=== PATIENT | male | born 1970 | race Caucasian/White ===

== ENCOUNTER 2017-10-28 04:50 | Emergency (ER) | payer OTHER, SELFPAY ==
[2017-10-28 04:51] VITALS: BP 206/110; PULSE 100; RESP 18; TEMP 36.6; O2SAT 99; BMI 32.2
--- NOTE | 2017-10-28 05:07 | CT_ITS ---
STUDY: CT ABDOMEN AND PELVIS WITH CONTRAST REASON FOR EXAM: Male, 46 years old. Back pain for 2 weeks. Right-sided abdominal pain. RADIATION DOSAGE (If Supplied By Facility): CTDIvol = ( 19.26 ) mGy, DLP = ( 1219.45 ) mGycm TECHNIQUE: Transaxial images were obtained from the dome of the diaphragm to the symphysis pubis without oral contrast. 100ml ml of Isovue 300 contrast was administered. Sagittal and coronal images were reconstructed. Individualized dose optimization techniques were used for this CT. COMPARISON: August 16, 2017. Right upper quadrant ultrasound October 07, 2017. FINDINGS: Calcified right lower lobe lung nodule. The visualized portions of the heart are within normal limits. Small hiatal hernia. Stable enhancing 1.6 cm nodule along the margin lateral segment left lobe of the liver unchanged very suggestive of a hemangioma, axial image 25 series 2. Evaluation of liver attenuation is limited without delayed contrast-enhanced images or noncontrast enhanced images Normal gallbladder and extrahepatic biliary system. There are multiple benign calcified granulomata of the spleen. Normal pancreas. Normal bilateral adrenal glands. Normal right kidney. Normal left kidney. Normal visualized stomach. Normal small intestine. Normal colon. There are surgical clips in the region of the appendix suggestive of prior appendectomy. There is atherosclerotic calcification of the abdominal aorta, without a demonstrated aneurysm. Normal inferior vena cava. Normal retroperitoneum. Normal urinary bladder. Prostate gland not enlarged. Vas deferens calcifications. Normal abdominal wall. Osseous structures are unremarkable. No severe spinal stenosis or neural foramina narrowing. CT/Abdomen/Pelvis WITH Contrast IMPRESSION: No acute findings in the abdomen or pelvis. Old granulomatous disease. Probable hemangioma left lobe of liver. This can be followed with ultrasound in 6 months. If a more definitive diagnosis is clinically warranted recommend either CT or MRI with contrast using hemangioma protocol. No findings to account for right-sided abdominal pain. No significant abnormalities in the lumbar spine. Electronically Signed: Ulises Butterfield MD at 6:41 EST , Service support ,
--- NOTE | 2017-10-28 05:09 | ED.VISSUMM ---
- ER Visit Summary Date of Service: 10/28/17 Chief Complaint: [Back pain right abdominal pain] History of Present Illness: The patient is a 46 M [who presents the emergency department with low back pain radiating into his tailbone. Started 2 weeks ago. It is continually getting worse. He states it radiates around to the right side. No fevers or chills. It is worse with movement. He rates it as severe. Additionally he states that he has had 2 days of black loose stool about 4 episodes yesterday and 5 episodes today. No lightheadedness or dizziness. No chest pain or shortness of breath. No fevers or chills. He does feel nauseated. He states that he does not have a doctor at this time. He does state that he is taking all his medications.] Physical Examination: [] Blood pressure 206/110 heart rate 100 respiratory rate 1899% on room air temperature 98?F WN WD NAD PERRL EOMI MMM NECK supple and nontender, no masses RRR no murmur rub or gallop, no peripheral edema, symmetric radial pulses CTAB no respiratory distress ABDOMEN is soft tenderness to palpation in the right upper and right lower quadrant, normal bowel sounds, no distension, no rebound or guarding Back is normal upon inspection but he has does have tenderness at L1 as well as L5-S1, he is neurovascularly intact with normal strength and sensation and no distal skin changes Rectal exam shows light brown stool there is no tenderness or masses there is no melena or blood SKIN is warm and dry no rashes Alert and Oriented x3, CN II-XII in tact, no motor or sensory deficits, gait normal No lymphadenopathy Test Results: [] Emergency Department Course and Treatment: [Patient has elevated blood sugar at 237. Creatinine is mildly elevated at 1.3 which is around the patient's baseline. Hemoccult for blood was negative. Urine was normal. CT of the abdomen and pelvis showed no acute process. He did have likely a hemangioma in the liver recommended 6 month follow-up. The patient's blood pressure improved to 176/90. He states that he is compliant with his lisinopril and HCTZ. I will add amlodipine 5 mg. He was given precautions for which to return. He continued to complain of pain after Toradol Phenergan and Benadryl. He does have a care plan here that suggests he should not have narcotics except for acute verifiable pain. He was given 1 pill with Tylenol with codeine. He was given precautions for which to return and encouraged to follow-up with a primary care physician] Treatment Plan: [] Disposition: [Discharge] Impression: [1. Acute on chronic back pain 2. Abdominal pain 3. Uncontrolled hypertension] This note was generated with [employer] dictation software. It may contain incorrect words, spelling, and punctuation that were not noted in review of the chart prior to signing ED Disposition - Plan for ED Patient: Chief Complaint: Back Referrals: Care Physician,No Primary [Primary Care Provider] -
[2017-10-28] MEDS: DiphenhydrAMINE 50 MG/ML Syringe 25 MG IV (05:17)
[2017-10-28 05:22] LABS: Absolute Neutrophil Count 2.8 X10^3/uL (2.0-7.7); Basophil# 0.03 X10^3/uL; Basophil% 0.6 % (0-1); Eosinophil# 0.12 X10^3/uL; Eosinophils% 2.6 % (0-5); Hematocrit 36.4 % (40-54); Hemoglobin 11.9 g/dl (13.0-16.5); Lymphocyte % 32.5 % (19-41); Mean Corp Hgb Conc 32.7 g/gl (32-36); Mean Corpuscular Volume 88.6 fL (80-94); Monocyte# 0.17 X10^3/uL; Monocyte% 3.7 % (0-10); Neutrophil # 2.79 X10^3/uL (2.7-7.7); Neutrophil % 60.4 % (47-70); Platelet Count 239 K/mm3 (150-450); RBC Distribution Width CV 15.4 % (11.6-14.6); RBC Distribution Width SD 49.6 fl (35.1-43.9); Red Blood Count 4.11 M/mm3 (4.6-6.2); White Blood Count 4.6 K/mm3 (4.4-11.0)
[2017-10-28] MEDS: Ketorolac 30 MG/ML Syringe 15 MG IV (05:26)
[2017-10-28 05:29] LABS: POSITIVE COUNT NO; POSITIVE DIFFERENTIAL NO; POSITIVE MORPHOLOGY NO
[2017-10-28 05:35] LABS: ALB/GLOB Ratio 0.8 RATIO (0.9-2.4); AST(SGOT) 8 U/L (15-37); Alanine Aminotransfer ALT/SGPT 22 U/L (16-61); Albumin, Serum 2.7 g/dL (3.2-5.0); Alkaline Phosphatase 54 U/L (45-117); Anion Gap 11 (5-15); BUN 16 mg/dL (7-18); BUN/Creat Ratio 12.1 RATIO (10-20); Calcium,Total 8.4 mg/dL (8.5-10.1); Chloride 106 mmol/L (98-107); Creatinine, Serum 1.32 mg/dL (0.70-1.30); EST Glomerular Filtration Rate 61 mL/min (>60); Est Glom Filt Rate - Afr Amer 74 mL/min (>60); Estimated Creatinine Clearance 72.89 ml/min; Globulin 3.5 g/dL (2.2-4.2); Glucose 237 mg/dL (74-106); Lipase 123 U/L (73-393); Potassium 3.5 mmol/L (3.5-5.1); Protein, Total 6.2 g/dL (6.4-8.2); Sodium Level 139 mmol/L (136-145)
[2017-10-28] MEDS: Labetalol 20 MG/4 ML Vial 10 MG IV (05:59)
[2017-10-28 06:12] VITALS: BP 178/91
[2017-10-28 06:12] LABS: Mucous, Urine 0 SEEN /hpf (<or=2+); Red Blood Cells-Urine 0 SEEN /hpf (0-5); White Blood Cells 0 SEEN /hpf (0-5)
[2017-10-28 06:16] LABS: Color, Urine Yellow (Yellow); Glucose, Dipstick 250 mg/dl (Normal); Ketone-Dipstick Negative (Negative); Leukocyte Esterase-Dipstick Negative /ul (Negative); Nitrite-Dipstick Negative (Negative); Occult Blood-Urine 25 /ul (Negative); Protein-Dipstick 500 mg/dl (Negative); Urine Bilirubin Dipstick Negative (Negative); Urine Clarity Clear (Clear); Urine Urobilinogen Normal (Normal)
[2017-10-28 06:35] LABS: Bacteria RARE /hpf (None Seen); Squamous Epithelial Cells - UA 0-5 SEEN /hpf (0-5)
[2017-10-28 06:40] VITALS: BP 176/90; PULSE 86; RESP 18; O2SAT 98
--- NOTE | 2017-10-28 07:02 | ED.DEP ---
ED Disposition - Plan for ED Patient: Chief Complaint: Back Instructions: ED Flank Pain Uncertain Cause, ED Hypertension Conf Out Of Control Prescriptions: Amlodipine [Norvasc] 5 mg PO DAILY #30 tablet Referrals: Isaac Bonilla MD [STAFF PHYSICIAN] - 3-5 Days
[2017-10-28] MEDS: Acetaminophen/Codeine #3 Tablet 1 TABLET PO (07:21)
[2017-10-28 07:24] VITALS: BP 177/100; PULSE 61; RESP 15; O2SAT 98
== END 2017-10-28 07:25 | disposition home or self-care (01) ==
PROVIDERS: Emergency Provider Emergency Medicine
DX: G89.29 Other chronic pain (principal); M54.9 Dorsalgia, unspecified; R10.9 Unspecified abdominal pain; I10 Essential (primary) hypertension; E66.9 Obesity, unspecified; R19.7 Diarrhea, unspecified; E11.9 Type 2 diabetes mellitus without complications; Z72.0 Tobacco use
CPT/HCPCS: 74177; 80053; 81001; 82274; 83690; 85025; 99285; Q9967; A4216

== ENCOUNTER 2018-02-04 18:01 | Emergency (ER) | payer MEDICAID, OTHER, SELFPAY ==
[2018-02-04 18:06] VITALS: BP 127/81; PULSE 92; RESP 22; O2SAT 98; BMI 28.5
--- NOTE | 2018-02-04 18:16 | RAD_ITS ---
STUDY: X-RAY CHEST REASON FOR EXAM: Male, 47 years old. Chest pain TECHNIQUE: Single AP portable view of the chest. COMPARISON: 01/17/2017 FINDINGS: The lungs are clear and expanded. There is no demonstrated pleural abnormality. Normal size heart. Normal mediastinum and [place]. Normal visualized pulmonary arteries. Normal visualized aortic arch and descending thoracic aorta. Normal visualized thoracic spine. Normal visualized ribs, clavicles, and shoulders. There is no demonstrated abnormality of the visualized soft tissue structures of the upper abdomen. RAD/Chest 1 View (Portable) IMPRESSION: Normal x-ray examination of the chest. Electronically Signed: Ludwig Gtz DO at 19:12 EDT Tel , Service support ,
--- NOTE | 2018-02-04 18:16 | EKG12_ITS ---
Test Reason : CP Blood Pressure : / mmHG Vent. Rate : 096 BPM Atrial Rate : 096 BPM P-R Int : 140 ms QRS Dur : 088 ms QT Int : 346 ms P-R-T Axes : 073 036 077 degrees QTc Int : 437 ms Normal sinus rhythm Normal ECG When compared with ECG of 24-DEC-2015 15:56, No significant change was found Confirmed by CJ ROGER, LOU ([id number]), editor producer ARLETH BRIDGES ([id number]) on 02/09/2018 3:25:46 PM Referred By: DENNIS Confirmed By:LOU CORONA MD
[2018-02-04 18:29] VITALS: O2SAT 100
[2018-02-04 18:36] LABS: Absolute Lymphocyte Count 1.77 X10^3/ul (0.83-4.51); Basophil# 0.04 X10^3/uL; Basophil% 0.6 % (0-1); Eosinophil# 0.17 X10^3/uL; Eosinophils% 2.7 % (0-5); Hematocrit 34.2 % (40-54); Hemoglobin 11.9 g/dl (13.0-16.5); Lymphocyte # 1.77 X10^3/ul (4.0); Lymphocyte % 28.5 % (19-41); Mean Corp Hgb Conc 34.8 g/gl (32-36); Mean Corpuscular Hgb 32.4 pg (27.0-32.0); Mean Corpuscular Volume 93.2 fL (80-94); Monocyte# 0.24 X10^3/uL; Monocyte% 3.9 % (0-10); Neutrophil # 3.99 X10^3/uL (2.7-7.7); Neutrophil % 64.1 % (47-70); Platelet Count 247 K/mm3 (150-450); RBC Distribution Width CV 12.7 % (11.6-14.6); RBC Distribution Width SD 42.9 fl (35.1-43.9); Red Blood Count 3.67 M/mm3 (4.6-6.2); White Blood Count 6.2 K/mm3 (4.4-11.0)
[2018-02-04 18:43] LABS: POSITIVE COUNT NO; POSITIVE DIFFERENTIAL NO; POSITIVE MORPHOLOGY NO
[2018-02-04] MEDS: Ondansetron 4 MG/2 ML Vial IV (19:03)
[2018-02-04] MEDS: Morphine 4 MG/ML Syringe 6 MG IV (19:13)
[2018-02-04 19:35] LABS: Lipase 450 U/L (73-393)
[2018-02-04 19:36] LABS: Anion Gap 10 (5-15); BUN 15 mg/dL (7-18); BUN/Creat Ratio 11.7 RATIO (10-20); Calcium,Total 8.1 mg/dL (8.5-10.1); Chloride 106 mmol/L (98-107); Creatinine, Serum 1.28 mg/dL (0.70-1.30); EST Glomerular Filtration Rate 63 mL/min (>60); Est Glom Filt Rate - Afr Amer 77 mL/min (>60); Estimated Creatinine Clearance 74.35 ml/min; Glucose 200 mg/dL (74-106); Potassium 3.7 mmol/L (3.5-5.1); Sodium Level 142 mmol/L (136-145)
[2018-02-04 19:57] LABS: AST(SGOT) 17 U/L (15-37); Alanine Aminotransfer ALT/SGPT 22 U/L (16-61); Albumin, Serum 3.1 g/dL (3.2-5.0); Alkaline Phosphatase 50 U/L (45-117); Bilirubin, Direct < 0.05 mg/dL (0.00-0.30); Globulin 3.1 g/dL (2.2-4.2); Protein, Total 6.2 g/dL (6.4-8.2)
[2018-02-04 20:06] VITALS: BP 166/84; PULSE 81; RESP 16; O2SAT 100
--- NOTE | 2018-02-04 20:07 | ED.DEP ---
ED Disposition - Plan for ED Patient: Disposition: Home or Assisted Living Chief Complaint: Chest Pain Instructions: ED Abdominal Pain Unkn Cause Prescriptions: Hydrocodone/Acetaminophen [[place] 5-325 Tablet] 1 ea PO Q4H PRN PRN #10 tab PRN Reason: Pain Referrals: John Jacome MD [Primary Care Provider] - 1-2 Days if not improving Additional Instructions: Follow up with your Dr. Return if feeling worse or unable to hold fluids down [place] for pain
[2018-02-04] MEDS: HYDROcodone Bitartrate/Apap 5/325 Tablet PO (20:13)
--- NOTE | 2018-02-04 20:14 | DCINST.ED_ITS ---
ED Disposition - Plan for ED Patient: Disposition: Home or Assisted Living Chief Complaint: Chest Pain Instructions: ED Abdominal Pain Unkn Cause Prescriptions: Hydrocodone/Acetaminophen [[place] 5-325 Tablet] 1 ea PO Q4H PRN PRN #10 tab PRN Reason: Pain Referrals: John Jacome MD [Primary Care Provider] - 1-2 Days if not improving Additional Instructions: Follow up with your Dr. Return if feeling worse or unable to hold fluids down [place] for pain
[2018-02-04 20:18] VITALS: BP 166/84; PULSE 81; RESP 16; O2SAT 99
--- NOTE | 2018-02-05 00:07 | ED.VISSUMM ---
- ER Visit Summary Date of Service: 02/05/18 Chief Complaint: Chest pain History of Present Illness: The patient is a 47 M without any significant prior cardiac history. He does have a history of diabetes, hypertension, elevated cholesterol and COPD PD. He states he has had pancreatitis before. Patient states he has had epigastric abdominal and lower chest pain that started earlier today. Associated nausea and vomiting ?5. He denies any hematemesis or melena. No fever. He has never had a DVT or PE. He denies any recent travel, surgery, mobilization or any calf or leg pain or swelling. He believes this is his pancreatitis. Physical Examination: Middle-aged male. Vital signs are stable. He does not look septic or toxic. HEENT exam unremarkable moist wheeze members. Neck nontender. Lungs clear to auscultation bilaterally. Heart regular rate and rhythm no murmur. Abdomen soft with mild epigastric tenderness. No rebound, guarding or rigidity. No right upper or right lower quadrant tenderness. No Gomez sign or McBurney's point tenderness. No hernias or masses no signs of obstruction. No distention. Moving all 4 extremities. Neurovascular intact. Calves nontender no edema nor cords. Test Results: CBC showed chronic anemia with a hemoglobin 11. Normal white count. BMP unremarkable glucose 200. Normal creatinine and gap. Liver enzymes normal. Lipase above normal at 450. He has had other lipase is at high before. Troponin normal. EKG sinus rhythm rate of 96 with no acute signs of [place] or ischemia. Chest x-ray chronic changes no acute process read both by myself and radiologist. Emergency Department Course and Treatment: Patient was brought in by squad. The squad gave him sublingual nitro and aspirin which he said gave him little no relief. He was treated in the emergency department morphine and Zofran and feels and looks much better on repeat exam in 2011. Abdomen is benign and there are no pulsatile masses or peritoneal signs. He has equal and symmetrical femoral pulses. Treatment Plan: Discharge. Disposition: Discharge Impression: Acute epigastric abdominal pain uncertain etiology. History of pancreatitis This note was generated with [employer] dictation software. It may contain incorrect words, spelling, and punctuation that were not noted in review of the chart prior to signing ED Disposition - Plan for ED Patient: Disposition: Home or Assisted Living Chief Complaint: Chest Pain Instructions: ED Abdominal Pain Unkn Cause Prescriptions: Hydrocodone/Acetaminophen [[place] 5-325 Tablet] 1 ea PO Q4H PRN PRN #10 tab PRN Reason: Pain Referrals: John Jacome MD [Primary Care Provider] - 1-2 Days if not improving Additional Instructions: Follow up with your Dr. Return if feeling worse or unable to hold fluids down [place] for pain
--- NOTE | 2018-02-05 00:11 | ED.DCSUM_ITS ---
- ER Visit Summary Date of Service: 02/05/18 Chief Complaint: Chest pain History of Present Illness: The patient is a 47 M without any significant prior cardiac history. He does have a history of diabetes, hypertension, elevated cholesterol and COPD PD. He states he has had pancreatitis before. Patient states he has had epigastric abdominal and lower chest pain that started earlier today. Associated nausea and vomiting ?5. He denies any hematemesis or melena. No fever. He has never had a DVT or PE. He denies any recent travel, surgery, mobilization or any calf or leg pain or swelling. He believes this is his pancreatitis. Physical Examination: Middle-aged male. Vital signs are stable. He does not look septic or toxic. HEENT exam unremarkable moist wheeze members. Neck nontender. Lungs clear to auscultation bilaterally. Heart regular rate and rhythm no murmur. Abdomen soft with mild epigastric tenderness. No rebound, guarding or rigidity. No right upper or right lower quadrant tenderness. No Gomez sign or McBurney's point tenderness. No hernias or masses no signs of obstruction. No distention. Moving all 4 extremities. Neurovascular intact. Calves nontender no edema nor cords. Test Results: CBC showed chronic anemia with a hemoglobin 11. Normal white count. BMP unremarkable glucose 200. Normal creatinine and gap. Liver enzymes normal. Lipase above normal at 450. He has had other lipase is at high before. Troponin normal. EKG sinus rhythm rate of 96 with no acute signs of [place] or ischemia. Chest x-ray chronic changes no acute process read both by myself and radiologist. Emergency Department Course and Treatment: Patient was brought in by squad. The squad gave him sublingual nitro and aspirin which he said gave him little no relief. He was treated in the emergency department morphine and Zofran and feels and looks much better on repeat exam in 2011. Abdomen is benign and there are no pulsatile masses or peritoneal signs. He has equal and symmetrical femoral pulses. Treatment Plan: Discharge. Disposition: Discharge Impression: Acute epigastric abdominal pain uncertain etiology. History of pancreatitis This note was generated with [employer] dictation software. It may contain incorrect words, spelling, and punctuation that were not noted in review of the chart prior to signing ED Disposition - Plan for ED Patient: Disposition: Home or Assisted Living Chief Complaint: Chest Pain Instructions: ED Abdominal Pain Unkn Cause Prescriptions: Hydrocodone/Acetaminophen [[place] 5-325 Tablet] 1 ea PO Q4H PRN PRN #10 tab PRN Reason: Pain Referrals: John Jacome MD [Primary Care Provider] - 1-2 Days if not improving Additional Instructions: Follow up with your Dr. Return if feeling worse or unable to hold fluids down [place] for pain
== END 2018-02-04 20:20 | disposition home or self-care (01) ==
PROVIDERS: Emergency Provider Emergency Medicine; Family Provider Internal Medicine; PCP Internal Medicine
DX: R07.9 Chest pain, unspecified (principal); R10.13 Epigastric pain; Z87.19 Personal history of other diseases of the digestive system; E11.9 Type 2 diabetes mellitus without complications; I10 Essential (primary) hypertension; E78.00 Pure hypercholesterolemia, unspecified; J44.9 Chronic obstructive pulmonary disease, unspecified; I25.10 Atherosclerotic heart disease of native coronary artery without angina pectoris; Z72.0 Tobacco use
CPT/HCPCS: 71045; 80048; 80076; 83690; 84484; 85025; 93005; 99285; J2405

== ENCOUNTER 2018-04-26 21:22 | Emergency (ER) | payer MEDICAID, SELFPAY ==
[2018-04-26 21:22] VITALS: BP 155/86; PULSE 98; RESP 20; TEMP 37; O2SAT 97; BMI 32.3
[2018-04-26] MEDS: 0.9% Normal Saline 1,000 ML 1000 ML IV (22:18)
[2018-04-26] MEDS: Morphine 4 MG/ML Syringe IV (22:18)
[2018-04-26] MEDS: Ondansetron 4 MG/2 ML Vial IV (22:18)
[2018-04-26 22:19] LABS: Absolute Neutrophil Count 3.9 X10^3/uL (2.0-7.7); Basophil# 0.03 X10^3/uL; Basophil% 0.5 % (0-1); Eosinophil# 0.24 X10^3/uL; Eosinophils% 3.7 % (0-5); Hemoglobin 12.3 g/dl (13.0-16.5); Lymphocyte % 29.5 % (19-41); Mean Corp Hgb Conc 35.1 g/gl (32-36); Mean Corpuscular Hgb 32.2 pg (27.0-32.0); Mean Corpuscular Volume 91.6 fL (80-94); Mean Platelet Vol. 9.5 fl (6.2-12.0); Monocyte# 0.37 X10^3/uL; Monocyte% 5.8 % (0-10); Neutrophil # 3.88 X10^3/uL (2.7-7.7); Neutrophil % 60.3 % (47-70); Platelet Count 259 K/mm3 (150-450); RBC Distribution Width CV 12.3 % (11.6-14.6); RBC Distribution Width SD 40.2 fl (35.1-43.9); Red Blood Count 3.82 M/mm3 (4.6-6.2); White Blood Count 6.4 K/mm3 (4.4-11.0)
[2018-04-26 22:20] LABS: POSITIVE COUNT NO; POSITIVE DIFFERENTIAL NO; POSITIVE MORPHOLOGY NO
[2018-04-26 22:36] LABS: AST(SGOT) 27 U/L (15-37); Alanine Aminotransfer ALT/SGPT 32 U/L (16-61); Albumin, Serum 3.5 g/dL (3.2-5.0); Alkaline Phosphatase 46 U/L (45-117); Anion Gap 7 (5-15); BUN 22 mg/dL (7-18); BUN/Creat Ratio 10.9 RATIO (10-20); Calcium,Total 8.7 mg/dL (8.5-10.1); Chloride 108 mmol/L (98-107); Creatinine, Serum 2.01 mg/dL (0.70-1.30); EST Glomerular Filtration Rate 38 mL/min (>60); Est Glom Filt Rate - Afr Amer 46 mL/min (>60); Estimated Creatinine Clearance 47.35 ml/min; Globulin 3.6 g/dL (2.2-4.2); Glucose 175 mg/dL (74-106); Lipase 208 U/L (73-393); Potassium 4.5 mmol/L (3.5-5.1); Protein, Total 7.1 g/dL (6.4-8.2); Sodium Level 141 mmol/L (136-145)
--- NOTE | 2018-04-26 23:00 | ED.VISSUMM ---
- ER Visit Summary Date of Service: 04/26/18 Chief Complaint: Epigastric pain. History of Present Illness: The patient is a 47 M with chronic pancreatitis presents with similar symptoms today. He has had some nausea and vomiting. No fever or chills. The pain does radiate to his back. He has no lower abdominal pain no chest pain shortness of breath. The pain is moderate and achy. Physical Examination: Not appear in acute distress. Moist mucous membranes, no obvious facial deformity No C-spine tenderness supple neck. Regular rate and rhythm without any obvious murmurs Clear lungs bilaterally speaking in full sentences without any obvious respiratory distress Abdomen soft and tender in the epigastrium no guarding or rebound Moves all extremities without any difficulty or pain. Skin does not show any obvious rashes or lesions, no trauma. Alert oriented ?3 with no gross focal deficit Emergency Department Course and Treatment: [Patient has a normal lipase. He received IV fluids antiemetics and analgesia he will be discharged in stable condition with reassurance.] Impression: [Chronic pancreatitis] This note was generated with [employer] dictation software. It may contain incorrect words, spelling, and punctuation that were not noted in review of the chart prior to signing ED Disposition - Plan for ED Patient: Disposition: Home or Assisted Living Chief Complaint: Abd Pain Instructions: ED Abdominal Pain Unkn Cause Prescriptions: Ondansetron [Zofran Odt] 4 mg PO Q8H PRN PRN #10 tab PRN Reason: Nausea Referrals: John Jacome MD [Primary Care Provider] - 3-5 Days
[2018-04-26] MEDS: oxyCODONE 5 MG Tablet PO (23:22)
[2018-04-26 23:27] VITALS: PULSE 72; RESP 16; O2SAT 97
== END 2018-04-26 23:27 | disposition home or self-care (01) ==
PROVIDERS: Emergency Provider Emergency Medicine; Family Provider Internal Medicine; PCP Internal Medicine
DX: K86.1 Other chronic pancreatitis (principal); E11.9 Type 2 diabetes mellitus without complications; E78.00 Pure hypercholesterolemia, unspecified; Z72.0 Tobacco use
CPT/HCPCS: 80053; 83690; 85025; 99285; J2405

== ENCOUNTER 2018-05-26 20:27 | Emergency (ER) | payer OTHER, SELFPAY ==
[2018-05-26 20:28] VITALS: BP 162/74; PULSE 99; RESP 15; TEMP 37; O2SAT 97; BMI 29.9
[2018-05-26 21:56] LABS: Absolute Lymphocyte Count 1.76 X10^3/ul (0.83-4.51); Absolute Neutrophil Count 2.8 X10^3/uL (2.0-7.7); Anion Gap 9 (5-15); BUN 20 mg/dL (7-18); BUN/Creat Ratio 11.6 RATIO (10-20); Basophil# 0.04 X10^3/uL; Basophil% 0.8 % (0-1); Calcium,Total 8.3 mg/dL (8.5-10.1); Chloride 108 mmol/L (98-107); Creatinine, Serum 1.72 mg/dL (0.70-1.30); EST Glomerular Filtration Rate 45 mL/min (>60); Eosinophil# 0.14 X10^3/uL; Eosinophils% 2.8 % (0-5); Est Glom Filt Rate - Afr Amer 55 mL/min (>60); Estimated Creatinine Clearance 55.33 ml/min; Glucose 264 mg/dL (74-106); Hematocrit 37.5 % (40-54); Hemoglobin 12.4 g/dl (13.0-16.5); Lymphocyte # 1.76 X10^3/ul (4.0); Lymphocyte % 35.8 % (19-41); Mean Corp Hgb Conc 33.1 g/gl (32-36); Mean Corpuscular Hgb 30.3 pg (27.0-32.0); Mean Corpuscular Volume 91.7 fL (80-94); Monocyte% 4.1 % (0-10); Neutrophil # 2.77 X10^3/uL (2.7-7.7); Neutrophil % 56.3 % (47-70); Platelet Count 259 K/mm3 (150-450); RBC Distribution Width CV 12.8 % (11.6-14.6); RBC Distribution Width SD 42.5 fl (35.1-43.9); Red Blood Count 4.09 M/mm3 (4.6-6.2); Sodium Level 138 mmol/L (136-145); White Blood Count 4.9 K/mm3 (4.4-11.0)
[2018-05-26 22:05] LABS: POSITIVE COUNT NO; POSITIVE DIFFERENTIAL NO; POSITIVE MORPHOLOGY NO
[2018-05-26] MEDS: 0.9% Normal Saline 1,000 ML 999 ML IV (23:04)
[2018-05-26] MEDS: HYDROmorphone 1 MG/ML Syringe IV (23:12)
[2018-05-26] MEDS: Ondansetron 4 MG/2 ML Vial IV (23:12)
[2018-05-26 23:21] VITALS: BP 186/79; PULSE 82; RESP 18; O2SAT 99
[2018-05-26 23:31] LABS: Lipase 283 U/L (73-393)
[2018-05-26 23:53] LABS: AST(SGOT) 23 U/L (15-37); Alanine Aminotransfer ALT/SGPT 32 U/L (16-61); Albumin, Serum 3.3 g/dL (3.2-5.0); Alkaline Phosphatase 45 U/L (45-117); Bilirubin, Direct < 0.05 mg/dL (0.00-0.30); Globulin 3.3 g/dL (2.2-4.2); Protein, Total 6.6 g/dL (6.4-8.2)
[2018-05-27 00:09] LABS: Bacteria 0 SEEN /hpf (None Seen); Mucous, Urine 0 SEEN /hpf (<or=2+); Squamous Epithelial Cells - UA 0 SEEN /hpf (0-5); White Blood Cells 0 SEEN /hpf (0-5)
[2018-05-27 00:16] LABS: Color, Urine Yellow (Yellow); Glucose, Dipstick 100 mg/dl (Normal); Ketone-Dipstick Negative (Negative); Leukocyte Esterase-Dipstick Negative /ul (Negative); Nitrite-Dipstick Negative (Negative); Occult Blood-Urine 25 /ul (Negative); Protein-Dipstick 500 mg/dl (Negative); Specific Gravity, Urine 1.015 (1.002-1.030); Urine Bilirubin Dipstick Negative (Negative); Urine Clarity Clear (Clear); Urine Urobilinogen Normal (Normal)
[2018-05-27 00:27] LABS: Red Blood Cells-Urine 0-5 SEEN /hpf (0-5)
--- NOTE | 2018-05-27 00:50 | ED.VISSUMM ---
- ER Visit Summary Date of Service: 05/27/18 Chief Complaint: [[place] pain] History of Present Illness: The patient is a 47 M [presents the emergency department complaint of abdominal pain and vomiting. Patient states he has been sick for the last 2 days. Patient's had some diarrhea off and on. Patient describes epigastric abdominal pain and thinks it is similar to his pain related to pancreatitis. Patient states that he has a history of chronic pancreatitis. Patient rates his pain an 8 out of 10 on arrival. He denies any fevers.] Patient has history of diabetes, hypertension, and high cholesterol. Patient has had an appendectomy. Patient denies urinary symptoms. Physical Examination: [HEENT-PERRLA, EOMI. Cranial nerves II through XII grossly intact. TMs clear. Mucous membranes moist. No adenopathy. Cardiovascular-regular rate and rhythm without murmur or ectopy Lungs-clear to auscultation, chest wall stable without crepitus or subcu emphysema Abdomen-normoactive bowel sounds, soft. Patient has tenderness over the epigastric region with some guarding. There is no rebound, rigidity, or perineal signs. Extremities-intact ?4, normal range of motion, normal pulses, atraumatic] Test Results: [CBC with differential obtained showed a white blood cell count of 4.9, hemoglobin 12, hematocrit 37, platelets 259. Chemistries unremarkable. Glucose was 264. BUN was 20 and creatinine was 1.72. Lipase was normal at 283. LFTs were normal. Urinalysis was normal. Without evidence for ketones.] Emergency Department Course and Treatment: Patient had an IV line established. Patient was medicated with Dilaudid 1 mg IV and Zofran 4 mg IV. Treatment Plan: [Patient will be given a prescription for [place] for pain and he has Phenergan at home for nausea.] Disposition: [Discharged home in stable condition] Impression: [Abdominal pain-suspect chronic pancreatitis] This note was generated with [employer] dictation software. It may contain incorrect words, spelling, and punctuation that were not noted in review of the chart prior to signing ED Disposition - Plan for ED Patient: Chief Complaint: Abd Pain Referrals: John Jacome MD [Primary Care Provider] -
--- NOTE | 2018-05-27 00:54 | ED.DEP ---
ED Disposition - Plan for ED Patient: Chief Complaint: Abd Pain Instructions: ED Abdominal Pain Unkn Cause Prescriptions: Hydrocodone Bitart/Apap 5-325 [[place] 5MG-325MG] 1 tab PO Q4H PRN PRN 2 Days #10 tab PRN Reason: Pain Referrals: John Jacome MD [Primary Care Provider] - 3-5 Days
[2018-05-27] MEDS: HYDROcodone Bitartrate/Apap 5/325 Tablet PO (01:05)
[2018-05-27 01:09] VITALS: BP 157/79; PULSE 78; RESP 16; O2SAT 97
== END 2018-05-27 01:12 | disposition home or self-care (01) ==
PROVIDERS: Emergency Provider Emergency Medicine; Family Provider Internal Medicine; PCP Internal Medicine
DX: R10.13 Epigastric pain (principal); R11.2 Nausea with vomiting, unspecified; E11.9 Type 2 diabetes mellitus without complications; I10 Essential (primary) hypertension; E78.00 Pure hypercholesterolemia, unspecified; Z87.19 Personal history of other diseases of the digestive system; Z90.49 Acquired absence of other specified parts of digestive tract; Z79.4 Long term (current) use of insulin; Z79.82 Long term (current) use of aspirin; Z79.899 Other long term (current) drug therapy; Z72.0 Tobacco use
CPT/HCPCS: 80048; 80076; 81001; 83690; 85025; 96361; 96374; 96375; 99285; J7030; A4216; J2405

== ENCOUNTER 2018-08-09 19:03 | Emergency (ER) | payer OTHER, SELFPAY ==
[2018-08-09 19:03] VITALS: BMI 32.2
[2018-08-09 19:04] VITALS: BP 157/81; PULSE 76; RESP 20; TEMP 36.7; O2SAT 100; BMI 33.7
[2018-08-09] MEDS: 0.9% Normal Saline 1,000 ML 1000 ML IV (19:35)
[2018-08-09] MEDS: HYDROmorphone 1 MG/ML Syringe 0.5 MG IV (19:35)
[2018-08-09] MEDS: Ondansetron 4 MG/2 ML Vial IV (19:35)
[2018-08-09 19:53] LABS: Absolute Lymphocyte Count 1.69 X10^3/ul (0.83-4.51); Absolute Neutrophil Count 3.6 X10^3/uL (2.0-7.7); Basophil# 0.03 X10^3/uL; Basophil% 0.5 % (0-1); Eosinophil# 0.08 X10^3/uL; Eosinophils% 1.4 % (0-5); Hematocrit 32.1 % (40-54); Hemoglobin 10.9 g/dl (13.0-16.5); Lymphocyte # 1.69 X10^3/ul (4.0); Lymphocyte % 29.4 % (19-41); Mean Corpuscular Volume 91.2 fL (80-94); Mean Platelet Vol. 10.2 fl (6.2-12.0); Monocyte% 5.2 % (0-10); Neutrophil # 3.63 X10^3/uL (2.7-7.7); Neutrophil % 63.3 % (47-70); Platelet Count 276 K/mm3 (150-450); RBC Distribution Width CV 12.7 % (11.6-14.6); RBC Distribution Width SD 41.2 fl (35.1-43.9); Red Blood Count 3.52 M/mm3 (4.6-6.2); White Blood Count 5.7 K/mm3 (4.4-11.0)
[2018-08-09 19:58] LABS: POSITIVE COUNT NO; POSITIVE DIFFERENTIAL NO; POSITIVE MORPHOLOGY NO
[2018-08-09 20:01] LABS: AST(SGOT) 77 U/L (15-37); Alanine Aminotransfer ALT/SGPT 80 U/L (16-61); Albumin, Serum 3.7 g/dL (3.2-5.0); Alkaline Phosphatase 42 U/L (45-117); Anion Gap 8 (5-15); BUN 32 mg/dL (7-18); BUN/Creat Ratio 13.7 RATIO (10-20); Bilirubin, Direct 0.14 mg/dL (0.00-0.30); Calcium,Total 8.1 mg/dL (8.5-10.1); Chloride 107 mmol/L (98-107); Creatinine, Serum 2.34 mg/dL (0.70-1.30); EST Glomerular Filtration Rate 32 mL/min (>60); Est Glom Filt Rate - Afr Amer 38 mL/min (>60); Estimated Creatinine Clearance 40.67 ml/min; Globulin 3.1 g/dL (2.2-4.2); Glucose 169 mg/dL (74-106); Lipase 165 U/L (73-393); Potassium 4.5 mmol/L (3.5-5.1); Protein, Total 6.8 g/dL (6.4-8.2); Sodium Level 137 mmol/L (136-145)
[2018-08-09] MEDS: HYDROmorphone 1 MG/ML Syringe IV (21:00)
--- NOTE | 2018-08-09 21:30 | ED.DCSUM_ITS ---
- ER Visit Summary Date of Service: 08/09/18 Chief Complaint: Abdominal pain, nausea, vomiting History of Present Illness: The patient is a 47 M with sudden onset epigastric pain with nausea and vomiting. Patient has history of chronic pancreatitis with similar flares, but states symptoms have been under good control for the last several months. He denies fever or chills. Physical Examination: Blood pressure is 157/81, otherwise vitals normal. Patient is doing upright in bed. He is appears uncomfortable but no acute distress. Head neck examination is unremarkable. Heart is regular rate and rhythm. Lung sounds are clear. Abdomen is soft with tenderness in the left upper quadrant. No guarding or rebound. Hypoactive bowel sounds are present throughout all 4 quadrants. Test Results: CBC was normal white count hemoglobin 10.9. Chemistry studies reveal BUN of 32 and creatinine of 2.34. This is slightly worse than his baseline. LFTs are significant for an AST is 77 and ALT of 80. Lipase is normal. Emergency Department Course and Treatment: Patient is given Dilaudid, Zofran, and IV fluids. On repeat evaluation patient's resting calmly. He was given ice chips. I did hang a second liter of fluid due to his bump in creatinine, but patient states that he has a well, does not want to wait for this infusion. He will be discharged with a prescription for Phenergan and a short course of [place]. He is given a note to return to work tomorrow. Treatment Plan: [] Disposition: Discharge Impression: 1. Epigastric pain 2. Vomiting, improved This note was generated with [employer] dictation software. It may contain incorrect words, spelling, and punctuation that were not noted in review of the chart prior to signing ED Disposition - Plan for ED Patient: Chief Complaint: Abd Pain Referrals: John Jacome MD [Primary Care Provider] -
[2018-08-09] MEDS: 0.9% Normal Saline 1,000 ML 999 ML IV (21:38)
[2018-08-09 21:43] VITALS: BP 129/74; PULSE 72
--- NOTE | 2018-08-09 21:51 | DCINST.ED_ITS ---
ED Disposition - Plan for ED Patient: Disposition: Home or Assisted Living Chief Complaint: Abd Pain Instructions: ED Epigastric Pain [facility] Prescriptions: Hydrocodone Bitart/[place]ap 5-325 [[place] 5MG-325MG] 1 tablet PO Q4H PRN PRN 2 Days #10 tablet PRN Reason: Pain Ondansetron [Zofran Odt] 4 mg PO Q8H PRN PRN #10 tablet PRN Reason: Nausea Referrals: John Jacome MD [Primary Care Provider] - 3-5 Days if not improving
== END 2018-08-09 22:05 | disposition home or self-care (01) ==
PROVIDERS: Emergency Provider Emergency Medicine; Family Provider Internal Medicine; PCP Internal Medicine
DX: R10.13 Epigastric pain (principal); R11.2 Nausea with vomiting, unspecified; E11.9 Type 2 diabetes mellitus without complications; I10 Essential (primary) hypertension; E78.00 Pure hypercholesterolemia, unspecified; Z72.0 Tobacco use; K86.1 Other chronic pancreatitis
CPT/HCPCS: 80048; 80076; 83690; 85025; 96361; 96374; 96375; 96376; 99283; J7030; A4216; J2405

== ENCOUNTER 2018-08-30 18:50 | Emergency (ER) | payer MEDICAID, SELFPAY ==
[2018-08-30 18:52] VITALS: BP 166/78; PULSE 82; RESP 16; TEMP 36.6; O2SAT 99; BMI 33.5
[2018-08-30] MEDS: morphine 8 MG/ML Syringe IV (19:10)
[2018-08-30] MEDS: 0.9% Normal Saline 1,000 ML 1000 ML IV (19:10)
[2018-08-30] MEDS: Ondansetron 4 MG/2 ML Vial IV (19:10)
[2018-08-30 19:15] LABS: Bacteria 0 SEEN /hpf (None Seen); Mucous, Urine 0 SEEN /hpf (<or=2+); Squamous Epithelial Cells - UA 0 SEEN /hpf (0-5)
--- NOTE | 2018-08-30 19:16 | CT_ITS ---
STUDY: CT ABDOMEN AND PELVIS WITHOUT CONTRAST REASON FOR EXAM: Male, 47 years old. Abdominal pain. RADIATION DOSAGE (If Supplied By Facility): CTDIvol = ( 14.71 ) mGy, DLP = ( 801.10 ) mGycm TECHNIQUE: Transaxial images were obtained from the dome of the diaphragm to the symphysis pubis without oral contrast, and without intravenous contrast. Sagittal and coronal images were reconstructed. Individualized dose optimization techniques were used for this CT. COMPARISON: January 16, 2015 and October 28, 2017 FINDINGS: There are stable bilateral pulmonary nodules that are predominantly calcified consistent with underlying granulomas. The visualized portions of the heart are within normal limits. There is a stable 1.4 cm round low-attenuation focus within the left hepatic lobe that likely reflects an underlying hemangioma. Normal gallbladder and extrahepatic biliary system. There are splenic granulomas. Normal pancreas. Normal bilateral adrenal glands. Normal right kidney. Normal left kidney. Normal visualized stomach. Normal small intestine. There are diverticula within the sigmoid colon. There are surgical clips in the region of the appendix consistent with a prior appendectomy. There is diffuse atherosclerotic calcification of the abdominal aorta, without a demonstrated aneurysm. Normal inferior vena cava. Normal retroperitoneum. Normal urinary bladder. Normal abdominal wall. There are diffuse degenerative changes of the visualized lumbar spine. CT/Abdomen/Pelvis without Cont IMPRESSION: No acute intra-abdominal process. Evidence of prior granulomatous disease. Atherosclerosis. Electronically Signed: Esperanza Richardson MD at 19:47 EST Tel , Service support ,
[2018-08-30 19:17] LABS: Absolute Lymphocyte Count 1.45 X10^3/ul (0.83-4.51); Absolute Neutrophil Count 3.1 X10^3/uL (2.0-7.7); Basophil# 0.03 X10^3/uL; Basophil% 0.6 % (0-1); Eosinophil# 0.12 X10^3/uL; Eosinophils% 2.4 % (0-5); Hematocrit 32.1 % (40-54); Lymphocyte # 1.45 X10^3/ul (4.0); Lymphocyte % 29.6 % (19-41); Mean Corp Hgb Conc 34.3 g/gl (32-36); Mean Corpuscular Hgb 31.6 pg (27.0-32.0); Mean Corpuscular Volume 92.2 fL (80-94); Mean Platelet Vol. 10.3 fl (6.2-12.0); Monocyte# 0.24 X10^3/uL; Monocyte% 4.9 % (0-10); Neutrophil # 3.06 X10^3/uL (2.7-7.7); Neutrophil % 62.5 % (47-70); Platelet Count 262 K/mm3 (150-450); RBC Distribution Width CV 12.6 % (11.6-14.6); RBC Distribution Width SD 41.4 fl (35.1-43.9); Red Blood Count 3.48 M/mm3 (4.6-6.2); White Blood Count 4.9 K/mm3 (4.4-11.0)
--- NOTE | 2018-08-30 19:19 | ED.VISSUMM ---
- ER Visit Summary Date of Service: 08/30/18 Chief Complaint: [] Left side abdominal pain history of pancreatitis History of Present Illness: The patient is a 47 M [] diabetes high cholesterol pancreatitis he began having typical exacerbation of left-sided abdominal pain he reports that his pancreatitis today he vomited multiple times he did not eat or drink that could have made him ill this is a typical pattern where he suddenly develops left upper abdominal pain begins to vomit he has not been around anyone who made him ill no sick contacts or food his bowel and bladder habits have been normal no fever or cough, has been seen by GI for this condition and he is indicates his symptoms are related to high cholesterol and diabetes Physical Examination: [] 166/78 82 afebrile General, no distress resting comfortably HEENT is generally unremarkable The neck is supple no adenopathy Cardiovascular, regular rate and rhythm Lungs, clear bilateral Abdomen, soft nontender injectable he complains of pain to the left side of the abdomen no rebound guarding organomegaly Extremities, no clubbing cyanosis or edema Neurologic, awake alert answering questions appropriately moving all 4 extremities he has had this multiple times he gets almost monthly by his reports nothing caused it today which is the typical pattern he will receive pain management IV fluid screening labs and CT Test Results: [] Emergency Department Course and Treatment: [] Patient's labs and CT are generally unremarkable for him his creatinine 1.9 this is near baseline it actually bounces around quite a bit he has been medicated he understands all the above he feels well for discharge home bland diet he will follow-up with his physicians and return for change in symptoms again this is an acute recurrent processes had he knows how to manage it and he will return for change in symptoms Treatment Plan: [] Disposition: [] Home stable Impression: [] Acute recurrent abdominal pain This note was generated with [employer] dictation software. It may contain incorrect words, spelling, and punctuation that were not noted in review of the chart prior to signing ED Disposition - Plan for ED Patient: Chief Complaint: Abd Pain Referrals: John Jacome MD [Primary Care Provider] -
[2018-08-30 19:24] LABS: POSITIVE COUNT NO; POSITIVE DIFFERENTIAL NO; POSITIVE MORPHOLOGY NO
[2018-08-30 19:33] LABS: AST(SGOT) 56 U/L (15-37); Alanine Aminotransfer ALT/SGPT 60 U/L (16-61); Albumin, Serum 3.5 g/dL (3.2-5.0); Alkaline Phosphatase 48 U/L (45-117); Anion Gap 5 (5-15); BUN 32 mg/dL (7-18); BUN/Creat Ratio 16.8 RATIO (10-20); Bilirubin, Direct 0.07 mg/dL (0.00-0.30); Calcium,Total 8.1 mg/dL (8.5-10.1); Chloride 108 mmol/L (98-107); EST Glomerular Filtration Rate 40 mL/min (>60); Est Glom Filt Rate - Afr Amer 49 mL/min (>60); Estimated Creatinine Clearance 50.09 ml/min; Globulin 3.2 g/dL (2.2-4.2); Glucose 181 mg/dL (74-106); Lipase 229 U/L (73-393); Potassium 4.9 mmol/L (3.5-5.1); Protein, Total 6.7 g/dL (6.4-8.2); Sodium Level 139 mmol/L (136-145)
[2018-08-30 19:43] LABS: Color, Urine Yellow (Yellow); Glucose, Dipstick 50 mg/dl (Normal); Ketone-Dipstick Negative (Negative); Leukocyte Esterase-Dipstick Negative /ul (Negative); Nitrite-Dipstick Negative (Negative); Occult Blood-Urine 50 /ul (Negative); Protein-Dipstick 500 mg/dl (Negative); Specific Gravity, Urine 1.015 (1.002-1.030); Urine Bilirubin Dipstick Negative (Negative); Urine Clarity Clear (Clear); Urine Urobilinogen Normal (Normal); Urine pH 6.5 (5.0 - 8.0)
[2018-08-30 19:47] LABS: Red Blood Cells-Urine 0-5 SEEN /hpf (0-5); White Blood Cells 0-5 SEEN /hpf (0-5)
--- NOTE | 2018-08-30 20:51 | ED.DEP ---
ED Disposition - Plan for ED Patient: Chief Complaint: Abd Pain Instructions: ED Abdominal Pain Unkn Cause Prescriptions: Ondansetron [Zofran Odt] 4 mg PO Q8H PRN PRN #10 tab PRN Reason: Nausea Referrals: John Jacome MD [Primary Care Provider] -
[2018-08-30 21:08] VITALS: RESP 16
--- NOTE | 2018-08-30 21:10 | ED.RN ---
pt not happy that he did not get any more pain medications.pt stated that he called a taxi and leaving in 2 minutes.pt given discharge instructions.
--- OUTSIDE RECORDS SUMMARY | 2018-10-17 03:11 | XMS RPT_ITS ---
:1970 Author Organization OHIP Support Name Relationship Address Phone [employer] Unavailable [address] + [address] [place] [address] BLOCK, SAM Unavailable [address] + [place] [address] [employer] Unavailable [address] + [address] [place] [address] BLOCK, SAM Unavailable [address] + [place] [address] BLOCK, SAM Unavailable [address] + [place] [address] UE Unavailable Unavailable Unavailable BLOCK, SAM Unavailable [address] + [place] [address] UE Unavailable Unavailable Unavailable BLOCK, SAM Unavailable [address] + [place] [address] UE Unavailable Unavailable Unavailable BLOCK, SAM Unavailable [address] + [place] [address] UE Unavailable Unavailable Unavailable BLOCK, SAM Unavailable [address] + [place] [address] UE Unavailable Unavailable Unavailable BLOCK, SAM Unavailable [address] + [place] [address] BLOCK, SAM Unavailable [address] [place] [address] [place] [address] NOT GIVEN Unavailable Unavailable Unavailable BLOCK, SAM Unavailable [address] + [place] [address] BLOCK, SAM Unavailable [address] + [place] [address] BLOCK, SAM Unavailable [address] + [place] [address] BLOCK, SAM Unavailable [address] + [place] [address] BLOCK, SAM Unavailable [address] + [place] [address] UE Unavailable Unavailable Unavailable BLOCK, SAM Unavailable [address] + [place] [address] UE Unavailable Unavailable Unavailable Care Team Providers Name Role Phone John Jacome Primary Care Unavailable Alessandra Su Attending Unavailable Primay Care Physicia, No Primary Care Unavailable Yordan Kay Attending Unavailable Ayaz, John Primary Care Unavailable Suzan Angelo Attending Unavailable Ayaz, John Primary Care Unavailable Mariella Herrera Attending Unavailable Ayaz, John Primary Care Unavailable Oz Escalona Attending Unavailable Fitz Reilly Attending Unavailable Luis Rhodes Referring Unavailable Luis Rhodes Attending Unavailable Ayaz, John Primary Care Unavailable Jacome, John Primary Care Unavailable Yordan Yost Attending Unavailable Primay Care Physicia, No Primary Care Unavailable Sue Alvarez Attending Unavailable JOHN JACOME Attending Unavailable AYAZ, TERELL Referring Unavailable THORPE, LALITA (AMMONIA WORKER) Attending Unavailable AYAZ, TERELL Referring Unavailable JACOME, TERELL Attending Unavailable AYAZ, TERELL Referring Unavailable THORPE, LALITA (AMMONIA WORKER) Attending Unavailable THORPE, LALITA (AMMONIA WORKER) Referring Unavailable THORPE, LALITA (AMMONIA WORKER) Referring Unavailable JACOME, TERELL Attending Unavailable JACOME, TERELL Referring Unavailable CHAO GUEVARA DO Attending Unavailable AYAZ PRESLEY, DR. DANIELS Primary Care Unavailable KRISTAL BELL MD Attending Unavailable AAYZ PRESLEY, DR. DANIELS Primary Care Unavailable LIZA, DR JUAN C Jose Admitting Unavailable LIZA, DR JUAN C Jose Attending Unavailable LIZA, DR JUAN C Jose Primary Care Unavailable JOHN JACOME Consulting Unavailable JOHN JACOME Referring Unavailable PROVIDER, UNKNOWN Consulting Unavailable John Jacome. Primary Care Unavailable John Jacome Primary Care Unavailable Bandar Parks Admitting Unavailable Bandar Parks Attending Unavailable PROBLEMS PROBLEMS DATE TYPE CONDITION / CODE ATTENDING STATUS SOURCE 09/19/2018 Unknown R10.9 - Unspecified Yordan Yost Active [place] abdominal pain / Community R10.9(ICD-10) Hospital Repository 08/09/2018 Unknown R10.13 - Epigastric Angelo, Active [place] pain / Suzan Community R10.13(ICD-10) Hospital Repository 03/26/2018 Active Gastro-esophageal NA Active [facility] without esophagitis [place] / K21.9(ICD-10) Repository 03/17/2018 Unknown R07.9 - Chest pain, [place], [place] Active [place] unspecified / Community R07.9(ICD-10) Hospital Repository 03/17/2018 Unknown I10 - Essential [place], [place] Active [place] (primary) Community hypertension / Hospital I10(ICD-10) Repository 03/17/2018 Unknown I25.10 - [place], Fitz Active [place] 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 / I25.10(ICD-10) 01/24/2018 Admitting Unknown / NA Active [facility] UNK(Unknown) [facility] Repository 12/18/2017 Active Diarrhea, NA Active [facility] unspecified / [facility] Main R19.7(ICD-10) [place] Repository 12/18/2015 Active Unspecified NA Active [facility] abdominal pain / [facility] Main R10.9(ICD-10) [place] Repository 12/18/2017 Active Unknown / JACOME, Active [facility] UNK(Unknown) [facility] Main [place] Repository 05/15/2018 Unknown M54.9 - Dorsalgia, Kim, Sue Active [place] unspecified / Community M54.9(ICD-10) Hospital Repository 05/15/2018 Unknown R10.11 - Right upper [place] Active [place] quadrant pain / Community R10.11(ICD-10) Hospital Repository PROCEDURES PROCEDURES No Procedure Records FoundRESULTS RESULTS EMERGENCY DEPARTMENT Observed: 09/19/2018 Status: F Source: [place] SUMMARY 11:57 PM [facility] REPOSITORY [facility] Medical Records Department [address] [place] [address] Emergency Department Summary 09/19/18 1904 MR#: [id number] Acct: [id number] Name: LUIS SCHILLING Rep #: [id number] : 1970 47 From: Yordan Yost MD PCP: John Jacome MD Status: DEP ER - ER Visit Summary Date of Service: 09/19/18 Chief Complaint: Abdominal pain History of Present Illness: The patient is a 47 M with abdominal pain since yesterday evening. The pain is in his left upper quadrant and radiates to his back. He had similar symptoms in the past with pancreatitis. He has had associated nausea and vomiting. He had similar symptoms 3 weeks ago. He was evaluated and sent home. His symptoms resolved. No other new or different symptoms. Physical Examination: Afebrile and vital signs are unremarkable. Nontoxic and in no acute distress. Heart regular. Lungs clear. Abdomen tender in the left upper quadrant and epigastric region. No guarding or rebound. Skin appears normal. Alert and oriented. Test Results: Hemoglobin 12.7, BUN 30, Cr 1.54, stable. Hepatic panel and lipase normal. Urinalysis unremarkable. Emergency Department Course and Treatment: Patient has upper abdominal pain and a history of pancreatitis. His workup was unremarkable. He may have chronic pancreatitis that does not show up on his lipase. We discussed this. He had a recent CT. He did not want a repeat CT. I do not feel that one is indicated. He is not having chest pain or shortness of breath. Nothing to suggest vascular pathology. His vitals are stable. His workup was unremarkable. He would like to go home. He did have 2 rounds of pain medicine here as well as fluids and Zofran. He would like to go home. He will follow-up with his doctor. Return for any new or worsening issues. Treatment Plan: As above Disposition: Discharge Impression: 1. Abdominal pain This note was generated with [employer] dictation software. It may contain incorrect words, spelling, and punctuation that were not noted in review of the chart prior to signing ED Disposition - Plan for ED Patient: Chief Complaint: Abd Pain Referrals: John Jacome MD [Primary Care Provider] - What to do if you have Problems For any increased pain, shortness of breath, bleeding, nausea or vomiting, chest pain, or any unexpected problems, contact your Primary Care Provider. Call [facility] ([phone]) or report to the closest Emergency Room. Call 911 if necessary. 09/19/182356 <Electronically signed by Yordan Yost MD> Date Yordan Yost MD Cosigner Signature (If Indicated): Date CC: John Jacome MD DISCHARGE INSTRUCTION Observed: 09/19/2018 Status: F Source: [place] 11:57 PM [facility] REPOSITORY [facility] Medical Records Department [address] [place] [address] Discharge Instruction 09/19/18 1906 MR#: [id number] Acct: [id number] Name: LUIS SCHILLING Chen Rep #: [id number] : 1970 47 From: Yordan Yost MD PCP: John Jacome MD Status: DEP ER ED Disposition - Plan for ED Patient: Chief Complaint: Abd Pain Instructions: ED Abdominal Pain Unkn Cause Prescriptions: Oxycodone HCl/Acetaminophen [Percocet 5/325] 1 tab PO Q6H PRN PRN 3 Days #12 tab PRN Reason: Pain Referrals: John Jacome MD [Primary Care Provider] - What to do if you have Problems For any increased pain, shortness of breath, bleeding, nausea or vomiting, chest pain, or any unexpected problems, contact your Primary Care Provider. Call [facility] ([phone]) or report to the closest Emergency Room. Call 911 if necessary. 09/19/182356 <Electronically signed by Yordan Yost MD> Date Yordan Yost MD Cosigner Signature (If Indicated): Date CC: John Jacome MD BASIC METABOLIC Collected: 09/19/2018 Status: F Source: [place] PROFILE (BMP) 3:50 PM [facility] REPOSITORY TYPE CODE TESTS RESULT OUT OF RANGE REFERENCE UNITS LAB L501.0100 74-106 mg/dL High GLU 111 Result Comment: Fasting Glucose result from 100 to 125 mg/dL suggests IMPAIRED HOMEOSTASIS per A.D.A. criteria. Please note revised GLUCOSE reference range effective 2017. LAB L501.1000 7-18 mg/dL High BUN 30 LAB L501.1100 0.70-1.30 mg/dL High CREAT,SERUM 1.54 Result Comment: The validity of the calculated GFR AND GFRAA in patients over 70 years has not been determined. Clinical correlation is essential. LAB L501.1110 >60 mL/min Low EST GFR 51 Result Comment: Non- GFR Calc LAB L501.1115 >60 mL/min Normal EST GFR - AA 62 Result Comment: GFR Calc LAB L501.1255 ml/min Normal Estimated CRCL 63.69 LAB L501.1300 10-20 RATIO Normal BUN/CRE 19.5 LAB L501.2200 8.5-10 mg/dL Normal .1 CA 9.0 LAB L501.5300 136-14 mmol/L Normal 5 NA 138 LAB L501.5600 3.5-5. mmol/L Normal 1 K 4.1 LAB L501.5900 98-107 mmol/L Normal CL 106 LAB L501.6100 21.0-3 mmol/L Normal 2.0 CO2 26.0 LAB L501.6200 5-15 Normal GAP 6 Performed By: #### L400.0001, L100.0100, L500.2500 #### [facility] [address] [place], [place], [id number] LIVER PROFILE Collected: 09/19/2018 Status: F Source: [place] 3:50 PM [facility] REPOSITORY TYPE CODE TESTS RESULT OUT OF RANGE REFERENCE UNITS LAB L501.1500 6.4-8.2 g/dL Normal T PROT 7.1 LAB L501.1800 3.2-5.0 g/dL Normal ALB 3.7 LAB L501.1950 2.2-4.2 g/dL Normal GLOB 3.4 LAB L501.4100 15-37 U/L Normal AST 30 LAB L501.4305 45-117 U/L Normal ALK P 56 LAB L501.4405 16-61 U/L Normal ALT 47 LAB L501.4600 0.20-1.00 mg/dL Normal T BILI 0.30 LAB L501.4700 0.00-0.30 mg/dL Normal D BILI 0.10 Performed By: #### L500.3400 #### [facility] [address] [place], [address] LIPASE Collected: 09/19/2018 Status: F Source: [place] 3:50 PM [facility] REPOSITORY TYPE CODE TESTS RESULT OUT OF RANGE REFERENCE UNITS LAB L501.2450 73-393 U/L Normal LIPASE 215 Performed By: #### L501.2450 #### [facility] [address] [place], [address] URINALYSIS, COMPLETE Collected: 09/19/2018 Status: F Source: [place] 3:31 PM [facility] REPOSITORY Order Comment: Order Date: 09/19/18 Has pt arrived? Y How was Urine Obtained? TERRITORY SALES MANAGER TO SPECIFY TYPE CODE TESTS RESULT OUT OF RANGE REFERENCE UNITS LAB L400.3000 Yellow COLOR Normal Yellow LAB L400.3050 Clear Normal CLARITY Clear LAB L400.3200 Normal mg/dl High GLUCOSE, UR 250 LAB L400.3300 Negative mg/dL Normal BILIRUBIN URINE Negative LAB L400.3400 Negative mg/dl Normal KETONE UR Negative LAB L400.3465 1.002-1.030 Normal SP.GR. DIPSTX 1.010 LAB L400.3550 5.0 - 8.0 pH UR Normal 6.0 LAB L400.3600 Negative mg/dl High PROT DIPSTX 500 LAB L400.3700 Normal mg/dl Normal UROBILI Normal LAB L400.3750 Negative High NITRITE UR Positive LAB L400.3780 Negative /ul High 25 OCCULT BLOOD-UR LAB L400.3800 Negative /ul LEUK Normal ESTERASE Negative LAB L400.4050 0-5 /hpf WBC 0 Normal SEEN LAB L400.4100 0-5 /hpf 0 Normal RBC-UA SEEN LAB L400.4150 0-5 /hpf SQUAM 0 Normal EPI SEEN LAB L400.4300 None Seen /hpf 0 Normal BACTERIA SEEN LAB L400.4350 <or=2+ /hpf 0 Normal MUCUS, URINE SEEN Performed By: #### L400.0001, L100.0100, L500.2500 #### [facility] [address] [place], [place], [id number] CBC W/DIFF, AUTOMATED Collected: 09/19/2018 Status: F Source: [place] 3:18 PM [facility] REPOSITORY TYPE CODE TESTS RESULT OUT OF RANGE REFERENCE UNITS LAB L100.1000 4.4-11.0 K/mm3 Normal WBC 5.8 LAB L100.1200 4.6-6.2 M/mm3 Low RBC 4.15 LAB L100.1300 13.0-16.5 g/dl Low HGB 12.7 LAB L100.1400 40-54 % Low HCT 37.6 LAB L100.1500 80-94 fL Normal MCV 90.6 LAB L100.1600 27.0-32.0 pg Normal MCH 30.6 LAB L100.1700 32-36 g/gl Normal MCHC 33.8 LAB L100.1810 11.6-14.6 % Normal RDW CV 12.8 LAB L100.1820 35.1-43.9 fl Normal RDW SD 42.6 LAB L100.1900 150-450 K/mm3 Normal PLT 262 LAB L100.2000 6.2-12.0 fl Normal MPV 9.5 LAB L100.2100 47-70 % Normal NEUT% 56.4 LAB L100.2200 19-41 % Normal LY% 34.2 LAB L100.2300 0-10 % Normal MONO% 5.9 LAB L100.2400 0-5 % Normal EO% 2.8 LAB L100.2500 0-1 % Normal BASO% 0.7 LAB L100.2550 0.0-0.9 % Normal IM GRAN % 0.000 Result Comment: IG% - Immature Granulocytes (promyelocytes, myelocytes and metamyelocytes) > 1% indicates that a LEFT SHIFT is Present. LAB L100.2620 2.0-7.7 X10 3/uL Normal Absolute Neut 3.3 LAB L100.2720 0.83-4.51 X10 3/ul Normal Absolute Lymph 1.98 Performed By: #### L400.0001, L100.0100, L500.2500 #### [facility] [address] [place], [address] EMERGENCY DEPARTMENT Observed: 08/30/2018 Status: F Source: [place] SUMMARY 11:00 PM [facility] REPOSITORY [facility] Medical Records Department [address] [place] [address] Emergency Department Summary 08/30/18 1919 MR#: [id number] Acct: [id number] Name: LUIS SCHILLING Rep #: [id number] : 1970 47 From: Alessandra Su MD PCP: John Jacome MD Status: DEP ER - ER Visit Summary Date of Service: 08/30/18 Chief Complaint: [] Left side abdominal pain history of pancreatitis History of Present Illness: The patient is a 47 M [] diabetes high cholesterol pancreatitis he began having typical exacerbation of left-sided abdominal pain he reports that his pancreatitis today he vomited multiple times he did not eat or drink that could have made him ill this is a typical pattern where he suddenly develops left upper abdominal pain begins to vomit he has not been around anyone who made him ill no sick contacts or food his bowel and bladder habits have been normal no fever or cough, has been seen by GI for this condition and he is indicates his symptoms are related to high cholesterol and diabetes Physical Examination: [] 166/78 82 afebrile General, no distress resting comfortably HEENT is generally unremarkable The neck is supple no adenopathy Cardiovascular, regular rate and rhythm Lungs, clear bilateral Abdomen, soft nontender injectable he complains of pain to the left side of the abdomen no rebound guarding organomegaly Extremities, no clubbing cyanosis or edema Neurologic, awake alert answering questions appropriately moving all 4 extremities he has had this multiple times he gets almost monthly by his reports nothing caused it today which is the typical pattern he will receive pain management IV fluid screening labs and CT Test Results: [] Emergency Department Course and Treatment: [] Patient's labs and CT are generally unremarkable for him his creatinine 1.9 this is near baseline it actually bounces around quite a bit he has been medicated he understands all the above he feels well for discharge home bland diet he will follow-up with his physicians and return for change in symptoms again this is an acute recurrent processes had he knows how to manage it and he will return for change in symptoms Treatment Plan: [] Disposition: [] Home stable Impression: [] Acute recurrent abdominal pain This note was generated with [employer] dictation software. It may contain incorrect words, spelling, and punctuation that were not noted in review of the chart prior to signing ED Disposition - Plan for ED Patient: Chief Complaint: Abd Pain Referrals: John Jacome MD [Primary Care Provider] - What to do if you have Problems For any increased pain, shortness of breath, bleeding, nausea or vomiting, chest pain, or any unexpected problems, contact your Primary Care Provider. Call [facility] ([phone]) or report to the closest Emergency Room. Call 911 if necessary. 08/30/18 2300 <Electronically signed by Alessandra Su MD> Date Alessandra Su MD Cosigner Signature (If Indicated): Date CC: John Jacome MD DISCHARGE INSTRUCTION Observed: 08/30/2018 Status: F Source: [place] 8:52 PM [facility] REPOSITORY [facility] Medical Records Department [address] [place] [address] Discharge Instruction 08/30/182050 MR#: [id number] Acct: [id number] Name: LUIS SCHILLING Rep #: [id number] : 1970 47 From: Alessandra Su MD PCP: John Jacome MD Status: REG ER ED Disposition - Plan for ED Patient: Chief Complaint: Abd Pain Instructions: ED Abdominal Pain Unkn Cause Prescriptions: Ondansetron [Zofran Odt] 4 mg PO Q8H PRN PRN #10 tab PRN Reason: Nausea Referrals: John Jacome MD [Primary Care Provider] - What to do if you have Problems For any increased pain, shortness of breath, bleeding, nausea or vomiting, chest pain, or any unexpected problems, contact your Primary Care Provider. Call [facility] ([phone]) or report to the closest Emergency Room. Call 911 if necessary. 08/30/182051 <Electronically signed by Alessandra Su MD> Date Alessandra Su MD Cosigner Signature (If Indicated): Date CC: John Jacome MD ABDOMEN/PELVIS WITHOUT Observed: 08/30/2018 Status: F Source: [place] CONT 7:16 PM [facility] REPOSITORY [facility] Imaging Services [address] [place] [address] Abdomen/Pelvis without Cont MR#: [id number] Acct: [id number] Name: LUIS SCHILLING Rep #: [id number] : 1970 M 47 From: Esperanza Richardson MD PCP: John Jacome MD Status: REG ER Study: Abdomen/Pelvis without Cont Date of Exam: 08/30/18 Exam# [id number] Ordering Dr: Alessandra Su MD STUDY: CT ABDOMEN AND PELVIS WITHOUT CONTRAST REASON FOR EXAM: Male, 47 years old. Abdominal pain. RADIATION DOSAGE (If Supplied By Facility): CTDIvol = ( 14.71 ) mGy, DLP = ( 801.10 ) mGycm TECHNIQUE: Transaxial images were obtained from the dome of the diaphragm to the symphysis pubis without oral contrast, and without intravenous contrast. Sagittal and coronal images were reconstructed. Individualized dose optimization techniques were used for this CT. COMPARISON: January 16, 2015 and October 28, 2017 FINDINGS: There are stable bilateral pulmonary nodules that are predominantly calcified consistent with underlying granulomas. The visualized portions of the heart are within normal limits. There is a stable 1.4 cm round low-attenuation focus within the left hepatic lobe that likely reflects an underlying hemangioma. Normal gallbladder and extrahepatic biliary system. There are splenic granulomas. Normal pancreas. Normal bilateral adrenal glands. Normal right kidney. Normal left kidney. Normal visualized stomach. Normal small intestine. There are diverticula within the sigmoid colon. There are surgical clips in the region of the appendix consistent with a prior appendectomy. There is diffuse atherosclerotic calcification of the abdominal aorta, without a demonstrated aneurysm. Normal inferior vena cava. Normal retroperitoneum. Normal urinary bladder. Normal abdominal wall. There are diffuse degenerative changes of the visualized lumbar spine. CT/Abdomen/Pelvis without Cont IMPRESSION: No acute intra-abdominal process. Evidence of prior granulomatous disease. Atherosclerosis. Electronically Signed: Esperanza Richardson MD at 19:47 EST Tel , Service support , CC: MD Zofia Godwinyevaleria; John Jacome MD Health Science Specialist: Signed URINALYSIS, COMPLETE Collected: 08/30/2018 Status: F Source: [place] 7:05 PM [facility] REPOSITORY Order Comment: How was Urine Obtained? CLEAN CATCH TYPE CODE TESTS RESULT OUT OF RANGE REFERENCE UNITS LAB L400.3000 Yellow COLOR Normal Yellow LAB L400.3050 Clear Normal CLARITY Clear LAB L400.3200 Normal mg/dl High 50 GLUCOSE, UR LAB L400.3300 Negative mg/dL Normal BILIRUBIN URINE Negative LAB L400.3400 Negative mg/dl Normal KETONE UR Negative LAB L400.3465 1.002-1.030 Normal SP.GR. DIPSTX 1.015 LAB L400.3550 5.0 - 8.0 pH UR Normal 6.5 LAB L400.3600 Negative mg/dl High PROT DIPSTX 500 LAB L400.3700 Normal mg/dl Normal UROBILI Normal LAB L400.3750 Negative Normal NITRITE UR Negative LAB L400.3780 Negative /ul High 50 OCCULT BLOOD-UR LAB L400.3800 Negative /ul LEUK Normal ESTERASE Negative LAB L400.4050 0-5 /hpf WBC Normal 0-5 SEEN LAB L400.4100 0-5 /hpf Normal RBC-UA 0-5 SEEN LAB L400.4150 0-5 /hpf SQUAM 0 Normal EPI SEEN LAB L400.4300 None Seen /hpf 0 Normal BACTERIA SEEN LAB L400.4350 <or=2+ /hpf 0 Normal MUCUS, URINE SEEN Performed By: #### L400.0001 #### [facility] [address] [place], [address] CBC W/DIFF, AUTOMATED Collected: 08/30/2018 Status: F Source: [place] 7:00 PM [facility] REPOSITORY TYPE CODE TESTS RESULT OUT OF RANGE REFERENCE UNITS LAB L100.1000 4.4-11.0 K/mm3 Normal WBC 4.9 LAB L100.1200 4.6-6.2 M/mm3 Low RBC 3.48 LAB L100.1300 13.0-16.5 g/dl Low HGB 11.0 LAB L100.1400 40-54 % Low HCT 32.1 LAB L100.1500 80-94 fL Normal MCV 92.2 LAB L100.1600 27.0-32.0 pg Normal MCH 31.6 LAB L100.1700 32-36 g/gl Normal MCHC 34.3 LAB L100.1810 11.6-14.6 % Normal RDW CV 12.6 LAB L100.1820 35.1-43.9 fl Normal RDW SD 41.4 LAB L100.1900 150-450 K/mm3 Normal PLT 262 LAB L100.2000 6.2-12.0 fl Normal MPV 10.3 LAB L100.2100 47-70 % Normal NEUT% 62.5 LAB L100.2200 19-41 % Normal LY% 29.6 LAB L100.2300 0-10 % Normal MONO% 4.9 LAB L100.2400 0-5 % Normal EO% 2.4 LAB L100.2500 0-1 % Normal BASO% 0.6 LAB L100.2550 0.0-0.9 % Normal IM GRAN % 0.000 Result Comment: IG% - Immature Granulocytes (promyelocytes, myelocytes and metamyelocytes) > 1% indicates that a LEFT SHIFT is Present. LAB L100.2620 2.0-7.7 X10 3/uL Normal Absolute Neut 3.1 LAB L100.2720 0.83-4.51 X10 3/ul Normal Absolute Lymph 1.45 Performed By: #### L100.0100 #### [facility] [address] [place], [address] BASIC METABOLIC Collected: 08/30/2018 Status: F Source: [place] PROFILE (BMP) 7:00 PM [facility] REPOSITORY TYPE CODE TESTS RESULT OUT OF RANGE REFERENCE UNITS LAB L501.0100 74-106 mg/dL High GLU 181 Result Comment: Fasting Glucose result greater than or equal to 126 mg/dL suggests DIABETES MELLITUS per A.D.A. criteria. Please note revised GLUCOSE reference range effective 2017. LAB L501.1000 7-18 mg/dL High BUN 32 LAB L501.1100 0.70-1.30 mg/dL High CREAT,SERUM 1.90 Result Comment: The validity of the calculated GFR AND GFRAA in patients over 70 years has not been determined. Clinical correlation is essential. LAB L501.1110 >60 mL/min Low EST GFR 40 Result Comment: Non- GFR Calc LAB L501.1115 >60 mL/min Low EST GFR - AA 49 Result Comment: GFR Calc LAB L501.1255 ml/min Normal Estimated CRCL 50.09 LAB L501.1300 10-20 RATIO Normal BUN/CRE 16.8 LAB L501.2200 8.5-10 mg/dL Low .1 CA 8.1 LAB L501.5300 136-14 mmol/L Normal 5 NA 139 LAB L501.5600 3.5-5. mmol/L Normal 1 K 4.9 LAB L501.5900 98-107 mmol/L High CL 108 LAB L501.6100 21.0-3 mmol/L Normal 2.0 CO2 26.0 LAB L501.6200 5-15 Normal GAP 5 Performed By: #### L500.2500, L500.3400, L501.2450 #### [facility] [address] [place], [address] LIVER PROFILE Collected: 08/30/2018 Status: F Source: [place] 7:00 PM [facility] REPOSITORY TYPE CODE TESTS RESULT OUT OF RANGE REFERENCE UNITS LAB L501.1500 6.4-8.2 g/dL Normal T PROT 6.7 LAB L501.1800 3.2-5.0 g/dL Normal ALB 3.5 LAB L501.1950 2.2-4.2 g/dL Normal GLOB 3.2 LAB L501.4100 15-37 U/L High AST 56 LAB L501.4305 45-117 U/L Normal ALK P 48 LAB L501.4405 16-61 U/L Normal ALT 60 LAB L501.4600 0.20-1.00 mg/dL Normal T BILI 0.20 LAB L501.4700 0.00-0.30 mg/dL Normal D BILI 0.07 Performed By: #### L500.2500, L500.3400, L501.2450 #### [facility] [address] [place], [address] LIPASE Collected: 08/30/2018 Status: F Source: [place] 7:00 PM [facility] REPOSITORY TYPE CODE TESTS RESULT OUT OF RANGE REFERENCE UNITS LAB L501.2450 73-393 U/L Normal LIPASE 229 Performed By: #### L500.2500, L500.3400, L501.2450 #### [facility] [address] [place], [address] EMERGENCY DEPARTMENT Observed: 08/09/2018 Status: F Source: [place] SUMMARY 10:48 PM [facility] REPOSITORY [facility] Medical Records Department [address] [place] [address] Emergency Department Summary 08/09/18 2128 MR#: [id number] Acct: [id number] Name: LUIS SCHILLING Rep #: [id number] : 1970 47 From: Suzan Angelo MD PCP: John Jacome MD Status: DEP ER - ER Visit Summary Date of Service: 08/09/18 Chief Complaint: Abdominal pain, nausea, vomiting History of Present Illness: The patient is a 47 M with sudden onset epigastric pain with nausea and vomiting. Patient has history of chronic pancreatitis with similar flares, but states symptoms have been under good control for the last several months. He denies fever or chills. Physical Examination: Blood pressure is 157/81, otherwise vitals normal. Patient is doing upright in bed. He is appears uncomfortable but no acute distress. Head neck examination is unremarkable. Heart is regular rate and rhythm. Lung sounds are clear. Abdomen is soft with tenderness in the left upper quadrant. No guarding or rebound. Hypoactive bowel sounds are present throughout all 4 quadrants. Test Results: CBC was normal white count hemoglobin 10.9. Chemistry studies reveal BUN of 32 and creatinine of 2.34. This is slightly worse than his baseline. LFTs are significant for an AST is 77 and ALT of 80. Lipase is normal. Emergency Department Course and Treatment: Patient is given Dilaudid, Zofran, and IV fluids. On repeat evaluation patient's resting calmly. He was given ice chips. I did hang a second liter of fluid due to his bump in creatinine, but patient states that he has a well, does not want to wait for this infusion. He will be discharged with a prescription for Phenergan and a short course of [place]. He is given a note to return to work tomorrow. Treatment Plan: [] Disposition: Discharge Impression: 1. Epigastric pain 2. Vomiting, improved This note was generated with [employer] dictation software. It may contain incorrect words, spelling, and punctuation that were not noted in review of the chart prior to signing ED Disposition - Plan for ED Patient: Chief Complaint: Abd Pain Referrals: John Jacome MD [Primary Care Provider] - What to do if you have Problems For any increased pain, shortness of breath, bleeding, nausea or vomiting, chest pain, or any unexpected problems, contact your Primary Care Provider. Call [facility] ([phone]) or report to the closest Emergency Room. Call 911 if necessary. 08/09/18 3510 <Electronically signed by Suzan Angelo MD> Date Suzan Angelo MD Cosigner Signature (If Indicated): Date CC: John Jacome MD DISCHARGE INSTRUCTION Observed: 08/09/2018 Status: F Source: [place] 9:51 PM [facility] REPOSITORY [facility] Medical Records Department [address] [place] [address] Discharge Instruction 08/09/182149 MR#: [id number] Acct: [id number] Name: LUIS SCHILLING Rep #: [id number] : 1970 47 From: Suzan Angelo MD PCP: John Jacome MD Status: REG ER ED Disposition - Plan for ED Patient: Disposition: Home or Assisted Living Chief Complaint: Abd Pain Instructions: ED Epigastric Pain [facility] Prescriptions: Hydrocodone Bitart/Apap 5-325 [[place] 5MG-325MG] 1 tablet PO Q4H PRN PRN 2 Days #10 tablet PRN Reason: Pain Ondansetron [Zofran Odt] 4 mg PO Q8H PRN PRN #10 tablet PRN Reason: Nausea Referrals: John Jacome MD [Primary Care Provider] - 3-5 Days if not improving What to do if you have Problems For any increased pain, shortness of breath, bleeding, nausea or vomiting, chest pain, or any unexpected problems, contact your Primary Care Provider. Call [facility] ([phone]) or report to the closest Emergency Room. Call 911 if necessary. 08/09/182150 <Electronically signed by Suzan Angelo MD> Date Suzan Angelo MD Cosigner Signature (If Indicated): Date CC: John Jacome MD CBC W/DIFF, AUTOMATED Collected: 08/09/2018 Status: F Source: [place] 7:40 PM [facility] REPOSITORY TYPE CODE TESTS RESULT OUT OF RANGE REFERENCE UNITS LAB L100.1000 4.4-11.0 K/mm3 Normal WBC 5.7 LAB L100.1200 4.6-6.2 M/mm3 Low RBC 3.52 LAB L100.1300 13.0-16.5 g/dl Low HGB 10.9 LAB L100.1400 40-54 % Low HCT 32.1 LAB L100.1500 80-94 fL Normal MCV 91.2 LAB L100.1600 27.0-32.0 pg Normal MCH 31.0 LAB L100.1700 32-36 g/gl Normal MCHC 34.0 LAB L100.1810 11.6-14.6 % Normal RDW CV 12.7 LAB L100.1820 35.1-43.9 fl Normal RDW SD 41.2 LAB L100.1900 150-450 K/mm3 Normal PLT 276 LAB L100.2000 6.2-12.0 fl Normal MPV 10.2 LAB L100.2100 47-70 % Normal NEUT% 63.3 LAB L100.2200 19-41 % Normal LY% 29.4 LAB L100.2300 0-10 % Normal MONO% 5.2 LAB L100.2400 0-5 % Normal EO% 1.4 LAB L100.2500 0-1 % Normal BASO% 0.5 LAB L100.2550 0.0-0.9 % Normal IM GRAN % 0.200 Result Comment: IG% - Immature Granulocytes (promyelocytes, myelocytes and metamyelocytes) > 1% indicates that a LEFT SHIFT is Present. LAB L100.2620 2.0-7.7 X10 3/uL Normal Absolute Neut 3.6 LAB L100.2720 0.83-4.51 X10 3/ul Normal Absolute Lymph 1.69 Performed By: #### L100.0100 #### [facility] [address], [address] BASIC METABOLIC Collected: 08/09/2018 Status: F Source: [place] PROFILE (BMP) 7:40 PM [facility] REPOSITORY TYPE CODE TESTS RESULT OUT OF RANGE REFERENCE UNITS LAB L501.0100 74-106 mg/dL High GLU 169 Result Comment: Fasting Glucose result greater than or equal to 126 mg/dL suggests DIABETES MELLITUS per A.D.A. criteria. Please note revised GLUCOSE reference range effective 2017. LAB L501.1000 7-18 mg/dL High BUN 32 LAB L501.1100 0.70-1.30 mg/dL High CREAT,SERUM 2.34 Result Comment: The validity of the calculated GFR AND GFRAA in patients over 70 years has not been determined. Clinical correlation is essential. LAB L501.1110 >60 mL/min Low EST GFR 32 Result Comment: Non- GFR Calc LAB L501.1115 >60 mL/min Low EST GFR - AA 38 Result Comment: GFR Calc LAB L501.1255 ml/min Normal Estimated CRCL 40.67 LAB L501.1300 10-20 RATIO Normal BUN/CRE 13.7 LAB L501.2200 8.5-10 mg/dL Low .1 CA 8.1 LAB L501.5300 136-14 mmol/L Normal 5 NA 137 LAB L501.5600 3.5-5. mmol/L Normal 1 K 4.5 LAB L501.5900 98-107 mmol/L Normal CL 107 LAB L501.6100 21.0-3 mmol/L Normal 2.0 CO2 22.0 LAB L501.6200 5-15 Normal GAP 8 Performed By: #### L500.2500, L500.3400, L501.2450 #### [facility] [address] [place], [place], [id number] LIVER PROFILE Collected: 08/09/2018 Status: F Source: [place] 7:40 PM [facility] REPOSITORY TYPE CODE TESTS RESULT OUT OF RANGE REFERENCE UNITS LAB L501.1500 6.4-8.2 g/dL Normal T PROT 6.8 LAB L501.1800 3.2-5.0 g/dL Normal ALB 3.7 LAB L501.1950 2.2-4.2 g/dL Normal GLOB 3.1 LAB L501.4100 15-37 U/L High AST 77 LAB L501.4305 45-117 U/L Low ALK P 42 LAB L501.4405 16-61 U/L High ALT 80 LAB L501.4600 0.20-1.00 mg/dL Normal T BILI 0.30 LAB L501.4700 0.00-0.30 mg/dL Normal D BILI 0.14 Performed By: #### L500.2500, L500.3400, L501.2450 #### [facility] [address] [place], [address] LIPASE Collected: 08/09/2018 Status: F Source: [place] 7:40 PM [facility] REPOSITORY TYPE CODE TESTS RESULT OUT OF RANGE REFERENCE UNITS LAB L501.2450 73-393 U/L Normal LIPASE 165 Performed By: #### L500.2500, L500.3400, L501.2450 #### [facility] [address] [place], [address] PROGRESS Observed: 06/21/2018 Status: COMPLETED Source: [place] 10:20 AM [facility] REPOSITORY HNO ID: [id number] Author: John Jacome Service: (none) Author Type: Physician Type: Progress Notes Filed: 06/21/2018 10:47 AM Note Text: This note was created using [employer]. Subjective Luis Schilling is a 47 year old male here for follow up. His abdominal pain was flaring up again, sharp, moderately severe, radiating to the the back, and associated with nausea. He took Zofran with little relief. He frequents the ER but work up was typically non diagnostic. He was supposed to have had a gastric emptying study after his EGD and colonoscopy were negative in February, but he felt ill that day and the test was never rescheduled. His diabetes mellitus was uncontrolled. His hypertension was uncontrolled. His labs were due for a recheck. ACTIVE PROBLEM LIST Hypertension Goal Bp (Blood Pressure) < 140/90 Dyslipidemia Abdominal pain chronic Non-Compliance Hypermetropia Nausea and Vomiting Drug-Seeking Behavior DM type 2, uncontrolled, with neuropathy (HCC) Gastroesophageal Reflux Disease Yoandy (Obstructive Sleep Apnea) Copd With Chronic Bronchitis (Hcc) Obesity, Class I, Bmi 30-34.9 Tobacco Use Microscopic Hematuria Current Outpatient Prescriptions: metFORMIN (GLUCOPHAGE) 500 mg tablet TAKE 2 TABLETS BY MOUTH TWICE A DAY WITH MEALS Omeprazole 40 mg capsule Take 1 capsule by mouth once daily. nortriptyline (PAMELOR) 10 mg capsule Take 1 capsule by mouth daily at bedtime. Fenofibrate (LOFIBRA) 160 mg tablet Take 1 tablet by mouth once daily. For triglycerides. atorvastatin (LIPITOR) 80 mg tablet Take 1 tablet by mouth daily at bedtime. lisinopril (ZESTRIL, PRINIVIL) 40 mg tablet TAKE 1 TABLET BY MOUTH DAILY ULTICARE PEN NEEDLE 31 gauge x 16 ndle USE FIVE TIMES DAILY insulin lispro (ADMELOG SOLOSTAR U-100 INSULIN) 100 unit/mL inpn inject 50 units subcutaneously three times a day WITH MEALS PLUS SLIDING SCALE ONETOUCH ULTRA BLUE TEST STRIP test strip TEST THREE TIMES A DAY polyethylene glycol 3350 (MIRALAX, GLYCOLAX) 17 gram/dose powder Take 17 g by mouth once daily. This is one (1) capful. ondansetron orally disintegrating (ZOFRAN ODT) 4 mg disintegrating tablet Take 1 tablet by mouth every 8 hours as needed for Nausea/Vomiting. alcohol swabs (ALCOHOL WIPES) padm Apply 1 application to affected area four times daily as needed. insulin glargine (BASAGLAR KWIKPEN U-100 INSULIN) 100 unit/mL (3 mL) inpn Inject 50 Units subcutaneously twice daily. Lancets lancets Test blood sugar(s) 3x daily. Dx: E11.65. Insulin: Yes loperamide (IMODIUM) 2 mg cap(s) Take 1 capsule by mouth four times daily as needed. FOR DIARRHEA aspirin, enteric coated (ASPIRIN, ENTERIC COATED) 81 mg EC tablet Take 1 tablet by mouth once daily. albuterol HFA (VENTOLIN HFA) 90 mcg/actuation inhaler Inhale 2 Puffs as instructed every 4 hours as needed for Wheezing/Shortness of Breath. Blood-Glucose Meter monitoring kit Glucose Meter of Choice - Kit - Dx: Type 2 DM - Uncontrolled E11.65 pregabalin (LYRICA) 100 mg capsule Take 1 capsule by mouth three times daily for 180 days. bisoprolol-hydrochlorothiazide (ZIAC) 5-6.25 mg per tablet Take 1 tablet by mouth once daily. traMADol (ULTRAM) 50 mg tablet Take 1 tablet by mouth every 6 hours as needed for Pain for up to 5 days. No current facility-administered medications for this visit. Review of Systems Constitutional: Negative. Respiratory: Negative. Cardiovascular: Negative. Gastrointestinal: Positive for abdominal pain, constipation and nausea. Negative for blood in stool, diarrhea and vomiting. Genitourinary: Negative. Objective BP 152/95 (BP Site: Left Arm, BP Position: Sitting, BP Cuff Size: Regular Adult) Pulse 89 Temp 36 ?C (96.8 ?F) (Left Tympanic) Resp 16 Wt 106.1 kg (234 lb) BMI 32.64 kg/m? Physical Exam Constitutional: No distress. Cardiovascular: Normal heart sounds. Pulmonary/Chest: Breath sounds normal. Abdominal: Soft. He exhibits no mass. There is tenderness in the left upper quadrant. There is no rebound and no guarding. Musculoskeletal: He exhibits no edema. Assessment and Plan 1. Abdominal pain, unspecified abdominal location - ICD9: 789.00, ICD10: R10.9 (primary diagnosis) Acute on chronic. - PREGABALIN 100 MG CAPSULE - LIPASE BLD - TRAMADOL 50 MG TABLET. One time prescription only. No refills. Discussed medication dosage, usage, goals of therapy, and side effects. - Reschedule GES to rule out gastroparesis. 2. DM type 2, uncontrolled, with neuropathy (HCC) - ICD9: 250.62, 357.2, ICD10: E11.40, E11.65 Poor adherence to plan of care. - Continue current medications - METFORMIN 500 MG TABLET - NORTRIPTYLINE 10 MG CAPSULE - PREGABALIN 100 MG CAPSULE - COMP METABOLIC PANEL - HGB A1C 3. Gastroesophageal reflux disease, esophagitis presence not specified - ICD9: 530.81, ICD10: K21.9 Rule - OMEPRAZOLE 40 MG CAPSULE,DELAYED RELEASE 4. Dyslipidemia - ICD9: 272.4, ICD10: E78.5 - to be determined upon return of lab results - Continue current medication. - FENOFIBRATE 160 MG TABLET - ATORVASTATIN 80 MG TABLET - LIPID PANEL BASIC 5. Need for vaccination - ICD9: V05.9, ICD10: Z23 - ADMIN OF INFLUENZA VACCINE - INFLUENZA VACCINE QUADRIVALENT AGE 3 YRS PLUS + IM John Jacome MD CNOV Observed: 06/21/2018 Status: COMPLETED Source: [place] 9:40 AM [facility] REPOSITORY Office Visit (INTMWS) LUIS SCHILLING ([id number]) 1970 M [facility] Date Time Provider Department 06/21/18 9:40 AM JOHN JACOME During your visit today, we recorded the following information about you: Temperature Pulse Respiration Blood pressure 96.8 degrees 89/minute 16/minute 152/95 Weight 106.1 kg Christine Alba LOG DECKMAN 06/21/2018 9:57 AM Signed Influenza Vaccine Documentation: ? Patient is identified by name and date of : Yes ? Patient is older than 6 months of age: Yes ? Patient denies a severe allergy to any vaccine component or to a previous dose of influenza vaccine: Yes FOR EGG ALLERGY CONCERNS, REFER TO PROVIDER. ? Denies allergy to gelatin, formaldehyde, thimerosol :Yes ? Patient is afebrile and not moderately or severely ill: Yes ? Does the patient have a history of Guillain ?Gerton Syndrome (a severe paralytic illness): No ? Denies bone marrow transplant prior 6 months or solid organ transplant prior 3 months: Yes ? Denies a history of fainting after a prior injection or medical procedure? Yes If patient has fainted in the past, the CDC recommends sitting or lying down for 15 minutes after the vaccination. ? VIS sheet provided: Yes ? See Immunization Form in [employer] for details of immunizations administered today. If patient reports dizziness, vision changes or ringing in the ears post vaccination ? please have patient sit or lie down for 15 minutes. John Jacome MD 06/21/2018 10:47 AM Signed This note was created using [employer]. Subjective Luis Schilling is a 47 year old male here for follow up. His abdominal pain was flaring up again, sharp, moderately severe, radiating to the the back, and associated with nausea. He took Zofran with little relief. He frequents the ER but work up was typically non diagnostic. He was supposed to have had a gastric emptying study after his EGD and colonoscopy were negative in February, but he felt ill that day and the test was never rescheduled. His diabetes mellitus was uncontrolled. His hypertension was uncontrolled. His labs were due for a recheck. ACTIVE PROBLEM LIST Hypertension Goal Bp (Blood Pressure) < 140/90 Dyslipidemia Abdominal pain chronic Non-Compliance Hypermetropia Nausea and Vomiting Drug-Seeking Behavior DM type 2, uncontrolled, with neuropathy (HCC) Gastroesophageal Reflux Disease Yoandy (Obstructive Sleep Apnea) Copd With Chronic Bronchitis (Hcc) Obesity, Class I, Bmi 30-34.9 Tobacco Use Microscopic Hematuria Current Outpatient Prescriptions: metFORMIN (GLUCOPHAGE) 500 mg tablet TAKE 2 TABLETS BY MOUTH TWICE A DAY WITH MEALS Omeprazole 40 mg capsule Take 1 capsule by mouth once daily. nortriptyline (PAMELOR) 10 mg capsule Take 1 capsule by mouth daily at bedtime. Fenofibrate (LOFIBRA) 160 mg tablet Take 1 tablet by mouth once daily. For triglycerides. atorvastatin (LIPITOR) 80 mg tablet Take 1 tablet by mouth daily at bedtime. lisinopril (ZESTRIL, PRINIVIL) 40 mg tablet TAKE 1 TABLET BY MOUTH DAILY ULTICARE PEN NEEDLE 31 gauge x 5/16 ndle USE FIVE TIMES DAILY insulin lispro (ADMELOG SOLOSTAR U-100 INSULIN) 100 unit/mL inpn inject 50 units subcutaneously three times a day WITH MEALS PLUS SLIDING SCALE ONETOUCH ULTRA BLUE TEST STRIP test strip TEST THREE TIMES A DAY polyethylene glycol 3350 (MIRALAX, GLYCOLAX) 17 gram/dose powder Take 17 g by mouth once daily. This is one (1) capful. ondansetron orally disintegrating (ZOFRAN ODT) 4 mg disintegrating tablet Take 1 tablet by mouth every 8 hours as needed for Nausea/Vomiting. alcohol swabs (ALCOHOL WIPES) padm Apply 1 application to affected area four times daily as needed. insulin glargine (BASAGLAR KWIKPEN U-100 INSULIN) 100 unit/mL (3 mL) inpn Inject 50 Units subcutaneously twice daily. Lancets lancets Test blood sugar(s) 3x daily. Dx: E11.65. Insulin: Yes loperamide (IMODIUM) 2 mg cap(s) Take 1 capsule by mouth four times daily as needed. FOR DIARRHEA aspirin, enteric coated (ASPIRIN, ENTERIC COATED) 81 mg EC tablet Take 1 tablet by mouth once daily. albuterol HFA (VENTOLIN HFA) 90 mcg/actuation inhaler Inhale 2 Puffs as instructed every 4 hours as needed for Wheezing/Shortness of Breath. Blood-Glucose Meter monitoring kit Glucose Meter of Choice - Kit - Dx: Type 2 DM - Uncontrolled E11.65 pregabalin (LYRICA) 100 mg capsule Take 1 capsule by mouth three times daily for 180 days. bisoprolol-hydrochlorothiazide (ZIAC) 5-6.25 mg per tablet Take 1 tablet by mouth once daily. traMADol (ULTRAM) 50 mg tablet Take 1 tablet by mouth every 6 hours as needed for Pain for up to 5 days. No current facility-administered medications for this visit. Review of Systems Constitutional: Negative. Respiratory: Negative. Cardiovascular: Negative. Gastrointestinal: Positive for abdominal pain, constipation and nausea. Negative for blood in stool, diarrhea and vomiting. Genitourinary: Negative. Objective BP 152/95 (BP Site: Left Arm, BP Position: Sitting, BP Cuff Size: Regular Adult) Pulse 89 Temp 36 ?C (96.8 ?F) (Left Tympanic) Resp 16 Wt 106.1 kg (234 lb) BMI 32.64 kg/m? Physical Exam Constitutional: No distress. Cardiovascular: Normal heart sounds. Pulmonary/Chest: Breath sounds normal. Abdominal: Soft. He exhibits no mass. There is tenderness in the left upper quadrant. There is no rebound and no guarding. Musculoskeletal: He exhibits no edema. Assessment and Plan 1. Abdominal pain, unspecified abdominal location - ICD9: 789.00, ICD10: R10.9 (primary diagnosis) Acute on chronic. - PREGABALIN 100 MG CAPSULE - LIPASE BLD - TRAMADOL 50 MG TABLET. One time prescription only. No refills. Discussed medication dosage, usage, goals of therapy, and side effects. - Reschedule GES to rule out gastroparesis. 2. DM type 2, uncontrolled, with neuropathy (HCC) - ICD9: 250.62, 357.2, ICD10: E11.40, E11.65 Poor adherence to plan of care. - Continue current medications - METFORMIN 500 MG TABLET - NORTRIPTYLINE 10 MG CAPSULE - PREGABALIN 100 MG CAPSULE - COMP METABOLIC PANEL - HGB A1C 3. Gastroesophageal reflux disease, esophagitis presence not specified - ICD9: 530.81, ICD10: K21.9 Rule - OMEPRAZOLE 40 MG CAPSULE,DELAYED RELEASE 4. Dyslipidemia - ICD9: 272.4, ICD10: E78.5 - to be determined upon return of lab results - Continue current medication. - FENOFIBRATE 160 MG TABLET - ATORVASTATIN 80 MG TABLET - LIPID PANEL BASIC 5. Need for vaccination - ICD9: V05.9, ICD10: Z23 - ADMIN OF INFLUENZA VACCINE - INFLUENZA VACCINE QUADRIVALENT AGE 3 YRS PLUS + IM John Jacome MD Referring Provider: JOHN JACOME [[id number]] Allergies As of Date: 06/21/2018 Noted Allergy Reaction PENICILLIN G 07/23/2006 16 - Unknown PENICILLINS 08/05/2010 14 - Other: See Comments Comments: He has been allergic since he was 5-6 y/o Date Reviewed: 06/21/2018 Reviewed by: Christine Alba LPN - Fully Assessed Reason for Visit: Recheck [92] Primary Visit Diagnosis:Abdominal pain, unspecified abdominal location [R10.9] Other Visit Diagnoses:DM type 2, uncontrolled, with neuropathy (HCC) [E11.40, E11.65] Gastroesophageal reflux disease, esophagitis presence not specified [K21.9] Dyslipidemia [E78.5] Need for vaccination [Z23] Order(s):ADMIN OF INFLUENZA VACCINE [[id number]] Order #: [id number]: 1 INFLUENZA VACCINE QUADRIVALENT AGE 3 YRS PLUS + IM [[id number]] Order #: [id number] metFORMIN (GLUCOPHAGE) 500 mg tabletTAKE 2 TABLETS BY MOUTH TWICE A DAY WITH MEALSDisp: 120 tabletRfl: 5 Omeprazole 40 mg capsuleTake 1 capsule by mouth once daily.Disp: 30 capsuleRfl: 5 nortriptyline (PAMELOR) 10 mg capsuleTake 1 capsule by mouth daily at bedtime.Disp: 30 capsuleRfl: 5 Fenofibrate (LOFIBRA) 160 mg tabletTake 1 tablet by mouth once daily. For triglycerides.Disp: 30 tabletRfl: 5 atorvastatin (LIPITOR) 80 mg tabletTake 1 tablet by mouth daily at bedtime.Disp: 30 tabletRfl: 6 pregabalin (LYRICA) 100 mg capsuleTake 1 capsule by mouth three times daily for 180 days.Disp: 90 capsuleRfl: 5 bisoprolol-hydrochlorothiazide (ZIAC) 5-6.25 mg per tabletTake 1 tablet by mouth once daily.Disp: 30 tabletRfl: 5 COMP METABOLIC PANEL [SQCMP] Order #: [id number] LIPASE BLD [SQLIPA] Order #: [id number] HGB A1C [EUFUX1X] Order #: [id number] LIPID PANEL BASIC [SQLIPB] Order #: [id number] traMADol (ULTRAM) 50 mg tabletTake 1 tablet by mouth every 6 hours as needed for Pain for up to 5 days.Disp: 20 tabletRfl: 0 NM GASTRIC EMPTYING SOLID [[id number]] Order #: [id number] FUTURE Prescriptions as of 06/21/2018 Sig: METFORMIN 500 MG TABLET TAKE 2 TABLETS BY MOUTH TWICE* OMEPRAZOLE 40 MG CAPSULE,MUSTAPHA* Take 1 capsule by mouth once * NORTRIPTYLINE 10 MG CAPSULE Take 1 capsule by mouth daily* FENOFIBRATE 160 MG TABLET Take 1 tablet by mouth once d* ATORVASTATIN 80 MG TABLET Take 1 tablet by mouth daily * LISINOPRIL 40 MG TABLET TAKE 1 TABLET BY MOUTH DAILY ULTICARE PEN NEEDLE 31 GAUGE * USE FIVE TIMES DAILY INSULIN LISPRO (U-100) 100 UN* inject 50 units subcutaneousl* ONETOUCH ULTRA BLUE TEST STRIP TEST THREE TIMES A DAY POLYETHYLENE GLYCOL 3350 17 G* Take 17 g by mouth once daily* ONDANSETRON 4 MG DISINTEGRATI* Take 1 tablet by mouth every * ALCOHOL SWABS Apply 1 application to affect* INSULIN GLARGINE (U-100) 100 * Inject 50 Units subcutaneousl* LANCETS Test blood sugar(s) 3x daily.* LOPERAMIDE 2 MG CAPSULE Take 1 capsule by mouth four * ASPIRIN 81 MG TABLET,DELAYED * Take 1 tablet by mouth once d* ALBUTEROL SULFATE HFA 90 MCG/* Inhale 2 Puffs as instructed * BLOOD-GLUCOSE METER KIT Glucose Meter of Choice - Kit* PREGABALIN 100 MG CAPSULE Take 1 capsule by mouth three* BISOPROLOL 5 MG-HYDROCHLOROTH* Take 1 tablet by mouth once d* TRAMADOL 50 MG TABLET Take 1 tablet by mouth every * Problem List As Of Date 06/21/2018 Noted Resolved Hypertension goal BP (blood pressure) < 140/90 *INVALID FOR* Dyslipidemia [E78.5] INVALID FOR* Benign neoplasm of skin of trunk, except scrotu*INVALID FOR*07/16/2015 Neoplasm of uncertain behavior of skin [D48.5] INVALID FOR*07/16/2015 Acute pancreatitis [K85.90] INVALID FOR*07/16/2015 Chest pain [R07.9] INVALID FOR*07/16/2015 Diabetic hyperosmolar non-ketotic state (HCC) [*INVALID FOR*07/16/2015 More... Abdominal pain chronic [R10.9] INVALID FOR* Non-compliance [Z91.19] INVALID FOR* Diabetic neuropathy [E11.40] INVALID FOR*03/11/2018 More... Chronic whiplash injury [S13.4XXA] INVALID FOR*07/16/2015 Whiplash injury to neck [S13.4XXA] INVALID FOR*07/16/2015 Brachial neuritis or radiculitis NOS [M54.12] INVALID FOR*07/16/2015 Hypermetropia [H52.00] INVALID FOR* Presbyopia [H52.4] INVALID FOR*12/18/2017 Hyperglycemia [R73.9] INVALID FOR*08/12/2016 Priority: A More... Nausea and vomiting [R11.2] INVALID FOR* Drug-seeking behavior [Z76.5] INVALID FOR* DM type 2, uncontrolled, with neuropathy (HCC) *INVALID FOR* Gastroesophageal reflux disease [K21.9] INVALID FOR* YOANDY (obstructive sleep apnea) [G47.33] INVALID FOR* COPD with chronic bronchitis (HCC) [J44.9] INVALID FOR* Obesity, Class I, BMI 30-34.9 [E66.9] INVALID FOR* Tobacco use [Z72.0] INVALID FOR* Microscopic hematuria [R31.29] INVALID FOR* Optic neuritis, right [H46.9] INVALID FOR*03/19/2017 More... Diarrhea [R19.7] INVALID FOR*03/11/2018 Visit Notes: >> Christine Alba LPN Mon Jun 21, 2018 9:42 AM Status: Signed Influenza Vaccine Documentation: ? Patient is identified by name and date of : Yes ? Patient is older than 6 months of age: Yes ? Patient denies a severe allergy to any vaccine component or to a previous dose of influenza vaccine: Yes FOR EGG ALLERGY CONCERNS, REFER TO PROVIDER. ? Denies allergy to gelatin, formaldehyde, thimerosol :Yes ? Patient is afebrile and not moderately or severely ill: Yes ? Does the patient have a history of Guillain ?Gerton Syndrome (a severe paralytic illness): No ? Denies bone marrow transplant prior 6 months or solid organ transplant prior 3 months: Yes ? Denies a history of fainting after a prior injection or medical procedure? Yes If patient has fainted in the past, the CDC recommends sitting or lying down for 15 minutes after the vaccination. ? VIS sheet provided: Yes ? See Immunization Form in [facility] for details of immunizations administered today. If patient reports dizziness, vision changes or ringing in the ears post vaccination ? please have patient sit or lie down for 15 minutes. Prescriptions ordered this encounter Disp Refills Start End METFORMIN 500 MG TABLET 120 * 5 06/21/2018 Sig: TAKE 2 TABLETS BY MOUTH TWICE A DAY WITH MEALS OMEPRAZOLE 40 MG CAPSULE,DELAYED REL* 30 c* 5 06/21/2018 Route: ORAL Sig: Take 1 capsule by mouth once daily. NORTRIPTYLINE 10 MG CAPSULE 30 c* 5 06/21/2018 Route: ORAL Sig: Take 1 capsule by mouth daily at bedtime. FENOFIBRATE 160 MG TABLET 30 t* 5 06/21/2018 Route: ORAL Sig: Take 1 tablet by mouth once daily. For triglycerides. ATORVASTATIN 80 MG TABLET 30 t* 6 06/21/2018 Route: ORAL Sig: Take 1 tablet by mouth daily at bedtime. PREGABALIN 100 MG CAPSULE 90 c* 5 06/21/2018 12/18/2018 Class: Print RX Route: ORAL Sig: Take 1 capsule by mouth three times daily for 180 days. BISOPROLOL 5 MG-HYDROCHLOROTHIAZIDE * 30 t* 5 06/21/2018 Route: ORAL Sig: Take 1 tablet by mouth once daily. TRAMADOL 50 MG TABLET 20 t* 0 06/21/2018 06/26/2018 Class: Print RX Route: ORAL Sig: Take 1 tablet by mouth every 6 hours as needed for Pain for up to 5 days. Medications Discontinued During This Encounter metFORMIN (GLUCOPHAGE) 500 mg tablet 120 * 0 06/01/2018 06/21/2018 Cmt: Maximum Refills Reached Sig: TAKE 2 TABLETS BY MOUTH TWICE A DAY WITH MEALS Disc: Reason for discontinue is not on file. Omeprazole 40 mg capsule 30 c* 0 06/01/2018 06/21/2018 Cmt: Maximum Refills Reached Sig: TAKE 1 CAPSULE BY MOUTH DAILY Disc: Reason for discontinue is not on file. nortriptyline (PAMELOR) 10 mg capsule 30 c* 0 06/01/2018 06/21/2018 Cmt: Maximum Refills Reached Sig: TAKE 1 CAPSULE BY MOUTH AT BEDTIME Disc: Reason for discontinue is not on file. Fenofibrate (LOFIBRA) 160 mg tablet 30 t* 5 12/22/2017 06/21/2018 Route: ORAL Sig: Take 1 tablet by mouth once daily. For triglycerides. Disc: Reason for discontinue is not on file. atorvastatin (LIPITOR) 80 mg tablet 30 t* 6 12/18/2017 06/21/2018 Route: ORAL Sig: Take 1 tablet by mouth daily at bedtime. Disc: Reason for discontinue is not on file. pregabalin (LYRICA) 100 mg capsule 90 c* 5 12/18/2017 06/21/2018 Class: Print RX Route: ORAL Sig: Take 1 capsule by mouth three times daily for 180 days. Disc: Reason for discontinue is not on file. Disposition: Return in about 3 months (around 09/21/2018). Follow-up and Disposition History Recorded Encounter Status:Closed by JOHN JACOME MD on 06/21/18 DISCHARGE INSTRUCTION Observed: 05/27/2018 Status: F Source: [place] 12:56 AM [facility] REPOSITORY [facility] Medical Records Department [address] [place] [id number] Discharge Instruction 05/27/18 0054 MR#: [id number] Acct: [id number] Name: LUIS SCHILLING Rep #: [id number] : 1970 47 From: Mariella Herrera DO PCP: John Jacome MD Status: REG ER ED Disposition - Plan for ED Patient: Chief Complaint: Abd Pain Instructions: ED Abdominal Pain Unkn Cause Prescriptions: Hydrocodone Bitart/Apap 5-325 [[place] 5MG-325MG] 1 tab PO Q4H PRN PRN 2 Days #10 tab PRN Reason: Pain Referrals: John Jacome MD [Primary Care Provider] - 3-5 Days What to do if you have Problems For any increased pain, shortness of breath, bleeding, nausea or vomiting, chest pain, or any unexpected problems, contact your Primary Care Provider. Call [facility] ([phone]) or report to the closest Emergency Room. Call 911 if necessary. 05/27/18 0056 <Electronically signed by Remus Ungur DO> Date Remus Herrera DO Cosigner Signature (If Indicated): Date CC: John Jacome MD EMERGENCY DEPARTMENT Observed: 05/27/2018 Status: F Source: [place] SUMMARY 12:54 AM [facility] REPOSITORY [facility] Medical Records Department [address] [place] [address] Emergency Department Summary 05/27/18 0050 MR#: [id number] Acct: [id number] Name: LUIS SCHILLING Rep #: [id number] : 1970 47 From: Mariella Hererra DO PCP: John Jacome MD Status: REG ER - ER Visit Summary Date of Service: 05/27/18 Chief Complaint: [[place] pain] History of Present Illness: The patient is a 47 M [presents the emergency department complaint of abdominal pain and vomiting. Patient states he has been sick for the last 2 days. Patient's had some diarrhea off and on. Patient describes epigastric abdominal pain and thinks it is similar to his pain related to pancreatitis. Patient states that he has a history of chronic pancreatitis. Patient rates his pain an 8 out of 10 on arrival. He denies any fevers.] Patient has history of diabetes, hypertension, and high cholesterol. Patient has had an appendectomy. Patient denies urinary symptoms. Physical Examination: [HEENT-PERRLA, EOMI. Cranial nerves II through XII grossly intact. TMs clear. Mucous membranes moist. No adenopathy. Cardiovascular-regular rate and rhythm without murmur or ectopy Lungs-clear to auscultation, chest wall stable without crepitus or subcu emphysema Abdomen-normoactive bowel sounds, soft. Patient has tenderness over the epigastric region with some guarding. There is no rebound, rigidity, or perineal signs. Extremities-intact 4, normal range of motion, normal pulses, atraumatic] Test Results: [CBC with differential obtained showed a white blood cell count of 4.9, hemoglobin 12, hematocrit 37, platelets 259. Chemistries unremarkable. Glucose was 264. BUN was 20 and creatinine was 1.72. Lipase was normal at 283. LFTs were normal. Urinalysis was normal. Without evidence for ketones.] Emergency Department Course and Treatment: Patient had an IV line established. Patient was medicated with Dilaudid 1 mg IV and Zofran 4 mg IV. Treatment Plan: [Patient will be given a prescription for [place] for pain and he has Phenergan at home for nausea.] Disposition: [Discharged home in stable condition] Impression: [Abdominal pain-suspect chronic pancreatitis] This note was generated with [employer] dictation software. It may contain incorrect words, spelling, and punctuation that were not noted in review of the chart prior to signing ED Disposition - Plan for ED Patient: Chief Complaint: Abd Pain Referrals: John Jacome MD [Primary Care Provider] - What to do if you have Problems For any increased pain, shortness of breath, bleeding, nausea or vomiting, chest pain, or any unexpected problems, contact your Primary Care Provider. Call [facility] ([phone]) or report to the closest Emergency Room. Call 911 if necessary. 05/27/18 0054 <Electronically signed by Mariella Herrera DO> Date Mariella Herrera DO Cosigner Signature (If Indicated): Date CC: John Jacome MD URINALYSIS, COMPLETE Collected: 05/27/2018 Status: F Source: [place] 12:05 AM [facility] REPOSITORY Order Comment: How was Urine Obtained? CLEAN CATCH TYPE CODE TESTS RESULT OUT OF RANGE REFERENCE UNITS LAB L400.3000 Yellow COLOR Normal Yellow LAB L400.3050 Clear Normal CLARITY Clear LAB L400.3200 Normal mg/dl High GLUCOSE, UR 100 LAB L400.3300 Negative mg/dL Normal BILIRUBIN URINE Negative LAB L400.3400 Negative mg/dl Normal KETONE UR Negative LAB L400.3465 1.002-1.030 Normal SP.GR. DIPSTX 1.015 LAB L400.3550 5.0 - 8.0 pH UR Normal 6.0 LAB L400.3600 Negative mg/dl High PROT DIPSTX 500 LAB L400.3700 Normal mg/dl Normal UROBILI Normal LAB L400.3750 Negative Normal NITRITE UR Negative LAB L400.3780 Negative /ul High 25 OCCULT BLOOD-UR LAB L400.3800 Negative /ul LEUK Normal ESTERASE Negative LAB L400.4050 0-5 /hpf WBC 0 Normal SEEN LAB L400.4100 0-5 /hpf Normal RBC-UA 0-5 SEEN LAB L400.4150 0-5 /hpf SQUAM 0 Normal EPI SEEN LAB L400.4300 None Seen /hpf 0 Normal BACTERIA SEEN LAB L400.4350 <or=2+ /hpf 0 Normal MUCUS, URINE SEEN Performed By: #### L400.0001 #### [facility] [address] [place], [address] BASIC METABOLIC Collected: 05/26/2018 Status: F Source: [place] PROFILE (BMP) 9:31 PM [facility] REPOSITORY TYPE CODE TESTS RESULT OUT OF RANGE REFERENCE UNITS LAB L501.0100 74-106 mg/dL High GLU 264 Result Comment: Glucose result greater than or equal to 200 mg/dL suggests DIABETES MELLITUS per A.D.A. criteria. Please note revised GLUCOSE reference range effective 2017. LAB L501.1000 7-18 mg/dL High BUN 20 LAB L501.1100 0.70-1.30 mg/dL High CREAT,SERUM 1.72 Result Comment: The validity of the calculated GFR AND GFRAA in patients over 70 years has not been determined. Clinical correlation is essential. LAB L501.1110 >60 mL/min Low EST GFR 45 Result Comment: Non- GFR Calc LAB L501.1115 >60 mL/min Low EST GFR - AA 55 Result Comment: GFR Calc LAB L501.1255 ml/min Normal Estimated CRCL 55.33 LAB L501.1300 10-20 RATIO Normal BUN/CRE 11.6 LAB L501.2200 8.5-10 mg/dL Low .1 CA 8.3 LAB L501.5300 136-14 mmol/L Normal 5 NA 138 LAB L501.5600 3.5-5. mmol/L Normal 1 K 5.0 LAB L501.5900 98-107 mmol/L High CL 108 LAB L501.6100 21.0-3 mmol/L Normal 2.0 CO2 21.0 LAB L501.6200 5-15 Normal GAP 9 Performed By: #### L500.2500 #### [facility] [address] [place], [address] CBC W/DIFF, AUTOMATED Collected: 05/26/2018 Status: F Source: [place] 9:31 PM [facility] REPOSITORY TYPE CODE TESTS RESULT OUT OF RANGE REFERENCE UNITS LAB L100.1000 4.4-11.0 K/mm3 Normal WBC 4.9 LAB L100.1200 4.6-6.2 M/mm3 Low RBC 4.09 LAB L100.1300 13.0-16.5 g/dl Low HGB 12.4 LAB L100.1400 40-54 % Low HCT 37.5 LAB L100.1500 80-94 fL Normal MCV 91.7 LAB L100.1600 27.0-32.0 pg Normal MCH 30.3 LAB L100.1700 32-36 g/gl Normal MCHC 33.1 LAB L100.1810 11.6-14.6 % Normal RDW CV 12.8 LAB L100.1820 35.1-43.9 fl Normal RDW SD 42.5 LAB L100.1900 150-450 K/mm3 Normal PLT 259 LAB L100.2000 6.2-12.0 fl Normal MPV 10.0 LAB L100.2100 47-70 % Normal NEUT% 56.3 LAB L100.2200 19-41 % Normal LY% 35.8 LAB L100.2300 0-10 % Normal MONO% 4.1 LAB L100.2400 0-5 % Normal EO% 2.8 LAB L100.2500 0-1 % Normal BASO% 0.8 LAB L100.2550 0.0-0.9 % Normal IM GRAN % 0.200 Result Comment: IG% - Immature Granulocytes (promyelocytes, myelocytes and metamyelocytes) > 1% indicates that a LEFT SHIFT is Present. LAB L100.2620 2.0-7.7 X10 3/uL Normal Absolute Neut 2.8 LAB L100.2720 0.83-4.51 X10 3/ul Normal Absolute Lymph 1.76 Performed By: #### L100.0100 #### [facility] [address] [place], [address] LIPASE Collected: 05/26/2018 Status: F Source: [place] 9:31 PM [facility] REPOSITORY TYPE CODE TESTS RESULT OUT OF RANGE REFERENCE UNITS LAB L501.2450 73-393 U/L Normal LIPASE 283 Performed By: #### L501.2450 #### [facility] [address] [facility] [place], [address] LIVER PROFILE Collected: 05/26/2018 Status: F Source: [place] 9:31 PM [facility] REPOSITORY TYPE CODE TESTS RESULT OUT OF RANGE REFERENCE UNITS LAB L501.1500 6.4-8.2 g/dL Normal T PROT 6.6 LAB L501.1800 3.2-5.0 g/dL Normal ALB 3.3 LAB L501.1950 2.2-4.2 g/dL Normal GLOB 3.3 LAB L501.4100 15-37 U/L Normal AST 23 LAB L501.4305 45-117 U/L Normal ALK P 45 LAB L501.4405 16-61 U/L Normal ALT 32 LAB L501.4600 0.20-1.00 mg/dL Low T BILI 0.10 LAB L501.4700 0.00-0.30 mg/dL Normal D BILI < 0.05 Performed By: #### L500.3400 #### [facility] [address] [facility] [place], [address] EMERGENCY DEPARTMENT Observed: 04/26/2018 Status: F Source: [place] SUMMARY 11:03 PM [facility] REPOSITORY [facility] Medical Records Department [address] [place] [address] [place] [address] Emergency Department Summary 04/26/18 2300 MR#: [id number] Acct: [id number] Name: LUIS SCHILLING Rep #: [id number] : 1970 47 From: Oz Escalona MD PCP: John Jacome MD Status: REG ER - ER Visit Summary Date of Service: 04/26/18 Chief Complaint: Epigastric pain. History of Present Illness: The patient is a 47 M with chronic pancreatitis presents with similar symptoms today. He has had some nausea and vomiting. No fever or chills. The pain does radiate to his back. He has no lower abdominal pain no chest pain shortness of breath. The pain is moderate and achy. Physical Examination: Not appear in acute distress. Moist mucous membranes, no obvious facial deformity No C-spine tenderness supple neck. Regular rate and rhythm without any obvious murmurs Clear lungs bilaterally speaking in full sentences without any obvious respiratory distress Abdomen soft and tender in the epigastrium no guarding or rebound Moves all extremities without any difficulty or pain. Skin does not show any obvious rashes or lesions, no trauma. Alert oriented 3 with no gross focal deficit Emergency Department Course and Treatment: [Patient has a normal lipase. He received IV fluids antiemetics and analgesia he will be discharged in stable condition with reassurance.] Impression: [Chronic pancreatitis] This note was generated with [employer] dictation software. It may contain incorrect words, spelling, and punctuation that were not noted in review of the chart prior to signing ED Disposition - Plan for ED Patient: Disposition: Home or Assisted Living Chief Complaint: Abd Pain Instructions: ED Abdominal Pain Unkn Cause Prescriptions: Ondansetron [Zofran Odt] 4 mg PO Q8H PRN PRN #10 tab PRN Reason: Nausea Referrals: John Jacome MD [Primary Care Provider] - 3-5 Days What to do if you have Problems For any increased pain, shortness of breath, bleeding, nausea or vomiting, chest pain, or any unexpected problems, contact your Primary Care Provider. Call [facility] ([phone]) or report to the closest Emergency Room. Call 911 if necessary. 04/26/18 9647 <Electronically signed by Oz Escalona MD> Date Oz Escalona MD Cosigner Signature (If Indicated): Date CC: John Jacome MD CBC W/DIFF, AUTOMATED Collected: 04/26/2018 Status: F Source: [place] 10:05 PM [facility] REPOSITORY TYPE CODE TESTS RESULT OUT OF RANGE REFERENCE UNITS LAB L100.1000 4.4-11.0 K/mm3 Normal WBC 6.4 LAB L100.1200 4.6-6.2 M/mm3 Low RBC 3.82 LAB L100.1300 13.0-16.5 g/dl Low HGB 12.3 LAB L100.1400 40-54 % Low HCT 35.0 LAB L100.1500 80-94 fL Normal MCV 91.6 LAB L100.1600 27.0-32.0 pg High MCH 32.2 LAB L100.1700 32-36 g/gl Normal MCHC 35.1 LAB L100.1810 11.6-14.6 % Normal RDW CV 12.3 LAB L100.1820 35.1-43.9 fl Normal RDW SD 40.2 LAB L100.1900 150-450 K/mm3 Normal PLT 259 LAB L100.2000 6.2-12.0 fl Normal MPV 9.5 LAB L100.2100 47-70 % Normal NEUT% 60.3 LAB L100.2200 19-41 % Normal LY% 29.5 LAB L100.2300 0-10 % Normal MONO% 5.8 LAB L100.2400 0-5 % Normal EO% 3.7 LAB L100.2500 0-1 % Normal BASO% 0.5 LAB L100.2550 0.0-0.9 % Normal IM GRAN % 0.200 Result Comment: IG% - Immature Granulocytes (promyelocytes, myelocytes and metamyelocytes) > 1% indicates that a LEFT SHIFT is Present. LAB L100.2620 2.0-7.7 X10 3/uL Normal Absolute Neut 3.9 LAB L100.2720 0.83-4.51 X10 3/ul Normal Absolute Lymph 1.90 Performed By: #### L100.0100 #### [facility] [address] [place], [address] COMPREHENSIVE METABOLIC Collected: 04/26/2018 Status: F Source: [place] JEFF 10:05 PM [facility] REPOSITORY TYPE CODE TESTS RESULT OUT OF RANGE REFERENCE UNITS LAB L501.0100 74-106 mg/dL High GLU 175 Result Comment: Fasting Glucose result greater than or equal to 126 mg/dL suggests DIABETES MELLITUS per A.D.A. criteria. Please note revised GLUCOSE reference range effective 2017. LAB L501.1000 7-18 mg/dL High BUN 22 LAB L501.1100 0.70-1.30 mg/dL High CREAT,SERUM 2.01 Result Comment: The validity of the calculated GFR AND GFRAA in patients over 70 years has not been determined. Clinical correlation is essential. LAB L501.1110 >60 mL/min Low EST GFR 38 Result Comment: Non- GFR Calc LAB L501.1115 >60 mL/min Low EST GFR - AA 46 Result Comment: GFR Calc LAB L501.1255 ml/min Normal Estimated CRCL 47.35 LAB L501.1300 10-20 RATIO Normal BUN/CRE 10.9 LAB L501.1500 6.4-8. g/dL Normal 2 T PROT 7.1 LAB L501.1800 3.2-5. g/dL Normal 0 ALB 3.5 LAB L501.1950 2.2-4. g/dL Normal 2 GLOB 3.6 LAB L501.2000 0.9-2. RATIO Normal 4 A/G 1.0 LAB L501.2200 8.5-10 mg/dL Normal .1 CA 8.7 LAB L501.4100 15-37 U/L Normal AST 27 LAB L501.4305 45-117 U/L Normal ALK P 46 LAB L501.4405 16-61 U/L Normal ALT 32 LAB L501.4600 0.20-1 mg/dL Normal .00 T BILI 0.30 LAB L501.5300 136-14 mmol/L Normal 5 NA 141 LAB L501.5600 3.5-5. mmol/L Normal 1 K 4.5 LAB L501.5900 98-107 mmol/L High CL 108 LAB L501.6100 21.0-3 mmol/L Normal 2.0 CO2 26.0 LAB L501.6200 5-15 Normal GAP 7 Performed By: #### L500.4050, L501.2450 #### [facility] [address] [place], [address] LIPASE Collected: 04/26/2018 Status: F Source: [place] 10:05 PM [facility] REPOSITORY TYPE CODE TESTS RESULT OUT OF RANGE REFERENCE UNITS LAB L501.2450 73-393 U/L Normal LIPASE 208 Performed By: #### L500.4050, L501.2450 #### [facility] [address] [place], [address] HOSP Observed: 04/21/2018 Status: COMPLETED Source: [place] 12:00 AM CLINIC OTHER CAMPUS REPOSITORY Patient Update (ME) LUIS SCHILLING ([id number]) 1970 M T Date Time Provider Department 04/21/18 DARRYL NOYOLA ID During your visit today, we recorded the following information about you: Darryl Noyola MD, MD 04/21/2018 11:23 AM Signed MULTIDISCIPLINARY CARE PLAN PLAN IMPLEMENTATION DATE: 04/06/2018 REASON(S) FOR ICP: Frequent hospital admissions for similar complaints ? PLAN IMPLEMENTATION DATE: 02/05/2016 Updated February 10, 2017, updated April 06, 2018 ? ? REASON(S) FOR ICP: Frequent hospital admissions for similar complaints ? COMMON COMPLAINTS AND PRIOR EVALUATIONS: 1. Abdominal Pain A) Acute on chronic pancreatitis - idiopathic 1) Multiple Negative CTs 2) MRCP 10/06 - no objective cause of pain 3) EGD 10/06 - Barretts esophagus 4) Colonoscopy 10/06 - polyp removed B) Has become upset when not given IV narcotics 2. Chest Pain A) Reported cath at [facility] 1) No Intervention 3. Drug seeking behavior A) OARRS website checked and validated. Prescriptions have been INAPPROPRIATELY filled by multiple providers.- 02/05/2016 by Darryl Noyola MD ? ? ICP COMMITTEE RECOMMENDATIONS: 1. Blood work as appropriate for chief complaint - has had positive pancreatic enzymes in past 2. Limit narcotic pain medication - IM/SQ if absolutely necessary 3. Tox Screen, Pain Panel and OARRS 4. Limit CT of abd/pelvis unless absolutely necessary - see above 5. Patient has signed out AMA from floor once admitted. Discuss plan with admitting team prior admission so everyone, including patient, are in agreement. ? Please immediately involve [employer] upon patient arrival into room. ? COMMUNITY SOCIAL SERVICE SUPPORT PLAN: 1. Referred to [facility]. ? This consensus plan was developed by the group members of the Individual Care Plan committee which met in person on 02/05/2016. ? SIGNATURE: Darryl Noyola MD PATIENT NAME: Luis Schilling DATE: February 05, 2016 TIME: 1:06 PM ? ? ?3:45 PM Allergies As of Date: 04/21/2018 Noted Allergy Reaction PENICILLIN G 07/23/2006 16 - Unknown PENICILLINS 08/05/2010 14 - Other: See Comments Comments: He has been allergic since he was 5-6 y/o Date Reviewed: 03/26/2018 Reviewed by: Suzy Ocampo - Partially Assessed Prescriptions as of 04/21/2018 Sig: PEN NEEDLE, DIABETIC 31 GAUGE* 1 Each five times daily. INSULIN LISPRO (U-100) 100 UN* inject 50 units subcutaneousl* ONETOUCH ULTRA BLUE TEST STRIP TEST THREE TIMES A DAY POLYETHYLENE GLYCOL 3350 17 G* Take 17 g by mouth once daily* ONDANSETRON 4 MG DISINTEGRATI* Take 1 tablet by mouth every * ALCOHOL SWABS Apply 1 application to affect* INSULIN GLARGINE (U-100) 100 * Inject 50 Units subcutaneousl* LANCETS Test blood sugar(s) 3x daily.* NORTRIPTYLINE 10 MG CAPSULE Take 1 capsule by mouth daily* LOPERAMIDE 2 MG CAPSULE Take 1 capsule by mouth four * FENOFIBRATE 160 MG TABLET Take 1 tablet by mouth once d* LISINOPRIL 40 MG TABLET Take 1 tablet by mouth once d* OMEPRAZOLE 40 MG CAPSULE,MUSTAPHA* Take 1 capsule by mouth once * METFORMIN 500 MG TABLET Take 2 tablets by mouth twice* ASPIRIN 81 MG TABLET,DELAYED * Take 1 tablet by mouth once d* ALBUTEROL SULFATE HFA 90 MCG/* Inhale 2 Puffs as instructed * ATORVASTATIN 80 MG TABLET Take 1 tablet by mouth daily * PREGABALIN 100 MG CAPSULE Take 1 capsule by mouth three* BLOOD-GLUCOSE METER KIT Glucose Meter of Choice - Kit* Problem List As Of Date 04/21/2018 Noted Resolved Hypertension goal BP (blood pressure) < 140/90 *INVALID FOR* Dyslipidemia [E78.5] INVALID FOR* Benign neoplasm of skin of trunk, except scrotu*INVALID FOR*07/16/2015 Neoplasm of uncertain behavior of skin [D48.5] INVALID FOR*07/16/2015 Acute pancreatitis [K85.90] INVALID FOR*07/16/2015 Chest pain [R07.9] INVALID FOR*07/16/2015 Diabetic hyperosmolar non-ketotic state (HCC) [*INVALID FOR*07/16/2015 More... Abdominal pain chronic [R10.9] INVALID FOR* Non-compliance [Z91.19] INVALID FOR* Diabetic neuropathy [E11.40] INVALID FOR*03/11/2018 More... Chronic whiplash injury [S13.4XXA] INVALID FOR*07/16/2015 Whiplash injury to neck [S13.4XXA] INVALID FOR*07/16/2015 Brachial neuritis or radiculitis NOS [M54.12] INVALID FOR*07/16/2015 Hypermetropia [H52.00] INVALID FOR* Presbyopia [H52.4] INVALID FOR*12/18/2017 Hyperglycemia [R73.9] INVALID FOR*08/12/2016 Priority: A More... 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 Diarrhea [R19.7] INVALID FOR*03/11/2018 Encounter Status:Closed by DARRYL NOYOLA MD on 04/21/18 PROGRESS Observed: 03/26/2018 Status: COMPLETED Source: [place] 9:27 AM [facility] REPOSITORY HNO ID: [id number] Author: Suzy Ocampo Service: (none) Author Type: (none) Type: Progress Notes Filed: 03/26/2018 10:06 AM Note Text: RADIOLOGY SERVICE PROGRESS NOTE SERVICE DATE: 03/26/2018 SERVICE TIME: 08:55 AM PATIENT IDENTITY VERIFICATION COMPLETED USING TWO (2) METHODS: Patient confirmed name and Date of verbally. PATIENT GENDER DATA: .male ALLERGIES: Reviewed and unchanged MEDICATIONS REVIEWED: Yes PATIENT RELEVANT IMPLANT DATA REVIEWED: Not Applicable CREATININE: Creatinine Date Value Ref Range Status 12/18/2017 1.65 (H) 0.73 - 1.22 mg/dL Final 01/21/2016 1.05 0.67 - 1.17 mg/dL Final 12/21/2015 1.12 0.70 - 1.40 mg/dL Final eGFR-All Other Races Date Value Ref Range Status 12/18/2017 45 . Final Comment: eGFR (Estimated GFR) Units of measure: mL/min/1.73 meters squared eGFR is derived from the reexpressed MDRD Study equation using the following parameters: serum creatinine, age, gender and race. The creatinine assay has been calibrated to be traceable to IDMS. An eGFR <60 mL/min/1.73m2 for >3 months is consistent with chronic kidney disease. Refer to KDOQI guidelines for clinical interpretation. In patients with unstable renal function, e.g. those with acute kidney injury, the eGFR may not accurately reflect actual GFR. eGFR- Date Value Ref Range Status 12/18/2017 54 Final P.O.C.T. RESULTS: N/A March 26, [address] PERFORMED: No IV SITE: NM only - not applicable, oral or physician administered agents given to patient POST EXAM PIV STATUS: Not applicable PROCEDURE TYPE: NM GET: 1.1 mCi Tc99m SULFUR COLLOID was administered orally via 4 ounces of Egg Beaters,2 pieces of toast, 1 ounce of jelly with 8 ounces of water orally. Mr. Schilling vomited before the second image was acquired. The test was cancelled and no results were calculated. He will call back to reschedule since he his not feeling well. - BH ADMINISTRATION TIME: 09:03 PATIENT DISCHARGED TO: Ambulatory patient, left [place] department area. A Diagnostic radioactive procedure has taken place, with no further precautions necessary other than routine body substance precautions. More information regarding radiation safety can be found using this link: [email or web address] SIGNATURE: Suzy SueEasy PATIENT NAME: Luis Schilling DATE: March 26, 2018 TIME: 9:27 AM PAGER/CONTACT #: [email or web address] Observed: 03/12/2018 Status: COMPLETED Source: [place] 11:00 AM [facility] REPOSITORY Office Visit ([facility]) LIUS SCHILLING ([id number]) 1970 M [facility] Date Time Provider Department 03/12/18 11:00 AM LALITA MANRIQUE ([place]) [facility] During your visit today, we recorded the following information about you: Pulse Blood pressure Weight Height 91/minute 155/87 99.3 kg 1.803 m Lalita Manrique RN SOLUTION DESIGN AND ANALYSIS MANAGER.APPLIANCE LINE ASSEMBLER 03/14/2018 2:24 PM Signed Luis Schilling a 47 year old male who is returning for follow up regarding his procedure. I saw the patient in consultation on 02/17/18 for nausea and altered bowel habits. That note has been reviewed. The patient was set up for EGD and colonoscopy, with MAC, on 03/02/18. Procedure report reviewed (scanned documents). The patient had food in his stomach as well as stool in his left colon. He assures me that he took the entire bottle of GoLytely and had also been fasting since 9:00 the night before...... FINAL DIAGNOSIS: A) DUODENUM, SECOND PART, BIOPSY - DUODENAL MUCOSA WITH NO SIGNIFICANT HISTOPATHOLOGIC CHANGE. B) STOMACH, ANTRUM, BIOPSY - ANTRAL-TYPE GASTRIC MUCOSA WITH REACTIVE GASTROPATHY. ?NEGATIVE FOR HELICOBACTER PYLORI (SEE NOTE). NOTE: ?Immunostain for H. pylori is negative. C) GE JUNCTION, BIOPSY - SQUAMOCOLUMNAR MUCOSA WITH INTESTINAL METAPLASIA COMPATIBLE WITH WHATLEY ESOPHAGUS. ?NEGATIVE FOR DYSPLASIA AND MALIGNANCY (SEE NOTE). NOTE: ?An Alcian blue/PAS stain highlights intestinal metaplasia. D) STOMACH, BODY, BIOPSY - FUNDIC/BODY-TYPE GASTRIC MUCOSA WITH NO SIGNIFICANT HISTOPATHOLOGIC CHANGE. ?NEGATIVE FOR HELICOBACTER PYLORI (SEE NOTE). NOTE: ?Immunostain for H. pylori is negative. E) COLON, RANDOM BIOPSIES - COLONIC MUCOSA WITH NO SIGNIFICANT HISTOPATHOLOGIC CHANGE. I have reviewed the procedure and pathology reports with the patient. Presenting complaint: The patient presents today reporting that he took the entire prep. He tells me that was rectally passing light brown solution. He didn't have anything by mouth after 9:00 the night before. The patient tells me that Dr. Harrison told him she could fix his reflux problem. I have explained that we need to determine if he has gastroparesis before he would see her for more information. The patient reports that his bowels haven't been working like they were. Having a bowel movement about every three days, where hd had diarrhea prior to the procedure. We can start with Miralax. REVIEW OF SYSTEMS: GENERAL: Continues to lose weight. GI: The patient states that his appetite has been good. He does get hungry. There has been some slight nausea, no vomiting. He denies dysphagia and denies odynophagia. There has partially been indigestion without heartburn. There has not been regurgitation. Bowel habits have been regular. There has not been diarrhea. There has not been constipation. The patient denies rectal bleeding. There has not been melena. No new or worsening abdominal pain. All other reviewed and negative other than HPI. 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 Kumar. - YOANDY (obstructive sleep apnea) 08/07/2015 - Presbyopia 11/17/2013 - Thyroid disorder PAST SURGICAL HISTORY Procedure Laterality Date - APPENDECTOMY HX - CARDIAC CATH 2008 no significant blockage per patient - COLONOSCOP W/ OR W/O [facility] SPEC 10/04/15 Colonoscopy - COLONOSCOP W/ OR W/O [facility] SPEC 03/02/2018 Colonoscopy - COLONOSCOPY 2012 polyps - EGD 2012 - EGD W/O OR W/BRUSH/WASH 10/04/15 EGD - EGD W/O OR W/BRUSH/WASH 03/02/2018 EGD - ORTHOPEDICS SURGERY HX Left 1978 left foot tendon repair - PAST SURGICAL HISTORY OF BLOOD TUMORS REMOVED FROM UPPER LIP FAMILY HISTORY Problem Relation Age of Onset - Macular Degen Mother - Hypertension Mother - Heart Mother - Cancer Maternal Grandmother - Heart Maternal Grandmother - Macular Degen Other - Blindness Other - Diabetes Other - Macular Degen Maternal Uncle - Blindness Maternal Uncle - Macular Degen Maternal Aunt - Blindness Maternal Aunt Current Outpatient Prescriptions: ondansetron orally disintegrating (ZOFRAN ODT) 4 mg disintegrating tablet Take 1 tablet by mouth every 8 hours as needed for Nausea/Vomiting. Disp: 30 tablet Rfl: 5 alcohol swabs (ALCOHOL WIPES) padm Apply 1 application to affected area four times daily as needed. Disp: 100 Each Rfl: 11 insulin glargine (BASAGLAR KWIKPEN U-100 INSULIN) 100 unit/mL (3 mL) inpn Inject 50 Units subcutaneously twice daily. Disp: 15 Pen Rfl: 6 Lancets lancets Test blood sugar(s) 3x daily. Dx: E11.65. Insulin: Yes Disp: 100 Each Rfl: 0 baclofen (LIORESAL) 10 mg tablet Take 1 tablet by mouth three times daily as needed (muscle spasms) for up to 7 days. Disp: 21 tablet Rfl: 0 nortriptyline (PAMELOR) 10 mg capsule Take 1 capsule by mouth daily at bedtime. Disp: 30 capsule Rfl: 2 loperamide (IMODIUM) 2 mg cap(s) Take 1 capsule by mouth four times daily as needed. FOR DIARRHEA Disp: 60 capsule Rfl: 3 BD INSULIN PEN NEEDLE UF 31 gauge x 5/16 ndle USE FIVE TIMES DAILY Disp: 150 Each Rfl: 0 ONETOUCH ULTRA BLUE TEST STRIP test strip TEST three times a day Disp: 100 Strip Rfl: 1 Fenofibrate (LOFIBRA) 160 mg tablet Take 1 tablet by mouth once daily. For triglycerides. Disp: 30 tablet Rfl: 5 lisinopril (ZESTRIL, PRINIVIL) 40 mg tablet Take 1 tablet by mouth once daily. Disp: 30 tablet Rfl: 5 Omeprazole 40 mg capsule Take 1 capsule by mouth once daily. Disp: 30 capsule Rfl: 5 insulin lispro (HUMALOG KWIKPEN INSULIN) 100 unit/mL inpn inject 50 units subcutaneously three times a day WITH MEALS PLUS SLIDING SCALE Disp: 15 Pen Rfl: 5 metFORMIN (GLUCOPHAGE) 500 mg tablet Take 2 tablets by mouth twice daily with meals. Disp: 120 tablet Rfl: 5 aspirin, enteric coated (ASPIRIN, ENTERIC COATED) 81 mg EC tablet Take 1 tablet by mouth once daily. Disp: 30 tablet Rfl: 11 albuterol HFA (VENTOLIN HFA) 90 mcg/actuation inhaler Inhale 2 Puffs as instructed every 4 hours as needed for Wheezing/Shortness of Breath. Disp: 1 Inhaler Rfl: 2 atorvastatin (LIPITOR) 80 mg tablet Take 1 tablet by mouth daily at bedtime. Disp: 30 tablet Rfl: 6 pregabalin (LYRICA) 100 mg capsule Take 1 capsule by mouth three times daily for 180 days. Disp: 90 capsule Rfl: 5 Blood-Glucose Meter monitoring kit Glucose Meter of Choice - Kit - Dx: Type 2 DM - Uncontrolled E11.65 Disp: 1 Each Rfl: 0 No current facility-administered medications for this visit. SOCIAL HISTORY: Reviewed at time of encounter. PHYSICAL EXAMINATION: Blood pressure 155/87, pulse 91, height 180.3 cm (5' 11), weight 99.3 kg (219 lb). General Appearance: Well appearing, alert, in no acute distress, well-hydrated, well nourished. Lungs: Lungs clear to auscultation. No wheezing, rhonchi, rales. Heart: RRR without murmur. Abdomen: Normal abdominal exam, Abdomen soft, non-tender. Bowel sounds normal. No masses, organomegaly. Extremities: No deformities, edema, skin discoloration, clubbing or cyanosis. Impression: consider gastroparesis Non insulin dependent diabetes Plan: Gastric emptying study. Miralax, as needed. Further plan based on the results of the gastric emptying study. Patient agrees with this plan. Lalita Manrique RN SOLUTION DESIGN AND ANALYSIS MANAGER.GRACY Manrique RN APRN.GRACY 03/12/2018 11:13 AM Signed Start Miralax, taking one capful once a day. Adjust the dose based on how well your bowels are moving. Please follow the instructions for the test that looks at how long it takes food to leave your stomach. It will take a day or two after the test for us to get the results. Call [phone], and ask to speak to a nurse in GI, if you have any questions or concerns in the mean time. 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 This is one (1) capful.Disp: 1 BottleRfl: 11 Prescriptions as of 03/12/2018 Sig: POLYETHYLENE GLYCOL 3350 17 G* Take 17 g by mouth once daily* ONDANSETRON 4 MG DISINTEGRATI* Take 1 tablet by mouth every * ALCOHOL SWABS Apply 1 application to affect* INSULIN GLARGINE (U-100) 100 * Inject 50 Units subcutaneousl* LANCETS Test blood sugar(s) 3x daily.* BACLOFEN 10 MG TABLET Take 1 tablet by mouth three * NORTRIPTYLINE 10 MG CAPSULE Take 1 capsule by mouth daily* LOPERAMIDE 2 MG CAPSULE Take 1 capsule by mouth four * BD ULTRA-FINE SHORT PEN NEEDL* USE FIVE TIMES DAILY ONETOUCH ULTRA BLUE TEST STRIP TEST three times a day FENOFIBRATE 160 MG TABLET Take 1 tablet by mouth once d* LISINOPRIL 40 MG TABLET Take 1 tablet by mouth once d* OMEPRAZOLE 40 MG CAPSULE,MUSTAPHA* Take 1 capsule by mouth once * INSULIN LISPRO (U-100) 100 UN* inject 50 units subcutaneousl* METFORMIN 500 MG TABLET Take 2 tablets by mouth twice* ASPIRIN 81 MG TABLET,DELAYED * Take 1 tablet by mouth once d* ALBUTEROL SULFATE HFA 90 MCG/* Inhale 2 Puffs as instructed * ATORVASTATIN 80 MG TABLET Take 1 tablet by mouth daily * PREGABALIN 100 MG CAPSULE Take 1 capsule by mouth three* BLOOD-GLUCOSE METER KIT Glucose Meter of Choice - Kit* Problem List As Of Date 03/12/2018 Noted Resolved Hypertension goal BP (blood pressure) < 140/90 *INVALID FOR* Dyslipidemia [E78.5] INVALID FOR* Benign neoplasm of skin of trunk, except scrotu*INVALID FOR*07/16/2015 Neoplasm of uncertain behavior of skin [D48.5] INVALID FOR*07/16/2015 Acute pancreatitis [K85.90] INVALID FOR*07/16/2015 Chest pain [R07.9] INVALID FOR*07/16/2015 Diabetic hyperosmolar non-ketotic state (HCC) [*INVALID FOR*07/16/2015 More... Abdominal pain chronic [R10.9] INVALID FOR* Non-compliance [Z91.19] INVALID FOR* Diabetic neuropathy [E11.40] INVALID FOR*03/11/2018 More... Chronic whiplash injury [S13.4XXA] INVALID FOR*07/16/2015 Whiplash injury to neck [S13.4XXA] INVALID FOR*07/16/2015 Brachial neuritis or radiculitis NOS [M54.12] INVALID FOR*07/16/2015 Hypermetropia [H52.00] INVALID FOR* Presbyopia [H52.4] INVALID FOR*12/18/2017 Hyperglycemia [R73.9] INVALID FOR*08/12/2016 Priority: A More... 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 Diarrhea [R19.7] INVALID FOR*03/11/2018 Other instructions from your clinician: Start Miralax, taking one capful once a day. Adjust the dose based on how well your bowels are moving. Please follow the instructions for the test that looks at how long it takes food to leave your stomach. It will take a day or two after the test for us to get the results. Call [phone], and ask to speak to a nurse in GI, if you have any questions or concerns in the mean time. Prescriptions ordered this encounter Disp Refills Start End POLYETHYLENE GLYCOL 3350 17 GRAM/DOS* 1 [place]* 11 03/12/2018 Route: ORAL Sig: Take 17 g by mouth once daily. This is one (1) capful. Encounter Status:Closed by LALITA MANRIQUE CNP on 03/14/18 PROGRESS Observed: 03/12/2018 Status: COMPLETED Source: [place] 10:56 AM [facility] REPOSITORY O ID: [id number] Author: Lalita (Braydon) Burton Service: (none) Author Type: Nurse Practitioner Type: Progress Notes Filed: 03/14/2018 2:24 PM Note Text: Luis Schilling a 47 year old male who is returning for follow up regarding his procedure. I saw the patient in consultation on 02/17/18 for nausea and altered bowel habits. That note has been reviewed. The patient was set up for EGD and colonoscopy, with MAC, on 03/02/18. Procedure report reviewed (scanned documents). The patient had food in his stomach as well as stool in his left colon. He assures me that he took the entire bottle of GoLytely and had also been fasting since 9:00 the night before...... FINAL DIAGNOSIS: A) DUODENUM, SECOND PART, BIOPSY - DUODENAL MUCOSA WITH NO SIGNIFICANT HISTOPATHOLOGIC CHANGE. B) STOMACH, ANTRUM, BIOPSY - ANTRAL-TYPE GASTRIC MUCOSA WITH REACTIVE GASTROPATHY. ?NEGATIVE FOR HELICOBACTER PYLORI (SEE NOTE). NOTE: ?Immunostain for H. pylori is negative. C) GE JUNCTION, BIOPSY - SQUAMOCOLUMNAR MUCOSA WITH INTESTINAL METAPLASIA COMPATIBLE WITH WHATLEY ESOPHAGUS. ?NEGATIVE FOR DYSPLASIA AND MALIGNANCY (SEE NOTE). NOTE: ?An Alcian blue/PAS stain highlights intestinal metaplasia. D) STOMACH, BODY, BIOPSY - FUNDIC/BODY-TYPE GASTRIC MUCOSA WITH NO SIGNIFICANT HISTOPATHOLOGIC CHANGE. ?NEGATIVE FOR HELICOBACTER PYLORI (SEE NOTE). NOTE: ?Immunostain for H. pylori is negative. E) COLON, RANDOM BIOPSIES - COLONIC MUCOSA WITH NO SIGNIFICANT HISTOPATHOLOGIC CHANGE. I have reviewed the procedure and pathology reports with the patient. Presenting complaint: The patient presents today reporting that he took the entire prep. He tells me that was rectally passing light brown solution. He didn't have anything by mouth after 9:00 the night before. The patient tells me that Dr. Harrison told him she could fix his reflux problem. I have explained that we need to determine if he has gastroparesis before he would see her for more information. The patient reports that his bowels haven't been working like they were. Having a bowel movement about every three days, where hd had diarrhea prior to the procedure. We can start with Miralax. REVIEW OF SYSTEMS: GENERAL: Continues to lose weight. GI: The patient states that his appetite has been good. He does get hungry. There has been some slight nausea, no vomiting. He denies dysphagia and denies odynophagia. There has partially been indigestion without heartburn. There has not been regurgitation. Bowel habits have been regular. There has not been diarrhea. There has not been constipation. The patient denies rectal bleeding. There has not been melena. No new or worsening abdominal pain. All other reviewed and negative other than HPI. 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 Kumar. - YOANDY (obstructive sleep apnea) 08/07/2015 - Presbyopia 11/17/2013 - Thyroid disorder PAST SURGICAL HISTORY Procedure Laterality Date - APPENDECTOMY HX - CARDIAC CATH 2008 no significant blockage per patient - COLONOSCOP W/ OR W/O [facility] SPEC 10/04/15 Colonoscopy - COLONOSCOP W/ OR W/O [facility] SPEC 03/02/2018 Colonoscopy - COLONOSCOPY 2012 polyps - EGD 2012 - EGD W/O OR W/BRUSH/WASH 10/04/15 EGD - EGD W/O OR W/BRUSH/WASH 03/02/2018 EGD - ORTHOPEDICS SURGERY HX Left 1978 left foot tendon repair - PAST SURGICAL HISTORY OF BLOOD TUMORS REMOVED FROM UPPER LIP FAMILY HISTORY Problem Relation Age of Onset - Macular Degen Mother - Hypertension Mother - Heart Mother - Cancer Maternal Grandmother - Heart Maternal Grandmother - Macular Degen Other - Blindness Other - Diabetes Other - Macular Degen Maternal Uncle - Blindness Maternal Uncle - Macular Degen Maternal Aunt - Blindness Maternal Aunt Current Outpatient Prescriptions: ondansetron orally disintegrating (ZOFRAN ODT) 4 mg disintegrating tablet Take 1 tablet by mouth every 8 hours as needed for Nausea/Vomiting. Disp: 30 tablet Rfl: 5 alcohol swabs (ALCOHOL WIPES) padm Apply 1 application to affected area four times daily as needed. Disp: 100 Each Rfl: 11 insulin glargine (BASAGLAR KWIKPEN U-100 INSULIN) 100 unit/mL (3 mL) inpn Inject 50 Units subcutaneously twice daily. Disp: 15 Pen Rfl: 6 Lancets lancets Test blood sugar(s) 3x daily. Dx: E11.65. Insulin: Yes Disp: 100 Each Rfl: 0 baclofen (LIORESAL) 10 mg tablet Take 1 tablet by mouth three times daily as needed (muscle spasms) for up to 7 days. Disp: 21 tablet Rfl: 0 nortriptyline (PAMELOR) 10 mg capsule Take 1 capsule by mouth daily at bedtime. Disp: 30 capsule Rfl: 2 loperamide (IMODIUM) 2 mg cap(s) Take 1 capsule by mouth four times daily as needed. FOR DIARRHEA Disp: 60 capsule Rfl: 3 BD INSULIN PEN NEEDLE UF 31 gauge x 5/16 ndle USE FIVE TIMES DAILY Disp: 150 Each Rfl: 0 ONETOUCH ULTRA BLUE TEST STRIP test strip TEST three times a day Disp: 100 Strip Rfl: 1 Fenofibrate (LOFIBRA) 160 mg tablet Take 1 tablet by mouth once daily. For triglycerides. Disp: 30 tablet Rfl: 5 lisinopril (ZESTRIL, PRINIVIL) 40 mg tablet Take 1 tablet by mouth once daily. Disp: 30 tablet Rfl: 5 Omeprazole 40 mg capsule Take 1 capsule by mouth once daily. Disp: 30 capsule Rfl: 5 insulin lispro (HUMALOG KWIKPEN INSULIN) 100 unit/mL inpn inject 50 units subcutaneously three times a day WITH MEALS PLUS SLIDING SCALE Disp: 15 Pen Rfl: 5 metFORMIN (GLUCOPHAGE) 500 mg tablet Take 2 tablets by mouth twice daily with meals. Disp: 120 tablet Rfl: 5 aspirin, enteric coated (ASPIRIN, ENTERIC COATED) 81 mg EC tablet Take 1 tablet by mouth once daily. Disp: 30 tablet Rfl: 11 albuterol HFA (VENTOLIN HFA) 90 mcg/actuation inhaler Inhale 2 Puffs as instructed every 4 hours as needed for Wheezing/Shortness of Breath. Disp: 1 Inhaler Rfl: 2 atorvastatin (LIPITOR) 80 mg tablet Take 1 tablet by mouth daily at bedtime. Disp: 30 tablet Rfl: 6 pregabalin (LYRICA) 100 mg capsule Take 1 capsule by mouth three times daily for 180 days. Disp: 90 capsule Rfl: 5 Blood-Glucose Meter monitoring kit Glucose Meter of Choice - Kit - Dx: Type 2 DM - Uncontrolled E11.65 Disp: 1 Each Rfl: 0 No current facility-administered medications for this visit. SOCIAL HISTORY: Reviewed at time of encounter. PHYSICAL EXAMINATION: Blood pressure 155/87, pulse 91, height 180.3 cm (5' 11), weight 99.3 kg (219 lb). General Appearance: Well appearing, alert, in no acute distress, well-hydrated, well nourished. Lungs: Lungs clear to auscultation. No wheezing, rhonchi, rales. Heart: RRR without murmur. Abdomen: Normal abdominal exam, Abdomen soft, non-tender. Bowel sounds normal. No masses, organomegaly. Extremities: No deformities, edema, skin discoloration, clubbing or cyanosis. Impression: consider gastroparesis Non insulin dependent diabetes Plan: Gastric emptying study. Miralax, as needed. Further plan based on the results of the gastric emptying study. Patient agrees with this plan. Lalita Manrique RN SOLUTION DESIGN AND ANALYSIS MANAGER.APPLIANCE LINE ASSEMBLER PROGRESS Observed: 03/11/2018 Status: COMPLETED Source: [place] 3:13 PM [facility] [place] REPOSITORY HNO ID: [id number] Author: Jonh Jacome Service: (none) Author Type: Physician Type: Progress Notes Filed: 03/11/2018 3:21 PM Note Text: This note was created using [employer]. Subjective Luis Schilling is a 47 year old male here for follow up. His diabetes mellitus was reportedly better. He did not bring his meter. His neuropathy was somewhat worse, painful, numb. Hypertension was controlled. Chronic abdominal pains were unchanged. Colonoscopy was attempted but prep was poor. He strained his lower back helping move furniture last week. He was requesting a short course of muscle relaxer. Review of Systems Constitutional: Negative. Respiratory: Negative. Cardiovascular: Negative. Gastrointestinal: Positive for abdominal pain, constipation, nausea and vomiting. See HPI. Genitourinary: Negative. Musculoskeletal: Positive for back pain. ACTIVE PROBLEM LIST Hypertension Goal Bp (Blood Pressure) < 140/90 Dyslipidemia Abdominal pain chronic Non-Compliance Hypermetropia Nausea and Vomiting Drug-Seeking Behavior DM type 2, uncontrolled, with neuropathy (HCC) Gastroesophageal Reflux Disease Yoadny (Obstructive Sleep Apnea) Copd With Chronic Bronchitis (Hcc) Obesity Tobacco Use Microscopic Hematuria Current Outpatient Prescriptions: ondansetron orally disintegrating (ZOFRAN ODT) 4 mg disintegrating tablet Take 1 tablet by mouth every 8 hours as needed for Nausea/Vomiting. alcohol swabs (ALCOHOL WIPES) padm Apply 1 application to affected area four times daily as needed. insulin glargine (BASAGLAR KWIKPEN U-100 INSULIN) 100 unit/mL (3 mL) inpn Inject 50 Units subcutaneously twice daily. Lancets lancets Test blood sugar(s) 3x daily. Dx: E11.65. Insulin: Yes loperamide (IMODIUM) 2 mg cap(s) Take 1 capsule by mouth four times daily as needed. FOR DIARRHEA BD INSULIN PEN NEEDLE UF 31 gauge x 5/16 ndle USE FIVE TIMES DAILY ONETOUCH ULTRA BLUE TEST STRIP test strip TEST three times a day Fenofibrate (LOFIBRA) 160 mg tablet Take 1 tablet by mouth once daily. For triglycerides. lisinopril (ZESTRIL, PRINIVIL) 40 mg tablet Take 1 tablet by mouth once daily. Omeprazole 40 mg capsule Take 1 capsule by mouth once daily. insulin lispro (HUMALOG KWIKPEN INSULIN) 100 unit/mL inpn inject 50 units subcutaneously three times a day WITH MEALS PLUS SLIDING SCALE metFORMIN (GLUCOPHAGE) 500 mg tablet Take 2 tablets by mouth twice daily with meals. aspirin, enteric coated (ASPIRIN, ENTERIC COATED) 81 mg EC tablet Take 1 tablet by mouth once daily. albuterol HFA (VENTOLIN HFA) 90 mcg/actuation inhaler Inhale 2 Puffs as instructed every 4 hours as needed for Wheezing/Shortness of Breath. atorvastatin (LIPITOR) 80 mg tablet Take 1 tablet by mouth daily at bedtime. pregabalin (LYRICA) 100 mg capsule Take 1 capsule by mouth three times daily for 180 days. Blood-Glucose Meter monitoring kit Glucose Meter of Choice - Kit - Dx: Type 2 DM - Uncontrolled E11.65 baclofen (LIORESAL) 10 mg tablet Take 1 tablet by mouth three times daily as needed (muscle spasms) for up to 7 days. nortriptyline (PAMELOR) 10 mg capsule Take 1 capsule by mouth daily at bedtime. No current facility-administered medications for this visit. Objective BP 126/74 (BP Site: Left Arm, BP Position: Sitting, BP Cuff Size: Regular Adult) Pulse 88 Temp (!) 35.7 ?C (96.3 ?F) (Left Tympanic) Resp 20 Wt 99.3 kg (219 lb) BMI 30.54 kg/m? Physical Exam Constitutional: No distress. Eyes: Conjunctivae are normal. Neck: No JVD present. Cardiovascular: Regular rhythm and normal heart sounds. Pulmonary/Chest: No respiratory distress. He has wheezes. He has no rales. Abdominal: Soft. There is no tenderness. Musculoskeletal: He exhibits no edema. Lumbar back: He exhibits decreased range of motion and spasm. He exhibits no tenderness and no bony tenderness. Neurological: He has normal strength. Gait normal. Feet: Shoes and socks removed, No deformities, ulcers, calluses, normal distal pulses and not sensitive to monofilament in toes. Assessment and Plan 1. DM type 2, uncontrolled, with neuropathy (HCC) - ICD9: 250.62, 357.2, ICD10: E11.40, E11.65 (primary diagnosis) poorly controlled - Continue current medications - ALCOHOL SWABS - INSULIN GLARGINE (U-100) 100 UNIT/ML (3 ML) SUBCUTANEOUS PEN - LANCETS - HEMOGLOBIN A1C (POC) - ALBUMIN/CREAT RATIO RND UR - NORTRIPTYLINE 10 MG CAPSULE. Take one(1) tablet daily at bedtime. New medication. Discussed medication dosage, usage, goals of therapy, and side effects. - LYRICA at maximal dose of 300 mg dayly. 2. Nausea and vomiting, intractability of vomiting not specified, unspecified vomiting type - ICD9: 787.01, ICD10: R11.2 - ONDANSETRON 4 MG DISINTEGRATING TABLET 3. Abdominal pain, unspecified abdominal location - ICD9: 789.00, ICD10: R10.9 Chronic. 4. Hypertension goal BP (blood pressure) < 140/90 - ICD9: 401.9, ICD10: I10 - good control 5. Acute bilateral low back pain without sciatica - ICD9: 724.2, 338.19, ICD10: M54.5 Mechanical low back pain - BACLOFEN 10 MG TABLET Discussed medication dosage, usage, goals of therapy, and side effects. John Jacome MD CNOV Observed: 03/11/2018 Status: COMPLETED Source: [place] 2:00 PM [facility] REPOSITORY Office Visit (INTMWS) LUIS SCHILLING ([id number]) 1970 M [facility] Date Time Provider Department 03/11/18 2:00 PM JOHN JACOME INTMWS During your visit today, we recorded the following information about you: Temperature Pulse Respiration Blood pressure 96.3 degrees 88/minute 20/minute 126/74 Weight 99.3 kg John Jacome MD 03/11/2018 3:21 PM Signed This note was created using [employer]. Subjective Luis Schilling is a 47 year old male here for follow up. His diabetes mellitus was reportedly better. He did not bring his meter. His neuropathy was somewhat worse, painful, numb. Hypertension was controlled. Chronic abdominal pains were unchanged. Colonoscopy was attempted but prep was poor. He strained his lower back helping move furniture last week. He was requesting a short course of muscle relaxer. Review of Systems Constitutional: Negative. Respiratory: Negative. Cardiovascular: Negative. Gastrointestinal: Positive for abdominal pain, constipation, nausea and vomiting. See HPI. Genitourinary: Negative. Musculoskeletal: Positive for back pain. ACTIVE PROBLEM LIST Hypertension Goal Bp (Blood Pressure) < 140/90 Dyslipidemia Abdominal pain chronic Non-Compliance Hypermetropia Nausea and Vomiting Drug-Seeking Behavior DM type 2, uncontrolled, with neuropathy (HCC) Gastroesophageal Reflux Disease Yoandy (Obstructive Sleep Apnea) Copd With Chronic Bronchitis (Hcc) Obesity Tobacco Use Microscopic Hematuria Current Outpatient Prescriptions: ondansetron orally disintegrating (ZOFRAN ODT) 4 mg disintegrating tablet Take 1 tablet by mouth every 8 hours as needed for Nausea/Vomiting. alcohol swabs (ALCOHOL WIPES) padm Apply 1 application to affected area four times daily as needed. insulin glargine (BASAGLAR KWIKPEN U-100 INSULIN) 100 unit/mL (3 mL) inpn Inject 50 Units subcutaneously twice daily. Lancets lancets Test blood sugar(s) 3x daily. Dx: E11.65. Insulin: Yes loperamide (IMODIUM) 2 mg cap(s) Take 1 capsule by mouth four times daily as needed. FOR DIARRHEA BD INSULIN PEN NEEDLE UF 31 gauge x 5/16 ndle USE FIVE TIMES DAILY ONETOUCH ULTRA BLUE TEST STRIP test strip TEST three times a day Fenofibrate (LOFIBRA) 160 mg tablet Take 1 tablet by mouth once daily. For triglycerides. lisinopril (ZESTRIL, PRINIVIL) 40 mg tablet Take 1 tablet by mouth once daily. Omeprazole 40 mg capsule Take 1 capsule by mouth once daily. insulin lispro (HUMALOG KWIKPEN INSULIN) 100 unit/mL inpn inject 50 units subcutaneously three times a day WITH MEALS PLUS SLIDING SCALE metFORMIN (GLUCOPHAGE) 500 mg tablet Take 2 tablets by mouth twice daily with meals. aspirin, enteric coated (ASPIRIN, ENTERIC COATED) 81 mg EC tablet Take 1 tablet by mouth once daily. albuterol HFA (VENTOLIN HFA) 90 mcg/actuation inhaler Inhale 2 Puffs as instructed every 4 hours as needed for Wheezing/Shortness of Breath. atorvastatin (LIPITOR) 80 mg tablet Take 1 tablet by mouth daily at bedtime. pregabalin (LYRICA) 100 mg capsule Take 1 capsule by mouth three times daily for 180 days. Blood-Glucose Meter monitoring kit Glucose Meter of Choice - Kit - Dx: Type 2 DM - Uncontrolled E11.65 baclofen (LIORESAL) 10 mg tablet Take 1 tablet by mouth three times daily as needed (muscle spasms) for up to 7 days. nortriptyline (PAMELOR) 10 mg capsule Take 1 capsule by mouth daily at bedtime. No current facility-administered medications for this visit. Objective BP 126/74 (BP Site: Left Arm, BP Position: Sitting, BP Cuff Size: Regular Adult) Pulse 88 Temp (!) 35.7 ?C (96.3 ?F) (Left Tympanic) Resp 20 Wt 99.3 kg (219 lb) BMI 30.54 kg/m? Physical Exam Constitutional: No distress. Eyes: Conjunctivae are normal. Neck: No JVD present. Cardiovascular: Regular rhythm and normal heart sounds. Pulmonary/Chest: No respiratory distress. He has wheezes. He has no rales. Abdominal: Soft. There is no tenderness. Musculoskeletal: He exhibits no edema. Lumbar back: He exhibits decreased range of motion and spasm. He exhibits no tenderness and no bony tenderness. Neurological: He has normal strength. Gait normal. Feet: Shoes and socks removed, No deformities, ulcers, calluses, normal distal pulses and not sensitive to monofilament in toes. Assessment and Plan 1. DM type 2, uncontrolled, with neuropathy (HCC) - ICD9: 250.62, 357.2, ICD10: E11.40, E11.65 (primary diagnosis) poorly controlled - Continue current medications - ALCOHOL SWABS - INSULIN GLARGINE (U-100) 100 UNIT/ML (3 ML) SUBCUTANEOUS PEN - LANCETS - HEMOGLOBIN A1C (POC) - ALBUMIN/CREAT RATIO RND UR - NORTRIPTYLINE 10 MG CAPSULE. Take one(1) tablet daily at bedtime. New medication. Discussed medication dosage, usage, goals of therapy, and side effects. - LYRICA at maximal dose of 300 mg dayly. 2. Nausea and vomiting, intractability of vomiting not specified, unspecified vomiting type - ICD9: 787.01, ICD10: R11.2 - ONDANSETRON 4 MG DISINTEGRATING TABLET 3. Abdominal pain, unspecified abdominal location - ICD9: 789.00, ICD10: R10.9 Chronic. 4. Hypertension goal BP (blood pressure) < 140/90 - ICD9: 401.9, ICD10: I10 - good control 5. Acute bilateral low back pain without sciatica - ICD9: 724.2, 338.19, ICD10: M54.5 Mechanical low back pain - BACLOFEN 10 MG TABLET Discussed medication dosage, usage, goals of therapy, and side effects. John Jacome MD Referring Provider: JOHN JACOME [[id number]] Allergies As of Date: 03/11/2018 Noted Allergy Reaction PENICILLIN G 07/23/2006 16 - Unknown PENICILLINS 08/05/2010 14 - Other: See Comments Comments: He has been allergic since he was 5-6 y/o Date Reviewed: 03/11/2018 Reviewed by: Christine Alba LPN - Fully Assessed Reason for Visit: 2 month follow-up [Other] Primary Visit Diagnosis:DM type 2, uncontrolled, with neuropathy (HCC) [E11.40, E11.65] Other Visit Diagnoses:Nausea and vomiting, intractability of vomiting not specified, unspecified vomiting type [R11.2] Abdominal pain, unspecified abdominal location [R10.9] Hypertension goal BP (blood pressure) < 140/90 [I10] Acute bilateral low back pain without sciatica [M54.5] Order(s):ondansetron orally disintegrating (ZOFRAN ODT) 4 mg disintegrating tabletTake 1 tablet by mouth every 8 hours as needed for Nausea/Vomiting.Disp: 30 tabletRfl: 5 alcohol swabs (ALCOHOL WIPES) padmApply 1 application to affected area four times daily as needed.Disp: 100 EachRfl: 11 insulin glargine (BASAGLAR KWIKPEN U-100 INSULIN) 100 unit/mL (3 mL) inpnInject 50 Units subcutaneously twice daily.Disp: 15 PenRfl: 6 Lancets lancetsTest blood sugar(s) 3x daily. Dx: E11.65. Insulin: YesDisp: 100 EachRfl: 0 HEMOGLOBIN A1C (POC) [[id number]] Order #: [id number]. #:[id number] ALBUMIN/CREAT RATIO RND UR [SQUACR] Order #: [id number] FUTURE baclofen (LIORESAL) 10 mg tabletTake 1 tablet by mouth three times daily as needed (muscle spasms) for up to 7 days.Disp: 21 tabletRfl: 0 nortriptyline (PAMELOR) 10 mg capsuleTake 1 capsule by mouth daily at bedtime.Disp: 30 capsuleRfl: 2 Prescriptions as of 03/11/2018 Sig: ONDANSETRON 4 MG DISINTEGRATI* Take 1 tablet by mouth every * ALCOHOL SWABS Apply 1 application to affect* INSULIN GLARGINE (U-100) 100 * Inject 50 Units subcutaneousl* LANCETS Test blood sugar(s) 3x daily.* LOPERAMIDE 2 MG CAPSULE Take 1 capsule by mouth four * BD ULTRA-FINE SHORT PEN NEEDL* USE FIVE TIMES DAILY ONETOUCH ULTRA BLUE TEST STRIP TEST three times a day FENOFIBRATE 160 MG TABLET Take 1 tablet by mouth once d* LISINOPRIL 40 MG TABLET Take 1 tablet by mouth once d* OMEPRAZOLE 40 MG CAPSULE,MUSTAPHA* Take 1 capsule by mouth once * INSULIN LISPRO (U-100) 100 UN* inject 50 units subcutaneousl* METFORMIN 500 MG TABLET Take 2 tablets by mouth twice* ASPIRIN 81 MG TABLET,DELAYED * Take 1 tablet by mouth once d* ALBUTEROL SULFATE HFA 90 MCG/* Inhale 2 Puffs as instructed * ATORVASTATIN 80 MG TABLET Take 1 tablet by mouth daily * PREGABALIN 100 MG CAPSULE Take 1 capsule by mouth three* BLOOD-GLUCOSE METER KIT Glucose Meter of Choice - Kit* BACLOFEN 10 MG TABLET Take 1 tablet by mouth three * NORTRIPTYLINE 10 MG CAPSULE Take 1 capsule by mouth daily* Problem List As Of Date 03/11/2018 Noted Resolved Hypertension goal BP (blood pressure) < 140/90 *INVALID FOR* Dyslipidemia [E78.5] INVALID FOR* Benign neoplasm of skin of trunk, except scrotu*INVALID FOR*07/16/2015 Neoplasm of uncertain behavior of skin [D48.5] INVALID FOR*07/16/2015 Acute pancreatitis [K85.90] INVALID FOR*07/16/2015 Chest pain [R07.9] INVALID FOR*07/16/2015 Diabetic hyperosmolar non-ketotic state (HCC) [*INVALID FOR*07/16/2015 More... Abdominal pain chronic [R10.9] INVALID FOR* Non-compliance [Z91.19] INVALID FOR* Diabetic neuropathy [E11.40] INVALID FOR*03/11/2018 More... Chronic whiplash injury [S13.4XXA] INVALID FOR*07/16/2015 Whiplash injury to neck [S13.4XXA] INVALID FOR*07/16/2015 Brachial neuritis or radiculitis NOS [M54.12] INVALID FOR*07/16/2015 Hypermetropia [H52.00] INVALID FOR* Presbyopia [H52.4] INVALID FOR*12/18/2017 Hyperglycemia [R73.9] INVALID FOR*08/12/2016 Priority: A More... 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 Diarrhea [R19.7] INVALID FOR*03/11/2018 Prescriptions ordered this encounter Disp Refills Start End ONDANSETRON 4 MG DISINTEGRATING TABL* 30 t* 5 03/11/2018 Route: ORAL Sig: Take 1 tablet by mouth every 8 hours as needed for Nausea/Vomiting. ALCOHOL SWABS 100 * 11 03/11/2018 Route: TOPICAL Sig: Apply 1 application to affected area four times daily as needed. INSULIN GLARGINE (U-100) 100 UNIT/ML* 15 P* 6 03/11/2018 Route: SUBCUTANEOUS Sig: Inject 50 Units subcutaneously twice daily. LANCETS 100 * 0 03/11/2018 Sig: Test blood sugar(s) 3x daily. Dx: E11.65. Insulin: Yes BACLOFEN 10 MG TABLET 21 t* 0 03/11/2018 03/18/2018 Route: ORAL Sig: Take 1 tablet by mouth three times daily as needed (muscle spasms) for up to 7 days. NORTRIPTYLINE 10 MG CAPSULE 30 c* 2 03/11/2018 Route: ORAL Sig: Take 1 capsule by mouth daily at bedtime. Medications Discontinued During This Encounter ondansetron orally disintegrating (Z* 30 t* 1 12/18/2017 03/11/2018 Route: ORAL Sig: Take 1 tablet by mouth every 8 hours as needed for Nausea/Vomiting. Disc: Reason for discontinue is not on file. Alcohol Swabs (ALCOHOL WIPES) padm 100 * 11 11/13/2016 03/11/2018 Route: TOPICAL Sig: Apply 1 application to affected area four times daily as needed. Disc: Reason for discontinue is not on file. insulin glargine (BASAGLAR KWIKPEN) * 15 P* 6 02/26/2017 03/11/2018 Route: SUBCUTANEOUS Sig: Inject 50 Units subcutaneously twice daily. Indications: DIABETES MELLITUS Disc: Reason for discontinue is not on file. Lancets lancets 100 * 0 11/25/2017 03/11/2018 Sig: Test blood sugar(s) 3x daily. Dx: E11.65. Insulin: Yes Disc: Reason for discontinue is not on file. Disposition: Return in about 3 months (around 06/11/2018). Follow-up and Disposition History Recorded Encounter Status:Closed by JOHN JACOME MD on 03/11/18 ANES POST Observed: 03/02/2018 Status: COMPLETED Source: [place] 2:15 PM [facility] [place] REPOSITORY O ID: [id number] Author: Yordan Lopez Service: (none) Author Type: Physician Type: Anesthesia PostOp Filed: 03/02/2018 2:23 PM Note Text: POST ANESTHESIA EVALUATION NOTE SERVICE DATE: 03/02/2018 SERVICE TIME: 1400 : 1970 Vitals: 03/02/18 1218 03/02/18 1340 Temp: 36 ?C (96.8 ?F) 36.3 ?C (97.3 ?F) 03/02/18 1345 03/02/18 1350 03/02/18 1353 03/02/18 1357 BP: (!) 108/48 (!) 118/47 (!) 119/38 (!) 127/39 03/02/18 1345 03/02/18 1350 03/02/18 1353 03/02/18 1357 Pulse: 83 88 88 88 03/02/18 1345 03/02/18 1350 03/02/18 1353 03/02/18 1357 Resp: 18 18 18 03/02/18 1345 03/02/18 1350 03/02/18 1353 03/02/18 1357 SpO2: 95% 95% 96% 96% Validated Vital Signs: Yes POST ANES STATUS: No apparent anesthetic complications. The patient is appropriately hydrated with stable respiratory and cardiovascular status. Patient has safe and adequate airway control. The patient has appropriate pain relief and no significant post operative nausea or vomiting. The patient has achieved baseline mental status. Intra-Operative Events: No Significant Anesthesia Events See the [facility] record for the event detail Further assessment by Anesthesia Service: None Other Remarks: SIGNATURE: Yordan Lopez MD PATIENT NAME: Luis Schilling DATE: March 02, 2018 TIME: 2:22 PM PAGER/CONTACT none NURSING PROG Observed: 03/02/2018 Status: COMPLETED Source: [place] 2:15 PM [facility] REPOSITORY HNO ID: [id number] Author: Larissa HinsonRn) NELY Posada Service: (none) Author Type: Registered Nurse Type: Nursing Progress Note Filed: 03/03/2018 10:10 AM Note Text: Spoke with patient. Patient states he is still having stomach pains which he is not taking any pain medications. Encouraged patient to call Dr. Harrison's office and let her know he is uncomfortable and to make a post-op appointment also. Patient verbalized understanding of instructions given. BRIEF OP NOT Observed: 03/02/2018 Status: COMPLETED Source: [place] 1:39 PM [facility] REPOSITORY HNO ID: [id number] Author: Donita Harrison Service: (none) Author Type: Physician Type: Brief Op Note Filed: 03/02/2018 1:41 PM Note Text: BRIEF OPERATIVE NOTE SURGERY DATE: 03/02/2018 Incision/Procedure Start Time: 12:55 Incision Close/Procedure End Time: 13:29 Surgeon(s)/Proceduralist(s) and Remote Control Mirror Installer(s): Hunter Procedures: Esophagogastroduodenoscopy and colonoscopy with biopsies Anesthesia: MAC Findings: retained food in stomach - probably gastroparesis, colonoscopy - unprepped bowel - random mucosal biopsies obtained with cold grasper forceps Estimated Blood Loss: minimal Specimens: mucosal biopsy of second portion of duodenum, mucosal biopsy of body of stomach, mucosal biopsy of GE junction, random mucosal biopsies taken throughout colon Complications: None Preop Diagnosis: abdominal pain, diarrhea, emesis Postop Diagnosis: same SIGNATURE: Donita Harrison MD PATIENT NAME: Luis Schilling DATE: March 02, 2018 TIME: 1:39 PM PAGER/CONTACT #: ANES PREOP Observed: 03/02/2018 Status: COMPLETED Source: [place] 12:31 PM [facility] REPOSITORY HNO ID: [id number] Author: Yordan Lopez Service: (none) Author Type: Physician Type: Anesthesia PreOp Filed: 03/02/2018 12:33 PM Note Text: ANESTHESIOLOGY PREOPERATIVE ASSESSMENT SERVICE DATE: 03/02/2018 : 1970 SERVICE TIME: now Surgeon(s): Donita Harrison Procedure(s) (LRB): COLONOSCOPY (N/A) EGD (N/A) Estimated body mass index is 29.29 kg/m? as calculated from the following: Height as of 02/17/18: 180.3 cm (5' 11). Weight as of this encounter: 95.3 kg (210 lb). MOST RECENT HEMATOCRIT AND POTASSIUM RESULTS: Hematocrit 42.3 12/18/2017 Potassium 4.2 12/18/2017 ANES DOS/PREOP NOTE: Vitals: 03/02/18 1218 BP: 164/84 Pulse: 88 Resp: 18 Temp: 36 ?C (96.8 ?F) TempSrc: Temporal Artery SpO2: 96% Weight: 95.3 kg (210 lb) ACTIVE PROBLEM LIST Hypertension Goal Bp (Blood Pressure) < 140/90 Dyslipidemia Abdominal pain chronic Non-Compliance Diabetic neuropathy Hypermetropia Nausea and Vomiting Drug-Seeking Behavior DM type 2, uncontrolled, with neuropathy ([facility]) Gastroesophageal Reflux Disease Yoandy (Obstructive Sleep Apnea) Copd With Chronic Bronchitis ([facility]) Obesity Tobacco Use Microscopic Hematuria Diarrhea PAST MEDICAL HISTORY Diagnosis Date - Acid reflux - Acute pancreatitis 06/06/2012 - Chronic obstructive pulmonary disease (COPD) ([facility]) - COPD with chronic bronchitis ([facility]) 08/07/20152006 - Depression - 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 Kumar. - YOANDY (obstructive sleep apnea) 08/07/2015 - Presbyopia 11/17/2013 - Thyroid disorder PAST SURGICAL HISTORY Procedure Laterality Date - APPENDECTOMY HX - CARDIAC CATH 2008 no significant blockage per patient - COLONOSCOP W/ OR W/O BRSH SPEC 10/04/15 Colonoscopy - COLONOSCOPY 2012 polyps - EGD 2012 - EGD W/O OR W/BRUSH/WASH 10/04/15 EGD - ORTHOPEDICS SURGERY HX Left 1977 left foot tendon repair - PAST SURGICAL HISTORY OF BLOOD TUMORS REMOVED FROM UPPER LIP FAMILY HISTORY Problem Relation Age of Onset - Macular Degen Mother - Hypertension Mother - Heart Mother - Cancer Maternal Grandmother - Heart Maternal Grandmother - Macular Degen Other - Blindness Other - Diabetes Other - Macular Degen Maternal Uncle - Blindness Maternal Uncle - Macular Degen Maternal Aunt - Blindness Maternal Aunt Social History: Social History Substance Use Topics - Smoking status: Current Every Day Smoker Packs/day: 1.00 Years: 30.00 Types: Cigarettes - Smokeless tobacco: Never Used Comment: Down to 1and one half ernie=julián PPD, Parents smoked in childhood home. - Alcohol use No Comment: AT LEAST 2 YRS. No current facility-administered medications on file prior to encounter. Current Outpatient Prescriptions on File Prior to Encounter: loperamide (IMODIUM) 2 mg cap(s) Take 1 capsule by mouth four times daily as needed. FOR DIARRHEA BD INSULIN PEN NEEDLE UF 31 gauge x 02/03 ndle USE FIVE TIMES DAILY ONETOUCH ULTRA BLUE TEST STRIP test strip TEST three times a day Fenofibrate (LOFIBRA) 160 mg tablet Take 1 tablet by mouth once daily. For triglycerides. lisinopril (ZESTRIL, PRINIVIL) 40 mg tablet Take 1 tablet by mouth once daily. Omeprazole 40 mg capsule Take 1 capsule by mouth once daily. insulin lispro (HUMALOG KWIKPEN INSULIN) 100 unit/mL inpn inject 50 units subcutaneously three times a day WITH MEALS PLUS SLIDING SCALE metFORMIN (GLUCOPHAGE) 500 mg tablet Take 2 tablets by mouth twice daily with meals. aspirin, enteric coated (ASPIRIN, ENTERIC COATED) 81 mg EC tablet Take 1 tablet by mouth once daily. albuterol HFA (VENTOLIN HFA) 90 mcg/actuation inhaler Inhale 2 Puffs as instructed every 4 hours as needed for Wheezing/Shortness of Breath. atorvastatin (LIPITOR) 80 mg tablet Take 1 tablet by mouth daily at bedtime. ondansetron orally disintegrating (ZOFRAN ODT) 4 mg disintegrating tablet Take 1 tablet by mouth every 8 hours as needed for Nausea/Vomiting. pregabalin (LYRICA) 100 mg capsule Take 1 capsule by mouth three times daily for 180 days. Lancets lancets Test blood sugar(s) 3x daily. Dx: E11.65. Insulin: Yes Blood-Glucose Meter monitoring kit Glucose Meter of Choice - Kit - Dx: Type 2 DM - Uncontrolled E11.65 insulin glargine (BASAGLAR KWIKPEN) 100 unit/mL (3 mL) inpn Inject 50 Units subcutaneously twice daily. Indications: DIABETES MELLITUS Alcohol Swabs (ALCOHOL WIPES) padm Apply 1 application to affected area four times daily as needed. Current Facility-Administered Medications: lidocaine 10 mg/mL (1 %) 1-2 mg injection (XYLOCAINE) 0.1- 0.2 mL INTRADERMAL PRN Donita Harrison lactated ringers infusion 5-30 mL/hr INTRAVENOUS CONTINUOUS Donita Harrison Allergies: ALLERGIES Allergen Reactions - Penicillin G Unknown - Penicillins Other: See Comments He has been allergic since he was 5-6 y/o REVIEW OF SYSTEMS: REVIEW OF SYSTEMS: As stated in Active Problem List/ Past Medical History ANESTHESIOLOGY REVIEW: Airway Assessment: MP 2; Neck ROM: Full ROM without neurologic symptoms; Airway Evaluation: No significant abnormalities Symptoms of Sleep Apnea: Age over 50 (47 year old) and Male gender Intubation History: No previous history of difficult intubation Dentition: Teeth intact ADDITIONAL PHYSICAL EXAM: Lungs: Patient health status unchanged since recent history and physical. See history and physical for exam findings. Cardiac: Patient health status unchanged since recent history and physical. See history and physical for exam findings. Additional Pertinent Findings: N/A ADVERSE ANESTHESIA EVENT: No history of adverse event FAMILY HIISTORY OF ANESTHESIA: No known issues BLOOD PRODUCTS: Not anticipated for this procedure OTHER MEDICAL PROBLEMS: None I have interviewed and examined the patient. I have reviewed the medical record and/or the pre-anesthesia evaluation, pertinent labs, and test results. Significant changes in the patient's condition since the History and Physical, not otherwise documented in primary service progress notes: No Anesthetic risks, benefits, alternatives, personnel and consent discussed: Yes ANES REVIEW: This contains information obtained greater than 48 hours prior to the Surgery/Procedure. See Day of Surgery Note SIGNATURE: Yordan Lopez MD PATIENT NAME: Luis Schilling DATE: March 02, 2018 TIME: 12:31 PM PAGER/CONTACT #: none PT ED Observed: 03/02/2018 Status: COMPLETED Source: [place] 12:23 PM [facility] [place] REPOSITORY HNO ID: [id number] Author: Ale (Rn) NELY Moore Service: Nursing Author Type: Registered Nurse Type: Patient Education Filed: 03/02/2018 12:24 PM Note Text: preprocedure teaching done, understands, pt has abd pain, took prep, osorio, will get to bedside. GLUCOSE METER Collected: 03/02/2018 Status: F Source: [facility] 12:12 PM HEALTH SYSTEM REPOSITORY TYPE CODE TESTS RESULT OUT OF REFERENCE UNITS RANGE LAB LGLUB(LOINC 70-99 mg/dL ) High Glucose Meter 120 Result Comment: Testing [place] [address] Performed By: #### LGLMT #### [place] [address] SURGICAL TISSUE EXAM Observed: 03/02/2018 Status: F Source: [facility] 12:00 AM HEALTH SYSTEM REPOSITORY Test performed at [place] [address] NAME: LUIS SCHILLING REQUESTING: DONITA HARRISON MD FINAL DIAGNOSIS: A) DUODENUM, SECOND PART, BIOPSY - DUODENAL MUCOSA WITH NO SIGNIFICANT HISTOPATHOLOGIC CHANGE. B) STOMACH, ANTRUM, BIOPSY - ANTRAL-TYPE GASTRIC MUCOSA WITH REACTIVE GASTROPATHY. NEGATIVE FOR HELICOBACTER PYLORI (SEE NOTE). NOTE: Immunostain for H. pylori is negative. C) GE JUNCTION, BIOPSY - SQUAMOCOLUMNAR MUCOSA WITH INTESTINAL METAPLASIA COMPATIBLE WITH WHATLEY ESOPHAGUS. NEGATIVE FOR DYSPLASIA AND MALIGNANCY (SEE NOTE). NOTE: An Alcian blue/PAS stain highlights intestinal metaplasia. D) STOMACH, BODY, BIOPSY - FUNDIC/BODY-TYPE GASTRIC MUCOSA WITH NO SIGNIFICANT HISTOPATHOLOGIC CHANGE. NEGATIVE FOR HELICOBACTER PYLORI (SEE NOTE). NOTE: Immunostain for H. pylori is negative. E) COLON, RANDOM BIOPSIES - COLONIC MUCOSA WITH NO SIGNIFICANT HISTOPATHOLOGIC CHANGE. OPERATIVE PROCEDURE: EGD with biopsies, colonoscopy with biopsies CLINICAL INFORMATION: Chronic diarrhea [K52.9], epigastric pain [R10.13], nausea and vomiting [R11.2], unprepped colon (see op note) GROSS DESCRIPTION: A) Second part of duodenum Received in formalin labeled second portion, duodenum, are three suero friable segments of soft tissue aggregating to 0.7 x 0.4 x 0.2 cm, which are totally submitted in cassette A. Levels x 3. B) Antrum biopsy Received in formalin labeled antrum biopsy are two suero-white soft tissues aggregating to 0.4 x 0.2 x 0.1 cm, which are totally submitted in cassette B. Levels x 3, plus H. pylori. C) GE junction biopsy Received in formalin labeled GE junction are three suero-white soft tissue fragments aggregating to 0.5 x 0.4 x 0.1 cm, which are totally submitted in one cassette. Levels x 3, plus AB/PAS. D) Body of stomach biopsy Received in formalin labeled body of stomach are two suero soft tissues aggregating to 0.5 x 0.2 x 0.1 cm, which are totally submitted in one cassette. Levels x 3 plus H. pylori. E) Random colon biopsies Received in formalin labeled random colon biopsies are numerous suero friable soft tissues aggregating to 1.5 x 1.1 x 0.2 cm, which are totally submitted in cassette E. Levels x 3. BMP:makeda GARRETT M.D.,PATHOLOGIST (Electronic signature on file) Signed out: 03/05/2018 13:40 PRINTED: 03/05/2018 Page 1 of 1 Performed By: #### SURG #### [facility] [address] [place] [id number] OPERATIVE NO Observed: 03/02/2018 Status: COMPLETED Source: [place] 12:00 AM [facility] REPOSITORY HNO ID: [id number] Author: Donita Harrison Service: (none) Author Type: Physician Type: Operative Report Filed: 03/03/2018 8:24 AM Note Text: [facility] - Operative Report SURGEON: Donita Harrison MD PATIENT NAME: LUIS SCHILLING CSN: [id number] DATE OF SURGERY: 03/02/2018 DATE OF : 1970 SEX/AGE: M/47 PATIENT TYPE: A HOSP SVC: GENS LOCATION: [facility] [place][NOTE 3] DATE OF SURGERY: 03/02/2018 SURGEON: Donita Harrison MD LOCATION: [facility]. PREOPERATIVE DIAGNOSIS: Altered bowel habits, diarrhea, history of Whatley's esophagus, nausea, emesis, and abnormal weight loss. PROCEDURE PERFORMED: Esophagogastroduodenoscopy with mucosal biopsies and also colonoscopy with mucosal biopsies. ANESTHESIA USED: MAC. SPECIMEN: Mucosal biopsies of the second portion of the duodenum, mucosal biopsies of the body of the stomach, mucosal biopsies of the GE junction, random mucosal biopsies of the colon. INDICATIONS: Luis Schilling is a 47-year-old white male who presents with complaints of diarrhea and altered bowel habits. He also has a history of Whatley's esophagus without dysplasia noted on EGD about 3 years ago. He also complains of a few months history of nausea, and he is noted to have lost about 100 pounds in the past few months. He therefore presents for evaluation with upper and lower endoscopy. He has been counseled of the risks and benefits of the procedure, the risks being, but not including infection, bleeding, perforation, GI tract requiring emergency surgery, inability to complete the procedure, perforation of GI tract requiring emergency surgery, and injury to any internal organs such as liver or spleen, complications, anesthesia, etc. The patient understands and agrees to proceed. DESCRIPTION OF PROCEDURE: After informed consent was given, the patient was brought to the endoscopy suite. Appropriate time-out protocol was done in the preprocedure area as well as in the operating room. The patient was then given IV anesthesia by the anesthesia provider. The patient's posterior pharynx was sprayed with Xylocaine spray x1. Bite block was then placed. The patient was then placed in a left lateral decubitus position. The upper endoscope was lubricated and carefully inserted in the patient's mouth, and he was asked to swallow. It was then advanced into the patient's esophagus. The endoscope was advanced down the esophagus into the stomach. Immediately upon noting entrance in the stomach, the patient had a large amount of retained food. The endoscope was then advanced through the pylorus. No evidence of any obstruction or strictures were noted. It was then advanced into the duodenum and then to the second portion of the duodenum. No ulcers or masses were noted. Because of the patient's history of abdominal pain, mucosal biopsies were taken using cold grasper forceps of the second portion of the duodenum. This was to rule out celiac sprue. The endoscope was then retracted back into the stomach. The patient did have some erythematous type plaques that might represent chronic irritation. This is very mild appearing. Mucosal biopsies were also taken of these areas using cold grasper forceps. Once again, there was a large amount of retained food and liquid material such that a portion of the stomach wall could not be entirely visualized. Retroflex view into the fundus in the GE junction revealed no evidence of any masses or any lesions. No strictures were noted. The endoscope was retracted back into the GE junction where mucosal biopsies were taken using cold grasper forceps. The remainder of the esophagus appeared normal. Of note is that at the GE junction, there was no evidence of any salmon colored mucosa creeping proximally beyond 1 cm. The endoscope was removed intact. The patient tolerated this portion of the procedure well. The next procedure done was a colonoscopy. The colonoscope was lubricated and carefully inserted into the patient's anus and advanced into the rectum. Immediately upon insertion into the rectum, the patient was noted to have a large amount of retained fecal material that was solid as well as liquid. Despite this, the endoscope was advanced into the sigmoid colon then the left ascending colon, passed the splenic flexure into the transverse colon, passed hepatic flexure down the right ascending colon to the cecum. Once again, of note is that there was retained fecal material throughout the colon. Because of the patient's history of diarrhea, random mucosal biopsies were taken throughout the colon approximately every 10 cm with cold grasper forceps. There appeared to be no evidence of any strictures. No large intraluminal obstructing masses were noted. Unfortunately, because of the unprepped colon, any large polyps or ulcers would be missed. However, from what was visible of the mucosa, there appeared to be no evidence of any erythema or ulcerations of the mucosa. The endoscope was retracted back after reaching the cecum which was identified by transillumination. The endoscope was removed intact. The patient tolerated the procedure well, was brought to recovery room in stable condition. SPECIMEN: As above. COMPLICATIONS: None. ESTIMATED BLOOD LOSS: Less than 1 mL. Donita Harrison MD LW:rosie /[id number] NURSING PROG Observed: 03/01/2018 Status: COMPLETED Source: [place] 10:27 AM [facility] REPOSITORY HNO ID: [id number] Author: Laquita (Rn) NELY Myers Service: Gastroenterology Author Type: Registered Nurse Type: Nursing Progress Note Filed: 03/01/2018 10:27 AM Note Text: Pre call complete, time given NURSING PROG Observed: 02/22/2018 Status: COMPLETED Source: [place] 12:11 PM [facility] REPOSITORY HNO ID: [id number] Author: Laquita (Rn) NELY Myers Service: Gastroenterology Author Type: Registered Nurse Type: Nursing Progress Note Filed: 02/22/2018 12:12 PM Note Text: Pre-op call completed. HISTORY PHYSICAL Observed: 02/17/2018 Status: COMPLETED Source: [place] 9:04 AM [facility] REPOSITORY HNO ID: [id number] Author: Lalita Manrique Service: (none) Author Type: Nurse Practitioner Type: HANDP Filed: 02/17/2018 3:00 PM Note Text: Luis Schilling a 47 year old male who is a consultation requested by Dr. Jacome for an opinion regarding abdominal pain, nausea, vomiting, diarrhea and weight loss. My final recommendations will be communicated back to the requesting physician by way of shared Medical record. The patient was seen by Dr. Jacome on 12/18/17, leading to this consultation. That note has been reviewed and part as follows: here for overdue and fragmented follow up. He was here for medication refills. He stated he had insurance changes that affected his access. He frequented various ER for chronic pain and had multiple CT scans. He was just in the ER in [place] this weekend, where he was told his pancreatic enzymes were normal, and he did not need another CT scan. He was given IV fluids and magnesium. He has been losing weight for 5 months with chronic diarrhea. His stools have been watery, copious, 4-5 times a day. He had significant back pain from diarrhea and requested some tramadol. His diabetes mellitus was historically not well controlled. His hypertension was stable. Blood work was ordered, but not done. On chart review, there are labs from [facility] dated. 01/24/18 TP 5.6 AST 14 ALT 19 Alk phos 46 lipase 247 Hgb 11.7 Hct 33.5 The patient was seen by Dr. Mcmahon for upper endoscopy and colonoscopy 10/04/15. The procedure report has been reviewed and findings as follows: EGD Impression: - Esophageal mucosal changes suspicious for ? short-segment Whatley's esophagus. Biopsied. ?- Normal stomach. Biopsied. ? - Normal examined duodenum. Colonoscopy Impression: - One 4 mm polyp in the rectum. Resected and retrieved. Recommendation: ? ? ? - Repeat colonoscopy in 5 years for surveillance. FINAL DIAGNOSIS 1. Stomach, antrum, biopsy (A) - Gastric antral-type mucosa with no diagnostic abnormality. 2. Distal esophagus, biopsy (B) - Specialized columnar epithelium (intestinal metaplasia) consistent with Whatley's esophagus, negative for dysplasia. - Squamous mucosa with no diagnostic abnormality. 3. Rectal polyp, biopsy (C) - Colonic mucosa with intramucosal lymphoid aggregate (see comment). JEL/plj 10/05/2015 COMMENT 1. No Helicobacter pylori organisms are identified. 3. There is no evidence of dysplasia or malignancy, including on multiple additional deeper levels. Presenting complaint: The patient presents today reporting that he continues with diarrhea stools, but frequency and consistency has worsened. Having a bowel movement at least 5-6 times a day. He denies blood or black stools. He denies any formed stools. On chart review, it appears that he has had diarrhea prior to last colonoscopy. He has been on dicyclomine and Levsin, reporting that neither were effective. We discussed a trial of loperamide, as long as he doesn't take it the days leading up to colonoscopy prep. The patient reports a 100 pound weight loss. Last 10 Encounter Wt Readings: Date: Wt: 02/17/2018 97.1 kg (214 lb) 12/18/2017 90.3 kg (199 lb) 05/11/2017 117 kg (258 lb) 03/18/2017 120.1 kg (264 lb 12.8 oz) 11/13/2016 117.5 kg (259 lb) 07/14/2016 116.6 kg (257 lb) 06/07/2016 108.9 kg (240 lb) 04/15/2016 112.5 kg (248 lb) 03/17/2016 116.1 kg (256 lb) 03/11/2016 116.6 kg (257 lb) Taking omeprazole each morning. Usually has dinner 5-6:00. He will have something to eat between 8-9:00. Heads to bed around 11:00. He sleeps with the head of the bed elevated about 6-7 inches. He reports intermittent breakthrough heartburn for which he takes PeptoBismol. REVIEW OF SYSTEMS: GENERAL: Unintentional weight loss HEENT: Negative for frequent or significant headaches, No changes in hearing or vision, no nose bleeds or other nasal problems NECK: Negative for lumps, goiter, pain and significant neck swelling RESPIRATORY: Positive for COPD. CARDIOVASCULAR: Hypertension GI: The patient states that his appetite has been poor. He does not get hungry. There has been nausea, some vomiting. He denies dysphagia and denies odynophagia. There has not been indigestion but intermittent heartburn. There has partially been regurgitation. Bowel habits have been regular. There has been diarrhea. There has not been constipation. The patient denies rectal bleeding. There has not been melena. Intermittent abdominal pain that is located in the left upper quadrant and epigastric region. PSYCH: Negative for sleep disturbance, mood disorder and recent psychosocial stressors. HEMATOLOGY/LYMPHOLOGY Negative for prolonged bleeding, bruising easily or swollen nodes ENDOCRINE: Positive for diabetes mellitus on insulin NEURO: Neuropathy of feet related to DM- taking Lyrica All other reviewed and negative other than HPI. 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 Kumar. - YOANDY (obstructive sleep apnea) 08/07/2015 - Presbyopia 11/17/2013 - Thyroid disorder PAST SURGICAL HISTORY Procedure Laterality Date - APPENDECTOMY HX - CARDIAC CATH 2008 no significant blockage per patient - COLONOSCOP W/ OR W/O BRSH SPEC 10/04/15 Colonoscopy - COLONOSCOPY 2012 polyps - EGD 2012 - EGD W/O OR W/BRUSH/WASH 10/04/15 EGD - ORTHOPEDICS SURGERY HX Left 1977 left foot tendon repair - PAST SURGICAL HISTORY OF BLOOD TUMORS REMOVED FROM UPPER LIP FAMILY HISTORY Problem Relation Age of Onset - Macular Degen Mother - Hypertension Mother - Heart Mother - Cancer Maternal Grandmother - Heart Maternal Grandmother - Macular Degen Other - Blindness Other - Diabetes Other - Macular Degen Maternal Uncle - Blindness Maternal Uncle - Macular Degen Maternal Aunt - Blindness Maternal Aunt Current Outpatient Prescriptions: BD INSULIN PEN NEEDLE UF 31 gauge x 02/03 ndle USE FIVE TIMES DAILY Disp: 150 Each Rfl: 0 ONETOUCH ULTRA BLUE TEST STRIP test strip TEST three times a day Disp: 100 Strip Rfl: 1 Fenofibrate (LOFIBRA) 160 mg tablet Take 1 tablet by mouth once daily. For triglycerides. Disp: 30 tablet Rfl: 5 lisinopril (ZESTRIL, PRINIVIL) 40 mg tablet Take 1 tablet by mouth once daily. Disp: 30 tablet Rfl: 5 Omeprazole 40 mg capsule Take 1 capsule by mouth once daily. Disp: 30 capsule Rfl: 5 insulin lispro (HUMALOG KWIKPEN INSULIN) 100 unit/mL inpn inject 50 units subcutaneously three times a day WITH MEALS PLUS SLIDING SCALE Disp: 15 Pen Rfl: 5 metFORMIN (GLUCOPHAGE) 500 mg tablet Take 2 tablets by mouth twice daily with meals. Disp: 120 tablet Rfl: 5 aspirin, enteric coated (ASPIRIN, ENTERIC COATED) 81 mg EC tablet Take 1 tablet by mouth once daily. Disp: 30 tablet Rfl: 11 albuterol HFA (VENTOLIN HFA) 90 mcg/actuation inhaler Inhale 2 Puffs as instructed every 4 hours as needed for Wheezing/Shortness of Breath. Disp: 1 Inhaler Rfl: 2 atorvastatin (LIPITOR) 80 mg tablet Take 1 tablet by mouth daily at bedtime. Disp: 30 tablet Rfl: 6 ondansetron orally disintegrating (ZOFRAN ODT) 4 mg disintegrating tablet Take 1 tablet by mouth every 8 hours as needed for Nausea/Vomiting. Disp: 30 tablet Rfl: 1 pregabalin (LYRICA) 100 mg capsule Take 1 capsule by mouth three times daily for 180 days. Disp: 90 capsule Rfl: 5 Lancets lancets Test blood sugar(s) 3x daily. Dx: E11.65. Insulin: Yes Disp: 100 Each Rfl: 0 Blood-Glucose Meter monitoring kit Glucose Meter of Choice - Kit - Dx: Type 2 DM - Uncontrolled E11.65 Disp: 1 Each Rfl: 0 insulin glargine (BASAGLAR KWIKPEN) 100 unit/mL (3 mL) inpn Inject 50 Units subcutaneously twice daily. Indications: DIABETES MELLITUS Disp: 15 Pen Rfl: 6 Alcohol Swabs (ALCOHOL WIPES) padm Apply 1 application to affected area four times daily as needed. Disp: 100 Each Rfl: 11 No current facility-administered medications for this visit. SOCIAL HISTORY: Patient is . He smokes 1 ppd and reports his alcohol use as none due to history of pancreatitis. PHYSICAL EXAMINATION: Blood pressure 138/94, pulse 92, height 180.3 cm (5' 11), weight 97.1 kg (214 lb). General Appearance: Well appearing, alert, in no acute distress, well-hydrated, well nourished. Skin: Skin color, texture, turgor normal, no suspicious rashes or lesions. Head: Normocephalic, no masses, lesions or abnormalities. Eyes: Anicteric sclera. Pupils are equally round and reactive to light. Oropharynx: Lips, mucosa, and tongue normal, teeth and gums normal, oropharynx normal. Neck: Supple, no adenopathy; thyroid symmetric, normal size. Lungs: Lungs clear to auscultation. No wheezing, rhonchi, rales. Heart: RRR without murmur. Abdomen: Abdomen soft, moderate tenderness to palpation epigastric region. No gaurding or rebound. Non-tender otherwise. Bowel sounds normal. No masses, organomegaly. Extremities: No deformities, edema, skin discoloration, clubbing or cyanosis. Peripheral Pulses: Normal. Neurologic: Gait normal. Sensation grossly intact. Impression: Epigastric pain 2)nausea/ vomiting 3)chronic diarrhea (no colon biopsies with last colonoscopy) Plan: The patient will be scheduled for an upper endoscopy and colonoscopy with MAC. Preparation for the procedures, using GoLytely as the laxative, have been explained in detail. The risks, benefits, anticipated outcomes and possible complications were mentioned. I explained the procedure in understandable terms and the patient was given printed material concerning the planned procedure. The patient had the opportunity to ask questions concerning the planned procedure. The patient freely consents to the planned procedure. Continue omeprazole.We discussed loperamide. The patient is encouraged to call with any questions or concerns, or should there be any change in health status between now and the scheduled procedure. I have personally interviewed and examined this patient. I have read the information that the MA documented in this encounter. I spent 35 minutes in the visit, with more than 50% of the total [id number]-[id number] time of the visit in counseling / coordination of care. Lalita Manrique RN APRN.APPLIANCE LINE ASSEMBLER CNOV Observed: 02/17/2018 Status: COMPLETED Source: [place] 9:00 AM [facility] REPOSITORY Office Visit ([facility]) LUIS SCHILLING ([id number]) 1970 M [facility] Date Time Provider Department 02/17/18 9:00 AM ALLITA MANRIQUE ([facility]) [facility] During your visit today, we recorded the following information about you: Pulse Blood pressure Weight Height 92/minute 138/94 97.1 kg 1.803 m Lalita Manrique RN SOLUTION DESIGN AND ANALYSIS MANAGER.APPLIANCE LINE ASSEMBLER 02/17/2018 3:00 PM Signed Luis Schilling a 47 year old male who is a consultation requested by Dr. Jacome for an opinion regarding abdominal pain, nausea, vomiting, diarrhea and weight loss. My final recommendations will be communicated back to the requesting physician by way of shared Medical record. The patient was seen by Dr. Jacome on 12/18/17, leading to this consultation. That note has been reviewed and part as follows: here for overdue and fragmented follow up. He was here for medication refills. He stated he had insurance changes that affected his access. He frequented various ER for chronic pain and had multiple CT scans. He was just in the ER in [place] this weekend, where he was told his pancreatic enzymes were normal, and he did not need another CT scan. He was given IV fluids and magnesium. He has been losing weight for 5 months with chronic diarrhea. His stools have been watery, copious, 4-5 times a day. He had significant back pain from diarrhea and requested some tramadol. His diabetes mellitus was historically not well controlled. His hypertension was stable. Blood work was ordered, but not done. On chart review, there are labs from [facility] dated. 01/24/18 TP 5.6 AST 14 ALT 19 Alk phos 46 lipase 247 Hgb 11.7 Hct 33.5 The patient was seen by Dr. Mcmahon for upper endoscopy and colonoscopy 10/04/15. The procedure report has been reviewed and findings as follows: EGD Impression: - Esophageal mucosal changes suspicious for ? short-segment Whatley's esophagus. Biopsied. ?- Normal stomach. Biopsied. ? - Normal examined duodenum. Colonoscopy Impression: - One 4 mm polyp in the rectum. Resected and retrieved. Recommendation: ? ? ? - Repeat colonoscopy in 5 years for surveillance. FINAL DIAGNOSIS 1. Stomach, antrum, biopsy (A) - Gastric antral-type mucosa with no diagnostic abnormality. 2. Distal esophagus, biopsy (B) - Specialized columnar epithelium (intestinal metaplasia) consistent with Whatley's esophagus, negative for dysplasia. - Squamous mucosa with no diagnostic abnormality. 3. Rectal polyp, biopsy (C) - Colonic mucosa with intramucosal lymphoid aggregate (see comment). JEL/plj 10/05/2015 COMMENT 1. No Helicobacter pylori organisms are identified. 3. There is no evidence of dysplasia or malignancy, including on multiple additional deeper levels. Presenting complaint: The patient presents today reporting that he continues with diarrhea stools, but frequency and consistency has worsened. Having a bowel movement at least 5-6 times a day. He denies blood or black stools. He denies any formed stools. On chart review, it appears that he has had diarrhea prior to last colonoscopy. He has been on dicyclomine and Levsin, reporting that neither were effective. We discussed a trial of loperamide, as long as he doesn't take it the days leading up to colonoscopy prep. The patient reports a 100 pound weight loss. Last 10 Encounter Wt Readings: Date: Wt: 02/17/2018 97.1 kg (214 lb) 12/18/2017 90.3 kg (199 lb) 05/11/2017 117 kg (258 lb) 03/18/2017 120.1 kg (264 lb 12.8 oz) 11/13/2016 117.5 kg (259 lb) 07/14/2016 116.6 kg (257 lb) 06/07/2016 108.9 kg (240 lb) 04/15/2016 112.5 kg (248 lb) 03/17/2016 116.1 kg (256 lb) 03/11/2016 116.6 kg (257 lb) Taking omeprazole each morning. Usually has dinner 5-6:00. He will have something to eat between 8-9:00. Heads to bed around 11:00. He sleeps with the head of the bed elevated about 6-7 inches. He reports intermittent breakthrough heartburn for which he takes PeptoBismol. REVIEW OF SYSTEMS: GENERAL: Unintentional weight loss HEENT: Negative for frequent or significant headaches, No changes in hearing or vision, no nose bleeds or other nasal problems NECK: Negative for lumps, goiter, pain and significant neck swelling RESPIRATORY: Positive for COPD. CARDIOVASCULAR: Hypertension GI: The patient states that his appetite has been poor. He does not get hungry. There has been nausea, some vomiting. He denies dysphagia and denies odynophagia. There has not been indigestion but intermittent heartburn. There has partially been regurgitation. Bowel habits have been regular. There has been diarrhea. There has not been constipation. The patient denies rectal bleeding. There has not been melena. Intermittent abdominal pain that is located in the left upper quadrant and epigastric region. PSYCH: Negative for sleep disturbance, mood disorder and recent psychosocial stressors. HEMATOLOGY/LYMPHOLOGY Negative for prolonged bleeding, bruising easily or swollen nodes ENDOCRINE: Positive for diabetes mellitus on insulin NEURO: Neuropathy of feet related to DM- taking Lyrica All other reviewed and negative other than HPI. PAST MEDICAL HISTORY Diagnosis Date - Acid reflux - Acute pancreatitis 06/06/2012 - Chronic obstructive pulmonary disease (COPD) ([facility]) - COPD with chronic bronchitis ([facility]) 08/07/20152006 - Depression - 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 Kumar. - YOANDY (obstructive sleep apnea) 08/07/2015 - Presbyopia 11/17/2013 - Thyroid disorder PAST SURGICAL HISTORY Procedure Laterality Date - APPENDECTOMY HX - CARDIAC CATH 2008 no significant blockage per patient - COLONOSCOP W/ OR W/O BRSH SPEC 10/04/15 Colonoscopy - COLONOSCOPY 2012 polyps - EGD 2012 - EGD W/O OR W/BRUSH/WASH 10/04/15 EGD - ORTHOPEDICS SURGERY HX Left 1977 left foot tendon repair - PAST SURGICAL HISTORY OF BLOOD TUMORS REMOVED FROM UPPER LIP FAMILY HISTORY Problem Relation Age of Onset - Macular Degen Mother - Hypertension Mother - Heart Mother - Cancer Maternal Grandmother - Heart Maternal Grandmother - Macular Degen Other - Blindness Other - Diabetes Other - Macular Degen Maternal Uncle - Blindness Maternal Uncle - Macular Degen Maternal Aunt - Blindness Maternal Aunt Current Outpatient Prescriptions: BD INSULIN PEN NEEDLE UF 31 gauge x 02/03 ndle USE FIVE TIMES DAILY Disp: 150 Each Rfl: 0 ONETOUCH ULTRA BLUE TEST STRIP test strip TEST three times a day Disp: 100 Strip Rfl: 1 Fenofibrate (LOFIBRA) 160 mg tablet Take 1 tablet by mouth once daily. For triglycerides. Disp: 30 tablet Rfl: 5 lisinopril (ZESTRIL, PRINIVIL) 40 mg tablet Take 1 tablet by mouth once daily. Disp: 30 tablet Rfl: 5 Omeprazole 40 mg capsule Take 1 capsule by mouth once daily. Disp: 30 capsule Rfl: 5 insulin lispro (HUMALOG KWIKPEN INSULIN) 100 unit/mL inpn inject 50 units subcutaneously three times a day WITH MEALS PLUS SLIDING SCALE Disp: 15 Pen Rfl: 5 metFORMIN (GLUCOPHAGE) 500 mg tablet Take 2 tablets by mouth twice daily with meals. Disp: 120 tablet Rfl: 5 aspirin, enteric coated (ASPIRIN, ENTERIC COATED) 81 mg EC tablet Take 1 tablet by mouth once daily. Disp: 30 tablet Rfl: 11 albuterol HFA (VENTOLIN HFA) 90 mcg/actuation inhaler Inhale 2 Puffs as instructed every 4 hours as needed for Wheezing/Shortness of Breath. Disp: 1 Inhaler Rfl: 2 atorvastatin (LIPITOR) 80 mg tablet Take 1 tablet by mouth daily at bedtime. Disp: 30 tablet Rfl: 6 ondansetron orally disintegrating (ZOFRAN ODT) 4 mg disintegrating tablet Take 1 tablet by mouth every 8 hours as needed for Nausea/Vomiting. Disp: 30 tablet Rfl: 1 pregabalin (LYRICA) 100 mg capsule Take 1 capsule by mouth three times daily for 180 days. Disp: 90 capsule Rfl: 5 Lancets lancets Test blood sugar(s) 3x daily. Dx: E11.65. Insulin: Yes Disp: 100 Each Rfl: 0 Blood-Glucose Meter monitoring kit Glucose Meter of Choice - Kit - Dx: Type 2 DM - Uncontrolled E11.65 Disp: 1 Each Rfl: 0 insulin glargine (BASAGLAR KWIKPEN) 100 unit/mL (3 mL) inpn Inject 50 Units subcutaneously twice daily. Indications: DIABETES MELLITUS Disp: 15 Pen Rfl: 6 Alcohol Swabs (ALCOHOL WIPES) padm Apply 1 application to affected area four times daily as needed. Disp: 100 Each Rfl: 11 No current facility-administered medications for this visit. SOCIAL HISTORY: Patient is . He smokes 1 ppd and reports his alcohol use as none due to history of pancreatitis. PHYSICAL EXAMINATION: Blood pressure 138/94, pulse 92, height 180.3 cm (5' 11), weight 97.1 kg (214 lb). General Appearance: Well appearing, alert, in no acute distress, well-hydrated, well nourished. Skin: Skin color, texture, turgor normal, no suspicious rashes or lesions. Head: Normocephalic, no masses, lesions or abnormalities. Eyes: Anicteric sclera. Pupils are equally round and reactive to light. Oropharynx: Lips, mucosa, and tongue normal, teeth and gums normal, oropharynx normal. Neck: Supple, no adenopathy; thyroid symmetric, normal size. Lungs: Lungs clear to auscultation. No wheezing, rhonchi, rales. Heart: RRR without murmur. Abdomen: Abdomen soft, moderate tenderness to palpation epigastric region. No gaurding or rebound. Non-tender otherwise. Bowel sounds normal. No masses, organomegaly. Extremities: No deformities, edema, skin discoloration, clubbing or cyanosis. Peripheral Pulses: Normal. Neurologic: Gait normal. Sensation grossly intact. Impression: Epigastric pain 2)nausea/ vomiting 3)chronic diarrhea (no colon biopsies with last colonoscopy) Plan: The patient will be scheduled for an upper endoscopy and colonoscopy with [facility]. Preparation for the procedures, using GoLytely as the laxative, have been explained in detail. The risks, benefits, anticipated outcomes and possible complications were mentioned. I explained the procedure in understandable terms and the patient was given printed material concerning the planned procedure. The patient had the opportunity to ask questions concerning the planned procedure. The patient freely consents to the planned procedure. Continue omeprazole.We discussed loperamide. The patient is encouraged to call with any questions or concerns, or should there be any change in health status between now and the scheduled procedure. I have personally interviewed and examined this patient. I have read the information that the MA documented in this encounter. I spent 35 minutes in the visit, with more than 50% of the total imiz-ep-ucje time of the visit in counseling / coordination of care. Lalita Manrique RN APRN.GRACY Manrique RN APRN.GRACY 02/17/2018 9:49 AM Addendum Please follow the provided instructions for upper endoscopy and colonoscopy. You will be using GoLytely as the laxative during the preparation. You may start the laxative as early as 1:00 in the afternoon. You will have the deeper sedation we call MAC, in [place], with Dr. Harrison. Your procedures will be with Dr Harrison on March 02. Referring Provider: JOHN JACOME [[id number]] Allergies As of Date: 02/17/2018 Noted Allergy Reaction PENICILLIN G 07/23/2006 16 - Unknown PENICILLINS 08/05/2010 14 - Other: See Comments Comments: He has been allergic since he was 5-6 y/o Date Reviewed: 02/17/2018 Reviewed by: Mireya Greenfield Ma - Fully Assessed Reason for Visit: Abdominal Pain [1] Nausea [70] Weight Loss [882] Diarrhea [35] Primary Visit Diagnosis:Altered bowel habits [R19.4] Other Visit Diagnoses:Diarrhea, unspecified type [R19.7] Whatley's esophagus without dysplasia [K22.70] Nausea [R11.0] Abnormal weight loss [R63.4] Order(s):COLONOSCOPY GEN ANES [1401767] Order #: [id number] FUTURE EGD GEN ANES [[id number]] Order #: [id number] FUTURE peg 3350-electrolytes (COLYTE) 240-22.72-6.72 -5.84 gram solutionTake 4,000 mL by mouth one time only for 1 dose.Disp: 1 BottleRfl: 0 loperamide (IMODIUM) 2 mg cap(s)Take 1 capsule by mouth four times daily as needed. FOR DIARRHEADisp: 60 capsuleRfl: 3 Prescriptions as of 02/17/2018 Sig: PEG 3350 240 GRAM-ELECTROLYTE* Take 4,000 mL by mouth one ti* LOPERAMIDE 2 MG CAPSULE Take 1 capsule by mouth four * BD ULTRA-FINE SHORT PEN NEEDL* USE FIVE TIMES DAILY ONETOUCH ULTRA BLUE TEST STRIP TEST three times a day FENOFIBRATE 160 MG TABLET Take 1 tablet by mouth once d* LISINOPRIL 40 MG TABLET Take 1 tablet by mouth once d* OMEPRAZOLE 40 MG CAPSULE,MUSTAPHA* Take 1 capsule by mouth once * INSULIN LISPRO (U-100) 100 UN* inject 50 units subcutaneousl* METFORMIN 500 MG TABLET Take 2 tablets by mouth twice* ASPIRIN 81 MG TABLET,DELAYED * Take 1 tablet by mouth once d* ALBUTEROL SULFATE HFA 90 MCG/* Inhale 2 Puffs as instructed * ATORVASTATIN 80 MG TABLET Take 1 tablet by mouth daily * ONDANSETRON 4 MG DISINTEGRATI* Take 1 tablet by mouth every * PREGABALIN 100 MG CAPSULE Take 1 capsule by mouth three* LANCETS Test blood sugar(s) 3x daily.* BLOOD-GLUCOSE METER KIT Glucose Meter of Choice - Kit* INSULIN GLARGINE (U-100) 100 * Inject 50 Units subcutaneousl* ALCOHOL SWABS Apply 1 application to affect* Problem List As Of Date 02/17/2018 Noted Resolved Hypertension goal BP (blood pressure) < 140/90 *INVALID FOR* More... Dyslipidemia [E78.5] INVALID FOR* Benign neoplasm of skin of trunk, except scrotu*INVALID FOR*07/16/2015 Neoplasm of uncertain behavior of skin [D48.5] INVALID FOR*07/16/2015 Acute pancreatitis [K85.90] INVALID FOR*07/16/2015 Chest pain [R07.9] INVALID FOR*07/16/2015 Diabetic hyperosmolar non-ketotic state (HCC) [*INVALID FOR*07/16/2015 More... Abdominal pain chronic [R10.9] INVALID FOR* Non-compliance [Z91.19] INVALID FOR* Diabetic neuropathy [E11.40] INVALID FOR* More... Chronic whiplash injury [S13.4XXA] INVALID FOR*07/16/2015 Whiplash injury to neck [S13.4XXA] INVALID FOR*07/16/2015 Brachial neuritis or radiculitis NOS [M54.12] INVALID FOR*07/16/2015 Hypermetropia [H52.00] INVALID FOR* Presbyopia [H52.4] INVALID FOR*12/18/2017 Hyperglycemia [R73.9] INVALID FOR*08/12/2016 Priority: A More... 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 Diarrhea [R19.7] INVALID FOR* Other instructions from your clinician: Please follow the provided instructions for upper endoscopy and colonoscopy. You will be using GoLytely as the laxative during the preparation. You may start the laxative as early as 1:00 in the afternoon. You will have the deeper sedation we call [facility], in [place], with Dr. Harrison. Your procedures will be with Dr Harrison on March 02. Prescriptions ordered this encounter Disp Refills Start End PEG 3350 240 GRAM-ELECTROLYTES 22.72* 1 [place]* 0 02/17/2018 02/17/2018 Route: ORAL Sig: Take 4,000 mL by mouth one time only for 1 dose. LOPERAMIDE 2 MG CAPSULE 60 c* 3 02/17/2018 Route: ORAL Sig: Take 1 capsule by mouth four times daily as needed. FOR DIARRHEA Follow-up and Disposition History Recorded Encounter Status:Closed by LALITA MANRIQUE CNP on 02/17/18 HOSP Observed: 02/17/2018 Status: COMPLETED Source: [place] 12:00 AM [facility] [place] REPOSITORY Patient:Luis Schilling MRN: <[id number]> Height:5' 11(1.803 m) Weight:210 lb (95.255 kg) Outpatient Medications as of 03/02/18: loperamide (IMODIUM) 2 mg cap(s) BD INSULIN PEN NEEDLE UF 31 gauge x 5/16 ndle ONETOUCH ULTRA BLUE TEST STRIP test strip Fenofibrate (LOFIBRA) 160 mg tablet lisinopril (ZESTRIL, PRINIVIL) 40 mg tablet Omeprazole 40 mg capsule insulin lispro (HUMALOG KWIKPEN INSULIN) 100 unit/mL inpn metFORMIN (GLUCOPHAGE) 500 mg tablet aspirin, enteric coated (ASPIRIN, ENTERIC COATED) 81 mg EC tablet albuterol HFA (VENTOLIN HFA) 90 mcg/actuation inhaler atorvastatin (LIPITOR) 80 mg tablet ondansetron orally disintegrating (ZOFRAN ODT) 4 mg disintegrating tablet pregabalin (LYRICA) 100 mg capsule Lancets lancets Blood-Glucose Meter monitoring kit insulin glargine (BASAGLAR KWIKPEN) 100 unit/mL (3 mL) inpn Alcohol Swabs (ALCOHOL WIPES) padm Admission/Clinic Administered Medications as of 03/02/18: lidocaine 10 mg/mL (1 %) 1-2 mg injection (XYLOCAINE) lactated ringers infusion Problem List: Hypertension goal BP (blood pressure) < 140/90 [I10] Dyslipidemia [E78.5] Abdominal pain chronic [R10.9] Non-compliance [Z91.19] Diabetic neuropathy [E11.40] Hypermetropia [H52.00] Nausea and vomiting [R11.2] Drug-seeking behavior [Z76.5] DM type 2, uncontrolled, with neuropathy (HCC) [E11.40, E11.65] Gastroesophageal reflux disease [K21.9] YOANDY (obstructive sleep apnea) [G47.33] COPD with chronic bronchitis (HCC) [J44.9] Obesity [E66.9] Tobacco use [Z72.0] Microscopic hematuria [R31.29] Diarrhea [R19.7] Allergies: Penicillin G Penicillins Date Verified: 03/02/18 Lab Values No results within the last 30 days for the following basenames: K,HCT Progress Notes ([facility]): Mireya Greenfield Ma 02/17/2018 10:39 AM Signed Patient needs to be scheduled for a colonoscopy/EGD with Dr. Harrison on ThursdayMarch 02. Thank you. Mireya Guevara Surg Coord 02/17/2018 2:57 PM Signed 03-02-2018 Colon/EGD [place] [facility] Hunter Guevara Surg Coord Mireya Greenfield Ma 02/18/2018 8:41 AM Signed Noted. Mireya Greenfield Ma 12 LEAD ELECTROCARDIOGRAM Observed: 02/09/2018 Status: F Source: [place] 3:26 PM [facility] Cardiovascular Services [address] [place] [id number] 12 Lead EKG 02/04/18 1803 MR#: [id number] Acct: [id number] Name: LUIS SCHILLING Rep #: [id number] : 1970 47 From: Fitz Reilly MD Attending Dr: Status: DEP ER Ordering Dr: Luis Rhodes MD Date: 02/04/18 Location: ED Sex: M C Admitted: Test Reason : CP Blood Pressure : / mmHG Vent. Rate : 096 BPM Atrial Rate : 096 BPM P-R Int : 140 ms QRS Dur : 088 ms QT Int : 346 ms P-R-T Axes : 073 036 077 degrees QTc Int : 437 ms Normal sinus rhythm Normal ECG When compared with ECG of 24-DEC-2015 15:56, No significant change was found Confirmed by FITZ REILLY MD ([id number]), editorial specialist ARLETH GUEVARA ([id number]) on 02/09/2018 3:25:46 PM Referred By: DENNIS Confirmed By:FITZ REILLY MD 02/09/18 1525 Date Fitz Reilly MD CC: Luis Rhodes MD; John Jacome MD Signed DISCHARGE INSTRUCTION Observed: 02/05/2018 Status: F Source: [place] 12:30 AM [facility] Medical Records Department [address] [place] [address] Discharge Instruction 02/04/182006 MR#: [id number] Acct: [id number] Name: LUIS SCHILLING Rep #: [id number] : 1970 47 From: Luis Rhodes MD PCP: John Jacome MD Status: DEP ER ED Disposition - Plan for ED Patient: Disposition: Home or Assisted Living Chief Complaint: Chest Pain Instructions: ED Abdominal Pain Unkn Cause Prescriptions: Hydrocodone/Acetaminophen [[place] 5-325 Tablet] 1 ea PO Q4H PRN PRN #10 tab PRN Reason: Pain Referrals: John Jacome MD [Primary Care Provider] - 1-2 Days if not improving Additional Instructions: Follow up with your DrTatyana Return if feeling worse or unable to hold fluids down [place] for pain What to do if you have Problems For any increased pain, shortness of breath, bleeding, nausea or vomiting, chest pain, or any unexpected problems, contact your Primary Care Provider. Call [facility] ([phone]) or report to the closest Emergency Room. Call 911 if necessary. 02/05/18 0030 <Electronically signed by Luis Rhodes MD> Date Luis Rhodes MD Cosigner Signature (If Indicated): Date CC: John Jacome MD EMERGENCY DEPARTMENT Observed: 02/05/2018 Status: F Source: [place] SUMMARY 12:30 AM [facility] Medical Records Department [address] [place] [address] Emergency Department Summary 02/05/18 0007 MR#: [id number] Acct: [id number] Name: LUIS SCHILLING Rep #: [id number] : 1970 47 From: Luis Rhodes MD PCP: John Jacome MD Status: DEP ER - ER Visit Summary Date of Service: 02/05/18 Chief Complaint: Chest pain History of Present Illness: The patient is a 47 M without any significant prior cardiac history. He does have a history of diabetes, hypertension, elevated cholesterol and COPD PD. He states he has had pancreatitis before. Patient states he has had epigastric abdominal and lower chest pain that started earlier today. Associated nausea and vomiting 5. He denies any hematemesis or melena. No fever. He has never had a DVT or PE. He denies any recent travel, surgery, mobilization or any calf or leg pain or swelling. He believes this is his pancreatitis. Physical Examination: Middle-aged male. Vital signs are stable. He does not look septic or toxic. HEENT exam unremarkable moist wheeze members. Neck nontender. Lungs clear to auscultation bilaterally. Heart regular rate and rhythm no murmur. Abdomen soft with mild epigastric tenderness. No rebound, guarding or rigidity. No right upper or right lower quadrant tenderness. No Gomez sign or McBurney's point tenderness. No hernias or masses no signs of obstruction. No distention. Moving all 4 extremities. Neurovascular intact. Calves nontender no edema nor cords. Test Results: CBC showed chronic anemia with a hemoglobin 11. Normal white count. BMP unremarkable glucose 200. Normal creatinine and gap. Liver enzymes normal. Lipase above normal at 450. He has had other lipase is at high before. Troponin normal. EKG sinus rhythm rate of 96 with no acute signs of [place] or ischemia. Chest x- ray chronic changes no acute process read both by myself and radiologist. Emergency Department Course and Treatment: Patient was brought in by squad. The squad gave him sublingual nitro and aspirin which he said gave him little no relief. He was treated in the emergency department morphine and Zofran and feels and looks much better on repeat exam in 2011. Abdomen is benign and there are no pulsatile masses or peritoneal signs. He has equal and symmetrical femoral pulses. Treatment Plan: Discharge. Disposition: Discharge Impression: Acute epigastric abdominal pain uncertain etiology. History of pancreatitis This note was generated with [employer] dictation software. It may contain incorrect words, spelling, and punctuation that were not noted in review of the chart prior to signing ED Disposition - Plan for ED Patient: Disposition: Home or Assisted Living Chief Complaint: Chest Pain Instructions: ED Abdominal Pain Unkn Cause Prescriptions: Hydrocodone/Acetaminophen [[place] 5-325 Tablet] 1 ea PO Q4H PRN PRN #10 tab PRN Reason: Pain Referrals: John Jacome MD [Primary Care Provider] - 1-2 Days if not improving Additional Instructions: Follow up with your Dr. Return if feeling worse or unable to hold fluids down [place] for pain What to do if you have Problems For any increased pain, shortness of breath, bleeding, nausea or vomiting, chest pain, or any unexpected problems, contact your Primary Care Provider. Call [facility] ([phone]) or report to the closest Emergency Room. Call 911 if necessary. 02/05/18 0030 <Electronically signed by Luis Rhodes MD> Date Luis Rhodes MD Cosigner Signature (If Indicated): Date CC: John Jacome MD CHEST 1 VIEW Observed: 02/04/2018 Status: F Source: [place] (PORTABLE) 6:17 PM [facility] Imaging Services [address] [place] [address] [place] [address] Chest 1 View (Portable) MR#: [id number] Acct: [id number] Name: SHAKIRROXYLUIS W Rep #: [id number] : 1970 M 47 From: Ludwig Gtz DO PCP: John Jacome MD Status: REG ER Study: Chest 1 View (Portable) Date of Exam: 02/04/18 Exam# [id number] Ordering Dr: Luis Rhodes MD STUDY: X-RAY CHEST REASON FOR EXAM: Male, 47 years old. Chest pain TECHNIQUE: Single AP portable view of the chest. COMPARISON: 01/17/2017 FINDINGS: The lungs are clear and expanded. There is no demonstrated pleural abnormality. Normal size heart. Normal mediastinum and [place]. Normal visualized pulmonary arteries. Normal visualized aortic arch and descending thoracic aorta. Normal visualized thoracic spine. Normal visualized ribs, clavicles, and shoulders. There is no demonstrated abnormality of the visualized soft tissue structures of the upper abdomen. RAD/Chest 1 View (Portable) IMPRESSION: Normal x-ray examination of the chest. Electronically Signed: Ludwig Gtz DO at 19:12 EDT Tel , Service support , CC: Luis Rhodes MD; John Jacome MD Health Science Specialist: Signed CBC W/DIFF, AUTOMATED Collected: 02/04/2018 Status: F Source: [place] 12:00 AM [facility] REPOSITORY TYPE CODE TESTS RESULT OUT OF RANGE REFERENCE UNITS LAB L100.1000 4.4-11.0 K/mm3 Normal WBC 6.2 LAB L100.1200 4.6-6.2 M/mm3 Low RBC 3.67 LAB L100.1300 13.0-16.5 g/dl Low HGB 11.9 LAB L100.1400 40-54 % Low HCT 34.2 LAB L100.1500 80-94 fL Normal MCV 93.2 LAB L100.1600 27.0-32.0 pg High MCH 32.4 LAB L100.1700 32-36 g/gl Normal MCHC 34.8 LAB L100.1810 11.6-14.6 % Normal RDW CV 12.7 LAB L100.1820 35.1-43.9 fl Normal RDW SD 42.9 LAB L100.1900 150-450 K/mm3 Normal PLT 247 LAB L100.2000 6.2-12.0 fl Normal MPV 9.0 LAB L100.2100 47-70 % Normal NEUT% 64.1 LAB L100.2200 19-41 % Normal LY% 28.5 LAB L100.2300 0-10 % Normal MONO% 3.9 LAB L100.2400 0-5 % Normal EO% 2.7 LAB L100.2500 0-1 % Normal BASO% 0.6 LAB L100.2550 0.0-0.9 % Normal IM GRAN % 0.200 Result Comment: IG% - Immature Granulocytes (promyelocytes, myelocytes and metamyelocytes) > 1% indicates that a LEFT SHIFT is Present. LAB L100.2620 2.0-7.7 X10 3/uL Normal Absolute Neut 4.0 LAB L100.2720 0.83-4.51 X10 3/ul Normal Absolute Lymph 1.77 Performed By: #### L100.0100 #### [facility] [address] [place], [place], [id number] LIPASE Collected: 02/04/2018 Status: F Source: [place] 12:00 AM [facility] REPOS[facility]ORY TYPE CODE TESTS RESULT OUT OF REFERENCE UNITS RANGE LAB L501.2450 73-393 U/L High LIPASE 450 Performed By: #### L501.2450 #### [facility] [address] [place], [address] BASIC METABOLIC Collected: 02/04/2018 Status: F Source: [place] PROFILE (BMP) 12:00 AM [facility] REPOS[facility]ORY TYPE CODE TESTS RESULT OUT OF RANGE REFERENCE UNITS LAB L501.0100 74-106 mg/dL High GLU 200 Result Comment: Glucose result greater than or equal to 200 mg/dL suggests DIABETES MELLITUS per A.D.A. criteria. Please note revised GLUCOSE reference range effective 2017. LAB L501.1000 7-18 mg/dL Normal BUN 15 LAB L501.1100 0.70-1.30 mg/dL Normal CREAT,SERUM 1.28 Result Comment: The validity of the calculated GFR AND GFRAA in patients over 70 years has not been determined. Clinical correlation is essential. LAB L501.1110 >60 mL/min Normal EST GFR 63 Result Comment: Non- GFR Calc LAB L501.1115 >60 mL/min Normal EST GFR - AA 77 Result Comment: GFR Calc LAB L501.1255 ml/min Normal Estimated CRCL 74.35 LAB L501.1300 10-20 RATIO Normal BUN/CRE 11.7 LAB L501.2200 8.5-10 mg/dL Low .1 CA 8.1 LAB L501.5300 136-14 mmol/L Normal 5 NA 142 LAB L501.5600 3.5-5. mmol/L Normal 1 K 3.7 LAB L501.5900 98-107 mmol/L Normal CL 106 LAB L501.6100 21.0-3 mmol/L Normal 2.0 CO2 26.0 LAB L501.6200 5-15 Normal GAP 10 Performed By: #### L500.2500, L501.4010 #### [facility] [address] [place], [address] TROPONIN-I Collected: 02/04/2018 Status: F Source: [place] 12:00 AM [facility] REPOSITORY TYPE CODE TESTS RESULT OUT OF RANGE REFERENCE UNITS LAB L501.4010 <0.045 ng/mL Normal < 0.015 TROPONIN-I Result Comment: TROPONIN-I EXPECTED VALUES <0.045 Negative 0.045 - 0.590 Consistent with Cardiac Damage > OR = 0.600 Critical Value Not every elevated troponin is indicative of [place]. These values should be used with clinical judgement in examining the patient's clinical picture for diagnosis. To establish a diagnosis of [place] versus myocardial injury, there must be a demonstrated rise and/or fall in the troponin values, in addition to ischemic symptoms, EKG changes, new regional wall motion abnormality, and/or angiographical evidence. PLEASE NOTE: REFERENCE RANGES EDITED 18 Performed By: #### L500.2500, L501.4010 #### [facility] [address] [place], [address] LIVER PROFILE Collected: 02/04/2018 Status: F Source: [place] 12:00 AM [facility] REPOSITORY TYPE CODE TESTS RESULT OUT OF RANGE REFERENCE UNITS LAB L501.1500 6.4-8.2 g/dL Low T PROT 6.2 LAB L501.1800 3.2-5.0 g/dL Low ALB 3.1 LAB L501.1950 2.2-4.2 g/dL Normal GLOB 3.1 LAB L501.4100 15-37 U/L Normal AST 17 LAB L501.4305 45-117 U/L Normal ALK P 50 LAB L501.4405 16-61 U/L Normal ALT 22 LAB L501.4600 0.20-1.00 mg/dL Low T BILI 0.10 LAB L501.4700 0.00-0.30 mg/dL Normal D BILI < 0.05 Performed By: #### L500.3400 #### [facility] [address] [place], [address] ED DOC Observed: 01/24/2018 Status: UNK Source: [facility] 6:35 PM [facility] This is a preliminary report only, as the practitioner review and authentication has not occurred. ED DOC Observed: 01/24/2018 Status: UNK Source: [facility] 6:35 PM [facility] REPOSITORY PHYSICIAN ASSESSMENT RECORDS : Discharge Report Event Time: 01/24/2018 18:27 : FlexChartData Event Time: 01/24/2018 19:00 Status: Signed [facility] Joel Schilling [[id number]] Attending Physician 47 / M / 1970 Chart (V2b) Chart created at 01/24/2018 18:22 by Crispin Roberts Chart closed at 01/24/2018 18:27 Entry in Emergency Department at 01/24/2018 14:33, departure at 01/24/2018 18:35 Patient Name: Jole Schilling Record Number: [id number] Date: 01/24/2018 18:22 Entered Department at: 01/24/2018 14:33 Patient Seen at: 01/24/2018 15:40 Historian: Patient PCP: ayaz Chief Complaint:Abdominal pain x2 hours. States hx of pancreatitis. Triage Note reviewed and Initial Vital Signs reviewed. Temperature: 97.1 F (36.2 C). Blood-pressure: 169/79. Oxygen Saturation: 100%. History of Present Illness: Patients here with abdominal pain abdomen midportion. Hes had pancreatic tight as it feels somewhat like that. Some nauseous some pain is pretty sharp stabbing and aching. Nothing makes it better. Nothing makes it worse. Doesnt think is food related or position related. He notes no cough or sputum. No pain [facility] PATIENT NAME: JOEL SCHILLING W [address] [facility] [address] MEDICAL REC #: [id number] [place] [address] EMERGENCY DEPARTMENT CHART EMERGENCY DEPARTMENT PHYSICIAN with inspiration and expiration. No hematuria dysuria. No bloody stools or black stools. 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 He has long history of pain problems and in fact last visit I saw him he had monthly pain medication visits by the per pharmacy prescribing website. He denies any high fevers chills or sweats hematuria dysuria. He denies any any bloody stools or black stools or vomiting of blood. He has lost 100 pounds he said in 2 months thats why he is getting scoped for was causing that. He does note hes had loose stools for about the same 2 months just soft for a couple times a day. sugars have been fairly reasonable he said. That theyre better than what they were in the past HPI Elements: Onset: 1 Days ago; Timing: Gradual; Quality: Aching; Severity: maximum Moderate, now Moderate; Context: At Rest; Exacerbated by: Nothing; Alleviated by: Nothing Review of Systems. Constitutional: positive for Wt Loss, negative for Fever Eyes: negative for Eye Pain Ear/Nose/Throat: negative for Sore Throat Cardio-Vascular: negative for Chest Pain Respiratory: negative for Hemoptysis GI: positive for Abd. Pain : negative for Hematuria Musculo-Skeletal: negative for Back Pain Neurological: negative for Headache Hem/Endo: negative for Bleeding Immunology: negative for Joint Pain All other systems reviewed and negative.. Past History, Medications, Allergies, Social History and Family History reviewed in nurses note. Past Medical History: History of: IDDM and Hypertension. chronic pain pancreatitis Medications: Reviewed RN Note. PRILOSEC 80MG DAILY, LISINOPRIL 40MG DAILY, [facility] PATIENT NAME: JOEL SCHILLING [address] [facility] MEDICAL REC #: [id number] [place] [address] EMERGENCY DEPARTMENT CHART EMERGENCY DEPARTMENT PHYSICIAN METFORMIN 1000MG TWICE A DAY, HUMALOG 50 UNITS THREE TIMES A DAY AND SLIDING SCALE NEEDED, LANTUS 30UNITS TWICE A DAY, LIPITOR 80MG DAILY, LYRICA 100MG THREE TIMES A DAY, ASPIRIN 81MG DAILY, CHOLESTEROL MED - UNKNOWN NAME Allergies: Reviewed RN Note Penicillins(Difficulty Breathing) Social History: Reviewed RN Note. Tobacco: Smoking. Alcohol: None. Family History: Reviewed RN Note Physical Examination: General: Alert and Well Developed HEENT: Normal ENT inspection. Eyes: Lids Normal; . Oropharynx / Throat: Normal Pharynx. Neck: No Lymphadenopathy, No Meningismus and Supple Respiratory: No Resp Distress and Normal Breath Sounds Cardio-Vascular: No murmur, No rub and RRR Abdomen: Normal Bowel Sounds, No Organomegaly and Soft; pain mid left upper quadrant. Nothing to the right side. Nonicteric and no palpable masses no spleen enlargement Back: No CVA tenderness, No Midline Tenderness and Non-tender Extremity: No edema and Normal Equal pulses Neurological: Alert, Oriented X3 and No Gross Weakness Skin: No rash, No Petechiae, Warm and Dry Psychological: Mood/Affect Normal and Normal Memory/Judgment CBC W/DIFF, information as of 01/24/2018, 3:48 pm 93.1 / 11.7* / 7.4 andgt;------andlt; 254 / 33.5* / N:67.7 BASO ABS: 0.10 K/Cu Mm; BASOPHIL %: 0.8 %; EOS ABS: 0.20 K/Cu Mm; EOSINOPHIL %: 2.0 %; IMMATR GRAN ABS: 0.00 K/Cu Mm; IMMATURE GRAN %: 0.3 %; LYMPH %: 24.6 %; LYMPH ABS: 1.80 K/Cu Mm; MCHC: 34.9 Gm/Dl; MONO ABS: 0.30 K/Cu Mm; MONOCYTE %: 4.6 %; MPV: 9.8; NEUTROPHIL ABS: 5.00 K/Cu Mm; NRBC: 0.0 %; RBC: 3.60 M/Cu [facility] PATIENT NAME: JOEL SCHILLING [address] [facility] MEDICAL REC #: [id number] [place] [address] EMERGENCY DEPARTMENT CHART EMERGENCY DEPARTMENT PHYSICIAN Mm; RDW: 12.5 BMP, information as of 01/24/2018, 3:48 pm 141 --------+--------+--------andlt; 299* Anion Gap = 4 4.7 alert_gap=3 BUN/CREA: 18; CALCIUM TOTAL: 8.1 Mg/Dl LIVER, information as of 01/24/2018, 3:48 pm A/G RATIO: 1.2; ALBUMIN: 3.1 Gm/Dl; ALK PHOS: 46 U/L; BILI DIRECT: Less Than 0.05 Mg/Dl; BILI TOTAL: 0.1 Mg/Dl; GLOBULIN: 2.5 Gm/Dl; SGOT (AST): 14 U/L; SGPT (ALT): 19 Iu/L; TP: 5.6 Gm/Dl LIPASE, information as of 01/24/2018, 3:48 pm LIPASE: 247 U/L UA COMPLETE, UA MICROSCOPIC, information as of 01/24/2018, 3:27 pm + + + +- + + + Urobil 1.0 + + + +- + + + Prot GREATER THAN 300 + + + +- + + + + + + +- + + + + + + +- + + + HYALINE CAST: 5 /Lpf; UA COMMENT: Ua Microscopic; UA EPITH CELLS: 1 Epi/Hpf [facility] PATIENT NAME: JOEL SCHILLING [address] [facility] [address] MEDICAL REC #: [id number] [place] [address] EMERGENCY DEPARTMENT CHART EMERGENCY DEPARTMENT PHYSICIAN Imaging Study Obtained: CHEST PA/AP LATERAL Imaging Study Obtained: CT ABD/PEL W IV CONTRAST ONLY Imaging Study Obtained: CT ABD/PEL W IV CONTRAST ONLY, Status:Signed Report Available CT ABD/PEL W IV CONTRAST ONLY Ordering Physician: Crispin Roberts MD 01/24/2018 5:[address] SCAN OF THE ABDOMEN AND PELVIS WITH INTRAVENOUS CONTRAST Clinical Statement: Abdominal pain left upper quadrant. TECHNIQUE: Axial scans were obtained to the abdomen and pelvis utilizing 100 cc Isovue-300 intravenously. Comparison 05/13/2017 FINDINGS: There are calcified and noncalcified granulomata at the lung bases bilaterally, similar to the prior study. No pleural or pericardial effusion. There is some pericardial thickening anteriorly which is similar to the prior study. There is a poorly defined approximately 1 cm enhancing lesion in the lateral segment of the left lobe the liver, similar to the prior study. There are calcified granulomata within the spleen. The adrenal glands, pancreas, and gallbladder are normal in [facility] PATIENT NAME: JOEL SCHILLING [address] [facility] [address]aya MEDICAL REC #: [id number] [place] [address] EMERGENCY DEPARTMENT CHART EMERGENCY DEPARTMENT PHYSICIAN appearance. No calcified gallstones. The kidneys enhance symmetrically bilaterally. There is no hydronephrosis, renal, or ureteral calculus. No dilated bowel loops are seen. Multiple surgical clips are noted in the right lower quadrant. No pelvic mass or free fluid. IMPRESSION: No acute findings. Multiple calcified and noncalcified nodules in the lower lungs similar to the prior study probably related to prior granulomatous disease. Poorly defined enhancing lesion in the left lobe of the liver similar to the prior study, probably representing an atypical hemangioma. ---- Electronic Signature on File ---- Signed By: Willie De La Rosa MD [email or web address] Dictated: 01/24/2018 5:46 PM Signed: 01/24/2018 5:55 PM Reported By: WILLIE DE LA ROSA M.D. Radiology: Image Reviewed and Interpreted by Radiologist. [facility] PAT[facility]: [facility] [address] MEDICAL REC #: [id number] [place] [address] EMERGENCY DEPARTMENT CHART EMERGENCY DEPARTMENT PHYSICIAN Medical Decision Making Patient has significant abdominal pain. Appears well. Previous pancreatitis. Lost significant weight but has appropriately set up to see GI. Well check labs and consider whether this is GI related or pancreatitis. Labs ordered. Note from aware of his previous pain medicine use. He was asking for something IV was given 1 dose Re-Evaluation: 18:26: labs are otherwise unremarkable all of them, and he was given a CT scan abdomen and pelvis because of left upper quadrant pain showing no leg lesions masses distention or tumors. Katja encouraged to follow up with GI. Well give him a copy of the CTs are he has that report showed the new GI doctor he is to see. Additional Information: Old records reviewed. Clinical Impression: 1. abdominal pain 2. IDDM 3. history of pancreatitis 4. chronic pain Disposition: Discharged *Home at 24 Jan 2018, 18:27. Condition: Good MSE completed. I was the primary ED attending.. ===DISCHARGE REPORT=== : Discharge Report Event Time: 01/24/2018 18:27 Status: Draft Reasons to Return to the ER: [facility] [address] MEDICAL REC #: [id number] [place] [address] EMERGENCY DEPARTMENT CHART EMERGENCY DEPARTMENT PHYSICIAN You must return to the ER for any new, worsening or changing symptoms, or if you feel more ill or sick in any way. This is the most important thing to remember. Follow-up: The care you received in the ER was given on an emergency basis only, and it is often not possible to completely treat or diagnose a problem in a single ER visit. You must see your follow-up doctor for a recheck within a week unless you receive instructions with a different timeframe for follow-up. Please follow all your discharge instructions. Medications: Unless the ER doctor tells you differently, you should take all your regular medications and any new medications prescribed today. Because it is not possible for the ER doctor to review all of your medication side effects or interactions, you must review possible side effects and interactions with your pharmacist when you get your prescriptions filled. EKG and Radiology Results: A justice court deputy clerk or radiologist will review any EKG or radiology results provided by the ER doctor. We will contact you if the results in the final EKG or radiology reports require a change in treatment. Culture Results: Cultures may have been ordered during your ER visit. We will contact you if the culture results require a change in treatment. Referrals: Most referrals to specialists come from the on-call list You should make your regular doctor aware of any referrals before you schedule the appointment so that they are aware and can make suggestions DIAGNOSIS: [facility] PATIENT NAME: JOEL SCHILLING [address] [facility] [address] MEDICAL REC #: [id number] [place] [address] EMERGENCY DEPARTMENT CHART EMERGENCY DEPARTMENT PHYSICIAN abdominal pain, IDDM, history of pancreatitis, chronic pain INSTRUCTIONS: see the gastroentereologist UNLESS THE ER DOCTOR GIVES YOU OTHER INSTRUCTIONS, YOU MUST SEE YOUR FOLLOW-UP DOCTOR WITHIN 1 TO 2 DAYS FOR RECHECK. YOU MUST RETURN TO THE ER RIGHT AWAY FOR ANY OF THE FOLLOWING:Increasing painChange in the location of the painNew or increasing fever or chillsNew or increasing constipation or difficulty urinatingNew or increasing abdominal swelling or bloatingBlood appears in the stool, vomit or urineNew or increasing vomiting or diarrhea.New or increasing weakness or dizzinessEarly appendix infection is always a possibility and you must return if the pain moves to the lower right side of your abdomen REFERRAL Your regular doctor(s) Please call the above number to schedule a follow-up appointment. next week MEDICATIONS We have given you these prescriptions that you must fill and start taking: None COMMENTS: Patient Satisfaction: Within the first few days after your visit, you will receive an email and/or phone call regarding your visit. We value your feedback, and would appreciate it if you would take the time to complete this short [facility] PATIENT NAME: JOEL SCHILLING [address] [facility] [address] MEDICAL REC #: [id number] [place] [address] EMERGENCY DEPARTMENT CHART EMERGENCY DEPARTMENT PHYSICIAN survey. If you receive a call, it will be between 6p and 8p. My signature below indicates that I have received and understand the oral instructions regarding my medical problem. I also acknowledge receipt of this written instruction sheet including a list of major tests and procedures ordered during my visit. I will arrange for follow-up care as indicated by these instructions and referrals. This signed original will be kept in my medical record. Your signature below indicates consent for Case Management to contact communityhealthcare providers in an effort to meet your ongoing healthcare needs. This will allow forcontinuity of care once you leave the Emergency Department. This exchange of informationwill include, but not be limited to, disclosure of your patient information and possible release of records. : FlexChartData Event Time: 01/24/2018 19:00 DEMOGRAPHICS [employer] Patient: JOEL SCHILLING Sex: M : 1970 Age: 47 yr Account No: [id number] Registration Date: 14:33 01/24/2018 Address: [facility] Address: [place] [address] REGISTRATION ED Number: [id number] Marital Status: Jayleen Financial Class: FREDY TRIAGE Priority: 3 - Urgent [facility] PATIENT NAME: JOEL SCHILLING [address] [facility] [address] MEDICAL REC #: [id number] [place] [address] EMERGENCY DEPARTMENT CHART EMERGENCY DEPARTMENT PHYSICIAN Complaint: Abdominal Pain Stated Complaint: Abdominal pain x2 hours. States hx of pancreatitis. Arrival Date: 01/24/2018 14:33 Triage Date: 01/24/2018 14:34 Mode of Arrival: *Privately Owned Vehicle WC: N Language: Grenadian Transport: Ambulatory/Walk In BED A10 In: 01/24/2018 14:42:32 01/24/2018 14:42:32 TPJ A10 (Removed From) Out: 01/24/2018 18:35:39 01/24/2018 18:35:39 ARM PROVIDERS NELY TAN Provider Contact: 01/24/2018 14:47:46 ARM End: MD Crispin Roberts Provider Contact: 01/24/2018 15:40:20 BAM End: TRIAGE HISTORY ALLERGIES Allergic To: Penicillins - Difficulty Breathing 01/24/2018 14:34 TPJ CURRENT MEDS Name: PRILOSEC 80MG DAILY 01/24/2018 15:12 ARM Name: LISINOPRIL 40MG DAILY 01/24/2018 15:12 ARM Name: METFORMIN 1000MG TWICE A DAY 01/24/2018 15:12 ARM [facility] PATIENT NAME: JOEL SCHILLING [address] [facility] [address] MEDICAL REC #: [id number] [place] [address] EMERGENCY DEPARTMENT CHART EMERGENCY DEPARTMENT PHYSICIAN Name: HUMALOG 50 UNITS THREE TIMES A DAY AND SLIDING SCALE NEEDED 01/24/2018 15:12 ARM Name: LANTUS 30UNITS TWICE A DAY 01/24/2018 15:12 ARM Name: LIPITOR 80MG DAILY 01/24/2018 15:12 ARM Name: LYRICA 100MG THREE TIMES A DAY 01/24/2018 15:12 ARM Name: ASPIRIN 81MG DAILY 01/24/2018 15:12 ARM Name: CHOLESTEROL MED - UNKNOWN NAME 01/24/2018 15:12 ARM ILLNESS Illness: Hypertension 01/24/2018 14:34 TPJ Illness: Pancreatitis 01/24/2018 14:34 TPJ Illness: Diabetes: IDDM 01/24/2018 14:34 TPJ Illness: High Cholestrol 01/24/2018 14:34 TPJ PAST SURGERY HIST Surgery: Appendectomy 01/24/2018 14:34 TPJ Surgery: lip 01/24/2018 14:34 TPJ PAST SOCIAL HIST Social History: Behavior age appropriate 01/24/2018 14:34 TPJ Social History: Communicates without difficulty 01/24/2018 14:34 TPJ Social History: Lives with family or significant other 01/24/2018 14:34 TPJ Social History: Alcohol - None 01/24/2018 14:34 TPJ Social History: Smoker-1.5 PPD 01/24/2018 14:34 TPJ Social History: Denies Domestic Violence 01/24/2018 14:34 TPJ [facility] PATIENT NAME: JOEL SCHILLING [address] [facility] [address] MEDICAL REC #: [id number] [place] [address] EMERGENCY DEPARTMENT CHART EMERGENCY DEPARTMENT PHYSICIAN Social History: Denies thoughts of self harm. 01/24/2018 14:34 TPJ Social History: Have you traveled in the past month? Where no 01/24/2018 14:34 TPJ IMMUNIZATIONS Immunization: Flu Vaccine-yes 01/24/2018 14:34 TPJ NURSING ASSESSMENT ASSESSMENT NOTES 01/24/2018 15:15 PT C/O ABDOMINAL PAIN STARTING THIS AFTERNOON. HX OF PANCREATITIS. PT IS Aandamp;OX4. RESPIRATIONS EVEN AND EASY. ABDOMEN SOFT, TENDER. SKIN WARM AND DRY. 01/24/2018 15:16 ARM TREATMENT 01/24/2018 15:13 Hourly Rounding - Rounding 01/24/2018 15:14 ARM Elimination/Toileting N Pain 7 Position Comfortable Y Safe Environment Y Fall Risk Change N 01/24/2018 15:13 Staff/ Patient Interaction - Introduced self and assessed patients needs. 01/24/2018 15:14 ARM 01/24/2018 15:13 Staff/ Patient Interaction - Side rails up X2 and call light placed within reach. 01/24/2018 15:14 ARM 01/24/2018 15:13 Primary DOC Guide - A. Patient History 01/24/2018 15:14 ARM Primary History Source Patient Michael Exposure - Been exposed to or in contact with any bird or chicken in the last 30 days No [facility] PATIENT NAME: JOEL SCHILLING [address] [facility] 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 Fall Risk Assessment (Age andlt;65) 01/24/2018 15:14 ARM Fall Risk Score 1-2 Points = Low Risk. 3-4 Points = Moderate Risk. 5 or more points = High Risk. 0 Fall Score Greater andgt;= 3? No 01/24/2018 15:14 Primary DOC Guide - D. Psychosocial Assessment 01/24/2018 15:14 ARM Over the Last 2 weeks, how often have you had little interest or pleasure in doing things (0) Not at All Is Psychosocial Assessment Score 3 or more? If score is 3 or more please consult ED Navigator! No Total Psychosocial Assessment Score 0 Over the last 2 weeks, how often have you been feeling down, depressed or hopeless (0) Not at All 01/24/2018 15:14 Primary DOC Guide - E. Family Violence Assessment 01/24/2018 15:14 ARM Within the past year, has anyone ever pushed, shoved, slapped, choked, hit, punched or kicked you: No Within the past year, has anyone ever pressured or forced you to have sexual activities when you did not want to: No Is there a partner from a previous or current relationship that is making you feel unsafe now: No 01/24/2018 17:31 Hourly Rounding - Rounding 01/24/2018 17:32 ARM Elimination/Toileting N Pain 7 Position Comfortable Y Safe Environment Y Assessment Note PT STATES PAIN IMPROVED A LITTLE AFTER FIRST DOSE OF PAIN MEDICATION. PT REQUESTED ADDITIONAL PAIN MEDICATION. MEDICATED PER ORDER. Fall Risk Change N [facility] PATIENT NAME: JOEL SCHILLING [address] [facility] [address] MEDICAL REC #: [id number] [place] [address] EMERGENCY DEPARTMENT CHART EMERGENCY DEPARTMENT PHYSICIAN 01/24/2018 18:18 Hourly Rounding - Rounding 01/24/2018 18:19 ARM Elimination/Toileting N Pain 4 Position Comfortable Y Safe Environment Y Assessment Note PT STATES PAIN IS IMPROVED AFTER PAIN MEDICATION. Fall Risk Change N 01/24/2018 18:35 Discharge - Ambulated with steady gait home 01/24/2018 18:35 ARM 01/24/2018 18:35 Discharge - Discharge 01/24/2018 18:35 ARM 01/24/2018 18:35 Discharge - Instructions reviewed with pt and verbalizes understanding 01/24/2018 18:35 ARM 01/24/2018 18:35 Discharge - Printed discharge instructions given to pt. 01/24/2018 18:35 ARM 01/24/2018 18:35 Education - Discharge Instructions reviewed and patient voices understanding. 01/24/2018 18:35 ARM 01/24/2018 18:35 Education - Disease process discussed. 01/24/2018 18:35 ARM 01/24/2018 18:35 Education - Pain Management Re-Assessed 01/24/2018 18:35 ARM MEDICATIONS IV IV Fluid: B 01/24/2018 15:49 01/24/2018 15:50 [facility] Line #: 1 Fluid: Saline Lock Rate: ml/hr Location: antecubital fossa left Ndl Gauge: 18 # Attempts: 1 Notes: FLUSHES EASILY WITH 10 CC OF NORMAL SALINE, NO SIGNS OF INFILTRATION OR IRRITATION, LABS OBTAINED FROM [facility] PATIENT NAME: JOEL SCHILLING [address] [facility] [address] MEDICAL REC #: [id number] [place] [address] EMERGENCY DEPARTMENT CHART EMERGENCY DEPARTMENT PHYSICIAN SITE. IV Fluid: S 01/24/2018 15:53 01/24/2018 18:30 ARM Line #: 1 Fluid: 0.9% NS 1000cc bag Rate: ml/hr 250 Location: antecubital fossa left Ndl Gauge: 18 # Attempts: 1 Amt: 550 IV Fluid: D 01/24/2018 18:29 01/24/2018 18:30 ARM Line #: 1 Fluid: 0.9% NS 1000cc bag Rate: ml/hr 250 Location: antecubital fossa left Ndl Gauge: 18 # Attempts: 1 IV Fluid: E 01/24/2018 18:30 01/24/2018 18:30 ARM Line #: 1 Rate: ml/hr Location: antecubital fossa left Ndl Gauge: 18 # Attempts: 1 Notes: IV REMOVED TIP INTACT. NO REDNESS OR EDEMA AT SITE. BLEEDING CONTROLLED. DRESSING APPLIED. I AND O VITALS VS-ROUTINE Time: 01/24/2018 14:34 B/P: 169/79 - - Sitting - Machine Sa02: 100 Room Air Temp: 97.10 F - Oral 01/24/2018 14:49 ARM VS-Pain Time: 01/24/2018 14:34 Pain Level: 7 01/24/2018 14:49 ARM VS-GCS Time: 01/24/2018 14:34 01/24/2018 14:49 ARM VS-HT/WT Time: 01/24/2018 14:34 01/24/2018 14:49 ARM VS-Visual Time: 01/24/2018 14:34 01/24/2018 14:49 ARM VS-FHT Time: 01/24/2018 14:34 01/24/2018 14:49 ARM VS-Notes Time: 01/24/2018 14:34 MAP 113 01/24/2018 14:49 ARM VS-ROUTINE Time: 01/24/2018 15:05 B/P: 191/91 - Left Upper Arm - Lying - Machine Pulse: 95 - Monitor Resp: 18 [facility] PATIENT NAME: JEOL SCHILLING [address] [facility] [address] MEDICAL REC #: [id number] [place] [address] EMERGENCY DEPARTMENT CHART EMERGENCY DEPARTMENT PHYSICIAN Sa02: 99 Room Air 01/24/2018 15:13 ARM VS-Pain Time: 01/24/2018 15:05 Pain Level: 7 01/24/2018 15:13 ARM VS-GCS Time: 01/24/2018 15:05 Visual: 4 Verbal: 5 Motor: 6 GCS Total: 15 01/24/2018 15:13 ARM VS-HT/WT Time: 01/24/2018 15:05 01/24/2018 15:13 ARM VS-Visual Time: 01/24/2018 15:05 01/24/2018 15:13 ARM VS-FHT Time: 01/24/2018 15:05 01/24/2018 15:13 ARM VS-Notes Time: 01/24/2018 15:05 MAP 128 01/24/2018 15:13 ARM VS-ROUTINE Time: 01/24/2018 17:11 B/P: 172/89 - Left Upper Arm - Sitting - Machine Pulse: 82 - Resp: 18 Sa02: 97 Room Air 01/24/2018 17:12 JR[facility] VS-Pain Time: 01/24/2018 17:11 Pain Level: 7 01/24/2018 17:12 [facility] VS-GCS Time: 01/24/2018 17:11 01/24/2018 17:12 [facility] VS-HT/WT Time: 01/24/2018 17:11 01/24/2018 17:12 [facility] VS-Visual Time: 01/24/2018 17:11 01/24/2018 17:12 [facility] VS-FHT Time: 01/24/2018 17:11 01/24/2018 17:12 [facility] VS-Notes Time: 01/24/2018 17:11 MAP 122 01/24/2018 17:12 [facility] VS-ROUTINE Time: 01/24/2018 18:28 B/P: 181/91 - Left Upper Arm - Lying - Machine Pulse: 83 - Monitor Resp: 16 Sa02: 98 Room Air 01/24/2018 18:28 ARM VS-Pain Time: 01/24/2018 18:28 Pain Level: 5 01/24/2018 18:28 ARM VS-GCS Time: 01/24/2018 18:28 Visual: 4 Verbal: 5 Motor: 6 GCS Total: 15 01/24/2018 18:28 ARM VS-HT/WT Time: 01/24/2018 18:28 01/24/2018 18:28 ARM VS-Visual Time: 01/24/2018 18:28 01/24/2018 18:28 ARM VS-FHT Time: 01/24/2018 18:28 01/24/2018 18:28 ARM VS-Notes Time: 01/24/2018 18:28 MAP 130 01/24/2018 18:28 ARM CANCELLED VITAL SIGNS VS-ROUTINE Time: 01/24/2018 15:05 B/P: 191/91 - Left Upper Arm - Lying - Machine Pulse: 99 - Monitor Resp: 18 Sa02: 95 Room Air 01/24/2018 15:06 ARM [facility] PATIENT NAME: JOEL SCHILLING [address] [facility] [address] Zelaya MEDICAL REC #: [id number] [place] [address] EMERGENCY DEPARTMENT CHART EMERGENCY DEPARTMENT PHYSICIAN VS-Pain Time: 01/24/2018 15:05 Pain Level: 7 01/24/2018 15:06 ARM VS-GCS Time: 01/24/2018 15:05 Visual: 4 Verbal: 5 Motor: 6 GCS Total: 15 01/24/2018 15:06 ARM VS-HT/WT Time: 01/24/2018 15:05 01/24/2018 15:06 ARM VS-Visual Time: 01/24/2018 15:05 01/24/2018 15:06 ARM VS-FHT Time: 01/24/2018 15:05 01/24/2018 15:06 ARM VS-Notes Time: 01/24/2018 15:05 MAP 128 01/24/2018 15:06 ARM Delete Time: 15:12 01/24/2018 ARM Delete Notes: ERROR ORDERS Discharge patient 01/24/2018 18:28 N/A Ordered: 01/24/2018 18:27 By . Other Reviewed: 01/24/2018 18:[address] abd and pel with IV con only 01/24/2018 18:04 N/A Ordered: 01/24/2018 17:07 By Crispin Roberts Completed Time: 01/24/2018 18:04 By Crispin Roberts Indication: Abdominal Pain LUQ Noted Time: 01/24/2018 17:53 Question: Patient has history of true RCM allergy? Answer: NO Morphine (IV)*(4mg/ml) DOSE:4 mg IV 01/24/2018 17:31 N/A Ordered: 01/24/2018 17:07 By Crispin Roberts Completed Time: 01/24/2018 17:31 By Crispin Roberts Noted Time: 01/24/2018 17:24 ARM TEACHER HEARING IMPAIRED ORDER: GFRP 01/24/2018 16:15 None Ordered: 01/24/2018 16:15 Completed Time: 01/24/2018 16:15 Results Time: 01/24/2018 16:15 CXR PA and lateral 01/24/2018 16:17 N/A Ordered: 01/24/2018 15:58 By Crispin Roberts Completed Time: 01/24/2018 16:17 By Crispin Roberts [facility] PATIENT NAME: JOEL SCHILLING [address] [facility] [address] Zelaya MEDICAL REC #: [id number] [place] [address] EMERGENCY DEPARTMENT CHART EMERGENCY DEPARTMENT PHYSICIAN Indication: cough/abdominal pian Noted Time: 01/24/2018 16:08 Question: How is patient transported? (A = Ambulatory, B = Bed, C = Carry, CR = Crib, P = Portable, S = Stretcher, W = Wheelchair, X = Wide Wheelchair, XT = Trauma X RM17 (ED Only)) Answer: STRETCHER Morphine (IV)*(4mg/ml) DOSE:4 mg IV 01/24/2018 16:03 N/A Ordered: 01/24/2018 15:58 By Crispin Roberts Completed Time: 01/24/2018 16:02 By Crispin Roberts Noted Time: 01/24/2018 15:59 ARM Zofran (IV)*(2mg/ml) DOSE: 4 mg IV 01/24/2018 16:03 N/A Ordered: 01/24/2018 15:58 By Crispin Roberts Completed Time: 01/24/2018 16:02 By Crispin Roberts Noted Time: 01/24/2018 15:59 ARM IV NS at 250 cc/hr 01/24/2018 15:52 N/A Ordered: 01/24/2018 15:26 By Crispin Roberts Completed Time: 01/24/2018 15:52 By Crispin Roberts Noted Time: 01/24/2018 15:47 ARM CBC with diff 01/24/2018 16:07 N/A Ordered: 01/24/2018 15:26 By Crispin Roberts Completed Time: 01/24/2018 16:07 By Crispin Roberts Noted Time: 01/24/2018 15:49 [facility] Results Time: 01/24/2018 16:07 BMP 01/24/2018 16:15 N/A Ordered: 01/24/2018 15:26 By Crispin Roberts Completed Time: 01/24/2018 16:15 By Crispin Roberts Noted Time: 01/24/2018 15:49 [facility] Results Time: 01/24/2018 16:15 Liver profile 01/24/2018 16:15 N/A Ordered: 01/24/2018 15:26 By Crispin Roberts [facility] PATIENT NAME: [facility] [address] [facility] MEDICAL REC #: [id number] [place] [address] EMERGENCY DEPARTMENT CHART EMERGENCY DEPARTMENT PHYSICIAN Completed Time: 01/24/2018 16:15 By Crispin Roberts Noted Time: 01/24/2018 15:49 [facility] Results Time: 01/24/2018 16:15 Lipase 01/24/2018 16:15 N/A Ordered: 01/24/2018 15:26 By Crispin Roberts Completed Time: 01/24/2018 16:15 By Crispin Robetrs Noted Time: 01/24/2018 15:49 [facility] Results Time: 01/24/2018 16:15 UA ccms (cath if unable to void in 30 mins) 01/24/2018 16:03 N/A Ordered: 01/24/2018 15:26 By Crispin Roberts Completed Time: 01/24/2018 16:03 By Crispin Roberts Noted Time: 01/24/2018 15:49 [facility] Question: Lab Urine Specimen Type Answer: Clean Catch Question: Also Culture, if indicated by UA results (Y or N) Answer: NO Results Time: 01/24/2018 16:02 DISCHARGE Diagnosis: abdominal pain, IDDM, history of pancreatitis, chronic pain 01/24/2018 18:28 Disposition: Time: 01/24/2018 18:27 Discharge Time: 01/24/2018 18:35 Type: Discharge Condition: Stable for admission/discharge/transfer after emergency evaluation/treatment Category: *NOT APPLICABLE Referral: 01/24/2018 18:28 Admit Physician: . Other PRESCRIPTIONS CHARGES 0.9% NS 1000cc bag QTY @ 1 01/24/2018 15:53 ARM Auto Generated Charge [facility] PATIENT NAME: JOEL SCHILLING [address] [facility] [address] Zelaya MEDICAL REC #: [id number] [place] [address] EMERGENCY DEPARTMENT CHART EMERGENCY DEPARTMENT PHYSICIAN SIGNATURE Crispin BLANCO RN TPJ TIANA FINN [facility] PATIENT NAME: JOEL SCHILLING [address] [facility] [address] Zelaya MEDICAL REC #: [id number] [place] [address] EMERGENCY DEPARTMENT CHART EMERGENCY DEPARTMENT PHYSICIAN UA COMPLETE Collected: 01/24/2018 Status: F Source: [facility] 3:48 PM [facility] REPOSITORY Order Comment: [place]: TYPE CODE TESTS RESULT OUT OF REFERENCE UNITS RANGE LAB L600.0010 0 UA COLOR YELLOW Normal LAB L600.0011 CLEAR 0 UA CLEAR Normal APPEARANCE LAB L600.0011 1.005-1.030 5 UA SPEC 1.039 Normal GRAV LAB L600.0013 5-6 5 UA PH 5.5 Normal LAB L600.0014 NORMAL MG/DL 5 UA GLUCOSE GREATER Normal THAN 1000 LAB L600.0016 NEGATIVE MG/DL 0 UA KETONE NEGATIVE Normal LAB L600.0017 NEGATIVE MG/DL 5 UA NEGATIVE Normal BILIRUBIN LAB L600.0019 NORMAL MG/DL 5 UA 1.0 Normal UROBILINOGEN LAB L600.0020 NEGATIVE MG/DL 5 UA PROTEIN GREATER Normal THAN 300 LAB L600.0022 NEGATIVE ERIC/UL 5 UA BLOOD SMALL Normal LAB L600.0025 NEGATIVE 0 UA NITRITE NEGATIVE Normal LAB L600.0026 NEGATIVE FELIPE/uL 0 UA LK NEGATIVE Normal ESTERASE LAB L600.0028 N 0 UA COMMENT UA Normal MICROSCOPIC Performed By: #### L600.37882, L600.09732 #### [facility] [address] [place] [address] UA MICROSCOPIC Collected: 01/24/2018 Status: F Source: [facility] 3:48 PM [facility] REPOSITORY Order Comment: [place]: M TYPE CODE TESTS RESULT OUT OF RANGE REFERENCE UNITS LAB L600.76644 0-5 WBC/HPF Normal UA WBC 1 LAB L600.19925 0-3 RBC/HPF High UA RBC 4 LAB L600.73326 0-5 EPI/HPF Normal UA EPITH 1 CELLS LAB L600.07268 0-1 /LPF High HYALINE CAST 5 Performed By: #### L600.02424, L600.79315 #### [facility] [address] [phone] CBC W/DIFF Collected: 01/24/2018 Status: F Source: [facility] 3:48 PM [facility] REPOSITORY Order Comment: [place]: M TYPE CODE TESTS RESULT OUT OF RANGE REFERENCE UNITS LAB L200.20072 4.5-11.0 K/CU MM WBC Normal 7.4 LAB L200.98415 4.50-6.00 M/CU MM Low RBC 3.60 LAB L200.62081 13.5-17.5 G/DL Low HGB 11.7 LAB L200.89829 41.0-53.0 % Low HCT 33.5 LAB L200.31824 80.0-99.0 fl MCV Normal 93.1 LAB L200.87206 32.0-36.0 GM/DL MCHC Normal 34.9 LAB L200.67629 11-14.5 RDW Normal 12.5 LAB L200.17983 9.4-12.4 MPV Normal 9.8 LAB L200.39833 150-450 K/CU MM PLT Normal 254 LAB L200.55453 45-75 % NEUTROPHILS Normal % 67.7 LAB L200.80644 Less than 2 % IMMATURE Normal GRAN % 0.3 LAB L200.48644 20-40 % LYMPH % Normal 24.6 LAB L200.96681 2-10 % MONOCYTE % Normal 4.6 LAB L200.79638 0-5 % EOSINOPHIL Normal % 2.0 LAB L200.62274 0-2 % BASOPHIL % Normal 0.8 LAB L200.51890 2.0-8.3 K/CU MM NEUTROPHIL Normal ABS 5.00 LAB L200.26894 Less than 2 K/CU MM IMMATR GRAN Normal ABS 0.00 LAB L200.05978 0.9-4.4 K/CU MM LYMPH ABS Normal 1.80 LAB L200.88785 0.1-1.1 K/CU MM MONO ABS Normal 0.30 LAB L200.78318 0-0.5 K/CU MM EOS ABS Normal 0.20 LAB L200.55117 0-0.2 K/CU MM BASO ABS Normal 0.10 LAB L200.72994 Less than 1 % NRBC Normal 0.0 Performed By: #### L200.31482 #### [facility] [address] [place] [address] BMP Collected: 01/24/2018 Status: F Source: [facility] 3:48 PM [facility] REPOSITORY Order Comment: [place]: TYPE CODE TESTS RESULT OUT OF RANGE REFERENCE UNITS LAB L500.04839 136-145 MMOL/L Normal NA 141 LAB L500.90403 3.5-5.1 MMOL/L Normal K 4.7 LAB L500.71123 98-107 MMOL/L High CL 109 LAB L500.52204 21-32 MMOL/L Normal CO2 28 LAB L500.93120 5-16 MMOL/L Low AGAP 4 LAB L500.96846 70-100 MG/DL High GLU 299 Result Comment: 70-100- Normal Fasting; 100-125 Impaired Fasting; greater than 126 on more than one result- Diabetes. ADA guidelines. Results may be falsely elevated after the administration of Sulfapyridine. Results may be falsely depressed after the administration of Sulfasalazine. LAB L500.87183 7-26 MG/DL Normal BUN 22 LAB L500.24041 0.670-1.170 MG/DL High CREAT 1.230 Result Comment: Patients receiving either N-Acetylcysteine (NAC) or Metamizole prior to venipuncture, may have falsely depressed results. LAB L500.37886 15-24 Normal BUN/CREA 18 LAB L500.46323 8.5-10.1 MG/DL Low CALCIUM TOTAL 8.1 Performed By: #### L500.21412, L500.03738, L500.65849, L500.78989 #### [facility] [address] [place] [address] GFR EST Collected: 01/24/2018 Status: F Source: [facility] 3:48 PM [facility] REPOSITORY Order Comment: [place]: M TYPE CODE TESTS RESULT OUT OF RANGE REFERENCE UNITS LAB L500.17258 ML/MIN Normal IF non-AFR Greater than AMER 60 LAB L500.13995 ML/MIN Normal IF Greater than AMER 60 Performed By: #### L500.11862, L500.45560, L500.01911, L500.15852 #### [facility] [address] [place] [address] LIVER Collected: 01/24/2018 Status: F Source: [facility] 3:48 PM [facility] REPOSITORY Order Comment: [place]: M TYPE CODE TESTS RESULT OUT OF RANGE REFERENCE UNITS LAB L500.37994 6.0-8.5 GM/DL Low TP 5.6 LAB L500.94543 3.2-5.0 GM/DL Low ALBUMIN 3.1 LAB L500.38895 2.2-4.2 GM/DL Normal GLOBULIN 2.5 LAB L500.02124 0.8-2.0 Normal A/G RATIO 1.2 LAB L500.25244 0.2-1.0 MG/DL Low BILI TOTAL 0.1 LAB L500.75046 0.00-0.20 MG/DL Normal BILI DIRECT LESS THAN 0.05 LAB L500.07982 8-34 U/L Normal SGOT (AST) 14 Result Comment: RESULTS MAY BE FALSELY DEPRESSED AFTER THE ADMINISTRATION OF SULFASALAZINE AND/OR SULFAPYRIDINE. LAB L500.97538 13-61 IU/L Normal SGPT (ALT) 19 Result Comment: RESULTS MAY BE FALSELY DEPRESSED AFTER THE ADMINISTRATION OF SULFASALAZINE AND/OR SULFAPYRIDINE. LAB L500.63304 45-117 U/L Normal ALK PHOS 46 Performed By: #### L500.02803, L500.40172, L500.36125, L500.77237 #### [facility] [address] [place] [address] LIPASE Collected: 01/24/2018 Status: F Source: [facility] 3:48 PM [facility] REPOSITORY Order Comment: [place]: M TYPE CODE TESTS RESULT OUT OF RANGE REFERENCE UNITS LAB L500.48243 73-393 U/L Normal LIPASE 247 Performed By: #### L500.48527, L500.90214, L500.22645, L500.00709 #### [facility] [address] [place] [address] CHEST PA/AP AND Observed: 01/24/2018 Status: F Source: [facility] LATERAL 3:14 PM [facility] CHEST PA/AP & LATERAL Ordering Physician: Crispin Roberts MD 01/24/2018 3:58 PM CHEST PA AND LATERAL Clinical Statement: Cough, abdominal pain Comparison: None FINDINGS: The heart size and mediastinal contours are within normal limits. The lungs are clear and well-expanded. There is no acute infiltrate, venous congestion, or pleural effusion. There are mild degenerative changes of the mid to lower thoracic spine. No pneumothorax. IMPRESSION: No radiographically acute cardiopulmonary process. ---- Electronic Signature on File ---- Signed By: Pedro Pablo Dias MD [email or web address] Dictated: 01/24/2018 4:08 PM Signed: 01/24/2018 4:09 PM Reported By: PEDRO PABLO DIAS M.D. Signed By: PEDRO PABLO DIAS M.D. CT ABD/PEL W IV Observed: 01/24/2018 Status: F Source: [facility] CONTRAST ONLY 3:14 PM [facility] CT ABD/PEL W IV CONTRAST ONLY Ordering Physician: Crispin Roberts MD 01/24/2018 5:[address] SCAN OF THE ABDOMEN AND PELVIS WITH INTRAVENOUS CONTRAST Clinical Statement: Abdominal pain left upper quadrant. TECHNIQUE: Axial scans were obtained to the abdomen and pelvis utilizing 100 cc Isovue-300 intravenously. Comparison 05/13/2017 FINDINGS: There are calcified and noncalcified granulomata at the lung bases bilaterally, similar to the prior study. No pleural or pericardial effusion. There is some pericardial thickening anteriorly which is similar to the prior study. There is a poorly defined approximately 1 cm enhancing lesion in the lateral segment of the left lobe the liver, similar to the prior study. There are calcified granulomata within the spleen. The adrenal glands, pancreas, and gallbladder are normal in appearance. No calcified gallstones. The kidneys enhance symmetrically bilaterally. There is no hydronephrosis, renal, or ureteral calculus. No dilated bowel loops are seen. Multiple surgical clips are noted in the right lower quadrant. No pelvic mass or free fluid. IMPRESSION: No acute findings. Multiple calcified and noncalcified nodules in the lower lungs similar to the prior study probably related to prior granulomatous disease. Poorly defined enhancing lesion in the left lobe of the liver similar to the prior study, probably representing an atypical hemangioma. ---- Electronic Signature on File ---- Signed By: Willie De La Rosa MD [email or web address] Dictated: 01/24/2018 5:46 PM Signed: 01/24/2018 5:55 PM Reported By: WILLIE DE LA ROSA M.D. Signed By: WILLIE DE LA ROSA M.D. EMERGENCY REPORT Observed: 12/24/2017 Status: F Source: [facility] 7:13 AM [facility] EMERGENCY ROOM REPORT NAME ACCOUNT SEX AGE ADMIT DISCHARGE PT MED. RECORD# NUMBER DATE DATE TYPE BLOCK, [id number] M 47 12/21/17 12/21/17 3 JOEL Siddiqui [id number] ROOM: ER DATE OF : 1970 DICTATING PHYSICIAN: Juan C De Jesus CHIEF COMPLAINT: Abdominal pain. HISTORY OF PRESENT ILLNESS: The patient has had a history of recurrent pancreatitis and recurrent abdominal pain. He states that he has had pain to his mid to left upper abdomen for the last three to four days that seems to be worse since yesterday and today. He has nausea and vomiting with it occasionally. No fever or chills. It is mainly to his epigastric and left upper quadrant, radiating into his back. He has not had any change in his stools, though he states that he has had loose stools for months. PAST MEDICAL HISTORY: Significant for chronic and recurrent pancreatitis. He has a history of hypertension, COPD, and diabetes. He has had a significant amount of weight loss over the past three months and is seeing his physician for that. He is scheduled soon to have an upper and lower endoscopy for further evaluation. He also has high cholesterol. PAST SURGICAL HISTORY: He has had a previous appendectomy. No other abdominal surgeries. MEDICATIONS: He is on multiple medications as noted on the medication reconciliation list. ALLERGIES: He is allergic to penicillin. SOCIAL HISTORY: He lives at home. He does smoke a pack and a half a day. He does not drink alcohol. REVIEW OF SYSTEMS: As mentioned above. No bleeding disorders. No rashes. He does have a history of chronic pain, mostly recurrent abdominal pain. PHYSICAL EXAMINATION: This is a 47-year-old mildly overweight male who is alert and appropriate. He does not appear toxic. His skin is pink, warm and dry. HEENT examination is within normal limits. His neck is supple without adenopathy. Lungs are clear without crackles or wheezes. Cardiac exam is a regular rhythm without any ectopy, murmurs, gallops or rubs. Abdomen is minimally obese but soft. He does seem to have some mild tenderness to the epigastric and left upper quadrant. No lower Page 1 of 2 JOEL SCHILLING Emergency Room Report abdominal tenderness. No masses. No guarding or rebound. Decreased bowel sounds are present. He moves his extremities appropriately without any focal weaknesses. No clubbing, cyanosis or edema. Good peripheral pulses. Good capillary refill. Vital signs: Temperature is 97, pulse 105, respirations 20, and blood pressure 194/106. His oxygen saturation is 99%. DIAGNOSTIC DATA: A number of laboratory studies were obtained. It showed a CBC that was essentially normal with a normal differential. Hemoglobin and hematocrit were 13.4 and 37.7. Amylase was normal. Lipase was minimally elevated at 69. CRP was less than 0.1. CMP shows a glucose of 265, otherwise negative. Urinalysis is unremarkable. We did proceed to get an abdomen/pelvis CT, which did not show any evidence of any acute pancreatitis or other acute inflammatory changes. EMERGENCY DEPARTMENT COURSE AND TREATMENT: An IV of normal saline was placed, and he was given a liter of IV fluids, initially morphine and Zofran, which helped minimally with his symptoms. Additional morphine, Toradol and Phenergan were given, which did help better. I discussed management with him. DIAGNOSIS: Recurrent abdominal pain. PLAN/DISPOSITION: He will be discharged with prescriptions for Phenergan, some Percocet for the next one to two days, and clear liquids over the next 24 hours. He is to follow up with his family physician and/or supervisor home restoration service in one to two days if no better. D: Juan C De Jesus MD TD: 12/22/17 07:01 JOB #: [id number] Transcribed by: malia Electronically signed by: CALEB De Jesus M.D. 12/24/17 07:08 Page 2 of 2 JOEL SCHILLING Emergency Room Report CT ABDOMEN/PELVIS W Observed: 12/21/2017 Status: F [facility] [place] [address] Patient: JOEL SCHILLING. Phone#: : [phone] Age: 47 Gender: M Pt. Type: ER Account: [id number] Location: [facility] Ordering: JUAN C DE JESUS Exam Date: 12/21/2017/15:36 Family Phys: JOHN JACOME Charge Code: [id number] Physician: [place] Order #: [id number] DLP Dose#: PROCEDURE: CT ABDOMEN/PELVIS WITH CONTRAST COMPARISON: [facility], CT, ABDOMEN/PELVIS W CON, 07/01/2016, 21:12. INDICATIONS: Pain TECHNIQUE: After obtaining the patient's consent, CT images were created with non-ionic intravenous contrast material. All CT scans at this facility use dose modulation, iterative reconstruction, and/or weight based dosing when appropriate to reduce radiation dose to as low as reasonably achievable. IV CONTRAST: Omnipaque 350,80ml TOTAL DOSE: 17.2 CTDIvol(mGy) FINDINGS: LIVER: Normal. No enlargement, atrophy, abnormal density, or significant focal lesion. BILIARY: Normal. No visible dilatation or calcification. PANCREAS: Normal. No lesion, fluid collection, ductal dilatation, or atrophy. SPLEEN: Normal. No enlargement or focal lesion. KIDNEYS: Normal. No mass, obstruction, or calcification. ADRENALS: Normal. No mass or enlargement. AORTA/VASCULAR: Normal. No aneurysm or dissection. RETROPERITONEUM: Normal. No mass or adenopathy. BOWEL/MESENTERY: Sigmoid diverticula are present. There is no evidence of inflammatory change. ABDOMINAL WALL: A small umbilical hernia with fat is present. There is anterior subcutaneous left abdominal fat stranding at the lower abdomen. URINARY BLADDER: Normal. No visible focal wall thickening, lesion, or calculus. PELVIC NODES: Normal. No adenopathy. Continued Report - Page 2 of 2 Patient: JOEL SCHILLING Phone#: : [phone] Age: 47 Gender: M Pt. Type: ER Account: [id number] Location: [facility] Ordering: JUAN C DE JESUS Exam Date: 12/21/2017/15:36 Family Phys: JOHN JACOME Charge Code: [id number] Physician: [place] Order #: [id number] DLP Dose#: PELVIC ORGANS: Normal. No visible mass. Pelvic organs appropriate for patient age. BONES: Normal. No bony lesion or fracture. LUNG BASES: Normal. No visible pulmonary or pleural disease. OTHER: Negative. CONCLUSION: 1. Sigmoid diverticulosis. 2. There is mild subcutaneous fat stranding in the left lower abdomen of questionable origin. 3. There is no other acute abdominal or pelvic abnormality. Dictated by: Izzy Hicks MD on 12/21/2017 at 16:02 Approved by: Izzy Hicks MD on 12/21/2017 at 16:02 URINALYSIS Collected: 12/21/2017 Status: F Source: [facility] 3:20 PM [facility] REPOSITORY TYPE CODE TESTS RESULT OUT OF REFERENCE UNITS RANGE LAB URINALYSIS (LOINC) URINALYSIS Result Comment: URINALYSIS LAB Specimen Type(LOINC) Specimen Type Void LAB Color(LOINC) NORMAL: YELLOW Color yellow LAB Clarity(LOINC) NORMAL: CLEAR Clarity clear LAB ph(LOINC) NORMAL: 5.0-8.0 ph 5 LAB Protein(LOINC) NORMAL: NEGATIVE Protein Abnormal 500 LAB Glucose(LOINC) NORMAL: NORMAL Glucose Abnormal 1000 LAB Ketone(LOINC) NORMAL: NEGATIVE Ketone NEG LAB Bilirubin(LOINC) NORMAL: NEGATIVE Bilirubin NEG LAB Blood(LOINC) NORMAL: NEGATIVE Blood Abnormal 25 LAB Urobilinog(LOINC) NORMAL: NORMAL Urobilinog NORM LAB Sp Mary D(LOINC) NORMAL: 1.010-1.030 Sp Mary D 1.015 LAB Nitrite(LOINC) NORMAL: NEGATIVE Nitrite NEG LAB Leukocytes(LOINC) NORMAL: NEGATIVE Leukocytes NEG LAB Microscopic(LOINC ) Microscopic SEE BELOW Result Comment: MICROSCOPIC LAB Wbc(LOINC) 0-5/hpf Wbc 1-5 LAB Rbc(LOINC) 0-3/hpf Rbc 0-5 LAB Casts(LOINC) Casts SEE BELOW LAB Fine Gran(LOINC) NORMAL: NONE Fine Gran 1-5 LAB Crystals(LOINC) Crystals NONE LAB Amorphous(LOINC) Amorphous NONE LAB Bacteria(LOINC) Bacteria TRACE LAB Epi Cells(LOINC) Epi Cells NONE LAB Mucous(LOINC) Mucous NONE LAB Yeast(LOINC) Yeast NONE Performed By: #### [id number] #### [facility],[address] [place], [place] [id number] CBC Collected: 12/21/2017 Status: F Source: [facility] 2:10 PM [facility] REPOSITORY TYPE CODE TESTS RESULT OUT OF RANGE REFERENCE UNITS LAB CBC(LOINC) CBC Result Comment: CBC-COMPLETE BLOOD COUNT LAB WBC(LOINC) 4.5 - 10.8 x 10EE3/UL WBC 5.3 LAB RBC(LOINC) 4.50 - x 10EE6/UL 6.00 RBC Low 4.11 LAB HEMOGLOBIN(LOINC) 13.0 - g/dl 17.5 HEMOGLOBIN 13.4 LAB HEMATOCRIT(LOINC) 40.0 - % 52.0 Low HEMATOCRIT 37.7 LAB MCV(LOINC) 81 - 98 fl MCV 92 LAB MCH(LOINC) 27 - 33 pg MCH 33 LAB MCHC(LOINC) 32 - 36 X10 3 MCHC 36 LAB RDW/CV(LOINC) 12.0 - % 15.6 RDW/CV 13.7 LAB PLATELET(LOINC) 150 - 450 x10EE3/UL PLATELET 334 LAB MPV(LOINC) 6.4 - 10.5 fl MPV 7.5 Result Comment: AUTOMATED DIFFERENTIAL LAB NEUT %(LOINC) 46.0 - 76.0 % NEUT % 66.0 LAB LYMPH %(LOINC) 20.0 - 45.0 % LYMPH % 26.8 LAB MONOS %(LOINC) 0.0 - 10.0 % MONOS % 4.9 LAB EO %(LOINC) 0.0 - 7.0 % EO % 1.6 LAB BASO %(LOINC) 0.0 - 2.0 % BASO % 0.7 LAB Lymph #(LOINC) 0.80 - 2.80 x10EE3/U L Lymph # 1.40 LAB Neut #(LOINC) 1.50 - 7.10 x10EE3/U L Neut # 3.50 LAB [place] #(LOINC) 0.20 - 1.00 x10EE3/U L [place] # 0.30 LAB EO #(LOINC) 0.00 - 0.50 x10EE3/U L EO # 0.10 LAB Baso #(LOINC) 0.00 - 0.10 x10EE3/U L Baso # 0.00 LAB MANUAL DIFF([facility]) MANUAL DIFF N/A LAB MORPHOLOGY([facility] ) MORPHOLOGY N/A Result Comment: {CD] Performed By: #### [id number] #### [place] [address] LIPASE Collected: 12/21/2017 Status: F Source: [facility] 2:10 PM [facility] REPOSITORY TYPE CODE TESTS RESULT OUT OF REFERENCE UNITS RANGE LAB LIPASE(LOIN 18.0 - 51.0 U/L C) High LIPASE 69.0 Performed By: #### [id number] #### [place] [id number] CMP WITH EGFR Collected: 12/21/2017 Status: F Source: [facility] 2:10 PM [facility] REPOSITORY TYPE CODE TESTS RESULT OUT OF RANGE REFERENCE UNITS LAB CMP with eGFR([facility]) CMP with eGFR Result Comment: COMPREHENSIVE METABOLIC PANEL LAB SODIUM(LOINC) 136 - 145 mmol/l SODIUM 137 LAB POTASSIUM(LOINC) 3.5 - 5.1 mmol/L POTASSIUM 4.2 LAB CHLORIDE(LOINC) 98 - 107 mmol/L CHLORIDE 106 LAB CO2(LOINC) 21.0 - mmol/L 31.0 CO2 23.7 LAB GLUCOSE(LOINC) 74 - 106 mg/dl GLUCOSE High 265 LAB BUN(LOINC) 6 - 20 mg/dl BUN 18 LAB CREATININE(LOINC) 0.7 - 1.3 mg/dl CREATININE 1.0 LAB AST/SGOT(LOINC) 13 - 39 U/L AST/SGOT 14 LAB ALK PHOS(LOINC) 38 - 126 U/L ALK PHOS 53 LAB CALCIUM(LOINC) 8.6 - mg/dl 10.2 CALCIUM 8.9 LAB TOTAL 6.4 - 8.3 g/dl PROTEIN(LOINC) TOTAL Low PROTEIN 6.2 LAB ALBUMIN(LOINC) 3.4 - 4.8 g/dL ALBUMIN 3.5 LAB GLOBULIN(LOINC) 1.5 - 3.8 G/DL GLOBULIN 2.7 LAB A/G RATIO(LOINC) 0.9 - 1.6 A/G RATIO 1.3 LAB TOTAL BILI(LOINC) 0.0 - 1.5 mg/dl TOTAL BILI 0.4 LAB B/C RATIO(LOINC) 0 - 30 ratio B/C RATIO 18 LAB ALT/SGPT(LOINC) 10 - 40 U/L ALT/SGPT 13 LAB ANION GAP(LOINC) 10 - 20 mmol/L ANION GAP 12 LAB AGE(LOINC) years AGE 47 LAB eGFR(LOINC) 60 - 999 ML/MINUTE eGFR >60 LAB eGFR(AA)(LOINC) 60 - 999 ML/MINUTE eGFR(AA) >60 Result Comment: ACCORDING TO THE NATIONAL KIDNEY DISEASE EDUCATION PROGRAM(NKDE), A NORMAL eGFR IS A VALUE GREATER THAN OR EQUAL TO 60 ML/MIN/1.73 SQ METERS. CHRONIC KIDNEY DISEASE: <60mL/MIN/1.73 SQ METERS KIDNEY FAILURE: <15mL/MIN/1.73 SQ METERS THIS TEST SHOULD ONLY BE USED FOR PATIENTS 18 YEARS OF AGE AND OLDER. Performed By: #### [id number] #### [place] [address] C-REACTIVE PROTEIN Collected: 12/21/2017 Status: F Source: [facility] 2:10 PM [facility] REPOSITORY TYPE CODE TESTS RESULT OUT OF RANGE REFERENCE UNITS LAB CRP(LOINC) 0.00 - 1.00 mg/dl CRP <0.10 Performed By: #### [id number] #### [place] [address] AMYLASE Collected: 12/21/2017 Status: F Source: [facility] 2:10 PM [facility] REPOSITORY TYPE CODE TESTS RESULT OUT OF REFERENCE UNITS RANGE LAB AMYLASE(NOE 29 - 103 U/L MD) AMYLASE 34 Performed By: #### [id number] #### [place] [address] HGBA1C Collected: 12/20/2017 Status: F Source: [place] 5:21 AM [facility] REPOSITORY TYPE CODE TESTS RESULT OUT OF REFERENCE UNITS RANGE LAB [id number]( 4.0-6.3 % LOINC) High Hemoglobin A1c 8.9 Performed By: #### [id number] #### RAUL Chemistry Manual Subsection [facility] [place] [address] U DRUG SCREEN Collected: 12/20/2017 Status: F Source: [place] 2:55 AM [facility] REPOSITORY TYPE CODE TESTS RESULT OUT OF RANGE REFERENCE UNITS LAB [id number](LO ng/mL INC) Normal U Negative Amph Scr Result Comment: Results for medical use only. Confirmation of positive results will be done when requested. Specimens are kept for one week. LAB [id number](LOINC) ng/mL U Normal Paulette Scr Negative LAB 54252688(LOINC) ng/mL U Normal Benzodia Scr Negative LAB 55383297(LOINC) ng/mL U Normal Cannab Scr Negative LAB 19448706(LOINC) ng/mL U Normal Cocaine Scr Negative LAB 14703081(LOINC) ng/mL U Normal Opiate Scr Positive >300 LAB 91211203(LOINC) ng/mL U Normal PCP Scr Negative Performed By: #### [id number] #### RAUL [employer] [address] [place] [address] Observed: 12/20/2017 Status: F Source: [place] C URINE 2:55 AM [facility] REPOSITORY Final Report: No growth Performed By: #### [id number] #### RAUL Microbiology Subsection [address] [place] [address] CT ABDOMEN/PELVIS W/O Observed: 12/19/2017 Status: F Source: [place] CONTRAST 11:30 PM [facility] REPOSITORY Exam Date/Time: 12/19/2017 23:42 EDT Reason for Exam: Pain Report EXAM: CT Abdomen/Pelvis w/o Contrast CLINICAL STATEMENT: Upper abdominal pain. COMPARISON: CT abdomen and pelvis, 04/21/2017 at [place]. TECHNIQUE: CT examination of the abdomen and pelvis without IV contrast. Coronal and sagittal reformations were performed. Dose reduction techniques were achieved by using automated exposure control and/or adjustment of mA and/or kV according to patient size and/or use of iterative reconstruction technique. FINDINGS: Lung bases are clear. Solid upper abdominal organs demonstrate no acute abnormalities on this limited noncontrast study. No adrenal mass or adenopathy. No obstructive uropathy. Aorta is normal caliber with dense atheromatous calcifications noted. There is no bowel obstruction or inflammation. The appendix has been removed. No pelvic adenopathy or ascites. Prostate and bladder are age-appropriate. The bladder is decompressed. No evidence of inguinal hernia. No suspicious lytic or sclerotic osseous lesions. IMPRESSION: No acute abnormality or significant interval change. FINAL REPORT Dictated: 12/20/2017 0:53 am Nolan Alvarez MD Signed (Electronic Signature): 12/20/2017 0:53 am Signed by: Nolan Alvarez MD Technologist: GILDA HUNTLEY Collected: 12/19/2017 Status: F Source: [place] 10:22 PM [facility] REPOSITORY TYPE CODE TESTS RESULT OUT OF RANGE REFERENCE UNITS LAB [id number](L 70-99 mg/dL OINC) High Glucose Lvl 188 LAB 66362023(L 8.4-10.2 mg/dL OINC) Calcium Normal Lvl 9.2 LAB 61273984(L 136-145 mEq/L OINC) Sodium Normal Lvl 137 LAB 57942180(L 3.5-5.1 mEq/L OINC) Normal Potassium Lvl 4.2 LAB 81346891(L 98-107 mEq/L OINC) Chloride Normal 103 LAB 76761141(L 24.0-30.0 mEq/L OINC) Low CO2 19.9 LAB 50546381(L 7-18 mg/dL OINC) High BUN 31 LAB 5220447(LO 0.6-1.3 mg/dL INC) High Creatinine 2.2 LAB 04059750(L 5.4-30.0 ratio OINC) Normal BUN/Creat Ratio 14.1 Performed By: #### [id number] #### RAUL [employer] [address] [place], [place] [address] CBC W/ AUTO DIFF Collected: 12/19/2017 Status: F Source: [place] 10:22 PM [facility] REPOSITORY TYPE CODE TESTS RESULT OUT OF RANGE REFERENCE UNITS LAB [id number](L 3.6-11.0 E3/mcL OINC) Normal WBC 7.1 LAB 44418425(L 3.90-6.10 E6/mcL OINC) Normal RBC 4.17 LAB 72539930(L 13.5-18.0 G/DL OINC) Normal Hgb 13.5 LAB 96633965(L 42.0-52.0 % OINC) Low Hct 38.9 LAB 44990930(L 11.5-14.5 % OINC) Normal RDW 14.4 LAB 10696578(L 27.0-31.0 pg OINC) High MCH 32.2 LAB 75148859(L 33.0-37.0 G/DL OINC) Normal MCHC 34.6 LAB 60579343(L 78.0-100.0 fL OINC) Normal MCV 93.1 LAB 16385976(L 7.4-11.0 fL OINC) Normal MPV 8.0 LAB 70071649(L 130-400 E3/mcL OINC) High Platelet 412 Performed By: #### [id number] #### [place] [address] AUTO DIFF Collected: 12/19/2017 Status: F Source: [place] 10:22 PM [facility] REPOSITORY Order Comment: Order Added by Discern Expert. TYPE CODE TESTS RESULT OUT OF RANGE REFERENCE UNITS LAB [id number](L 37.0-75.0 % OINC) Normal Neutro Auto 62.2 LAB 00296334(L 20.0-55.0 % OINC) Normal Lymph Auto 29.2 LAB 18814326(L 0.0-10.0 % OINC) Normal [place] Auto 5.6 LAB 59210591(L 0.0-11.0 % OINC) Normal Eos Auto 1.7 LAB 86064976(L 0.0-2.0 % OINC) Normal Basophil Auto 1.3 LAB 08688115(L 1.4-6.5 E3/mcL OINC) Normal Neutro 4.4 Absolute LAB 64992671(L 1.2-3.4 E3/mcL OINC) Normal Lymph Absolute 2.1 LAB 96882873(L 0.0-0.7 E3/mcL OINC) Normal [place] Absolute 0.4 LAB 48201924(L 0.0-0.7 E3/mcL OINC) Normal Eos Absolute 0.1 LAB 11720244(L 0.0-0.2 E3/mcL OINC) Normal Basophil 0.1 Absolute Performed By: #### [id number] #### RAUL [employer] [facility] [place] [id number] UA COMPLETE Collected: 12/19/2017 Status: F Source: [place] 10:22 PM [facility] REPOSITORY TYPE CODE TESTS RESULT OUT OF RANGE REFERENCE UNITS LAB [id number]( Yellow LOINC) Normal UA Color Yellow LAB 21861773( Clear LOINC) UA Clarity Abnormal SltCloudy LAB 11068495( Negative LOINC) Normal UA Glucose Negative LAB 45143381( Negative LOINC) Normal UA Bili Negative LAB 29109650( Negative LOINC) Normal UA Ketones Negative LAB 11313786( 1.003-1.030 LOINC) High UA Spec Grav 1.031 LAB 21282716( 4.6-8.0 LOINC) Normal UA pH 5.0 LAB 43019245( Negative LOINC) UA Protein 3+ Abnormal LAB 22246966( mg/dL LOINC) Normal UA Urobilinogen Negative LAB 21611224( Negative LOINC) Normal UA Nitrite Negative LAB 97949367( Negative LOINC) Normal UA Blood Negative LAB 72423870( Negative LOINC) Normal UA Leuk Est Negative LAB 20755762( 0-3 /HPF LOINC) Normal UA RBC 0-3 LAB 07929670( 0-5 /HPF LOINC) UA WBC Abnormal 10-20 LAB 12905560( 0-5 /HPF LOINC) Normal UA Squam Epithelial 0-5 LAB 88610447( None /HPF LOINC) UA Bacteria 1+ Abnormal LAB 65721392( Trace /LPF LOINC) UA Mucous Abnormal Trace LAB 74152852( None /HPF LOINC) UA WBC Abnormal Clump Few Performed By: #### [id number] #### RAUL Urinalysis Automated Subsection [facility] [place] [id number] HEP FUNC PANEL Collected: 12/19/2017 Status: F Source: [place] 10:22 PM [facility] REPOSITORY TYPE CODE TESTS RESULT OUT OF RANGE REFERENCE UNITS LAB 43369001(L 10-40 Int._Unit/L OINC) Normal ALT 16 LAB 55036004(L 10-42 Int._Unit/L OINC) Normal AST 22 LAB 72646643(L 3.2-5.0 G/DL OINC) Normal Albumin Lvl 3.4 LAB 74704210(L 2.0-4.0 G/DL OINC) Normal Globulin 3.0 LAB 22982925(L 1.1-1.9 ratio OINC) Normal A/G Ratio 1.1 LAB 16906322(L 42-121 Int._Unit/L OINC) Normal Alk Phos 52 LAB 45533061(L .00-.20 mg/dL OINC) Normal Bili Direct <.10 LAB 37775767(L OINC) Normal Bili Indirect >0.5 Result Comment: No established ranges available for the Indirect Biliruben. LAB 00317957(LOINC) 0.2-1.0 mg/dL Normal Bili Total 0.6 LAB 74063698(LOINC) 6.4-8.3 G/DL Normal Total Protein 6.4 Performed By: #### [id number] #### RAUL [employer] [place] [address] LIPASE LEVEL Collected: 12/19/2017 Status: F Source: [place] 10:22 PM [facility] REPOSITORY TYPE CODE TESTS RESULT OUT OF RANGE REFERENCE UNITS LAB [id number](LO 8-57 U/L INC) Normal Lipase Lvl 43 Performed By: #### [id number] #### RAUL [employer] [place] [address] EGFR Collected: 12/19/2017 Status: F Source: [place] 10:22 PM [facility] REPOSITORY Order Comment: Order added by Discern Expert. TYPE CODE TESTS RESULT OUT OF RANGE REFERENCE UNITS LAB [id number](LO mL/min/1.73 INC) m2 Normal eGFR 32 LAB 16264149(LO mL/min/1.73 INC) m2 Normal eGFR AA 39 Performed By: #### [id number] #### RAUL [employer] [place] [address] CBC AND DIFFERENTIAL Collected: 12/18/2017 Status: F Source: [place] 9:23 AM [facility] REPOSIT[facility] TYPE CODE TESTS RESULT OUT OF REFERENCE UNITS RANGE LAB WBC 3.70-11.00 k/uL WBC 7.93 LAB RBC 4.20-6.00 m/uL RBC 4.51 LAB HGB 13.0-17.0 g/dL Hemoglobin 14.3 LAB HCT 39.0-51.0 % Hematocrit 42.3 LAB MCV 80.0-100.0 fL MCV 93.8 LAB MCH 26.0-34.0 pG MCH 31.7 LAB MCHC 30.5-36.0 g/dL MCHC 33.8 LAB RDWCV 11.5-15.0 % RDW-CV 13.5 LAB PLTCT 150-400 k/uL Platelet High Count 462 LAB MPV 9.0-12.7 fL MPV 9.8 LAB ANEUT % Neut% 61.5 LAB AANEUT 1.45-7.50 k/uL Abs Neut 4.88 LAB ALYMP % Lymph% 29.4 LAB AALYMP 1.00-4.00 k/uL Abs Lymph 2.33 LAB AMONO % [place]% 5.9 LAB AAMONO <0.87 k/uL Abs [place] 0.47 LAB AEOS % Eosin% 2.4 LAB AAEOS <0.46 k/uL Abs Eosin 0.19 LAB ABASO % Baso% 0.8 LAB AABASO <0.11 k/uL Abs Baso 0.06 LAB AUNRBC 0 /100 WBC NRBCs 0.0 LAB ABNRBC <0.01 k/uL Absolute nRBC <0.01 LAB DTYP DTYPE Auto Diff Performed By: #### CBCDIF, AMYL, CMP, LIPA, MG1, LIPNF, HBA1C #### [facility] [address] [place] [id number] AMYLASE Collected: 12/18/2017 Status: F Source: [place] 9:23 AM [facility] REPOSITORY TYPE CODE TESTS RESULT OUT OF REFERENCE UNITS RANGE LAB AMYL 30-104 U/L Amylase 56 Performed By: #### CBCDIF, AMYL, CMP, LIPA, MG1, LIPNF, HBA1C #### [place] [id number] [place], [place] [address] COMP METABOLIC PANEL Collected: 12/18/2017 Status: F Source: [place] 9:23 AM [facility] REPOSITORY TYPE CODE TESTS RESULT OUT OF REFERENCE UNITS RANGE LAB TP 6.3-8.0 g/dL Protein, Total 7.0 LAB ALB 3.9-4.9 g/dL Low Albumin 3.6 LAB CA 8.5-10.2 mg/dL Calcium, Total 9.2 LAB TBIL 0.2-1.3 mg/dL Bilirubin, Total 0.2 LAB ALKP 36-108 U/L Alkaline Phosphatase 65 LAB AST 14-40 U/L AST 20 LAB GLU 74-99 mg/dL Glucose High 269 Result Comment: The [place] Diabetes Association (ADA) provides guidance for cutoff values for fasting glucose and random glucose. The ADA defines fasting as no caloric intake for at least 8 hours. Fas ting plasma glucose results between 100 to 125 mg/dL indicate increased risk for diabetes (prediabetes). Fasting plasma glucose results greater than or equal to 126 mg/dL meet the criteria for diagnosis of diabetes. In the absence of unequivocal hyperglycemia, results should be confirmed by repeat testing. In a patient with classic symptoms of hyperglycemia or hyperglycemic crisis, random plasma glucose results greater than or equal to 200 mg/dL meet the criteria for diagnosis of diabetes. Reference: Standards of Medical Care in Diabetes 2016, [place] Diabetes Association. Diabetes Care. 2016.39(Suppl 1). LAB BUN 9-24 mg/dL BUN 19 LAB CRET 0.73-1.22 mg/dL Creatinine High 1.65 LAB NA 136-144 mmol/L Sodium 136 LAB K 3.7-5.1 mmol/L Potassium 4.2 LAB CL 97-105 mmol/L Low Chloride 95 LAB CO2 22-30 mmol/L CO2 24 LAB AGAP 9-18 mmol/L Anion Gap 17 LAB ALT 10-54 U/L ALT 17 LAB GFRAA eGFR- Amer. 54 LAB GFRNAA . eGFR-All Other Races 45 Result Comment: eGFR (Estimated GFR) Units of measure: mL/min/1.73 meters squared eGFR is derived from the reexpressed MDRD Study equation using the following parameters: serum creatinine, age, gender and race. The creatinine assay has been calibrated to be traceable to IDMS. An eGFR <60 mL/min/1.73m2 for >3 months is consistent with chronic kidney disease. Refer to KDOQI guidelines for clinical interpretation. In patients with unstable renal function, e.g. those with acute kidney injury, the eGFR may not accurately reflect actual GFR. Performed By: #### CBCDIF, AMYL, CMP, LIPA, MG1, LIPNF, HBA1C #### [facility] [address] [place] [id number] LIPASE Collected: 12/18/2017 Status: F Source: [place] 9:23 AM [facility] REPOSITORY TYPE CODE TESTS RESULT OUT OF REFERENCE UNITS RANGE LAB LIPA 16-61 U/L High Lipase 101 Performed By: #### CBCDIF, AMYL, CMP, LIPA, MG1, LIPNF, HBA1C #### [facility] [address] [place] [id number] MAGNESIUM Collected: 12/18/2017 Status: F Source: [place] 9:23 AM [facility] REPOSITORY TYPE CODE TESTS RESULT OUT OF REFERENCE UNITS RANGE LAB MG 1.7-2.3 mg/dL Magnesium 1.7 Performed By: #### CBCDIF, AMYL, CMP, LIPA, MG1, LIPNF, HBA1C #### [place] [id number] [place] [address] LIPID PANEL, NONFAST Collected: 12/18/2017 Status: F Source: [place] 9:23 AM [facility] REPOSITORY TYPE CODE TESTS RESULT OUT OF REFERENCE UNITS RANGE LAB CHOLNF <200 mg/dL Total High Cholesterol NF 359 Result Comment: <200 mg/dL, Desirable 200-239 mg/dL, Borderline high >239 mg/dL, High LAB TRIGNF <150 mg/dL Triglycerides, NF High 1017 Result Comment: <150 mg/dL, Normal 150-199 mg/dL, Borderline high 200-499 mg/dL, High >499 mg/dL, Very high LAB HDLNF >39 mg/dL HDL Cholesterol, NF Low 33 Result Comment: 40-59 mg/dL, Acceptable >59 mg/dL, High: Negative risk factor for coronary heart disease <40 mg/dL, Low: Positive risk factor for coronary heart disease LAB LDLNF <100 mg/dL LDL Unable to Cholesterol, NF calculate due to increased Triglycerides. A Direct LDL Cholesterol measurement will not be performed. If clinically indicated, a fasting Basic Lipid Panel (LIPB) may be ordered. LAB NOHDLN <130 mg/dL Non HDL 326 High Chol, NF Result Comment: <130 mg/dL, Optimal 130-159 mg/dL, Near optimal/above optimal 160-189 mg/dL, Borderline high 190-219 mg/dL, High >219 mg/dL, Very high Secondary prevention optimal non HDL Cholesterol levels are recommended to be < 100 mg/dL LAB VLDLNF <30 mg/dL VLDL Unable to Cholesterol, NF calculate due to elevated Triglycerides. LAB TCHDLN <5.10 mg/dL T Chol/HDL 10.88 High Ratio NF LAB LDLHDN <2.54 mg/dL LDL/HDL Ratio, Unable to NF calculate due to elevated Triglycerides. Result Comment: Reference: 1. National Cholesterol Education Program ATP III Guideline At-A-Glance Quick Desk Reference: National Heart, Lung, and Blood Kila. National Institutes of Health. 2001: NIH Publication No. 01-3305. 2. An International Atherosclerosis Society position paper: global recommendations for the management of dyslipidemia: executive summary, Atherosclerosis. 2014: 232(2):410-413. Performed By: #### CBCDIF, AMYL, CMP, LIPA, MG1, LIPNF, HBA1C #### [facility] [employer] [place] [address] HEMOGLOBIN A1C Collected: 12/18/2017 Status: F Source: [place] 9:23 AM [facility] REPOSITORY TYPE CODE TESTS RESULT OUT OF REFERENCE UNITS RANGE LAB HGBA1C 4.3-5.6 % High Hemoglobin A1c 8.7 LAB HBA0 mg/dL Est. Average Glucose 203 Result Comment: eAG: (Estimated average glucose) is a calculated value from HgbA1c and is special service representative of the average blood glucose level in the last 2-3 month period. Performed By: #### CBCDIF, AMYL, CMP, LIPA, MG1, LIPNF, HBA1C #### [facility] [address] [place] [id number] Observed: 12/18/2017 Status: F Source: [place] FECAL FAT/QUAL 9:22 AM [facility] REPOSITORY Sp. Request/Comment: - Specimen received in sterile container. Test Result - Less than 100 fatty acid globules observed per high power field (normal range is <100 fatty acid globules) Performed By: #### FFAT #### [facility] [address] [place] [id number] C DIFFICILE PCR Collected: 12/18/2017 Status: F Source: [place] 9:21 AM [facility] REPOSITORY TYPE CODE TESTS RESULT OUT OF REFERENCE UNITS RANGE LAB CDFRES C difficile PCR Negative for C. difficile toxin by PCR Performed By: #### CDPCR #### [facility] [address] [place], [place] [address] PROGRESS Observed: 12/18/2017 Status: COMPLETED Source: [place] 8:23 AM [facility] REPOSITORY HNO ID: [id number] Author: John Jacome Service: (none) Author Type: Physician Type: Progress Notes Filed: 12/18/2017 9:05 AM Note Text: This note was created using [employer]. Subjective Luis Schilling is a 47 year old male was here for overdue and fragmented follow up. He was here for medication refills. He stated he had insurance changes that affected his access. He frequented various ER for chronic pain and had multiple CT scans. He was just in the ER in [place] this weekend, where he was told his pancreatic enzymes were normal, and he did not need another CT scan. He was given IV fluids and magnesium. He has been losing weight for 5 months with chronic diarrhea. His stools have been watery, copious, 4-5 times a day. He had significant back pain from diarrhea and requested some tramadol. His diabetes mellitus was historically not well controlled. His hypertension was stable. ACTIVE PROBLEM LIST Hypertension Goal Bp (Blood Pressure) < 140/90 Dyslipidemia Abdominal pain chronic Non-Compliance Diabetic neuropathy Hypermetropia Presbyopia Nausea and Vomiting Drug-Seeking Behavior DM type 2, uncontrolled, with neuropathy (HCC) Gastroesophageal Reflux Disease Yoandy (Obstructive Sleep Apnea) Copd With Chronic Bronchitis (Hcc) Obesity Tobacco Use Microscopic Hematuria Current Outpatient Prescriptions: pregabalin (LYRICA) 100 mg capsule Take 1 capsule by mouth three times daily for 23 days. lisinopril (ZESTRIL, PRINIVIL) 40 mg tablet Take 1 tablet by mouth once daily. Omeprazole 40 mg capsule Take 1 capsule by mouth once daily. metFORMIN (GLUCOPHAGE) 500 mg tablet Take 2 tablets by mouth twice daily with meals. insulin lispro (HUMALOG KWIKPEN INSULIN) 100 unit/mL inpn inject 50 units subcutaneously three times a day WITH MEALS PLUS SLIDING SCALE Lancets lancets Test blood sugar(s) 3x daily. Dx: E11.65. Insulin: Yes blood sugar diagnostic (BLOOD GLUCOSE TEST) test strip Test blood sugar(s) 3 times daily. Dx: Type 2 DM - Uncontrolled Insulin: Yes Blood-Glucose Meter monitoring kit Glucose Meter of Choice - Kit - Dx: Type 2 DM - Uncontrolled bisoprolol-hydrochlorothiazide (ZIAC) 5-6.25 mg per tablet Take 1 tablet by mouth once daily. BD INSULIN PEN NEEDLE UF 31 gauge x 16 ndle USE FIVE TIMES A DAY aspirin, enteric coated (ASPIRIN, ENTERIC COATED) 81 mg EC tablet Take 1 tablet by mouth once daily. albuterol HFA (VENTOLIN HFA) 90 mcg/actuation inhaler Inhale 2 Puffs as instructed every 4 hours as needed for Wheezing/Shortness of Breath. insulin glargine (BASAGLAR KWIKPEN) 100 unit/mL (3 mL) inpn Inject 50 Units subcutaneously twice daily. Indications: DIABETES MELLITUS atorvastatin (LIPITOR) 80 mg tablet Take 1 tablet by mouth daily at bedtime. Alcohol Swabs (ALCOHOL WIPES) padm Apply 1 application to affected area four times daily as needed. albuterol HFA (PROAIR HFA) 90 mcg/actuation inhaler Inhale 2 Puffs as instructed every 4 hours as needed for Wheezing/Shortness of Breath. ondansetron orally disintegrating (ZOFRAN ODT) 4 mg disintegrating tablet Take 1 tablet by mouth every 4 hours as needed for Nausea/Vomiting. No current facility-administered medications for this visit. Review of Systems Constitutional: Positive for appetite change and unexpected weight change. Negative for fever. Respiratory: Negative. Cardiovascular: Negative. Gastrointestinal: Positive for abdominal pain, diarrhea, nausea, rectal pain and vomiting. Negative for blood in stool. Genitourinary: Negative. Musculoskeletal: Positive for back pain. Neurological: Positive for numbness. Psychiatric/Behavioral: Positive for sleep disturbance. Objective BP 128/72 Pulse 83 Temp 36.4 ?C (97.6 ?F) (Tympanic) Resp 16 Wt 90.3 kg (199 lb) BMI 27.75 kg/m2 Physical Exam Constitutional: No distress. HENT: Mouth/Throat: Oropharynx is clear and moist. Eyes: Conjunctivae are normal. No scleral icterus. Cardiovascular: Regular rhythm, normal heart sounds and intact distal pulses. Pulmonary/Chest: Breath sounds normal. No respiratory distress. Abdominal: Soft. Bowel sounds are normal. He exhibits no mass. There is tenderness. There is no rebound and no guarding. Musculoskeletal: He exhibits no edema. Lymphadenopathy: He has no cervical adenopathy. Neurological: He is alert. Coordination normal. Skin: Skin is warm and dry. Psychiatric: His speech is normal. He exhibits a depressed mood. Assessment and Plan ASSESSMENT/PLAN: 1. Abdominal pain, unspecified abdominal location - ICD9: 789.00, ICD10: R10.9 (primary diagnosis) Chronic. If pancreatic enzymes elevated, I may prescribe a short course of tramadol. Otherwise, no opiates recommended. - CBC + DIFF - COMP METABOLIC PANEL - HGB A1C - LIPID PANEL, NONFASTING - ALBUMIN/CREAT RATIO RND UR - AMYLASE BLD - LIPASE BLD - CONSULT TO GASTROENTEROLOGY - PREGABALIN 100 MG CAPSULE 2. DM type 2, uncontrolled, with neuropathy (HCC) - ICD9: 250.62, 357.2, ICD10: E11.40, E11.65 Poor adherence to plan of care. - Continue current medications - INSULIN LISPRO (U-100) 100 UNIT/ML SUBCUTANEOUS PEN - METFORMIN 500 MG TABLET - ASPIRIN 81 MG TABLET,DELAYED RELEASE - PREGABALIN 100 MG CAPSULE 3. Dyslipidemia - ICD9: 272.4, ICD10: E78.5 - to be determined upon return of lab results - Continue current medication. - ATORVASTATIN 80 MG TABLET 4. Nausea and vomiting, intractability of vomiting not specified, unspecified vomiting type - ICD9: 787.01, ICD10: R11.2 - CONSULT TO GASTROENTEROLOGY - ONDANSETRON 4 MG DISINTEGRATING TABLET 5. Weight loss, unintentional - ICD9: 783.21, ICD10: R63.4 - CONSULT TO GASTROENTEROLOGY 6. Diarrhea, unspecified type - ICD9: 787.91, ICD10: R19.7 - C. DIFFICILE PCR - FECAL FAT / QUAL - CONSULT TO GASTROENTEROLOGY - MAGNESIUM BLD 7. Hypertension goal BP (blood pressure) < 140/90 - ICD9: 401.9, ICD10: I10 - good control - LISINOPRIL 40 MG TABLET - Discontinue BISOPROLOL-HCTZ due to weight loss. 8. Gastroesophageal reflux disease, esophagitis presence not specified - ICD9: 530.81, ICD10: K21.9 - OMEPRAZOLE 40 MG CAPSULE,DELAYED RELEASE 9. COPD with chronic bronchitis (HCC) - ICD9: 491.20, ICD10: J44.9 - ALBUTEROL SULFATE HFA 90 MCG/ACTUATION AEROSOL INHALER 10. Non-compliance - ICD9: V15.81, ICD10: Z91.19 Ongoing. Patient keeps appointment mainly for medication refills. 11. Drug-seeking behavior - ICD9: 305.90, ICD10: Z76.5 Avoid opiates. John Jacome MD CNOV Observed: 12/18/2017 Status: COMPLETED Source: [place] 8:00 AM [facility] REPOSITORY Office Visit (INTMWS) LUIS SCHILLING ([id number]) 1970 [facility] Date Time Provider Department 12/18/17 8:00 AM JOHN JACOME INTJayleenWS During your visit today, we recorded the following information about you: Temperature Pulse Respiration Blood pressure 97.6 degrees 83/minute 16/minute 128/72 Weight 90.3 kg John Jacome MD 12/18/2017 9:05 AM Signed This note was created using [employer]. Subjective Luisjomar Schilling is a 47 year old male was here for overdue and fragmented follow up. He was here for medication refills. He stated he had insurance changes that affected his access. He frequented various ER for chronic pain and had multiple CT scans. He was just in the ER in [place] this weekend, where he was told his pancreatic enzymes were normal, and he did not need another CT scan. He was given IV fluids and magnesium. He has been losing weight for 5 months with chronic diarrhea. His stools have been watery, copious, 4-5 times a day. He had significant back pain from diarrhea and requested some tramadol. His diabetes mellitus was historically not well controlled. His hypertension was stable. ACTIVE PROBLEM LIST Hypertension Goal Bp (Blood Pressure) ANDlt; 140/90 Dyslipidemia Abdominal pain chronic Non-Compliance Diabetic neuropathy Hypermetropia Presbyopia Nausea and Vomiting Drug-Seeking Behavior DM type 2, uncontrolled, with neuropathy (HCC) Gastroesophageal Reflux Disease Yoandy (Obstructive Sleep Apnea) Copd With Chronic Bronchitis (Hcc) Obesity Tobacco Use Microscopic Hematuria Current Outpatient Prescriptions: pregabalin (LYRICA) 100 mg capsule Take 1 capsule by mouth three times daily for 23 days. lisinopril (ZESTRIL, PRINIVIL) 40 mg tablet Take 1 tablet by mouth once daily. Omeprazole 40 mg capsule Take 1 capsule by mouth once daily. metFORMIN (GLUCOPHAGE) 500 mg tablet Take 2 tablets by mouth twice daily with meals. insulin lispro (HUMALOG KWIKPEN INSULIN) 100 unit/mL inpn inject 50 units subcutaneously three times a day WITH MEALS PLUS SLIDING SCALE Lancets lancets Test blood sugar(s) 3x daily. Dx: E11.65. Insulin: Yes blood sugar diagnostic (BLOOD GLUCOSE TEST) test strip Test blood sugar(s) 3 times daily. Dx: Type 2 DM - Uncontrolled E11.65 Insulin: Yes Blood-Glucose Meter monitoring kit Glucose Meter of Choice - Kit - Dx: Type 2 DM - Uncontrolled E11.65 bisoprolol-hydrochlorothiazide (ZIAC) 5-6.25 mg per tablet Take 1 tablet by mouth once daily. BD INSULIN PEN NEEDLE UF 31 gauge x 5/16ANDquot; ndle USE FIVE TIMES A DAY aspirin, enteric coated (ASPIRIN, ENTERIC COATED) 81 mg EC tablet Take 1 tablet by mouth once daily. albuterol HFA (VENTOLIN HFA) 90 mcg/actuation inhaler Inhale 2 Puffs as instructed every 4 hours as needed for Wheezing/Shortness of Breath. insulin glargine (BASAGLAR KWIKPEN) 100 unit/mL (3 mL) inpn Inject 50 Units subcutaneously twice daily. Indications: DIABETES MELLITUS atorvastatin (LIPITOR) 80 mg tablet Take 1 tablet by mouth daily at bedtime. Alcohol Swabs (ALCOHOL WIPES) padm Apply 1 application to affected area four times daily as needed. albuterol HFA (PROAIR HFA) 90 mcg/actuation inhaler Inhale 2 Puffs as instructed every 4 hours as needed for Wheezing/Shortness of Breath. ondansetron orally disintegrating (ZOFRAN ODT) 4 mg disintegrating tablet Take 1 tablet by mouth every 4 hours as needed for Nausea/Vomiting. No current facility-administered medications for this visit. Review of Systems Constitutional: Positive for appetite change and unexpected weight change. Negative for fever. Respiratory: Negative. Cardiovascular: Negative. Gastrointestinal: Positive for abdominal pain, diarrhea, nausea, rectal pain and vomiting. Negative for blood in stool. Genitourinary: Negative. Musculoskeletal: Positive for back pain. Neurological: Positive for numbness. Psychiatric/Behavioral: Positive for sleep disturbance. Objective BP 128/72 Pulse 83 Temp 36.4 ?C (97.6 ?F) (Tympanic) Resp 16 Wt 90.3 kg (199 lb) BMI 27.75 kg/m2 Physical Exam Constitutional: No distress. HENT: Mouth/Throat: Oropharynx is clear and moist. Eyes: Conjunctivae are normal. No scleral icterus. Cardiovascular: Regular rhythm, normal heart sounds and intact distal pulses. Pulmonary/Chest: Breath sounds normal. No respiratory distress. Abdominal: Soft. Bowel sounds are normal. He exhibits no mass. There is tenderness. There is no rebound and no guarding. Musculoskeletal: He exhibits no edema. Lymphadenopathy: He has no cervical adenopathy. Neurological: He is alert. Coordination normal. Skin: Skin is warm and dry. Psychiatric: His speech is normal. He exhibits a depressed mood. Assessment and Plan ASSESSMENT/PLAN: 1. Abdominal pain, unspecified abdominal location - ICD9: 789.00, ICD10: R10.9 (primary diagnosis) Chronic. If pancreatic enzymes elevated, I may prescribe a short course of tramadol. Otherwise, no opiates recommended. - CBC + DIFF - COMP METABOLIC PANEL - HGB A1C - LIPID PANEL, NONFASTING - ALBUMIN/CREAT RATIO RND UR - AMYLASE BLD - LIPASE BLD - CONSULT TO GASTROENTEROLOGY - PREGABALIN 100 MG CAPSULE 2. DM type 2, uncontrolled, with neuropathy (HCC) - ICD9: 250.62, 357.2, ICD10: E11.40, E11.65 Poor adherence to plan of care. - Continue current medications - INSULIN LISPRO (U-100) 100 UNIT/ML SUBCUTANEOUS PEN - METFORMIN 500 MG TABLET - ASPIRIN 81 MG TABLET,DELAYED RELEASE - PREGABALIN 100 MG CAPSULE 3. Dyslipidemia - ICD9: 272.4, ICD10: E78.5 - to be determined upon return of lab results - Continue current medication. - ATORVASTATIN 80 MG TABLET 4. Nausea and vomiting, intractability of vomiting not specified, unspecified vomiting type - ICD9: 787.01, ICD10: R11.2 - CONSULT TO GASTROENTEROLOGY - ONDANSETRON 4 MG DISINTEGRATING TABLET 5. Weight loss, unintentional - ICD9: 783.21, ICD10: R63.4 - CONSULT TO GASTROENTEROLOGY 6. Diarrhea, unspecified type - ICD9: 787.91, ICD10: R19.7 - C. DIFFICILE PCR - FECAL FAT / QUAL - CONSULT TO GASTROENTEROLOGY - MAGNESIUM BLD 7. Hypertension goal BP (blood pressure) ANDlt; 140/90 - ICD9: 401.9, ICD10: I10 - good control - LISINOPRIL 40 MG TABLET - Discontinue BISOPROLOL-HCTZ due to weight loss. 8. Gastroesophageal reflux disease, esophagitis presence not specified - ICD9: 530.81, ICD10: K21.9 - OMEPRAZOLE 40 MG CAPSULE,DELAYED RELEASE 9. COPD with chronic bronchitis (HCC) - ICD9: 491.20, ICD10: J44.9 - ALBUTEROL SULFATE HFA 90 MCG/ACTUATION AEROSOL INHALER 10. Non-compliance - ICD9: V15.81, ICD10: Z91.19 Ongoing. Patient keeps appointment mainly for medication refills. 11. Drug-seeking behavior - ICD9: 305.90, ICD10: Z76.5 Avoid opiates. 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, E11.65] Dyslipidemia [E78.5] Nausea and vomiting, intractability of vomiting not specified, unspecified vomiting type [R11.2] Weight loss, unintentional [R63.4] Diarrhea, unspecified type [R19.7] Hypertension goal BP (blood pressure) < 140/90 [I10] Gastroesophageal reflux disease, esophagitis presence not specified [K21.9] COPD with chronic bronchitis (HCC) [J44.9] Non-compliance [Z91.19] Drug-seeking behavior [Z76.5] Order(s):lisinopril (ZESTRIL, PRINIVIL) 40 mg tabletTake 1 tablet by mouth once daily.Disp: 30 tabletRfl: 5 Omeprazole 40 mg capsuleTake 1 capsule by mouth once daily.Disp: 30 capsuleRfl: 5 insulin lispro (HUMALOG KWIKPEN INSULIN) 100 unit/mL inpninject 50 units subcutaneously three times a day WITH MEALS PLUS SLIDING SCALEDisp: 15 PenRfl: 5 metFORMIN (GLUCOPHAGE) 500 mg tabletTake 2 tablets by mouth twice daily with meals.Disp: 120 tabletRfl: 5 aspirin, enteric coated (ASPIRIN, ENTERIC COATED) 81 mg EC tabletTake 1 tablet by mouth once daily.Disp: 30 tabletRfl: 11 albuterol HFA (VENTOLIN HFA) 90 mcg/actuation inhalerInhale 2 Puffs as instructed every 4 hours as needed for Wheezing/Shortness of Breath.Disp: 1 InhalerRfl: 2 atorvastatin (LIPITOR) 80 mg tabletTake 1 tablet by mouth daily at bedtime.Disp: 30 tabletRfl: 6 CBC + DIFF [SQCBCDIF] Order #: [id number] FUTURE COMP METABOLIC PANEL [SQCMP] Order #: [id number] FUTURE HGB A1C [YQGAU5Y] Order #: [id number] FUTURE LIPID PANEL, NONFASTING [SQLIPNF] Order #: [id number] FUTURE ALBUMIN/CREAT RATIO RND UR [SQUACR] Order #: [id number] FUTURE AMYLASE BLD [SQAMYL] Order #: [id number] FUTURE LIPASE BLD [SQLIPA] Order #: [id number] FUTURE C. DIFFICILE PCR [SQCDPCR] Order #: [id number] FECAL FAT / QUAL [SQFFAT] Order #: [id number] CONSULT TO GASTROENTEROLOGY [9010] Order #: [id number]: 1 ondansetron orally disintegrating (ZOFRAN ODT) 4 mg disintegrating tabletTake 1 tablet by mouth every 8 hours as needed for Nausea/Vomiting.Disp: 30 tabletRfl: 1 pregabalin (LYRICA) 100 mg capsuleTake 1 capsule by mouth three times daily for 180 days.Disp: 90 capsuleRfl: 5 MAGNESIUM BLD [SQMG1] Order #: [id number] FUTURE Prescriptions as of 12/18/2017 Sig: LISINOPRIL 40 MG TABLET Take 1 tablet by mouth once d* OMEPRAZOLE 40 MG CAPSULE,MUSTAPHA* Take 1 capsule by mouth once * INSULIN LISPRO (U-100) 100 UN* inject 50 units subcutaneousl* METFORMIN 500 MG TABLET Take 2 tablets by mouth twice* ASPIRIN 81 MG TABLET,DELAYED * Take 1 tablet by mouth once d* ALBUTEROL SULFATE HFA 90 MCG/* Inhale 2 Puffs as instructed * ATORVASTATIN 80 MG TABLET Take 1 tablet by mouth daily * PREGABALIN 100 MG CAPSULE Take 1 capsule by mouth three* LANCETS Test blood sugar(s) 3x daily.* BLOOD SUGAR DIAGNOSTIC STRIPS Test blood sugar(s) 3 times d* BLOOD-GLUCOSE METER KIT Glucose Meter of Choice - Kit* BD INSULIN PEN NEEDLE UF SHOR* USE FIVE TIMES A DAY INSULIN GLARGINE (U-100) 100 * Inject 50 Units subcutaneousl* ALCOHOL SWABS Apply 1 application to affect* ONDANSETRON 4 MG DISINTEGRATI* Take 1 tablet by mouth every * Problem List As Of Date 12/18/2017 Noted Resolved Hypertension goal BP (blood pressure) < 140/90 *INVALID FOR* More... Dyslipidemia [E78.5] INVALID FOR* Benign neoplasm of skin of trunk, except scrotu*INVALID FOR*07/16/2015 Neoplasm of uncertain behavior of skin [D48.5] INVALID FOR*07/16/2015 Acute pancreatitis [K85.90] INVALID FOR*07/16/2015 Chest pain [R07.9] INVALID FOR*07/16/2015 Diabetic hyperosmolar non-ketotic state (HCC) [*INVALID FOR*07/16/2015 More... Abdominal pain chronic [R10.9] INVALID FOR* Non-compliance [Z91.19] INVALID FOR* Diabetic neuropathy [E11.40] INVALID FOR* More... Chronic whiplash injury [S13.4XXA] INVALID FOR*07/16/2015 Whiplash injury to neck [S13.4XXA] INVALID FOR*07/16/2015 Brachial neuritis or radiculitis NOS [M54.12] INVALID FOR*07/16/2015 Hypermetropia [H52.00] INVALID FOR* Presbyopia [H52.4] INVALID FOR*12/18/2017 Hyperglycemia [R73.9] INVALID FOR*08/12/2016 Priority: A More... 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 Diarrhea [R19.7] INVALID FOR* Prescriptions ordered this encounter Disp Refills Start End LISINOPRIL 40 MG TABLET 30 t* 5 12/18/2017 06/16/2018 Route: ORAL Sig: Take 1 tablet by mouth once daily. OMEPRAZOLE 40 MG CAPSULE,DELAYED REL* 30 c* 5 12/18/2017 06/16/2018 Route: ORAL Sig: Take 1 capsule by mouth once daily. INSULIN LISPRO (U-100) 100 UNIT/ML S* 15 P* 5 12/18/2017 Sig: inject 50 units subcutaneously three times a day WITH MEALS PLUS SLIDING SCALE METFORMIN 500 MG TABLET 120 * 5 12/18/2017 Route: ORAL Sig: Take 2 tablets by mouth twice daily with meals. ASPIRIN 81 MG TABLET,DELAYED RELEASE 30 t* 11 12/18/2017 Route: ORAL Sig: Take 1 tablet by mouth once daily. ALBUTEROL SULFATE HFA 90 MCG/ACTUATI* 1 In* 2 12/18/2017 Route: INHALATION Sig: Inhale 2 Puffs as instructed every 4 hours as needed for Wheezing/Shortness of Breath. ATORVASTATIN 80 MG TABLET 30 t* 6 12/18/2017 Route: ORAL Sig: Take 1 tablet by mouth daily at bedtime. ONDANSETRON 4 MG DISINTEGRATING TABL* 30 t* 1 12/18/2017 Route: ORAL Sig: Take 1 tablet by mouth every 8 hours as needed for Nausea/Vomiting. PREGABALIN 100 MG CAPSULE 90 c* 5 12/18/2017 06/16/2018 Class: Print RX Route: ORAL Sig: Take 1 capsule by mouth three times daily for 180 days. Medications Discontinued During This Encounter lisinopril (ZESTRIL, PRINIVIL) 40 mg* 23 t* 0 11/25/2017 12/18/2017 Route: ORAL Sig: Take 1 tablet by mouth once daily. Disc: Reason for discontinue is not on file. Omeprazole 40 mg capsule 23 c* 0 11/25/2017 12/18/2017 Route: ORAL Sig: Take 1 capsule by mouth once daily. Disc: Reason for discontinue is not on file. insulin lispro (HUMALOG KWIKPEN INSU* 15 P* 0 11/25/2017 12/18/2017 Sig: inject 50 units subcutaneously three times a day WITH MEALS PLUS SLIDING SCALE Disc: Reason for discontinue is not on file. metFORMIN (GLUCOPHAGE) 500 mg tablet 92 t* 0 11/25/2017 12/18/2017 Route: ORAL Sig: Take 2 tablets by mouth twice daily with meals. Disc: Reason for discontinue is not on file. aspirin, enteric coated (ASPIRIN, EN* 30 t* 11 03/18/2017 12/18/2017 Route: ORAL Sig: Take 1 tablet by mouth once daily. Disc: Reason for discontinue is not on file. albuterol HFA (VENTOLIN HFA) 90 mcg/* 1 In* 2 03/18/2017 12/18/2017 Route: INHALATION Sig: Inhale 2 Puffs as instructed every 4 hours as needed for Wheezing/Shortness of Breath. Disc: Reason for discontinue is not on file. atorvastatin (LIPITOR) 80 mg tablet 30 t* 6 11/13/2016 12/18/2017 Route: ORAL Sig: Take 1 tablet by mouth daily at bedtime. Disc: Reason for discontinue is not on file. bisoprolol-hydrochlorothiazide (ZIAC* 23 t* 0 11/25/2017 12/18/2017 Route: ORAL Sig: Take 1 tablet by mouth once daily. Disc: Clinical Decision ondansetron orally disintegrating (Z* 15 t* 0 09/09/2015 12/18/2017 Class: Print RX Route: ORAL Sig: Take 1 tablet by mouth every 4 hours as needed for Nausea/Vomiting. Disc: Reason for discontinue is not on file. pregabalin (LYRICA) 100 mg capsule 69 c* 0 11/25/2017 12/18/2017 Class: Print RX Route: ORAL Sig: Take 1 capsule by mouth three times daily for 23 days. Disc: Reason for discontinue is not on file. albuterol HFA (PROAIR HFA) 90 mcg/ac* 1 In* 12 02/13/2016 12/18/2017 Route: INHALATION Sig: Inhale 2 Puffs as instructed every 4 hours as needed for Wheezing/Shortness of Breath. Disc: Duplicate Entry Disposition: Return in about 2 months (around 02/17/2018), or if symptoms worsen or fail to improve. Follow-up and Disposition History Recorded Encounter Status:Closed by JOHN JACOME MD on 12/18/17 LIBIA Collected: 12/13/2017 Status: F Source: [facility] 4:10 PM [facility] REPOSITORY TYPE CODE TESTS RESULT OUT OF REFERENCE UNITS RANGE LAB LIBIA(LOINC) 24-125 IU/L Amylase Level 47 Performed By: #### LIBIA #### [facility] [address] [address] UA Collected: 12/13/2017 Status: F Source: [facility] 3:28 PM [facility] REPOSITORY TYPE CODE TESTS RESULT OUT OF RANGE REFERENCE UNITS LAB SPCUA(NOE NC) UA Specimen Type Clean Catch LAB CLRUA(NOE NC) UA Color YELLOW LAB APPUA(NOE NC) UA Appear CLEAR LAB SGUA(LOIN C) UA Spec Grav 1.025 LAB GLUA(LOIN Negative mg/dL C) UA Glucose Abnormal >=1000 LAB BILUA(NOE NC) UA Bili NEGATIVE LAB KETUA(NOE mg/dL NC) UA Ketones NEGATIVE LAB BLDUA(NOE NC) UA Blood SMALL LAB PHUA(LOIN C) UA pH 5.5 LAB PROUA(NOE Negative mg/dL NC) UA Protein Abnormal >=300 LAB UROUA(NOE E.U./dL NC) UA Urobilinogen 0.2 LAB NITUA(NOE NC) UA Nitrite NEGATIVE LAB LEUUA(NOE NC) UA Leuk Est NEGATIVE Performed By: #### UA, UAMICAO #### [address] [address] .URINALYSIS MICROSCOPIC Collected: 12/13/2017 Status: F Source: [place] (AO) 3:28 PM [facility] REPOSITORY TYPE CODE TESTS RESULT OUT OF RANGE REFERENCE UNITS LAB WBCUA(LOIN None Seen /hpf C) UA WBC None Seen LAB RBCUA(LOIN None Seen /hpf C) UA RBC Abnormal 0-5 LAB EPIUA(LOIN None Seen /hpf C) UA Squam Epithelial None Seen Performed By: #### UA, UAMICAO #### [facility] [address], [place] [address] CBC Collected: 12/13/2017 Status: F Source: [facility] 3:28 [facility] REPOSITORY TYPE CODE TESTS RESULT OUT OF REFERENCE UNITS RANGE LAB WBC(LOINC) 4.60-10.80 10 3/mcL WBC 9.20 LAB RBCCT(LOINC 4.04-6.13 10 6/mcL ) RBC 4.68 LAB HGB(LOINC) 14.0-18.0 G/dL Hgb 14.6 LAB HCT(LOINC) 42.0-52.0 % Hct 42.9 LAB MCV(LOINC) 80.0-94.0 fL MCV 91.7 LAB MCH(LOINC) 27.0-31.2 pg MCH 31.1 LAB MCHC(LOINC) 31.8-35.4 G/dL MCHC 34.0 LAB RDW(LOINC) 11.5-14.5 % High RDW 14.6 LAB PLT(LOINC) 130-400 10 3/mcL Platelet 366 LAB MPV(LOINC) 7.4-10.4 fL MPV 7.9 Performed By: #### CBC, ADIFF, ANEU, MG, GFR, LIP, CMP #### [place] [id number] [place], [place] [address] .AUTO DIFF Collected: 12/13/2017 Status: F Source: [facility] 3:28 [facility] REPOSITORY TYPE CODE TESTS RESULT OUT OF REFERENCE UNITS RANGE LAB ZANE(LOINC) 37.0-80.0 % Neutrophil % 68.9 LAB LYM(LOINC) 10.0-50.0 % Lymphocyte % 24.6 LAB MON(LOINC) 1.7-13.0 % Monocyte % 4.1 LAB EO(LOINC) 0.0-7.0 % Eosinophil % 1.5 LAB BAS(LOINC) 0.0-2.5 % Basophil % 0.9 LAB ABLYM(LOIN 0.77-3.85 10 3/mcL C) Lymphocyte, 2.30 Absolute LAB ARI(LOINC 0.15-1.00 10 3/mcL ) Monocyte, 0.40 Absolute LAB AEOS(LOINC 0.00-0.40 10 3/mcL ) Eosinophil, 0.10 Absolute LAB ABAS(LOINC 0.00-0.19 10 3/mcL ) Basophil, 0.10 Absolute Performed By: #### CBC, ADIFF, ANEU, MG, GFR, LIP, CMP #### [address] [address] .NEUABS Collected: 12/13/2017 Status: F Source: [facility] 3:28 [facility] REPOSITORY TYPE CODE TESTS RESULT OUT OF REFERENCE UNITS RANGE LAB ANEU(LOINC) 2.85-6.16 10 3/mcL High Neutrophil, 6.40 Absolute Performed By: #### CBC, ADIFF, ANEU, MG, GFR, LIP, CMP #### [address] [address] MG Collected: 12/13/2017 Status: F Source: [facility] 3:28 [facility] REPOSITORY TYPE CODE TESTS RESULT OUT OF REFERENCE UNITS RANGE LAB MG(LOINC) 1.7-2.5 mg/dL Low Magnesium Lvl 1.4 Performed By: #### CBC, ADIFF, ANEU, MG, GFR, LIP, CMP #### [place] [id number] .GFR Collected: 12/13/2017 Status: F Source: [facility] 3:28 [facility] REPOSITORY TYPE CODE TESTS RESULT OUT OF REFERENCE UNITS RANGE LAB GFRAA(LOINC ml/min/1.73 ) sqm GFR 77 Russian Result Comment: GFR Population mean for , Non- Americans Ages 20-29 = 116 mL/min/1.73 sq.m. Ages 30-39 = 107 mL/min/1.73 sq.m. Ages 40-49 = 99 mL/min/1.73 sq.m. Ages 50-59 = 93 mL/min/1.73 sq.m. Ages 60-69 = 85 mL/min/1.73 sq.m. Ages 70+ = 75 mL/min/1.73 sq.m. Chronic Kidney Disease: Less than 60 mL/min/1.73 square meters End Stage Renal Disease: Less than 15 mL/min/1.73 square meters LAB GFRNO(LOINC) ml/min/1.73sqm GFR Non- >60 Result Comment: GFR Population mean for , Non- Americans Ages 20-29 = 116 mL/min/1.73 sq.m. Ages 30-39 = 107 mL/min/1.73 sq.m. Ages 40-49 = 99 mL/min/1.73 sq.m. Ages 50-59 = 93 mL/min/1.73 sq.m. Ages 60-69 = 85 mL/min/1.73 sq.m. Ages 70+ = 75 mL/min/1.73 sq.m. Chronic Kidney Disease: Less than 60 mL/min/1.73 square meters End Stage Renal Disease: Less than 15 mL/min/1.73 square meters Performed By: #### CBC, ADIFF, ANEU, MG, GFR, LIP, CMP #### [address] [address] LIP Collected: 12/13/2017 Status: F Source: [facility] 3:28 [facility] REPOSITORY TYPE CODE TESTS RESULT OUT OF REFERENCE UNITS RANGE LAB LIP(LOINC) 8-78 IU/L High Lipase Level 89 Performed By: #### CBC, ADIFF, ANEU, MG, GFR, LIP, CMP #### [address] [address] CMP Collected: 12/13/2017 Status: F Source: [facility] 3:28 [facility] REPOSITORY TYPE CODE TESTS RESULT OUT OF REFERENCE UNITS RANGE LAB 1547-9 70-105 mg/dL GLUCOSE High 349 LAB NA(LOINC) 136-146 mEq/L Low Sodium Level 132 LAB K(LOINC) 3.5-5.1 mEq/L Potassium Level 4.1 LAB CL(LOINC) 98-107 mEq/L Low Chloride 97 LAB CO2(LOINC) 22-29 mEq/L CO2 25 LAB EBAL(LOINC mEq/L ) Electrolyte Balance 10.0 LAB BUN(LOINC) 7.0-18.0 mg/dL BUN 14.7 LAB CRE(LOINC) 0.6-1.2 mg/dL Creatinine Lvl (s) 1.2 LAB BC(LOINC) 7-27 ratio BUN/Creatinine 12 Ratio LAB CA(LOINC) 8.4-10.2 mg/dL Calcium Lvl 9.0 LAB PROT(LOINC 6.0-8.3 G/dL ) Total Protein 6.3 LAB ALB(LOINC) 3.5-5.0 G/dL Albumin Level 3.7 LAB GLB(LOINC) G/dL Globulin 2.6 LAB AG(LOINC) 1.1-2.5 ratio A/G Ratio 1.4 LAB BILT(LOINC 0.2-1.0 mg/dL ) Bili Total 0.2 LAB AP(LOINC) 40-135 IU/L Alk Phos 61 LAB AST(LOINC) 10-40 IU/L AST/SGOT 12 LAB ALT(LOINC) 10-35 IU/L ALT/SGPT 15 Performed By: #### CBC, ADIFF, ANEU, MG, GFR, LIP, CMP #### [facility] [address] [address] PROGRESS Observed: 11/25/2017 Status: COMPLETED Source: [place] 8:22 AM [facility] REPOSITORY HNO ID: [id number] Author: Nataly Martínez [facility] Service: (none) Author Type: (none) Type: Progress Notes Filed: 11/25/2017 8:22 AM Note Text: Patient has an appointment scheduled to see PCP on 12/18 for possible pancreatitis. PROGRESS Observed: 11/25/2017 Status: COMPLETED Source: [place] 7:49 AM [facility] REPOSITORY HNO ID: [id number] Author: Nataly Martínez [facility] Service: (none) Author Type: (none) Type: Progress Notes Filed: 11/25/2017 8:22 AM Note Text: PHMA TEAMLET DOCUMENTATION Provider Action/FYI: PSR Action/FYI: None - I will attempt to call patient after 8:00. Phone number wasn't working last attempt. Teamlet has identified patient by name and date of . Team: Dr. Jacome, mansi tejada, Gina Thomas, myself ? Last Office Visit:06/25/2017 ? Next Office Visit: 12/18/2017 ? Last BP/Labs: Blood Pressure: Last 3 Encounter BP Readings: Date: BP: 05/11/2017 160/78 03/18/2017 104/56 11/13/2016 146/84 Lipids: Cholesterol, Total (mg/dL) Date Value 01/03/2013 168 HDL Cholesterol (mg/dL) Date Value 01/03/2013 32 LDL Cholesterol (mg/dL) Date Value 01/03/2013 Unable to calculate due to increased Triglycerides. See LDL-Chol, Direct. Triglyceride (mg/dL) Date Value 01/03/2013 510 HGB A1C: Lab Results Component Value Date HBA1C 11.7 12/16/2015 HBA1C 10.8 01/03/2013 HBA1C 11.5 07/06/2012 TSH: TSH (uU/mL) Date Value 06/02/2014 0.796 07/06/2012 0.746 ) Care Gap: DM - Need Urine Albumin / NOT checked in last 12 months Needs dilated eye exam - HM overdue Last HGBA1C is NOT under 9% HTN - Last BP NOT under 140/90 COPD Plan: ? Confirm PCP / Status ? Type of appointment needed: Follow-up HTN/DM next available with Provider pcp or inpatient coder Labs, HM and Immunization: Health Maintenance Due: URINE ALBUMIN CREATININE RATIO due on 1984 - ordered LDL due on 01/03/2014 - ordered HBA1C due on 06/17/2016 - ordered DILATED RETINAL EXAM due on 02/27/2017 INFLUENZA(1) due on 05/22/2017 DIABETIC FOOT EXAM due on 11/13/2017 Nataly Martínez [facility] CNPTOUTREACH Observed: 11/25/2017 Status: COMPLETED Source: [place] 12:00 AM [facility] REPOSITORY Patient Outreach (INTMWS) LUIS SCHILLING ([id number]) 1970 M CHT Date Time Provider Department 11/25/17 NATALY MARTÍNEZ ([facility]) INTMWS During your visit today, we recorded the following information about you: Nataly Martínez [facility] 11/25/2017 8:22 AM Signed PHMA TEAMLET DOCUMENTATION Provider Action/FYI: PSR Action/FYI: None - I will attempt to call patient after 8:00. Phone number wasn't working last attempt. Teamlet has identified patient by name and date of . Team: mansi Do, Gina Thomas, myself ? Last Office Visit:06/25/2017 ? Next Office Visit: 12/18/2017 ? Last BP/Labs: Blood Pressure: Last 3 Encounter BP Readings: Date: BP: 05/11/2017 160/78 03/18/2017 104/56 11/13/2016 146/84 Lipids: Cholesterol, Total (mg/dL) Date Value 01/03/2013 168 HDL Cholesterol (mg/dL) Date Value 01/03/2013 32 LDL Cholesterol (mg/dL) Date Value 01/03/2013 Unable to calculate due to increased Triglycerides. See LDL-Chol, Direct. Triglyceride (mg/dL) Date Value 01/03/2013 510 HGB A1C: Lab Results Component Value Date HBA1C 11.7 12/16/2015 HBA1C 10.8 01/03/2013 HBA1C 11.5 07/06/2012 TSH: TSH (uU/mL) Date Value 06/02/2014 0.796 07/06/2012 0.746 ) Care Gap: DM - Need Urine Albumin / NOT checked in last 12 months Needs dilated eye exam - HM overdue Last HGBA1C is NOT under 9% HTN - Last BP NOT under 140/90 COPD Plan: ? Confirm PCP / Status ? Type of appointment needed: Follow-up HTN/DM next available with Provider pcp or inpatient coder Labs, HM and Immunization: Health Maintenance Due: URINE ALBUMIN CREATININE RATIO due on 1984 - ordered LDL due on 01/03/2014 - ordered HBA1C due on 06/17/2016 - ordered DILATED RETINAL EXAM due on 02/27/2017 INFLUENZA(1) due on 05/22/2017 DIABETIC FOOT EXAM due on 11/13/2017 Nataly Martínez [employer] 11/25/2017 8:22 AM Signed Patient has an appointment scheduled to see PCP on 12/18 for possible pancreatitis. Allergies As of Date: 11/25/2017 Noted Allergy Reaction PENICILLIN G 07/23/2006 16 - Unknown PENICILLINS 08/05/2010 14 - Other: See Comments Comments: He has been allergic since he was 5-6 y/o Date Reviewed: 05/11/2017 Reviewed by: Gina Iyer [employer] - Fully Assessed Reason for Visit: PHMA/Care Gap Outreach [[id number]] Prescriptions as of 11/25/2017 Sig: BD INSULIN PEN NEEDLE UF SHOR* USE FIVE TIMES A DAY OMEPRAZOLE 40 MG CAPSULE,MUSTAPHA* take 1 capsule by mouth once * PREGABALIN 100 MG CAPSULE Take 1 capsule by mouth three* ASPIRIN 81 MG TABLET,DELAYED * Take 1 tablet by mouth once d* BISOPROLOL 5 MG-HYDROCHLOROTH* Take 1 tablet by mouth once d* LISINOPRIL 40 MG TABLET Take 1 tablet by mouth once d* INSULIN LISPRO (U-100) 100 UN* inject 50 units subcutaneousl* ALBUTEROL SULFATE HFA 90 MCG/* Inhale 2 Puffs as instructed * INSULIN GLARGINE (U-100) 100 * Inject 50 Units subcutaneousl* ATORVASTATIN 80 MG TABLET Take 1 tablet by mouth daily * METFORMIN 500 MG TABLET Take 2 tablets by mouth twice* BLOOD SUGAR DIAGNOSTIC STRIPS Test blood sugar(s) 4 times d* ALCOHOL SWABS Apply 1 application to affect* LANCETS Test blood sugar(s) 4x daily.* ALBUTEROL SULFATE HFA 90 MCG/* Inhale 2 Puffs as instructed * ONDANSETRON 4 MG DISINTEGRATI* Take 1 tablet by mouth every * Problem List As Of Date 11/25/2017 Noted Resolved Hypertension goal BP (blood pressure) < 140/90 *INVALID FOR* More... Dyslipidemia [E78.5] INVALID FOR* More... Benign neoplasm of skin of trunk, except scrotu*INVALID FOR*07/16/2015 Neoplasm of uncertain behavior of skin [D48.5] INVALID FOR*07/16/2015 Acute pancreatitis [K85.90] INVALID FOR*07/16/2015 Chest pain [R07.9] INVALID FOR*07/16/2015 Diabetic hyperosmolar non-ketotic state (HCC) [*INVALID FOR*07/16/2015 More... Abdominal pain chronic [R10.9] INVALID FOR* Non-compliance [Z91.19] INVALID FOR* More... Diabetic neuropathy [E11.40] INVALID FOR* More... Chronic whiplash injury [S13.4XXA] INVALID FOR*07/16/2015 Whiplash injury to neck [S13.4XXA] INVALID FOR*07/16/2015 Brachial neuritis or radiculitis NOS [M54.12] INVALID FOR*07/16/2015 Hypermetropia [H52.00] INVALID FOR* Presbyopia [H52.4] INVALID FOR* Hyperglycemia [R73.9] INVALID FOR*08/12/2016 Priority: A More... Nausea and vomiting [R11.2] INVALID FOR* Drug-seeking behavior [Z76.5] INVALID FOR* More... DM type 2, uncontrolled, with neuropathy (HCC) *INVALID FOR* Gastroesophageal reflux disease [K21.9] INVALID FOR* More... YOANDY (obstructive sleep apnea) [G47.33] INVALID FOR* COPD with chronic bronchitis (HCC) [J44.9] INVALID FOR* More... Obesity [E66.9] INVALID FOR* Tobacco use [Z72.0] INVALID FOR* Microscopic hematuria [R31.29] INVALID FOR* Optic neuritis, right [H46.9] INVALID FOR*03/19/2017 More... Encounter Status:Closed by NATALY MARTÍNEZ CMA on 11/25/17 CT ABD/PELVIS W/ IV Observed: 11/18/2017 Status: F Source: [facility] CONTRAST ONLY 2:58 PM [facility] REPOSITORY ORIGINAL CT ABD/PELVIS W/ IV CONTRAST ONLY CLINICAL STATEMENT: Right upper quadrant pain. COMPARISON: None This exam was performed according to our departmental dose- optimization program which includes automated exposure control, adjustment of the mA and/or kVp according to patient size and/or use of iterati ve reconstruction technique where applicable. FINDINGS: Visualized lung bases are within normal limits. Liver, spleen, pancreas, gallbladder, adrenal glands and kidneys are within normal limits. No hydronephrosis or biliary dilatation. No dilated loops of bowel to suggest obstruction. Mild amount of stool in the colon. No free fluid or free air. The bladder is within normal limits. No abdominal or pelvic lymphadenopathy. Abdominal aor ta is mildly calcified without aneurysm. IMPRESSION: No acute disease. Interpreted By: Bernardo Kerr MD Preliminary Report By: Bernardo Kerr MD Electronically Signed By: Bernardo Kerr MD Dictated Date: 11/18/2017 3:34:52 PM Prelim Date: 11/18/2017 3:34:52 PM Sign Date: 11/18/2017 3:36:19 PM LIP Collected: 11/18/2017 Status: F Source: [facility] 1:45 PM [facility] REPOSITORY TYPE CODE TESTS RESULT OUT OF REFERENCE UNITS RANGE LAB LIP(LOINC) 8-78 IU/L Lipase Level 31 Performed By: #### LIP, GFR, CMP, CBC, ADIFF, ANEU #### [place] [address] .GFR Collected: 11/18/2017 Status: F Source: [facility] 1:45 PM [facility] REPOSITORY TYPE CODE TESTS RESULT OUT OF REFERENCE UNITS RANGE LAB GFRAA(LOINC ml/min/1.73 ) sqm GFR 75 Russian Result Comment: GFR Population mean for , Non- Americans Ages 20-29 = 116 mL/min/1.73 sq.m. Ages 30-39 = 107 mL/min/1.73 sq.m. Ages 40-49 = 99 mL/min/1.73 sq.m. Ages 50-59 = 93 mL/min/1.73 sq.m. Ages 60-69 = 85 mL/min/1.73 sq.m. Ages 70+ = 75 mL/min/1.73 sq.m. Chronic Kidney Disease: Less than 60 mL/min/1.73 square meters End Stage Renal Disease: Less than 15 mL/min/1.73 square meters LAB GFRNO(LOINC) ml/min/1.73sqm GFR Non- >60 Result Comment: GFR Population mean for , Non- Americans Ages 20-29 = 116 mL/min/1.73 sq.m. Ages 30-39 = 107 mL/min/1.73 sq.m. Ages 40-49 = 99 mL/min/1.73 sq.m. Ages 50-59 = 93 mL/min/1.73 sq.m. Ages 60-69 = 85 mL/min/1.73 sq.m. Ages 70+ = 75 mL/min/1.73 sq.m. Chronic Kidney Disease: Less than 60 mL/min/1.73 square meters End Stage Renal Disease: Less than 15 mL/min/1.73 square meters Performed By: #### LIP, GFR, CMP, CBC, ADIFF, ANEU #### [address] [address] CMP Collected: 11/18/2017 Status: F Source: [facility] 1:45 PM [facility] REPOSITORY TYPE CODE TESTS RESULT OUT OF REFERENCE UNITS RANGE LAB 1547-9 70-105 mg/dL GLUCOSE High 391 LAB NA(LOINC) 136-146 mEq/L Low Sodium Level 132 LAB K(LOINC) 3.5-5.1 mEq/L Potassium Level 4.3 LAB CL(LOINC) 98-107 mEq/L Chloride 98 LAB CO2(LOINC) 22-29 mEq/L CO2 25 LAB EBAL(LOINC mEq/L ) Electrolyte Balance 9.0 LAB BUN(LOINC) 7.0-18.0 mg/dL BUN 16.8 LAB CRE(LOINC) 0.6-1.2 mg/dL Creatinine Lvl (s) 1.2 LAB BC(LOINC) 7-27 ratio BUN/Creatinine 14 Ratio LAB CA(LOINC) 8.4-10.2 mg/dL Calcium Lvl 8.6 LAB PROT(LOINC 6.0-8.3 G/dL ) Total Protein 6.0 LAB ALB(LOINC) 3.5-5.0 G/dL Albumin Level 3.7 LAB GLB(LOINC) G/dL Globulin 2.3 LAB AG(LOINC) 1.1-2.5 ratio A/G Ratio 1.6 LAB BILT(LOINC 0.2-1.0 mg/dL ) Bili Total 0.2 LAB AP(LOINC) 40-135 IU/L Alk Phos 49 LAB AST(LOINC) 10-40 IU/L AST/SGOT 13 LAB ALT(LOINC) 10-35 IU/L ALT/SGPT 13 Performed By: #### LIP, GFR, CMP, CBC, ADIFF, ANEU #### [place] [address] [place], [place] [address] CBC Collected: 11/18/2017 Status: F Source: [facility] 1:45 PM [facility] REPOSITORY TYPE CODE TESTS RESULT OUT OF REFERENCE UNITS RANGE LAB WBC(LOINC) 4.60-10.80 10 3/mcL WBC 5.80 LAB RBCCT(LOINC 4.04-6.13 10 6/mcL ) RBC 4.59 LAB HGB(LOINC) 14.0-18.0 G/dL Low Hgb 13.9 LAB HCT(LOINC) 42.0-52.0 % Low Hct 41.1 LAB MCV(LOINC) 80.0-94.0 fL MCV 89.5 LAB MCH(LOINC) 27.0-31.2 pg MCH 30.3 LAB MCHC(LOINC) 31.8-35.4 G/dL MCHC 33.9 LAB RDW(LOINC) 11.5-14.5 % High RDW 16.1 LAB PLT(LOINC) 130-400 10 3/mcL Platelet 311 LAB MPV(LOINC) 7.4-10.4 fL MPV 7.6 Performed By: #### LIP, GFR, CMP, CBC, ADIFF, ANEU #### [place] [address] [place], [place] [address] .AUTO DIFF Collected: 11/18/2017 Status: F Source: [facility] 1:45 [facility] REPOSITORY TYPE CODE TESTS RESULT OUT OF REFERENCE UNITS RANGE LAB ZANE(LOINC) 37.0-80.0 % Neutrophil % 70.4 LAB LYM(LOINC) 10.0-50.0 % Lymphocyte % 22.7 LAB MON(LOINC) 1.7-13.0 % Monocyte % 4.2 LAB EO(LOINC) 0.0-7.0 % Eosinophil % 1.5 LAB BAS(LOINC) 0.0-2.5 % Basophil % 1.2 LAB ABLYM(LOIN 0.77-3.85 10 3/mcL C) Lymphocyte, 1.30 Absolute LAB ARI(LOINC 0.15-1.00 10 3/mcL ) Monocyte, 0.20 Absolute LAB AEOS(LOINC 0.00-0.40 10 3/mcL ) Eosinophil, 0.10 Absolute LAB ABAS(LOINC 0.00-0.19 10 3/mcL ) Basophil, 0.10 Absolute Performed By: #### LIP, GFR, CMP, CBC, ADIFF, ANEU #### [place] [id number] [place], [place] [address] .NEUABS Collected: 11/18/2017 Status: F Source: [facility] 1:45 PM [facility] REPOSITORY TYPE CODE TESTS RESULT OUT OF REFERENCE UNITS RANGE LAB ANEU(LOINC) 2.85-6.16 10 3/mcL Neutrophil, 4.10 Absolute Performed By: #### LIP, GFR, CMP, CBC, ADIFF, ANEU #### [facility] [address] [place], [place] [address] DISCHARGE INSTRUCTION Observed: 10/28/2017 Status: F Source: [facility] 7:06 AM [facility] REPOSITORY [facility] Medical Records Department [address] [place] [address] Discharge Instruction 10/28/1702 MR#: [id number] Acct: [id number] Name: LUIS SCHILLING Chen Rep #: [id number] : 1970 46 From: Sue Alvarez PCP: Care Physician, No Primary Status: REG ER ED Disposition - Plan for ED Patient: Chief Complaint: Back Instructions: ED Flank Pain Uncertain Cause, ED Hypertension Conf Out Of Control Prescriptions: Amlodipine [Norvasc] 5 mg PO DAILY #30 tablet Referrals: Isaac Bonilla MD [STAFF PHYSICIAN] - 3-5 Days What to do if you have Problems For any increased pain, shortness of breath, bleeding, nausea or vomiting, chest pain, or any unexpected problems, contact your Primary Care Provider. Call [facility] ([phone]) or report to the closest Emergency Room. Call 911 if necessary. 10/28/17705 <Electronically signed by Sue Alvarez > Date Sue Alvarez Cosigner Signature (If Indicated): Date CC: No Primary Care Physician EMERGENCY DEPARTMENT Observed: 10/28/2017 Status: F Source: [facility] SUMMARY 7:02 AM [facility] REPOSITORY [facility] Medical Records Department [address] [place] [address] Emergency Department Summary 10/28/17 0509 MR#: [id number] Acct: [id number] Name: LUIS SCHILLING Rep #: [id number] : 1970 46 From: Sue Alvarez PCP: Care Physician, No Primary Status: REG ER - ER Visit Summary Date of Service: 10/28/17 Chief Complaint: [Back pain right abdominal pain] History of Present Illness: The patient is a 46 M [who presents the emergency department with low back pain radiating into his tailbone. Started 2 weeks ago. It is continually getting worse. He states it radiates around to the right side. No fevers or chills. It is worse with movement. He rates it as severe. Additionally he states that he has had 2 days of black loose stool about 4 episodes yesterday and 5 episodes today. No lightheadedness or dizziness. No chest pain or shortness of breath. No fevers or chills. He does feel nauseated. He states that he does not have a doctor at this time. He does state that he is taking all his medications.] Physical Examination: [] Blood pressure 206/110 heart rate 100 respiratory rate 1899% on room air temperature 98 F WN WD NAD PERRL EOMI MMM NECK supple and nontender, no masses RRR no murmur rub or gallop, no peripheral edema, symmetric radial pulses CTAB no respiratory distress ABDOMEN is soft tenderness to palpation in the right upper and right lower quadrant, normal bowel sounds, no distension, no rebound or guarding Back is normal upon inspection but he has does have tenderness at L1 as well as L5-S1, he is neurovascularly intact with normal strength and sensation and no distal skin changes Rectal exam shows light brown stool there is no tenderness or masses there is no melena or blood SKIN is warm and dry no rashes Alert and Oriented x3, CN II-XII in tact, no motor or sensory deficits, gait normal No lymphadenopathy Test Results: [] Emergency Department Course and Treatment: [Patient has elevated blood sugar at 237. Creatinine is mildly elevated at 1.3 which is around the patient's baseline. Hemoccult for blood was negative. Urine was normal. CT of the abdomen and pelvis showed no acute process. He did have likely a hemangioma in the liver recommended 6 month follow-up. The patient's blood pressure improved to 176/90. He states that he is compliant with his lisinopril and HCTZ. I will add amlodipine 5 mg. He was given precautions for which to return. He continued to complain of pain after Toradol Phenergan and Benadryl. He does have a care plan here that suggests he should not have narcotics except for acute verifiable pain. He was given 1 pill with Tylenol with codeine. He was given precautions for which to return and encouraged to follow-up with a primary care physician] Treatment Plan: [] Disposition: [Discharge] Impression: [1. Acute on chronic back pain 2. Abdominal pain 3. Uncontrolled hypertension] This note was generated with [employer] dictation software. It may contain incorrect words, spelling, and punctuation that were not noted in review of the chart prior to signing ED Disposition - Plan for ED Patient: Chief Complaint: Back Referrals: Care Physician,No Primary [Primary Care Provider] - What to do if you have Problems For any increased pain, shortness of breath, bleeding, nausea or vomiting, chest pain, or any unexpected problems, contact your Primary Care Provider. Call [facility] ([phone]) or report to the closest Emergency Room. Call 911 if necessary. 10/28/17 0702 <Electronically signed by Sue Alvarez > Date Sue Alvarez Cosigner Signature (If Indicated): Date CC: No Primary Care Physician URINALYSIS, COMPLETE Collected: 10/28/2017 Status: F Source: [facility] 6:06 AM [facility] REPOSITORY Order Comment: How was Urine Obtained? TERRITORY SALES MANAGER TO SPECIFY TYPE CODE TESTS RESULT OUT OF RANGE REFERENCE UNITS LAB L400.3000 Yellow COLOR Normal Yellow LAB L400.3050 Clear Normal CLARITY Clear LAB L400.3200 Normal mg/dl High GLUCOSE, UR 250 LAB L400.3300 Negative mg/dL Normal BILIRUBIN URINE Negative LAB L400.3400 Negative mg/dl Normal KETONE UR Negative LAB L400.3465 1.002-1.030 Normal SP.GR. DIPSTX 1.020 LAB L400.3550 5.0 - 8.0 pH UR Normal 5.0 LAB L400.3600 Negative mg/dl High PROT DIPSTX 500 LAB L400.3700 Normal mg/dl Normal UROBILI Normal LAB L400.3750 Negative Normal NITRITE UR Negative LAB L400.3780 Negative /ul High 25 OCCULT BLOOD-UR LAB L400.3800 Negative /ul LEUK Normal ESTERASE Negative LAB L400.4050 0-5 /hpf WBC 0 Normal SEEN LAB L400.4100 0-5 /hpf 0 Normal RBC-UA SEEN LAB L400.4150 0-5 /hpf SQUAM Normal EPI 0-5 SEEN LAB L400.4300 None Seen /hpf Normal BACTERIA RARE LAB L400.4350 <or=2+ /hpf 0 Normal MUCUS, URINE SEEN Performed By: #### L400.0001 #### [facility] [address] [place], [place], [address] CBC W/DIFF, AUTOMATED Collected: 10/28/2017 Status: F Source: [facility] 5:10 AM [facility] REPOSITORY TYPE CODE TESTS RESULT OUT OF RANGE REFERENCE UNITS LAB L100.1000 4.4-11.0 K/mm3 Normal WBC 4.6 LAB L100.1200 4.6-6.2 M/mm3 Low RBC 4.11 LAB L100.1300 13.0-16.5 g/dl Low HGB 11.9 LAB L100.1400 40-54 % Low HCT 36.4 LAB L100.1500 80-94 fL Normal MCV 88.6 LAB L100.1600 27.0-32.0 pg Normal MCH 29.0 LAB L100.1700 32-36 g/gl Normal MCHC 32.7 LAB L100.1810 11.6-14.6 % High RDW CV 15.4 LAB L100.1820 35.1-43.9 fl High RDW SD 49.6 LAB L100.1900 150-450 K/mm3 Normal PLT 239 LAB L100.2000 6.2-12.0 fl Normal MPV 9.0 LAB L100.2100 47-70 % Normal NEUT% 60.4 LAB L100.2200 19-41 % Normal LY% 32.5 LAB L100.2300 0-10 % Normal MONO% 3.7 LAB L100.2400 0-5 % Normal EO% 2.6 LAB L100.2500 0-1 % Normal BASO% 0.6 LAB L100.2550 0.0-0.9 % Normal IM GRAN % 0.200 Result Comment: IG% - Immature Granulocytes (promyelocytes, myelocytes and metamyelocytes) > 1% indicates that a LEFT SHIFT is Present. LAB L100.2620 2.0-7.7 X10 3/uL Normal Absolute Neut 2.8 LAB L100.2720 0.83-4.51 X10 3/ul Normal Absolute Lymph 1.50 Performed By: #### L100.0100 #### [facility] [address] [place], [address] COMPREHENSIVE METABOLIC Collected: 10/28/2017 Status: F Source: [facility] 5:10 AM [facility] REPOSITORY TYPE CODE TESTS RESULT OUT OF RANGE REFERENCE UNITS LAB L501.0100 74-106 mg/dL High GLU 237 Result Comment: Glucose result greater than or equal to 200 mg/dL suggests DIABETES MELLITUS per A.D.A. criteria. LAB L501.1000 7-18 mg/dL Normal BUN 16 LAB L501.1100 0.70-1.30 mg/dL High CREAT,SERUM 1.32 Result Comment: The validity of the calculated GFR AND GFRAA in patients over 70 years has not been determined. Clinical correlation is essential. LAB L501.1110 >60 mL/min Normal EST GFR 61 Result Comment: Non- GFR Calc LAB L501.1115 >60 mL/min Normal EST GFR - AA 74 Result Comment: GFR Calc LAB L501.1255 ml/min Normal Estimated CRCL 72.89 LAB L501.1300 10-20 RATIO Normal BUN/CRE 12.1 LAB L501.1500 6.4-8. g/dL Low 2 T PROT 6.2 LAB L501.1800 3.2-5. g/dL Low 0 ALB 2.7 LAB L501.1950 2.2-4. g/dL Normal 2 GLOB 3.5 LAB L501.2000 0.9-2. RATIO Low 4 A/G 0.8 LAB L501.2200 8.5-10 mg/dL Low .1 CA 8.4 LAB L501.4100 15-37 U/L Low AST 8 LAB L501.4305 45-117 U/L Normal ALK P 54 LAB L501.4405 16-61 U/L Normal ALT 22 Result Comment: Please note revised ALT reference range effective 2017. LAB L501.4600 0.20-1.00 mg/dL Normal T BILI 0.20 LAB L501.5300 136-145 mmol/L Normal NA 139 LAB L501.5600 3.5-5.1 mmol/L Normal K 3.5 LAB L501.5900 98-107 mmol/L Normal CL 106 LAB L501.6100 21.0-32.0 mmol/L Normal CO2 22.0 LAB L501.6200 5-15 Normal GAP 11 Performed By: #### L500.4050, L501.2450 #### [facility] [address] [place], [address] LIPASE Collected: 10/28/2017 Status: F Source: [facility] 5:10 AM [facility] REPOSITORY TYPE CODE TESTS RESULT OUT OF RANGE REFERENCE UNITS LAB L501.2450 73-393 U/L Normal LIPASE 123 Performed By: #### L500.4050, L501.2450 #### [facility] [address] [place], [address] ABDOMEN/PELVIS WITH Observed: 10/28/2017 Status: F Source: [facility] CONTRAST 5:09 AM [facility] REPOSITORY [facility] Imaging Services [address] [place] [address] Abdomen/Pelvis WITH Contrast MR#: [id number] Acct: [id number] Name: LUIS SCHILLING Chen Rep #: [id number] : 1970 M 46 From: Ulises Butterfield PCP: Care Physician, No Primary Status: REG ER Study: Abdomen/Pelvis WITH Contrast Date of Exam: 10/28/17 Exam# [id number] Ordering Dr: Sue Alvarez STUDY: CT ABDOMEN AND PELVIS WITH CONTRAST REASON FOR EXAM: Male, 46 years old. Back pain for 2 weeks. Right-sided abdominal pain. RADIATION DOSAGE (If Supplied By Facility): CTDIvol = ( 19.26 ) mGy, DLP = ( 1219.45 ) mGycm TECHNIQUE: Transaxial images were obtained from the dome of the diaphragm to the symphysis pubis without oral contrast. 100ml ml of Isovue 300 contrast was administered. Sagittal and coronal images were reconstructed. Individualized dose optimization techniques were used for this CT. COMPARISON: August 16, 2017. Right upper quadrant ultrasound October 07, 2017. FINDINGS: Calcified right lower lobe lung nodule. The visualized portions of the heart are within normal limits. Small hiatal hernia. Stable enhancing 1.6 cm nodule along the margin lateral segment left lobe of the liver unchanged very suggestive of a hemangioma, axial image 25 series 2. Evaluation of liver attenuation is limited without delayed contrast-enhanced images or noncontrast enhanced images Normal gallbladder and extrahepatic biliary system. There are multiple benign calcified granulomata of the spleen. Normal pancreas. Normal bilateral adrenal glands. Normal right kidney. Normal left kidney. Normal visualized stomach. Normal small intestine. Normal colon. There are surgical clips in the region of the appendix suggestive of prior appendectomy. There is atherosclerotic calcification of the abdominal aorta, without a demonstrated aneurysm. Normal inferior vena cava. Normal retroperitoneum. Normal urinary bladder. Prostate gland not enlarged. Vas deferens calcifications. Normal abdominal wall. Osseous structures are unremarkable. No severe spinal stenosis or neural foramina narrowing. CT/Abdomen/Pelvis WITH Contrast IMPRESSION: No acute findings in the abdomen or pelvis. Old granulomatous disease. Probable hemangioma left lobe of liver. This can be followed with ultrasound in 6 months. If a more definitive diagnosis is clinically warranted recommend either CT or MRI with contrast using hemangioma protocol. No findings to account for right-sided abdominal pain. No significant abnormalities in the lumbar spine. Electronically Signed: Ulises Butterfield MD at 6:41 EST , Service support , CC: No Primary Care Physician; Sue Alvarez Health Science Specialist: Signed Observed: 10/28/2017 Status: F Source: [facility] STOOL OCCULT BLOOD 5:00 AM [facility] REPOSITORY STOB iFOB Occult Blood Negative Performed By: #### M100.7900 #### [facility] [address] [place], [address] PROGRESS Observed: 10/26/2017 Status: COMPLETED Source: [place] 1:36 PM [facility] [place] REPOSITORY HNO ID: [id number] Author: Nataly Martínez Cma Service: (none) Author Type: (none) Type: Progress Notes Filed: 10/26/2017 1:37 PM Note Text: Letter mailed to patient. PROGRESS Observed: 10/26/2017 Status: COMPLETED Source: [place] 1:35 PM [facility] [place] REPOSITORY HNO ID: [id number] Author: Nataly Martínez [employer] Service: (none) Author Type: (none) Type: Progress Notes Filed: 10/26/2017 1:37 PM Note Text: Ria number isn't a working number and Jun Numbers is the wrong number. Will send letter since unable to contact patient via phone due to no valid phone number. PROGRESS Observed: 10/26/2017 Status: COMPLETED Source: [place] 1:30 PM [facility] [place] REPOSITORY HNO ID: [id number] Author: Nataly Martínez [employer] Service: (none) Author Type: (none) Type: Progress Notes Filed: 10/26/2017 1:37 PM Note Text: PHMA TEAMLET DOCUMENTATION Provider Action/FYI: PSR Action/FYI: Teamlet has identified patient by name and date of . Team: Myself, iGna Thomas, Dr. Jacome, Buffy Martínez Helen ? Last Office Visit:05/11/2017 with Mansi older ? Next Office Visit: Visit date not found ? Last BP/Labs: Blood Pressure: Last 3 Encounter BP Readings: Date: BP: 05/11/2017 160/78 03/18/2017 104/56 11/13/2016 146/84 Lipids: Cholesterol, Total (mg/dL) Date Value 01/03/2013 168 HDL Cholesterol (mg/dL) Date Value 01/03/2013 32 LDL Cholesterol (mg/dL) Date Value 01/03/2013 Unable to calculate due to increased Triglycerides. See LDL-Chol, Direct. Triglyceride (mg/dL) Date Value 01/03/2013 510 HGB A1C: Lab Results Component Value Date HBA1C 11.7 12/16/2015 HBA1C 10.8 01/03/2013 HBA1C 11.5 07/06/2012 TSH: TSH (uU/mL) Date Value 06/02/2014 0.796 07/06/2012 0.746 ) Care Gap: DM - Need Urine Albumin / NOT checked in last 12 months Needs dilated eye exam - HM overdue Non-compliant with taking DM medications at least 80% of the time Last HGBA1C is NOT under 9% HTN - Last BP NOT under 140/90 COPD Plan: ? Confirm PCP / Status ? Type of appointment needed: Follow-up HTN, COPD, DM next available with Provider PCP or AMMONIA WORKER ? Due for labs Labs, HM and Immunization: Health Maintenance Due: URINE ALBUMIN CREATININE RATIO due on 1984 - ordered LDL due on 01/03/2014 - ordered HBA1C due on 06/17/2016 - ordered DILATED RETINAL EXAM due on 02/27/2017 INFLUENZA(1) due on 05/22/2017 DIABETIC FOOT EXAM due on 11/13/2017 Nataly Martínez [facility] CNPTOUTREACH Observed: 10/26/2017 Status: COMPLETED Source: [place] 12:00 AM [facility] REPOSITORY Patient Outreach (FAMPWS) LUIS SCHILLING ([id number]) 1970 M CHT Date Time Provider Department 10/26/17 NATALY MARTÍNEZ ([facility]) FAMPWS During your visit today, we recorded the following information about you: Nataly Martínez [facility] 10/26/2017 1:37 PM Signed PHMA TEAMLET DOCUMENTATION Provider Action/FYI: PSR Action/FYI: Teamlet has identified patient by name and date of . Team: Myself, Gina Thomas, Dr. Jacome, Buffy Martínez Helen ? Last Office Visit:05/11/2017 with Mansi older ? Next Office Visit: Visit date not found ? Last BP/Labs: Blood Pressure: Last 3 Encounter BP Readings: Date: BP: 05/11/2017 160/78 03/18/2017 104/56 11/13/2016 146/84 Lipids: Cholesterol, Total (mg/dL) Date Value 01/03/2013 168 HDL Cholesterol (mg/dL) Date Value 01/03/2013 32 LDL Cholesterol (mg/dL) Date Value 01/03/2013 Unable to calculate due to increased Triglycerides. See LDL-Chol, Direct. Triglyceride (mg/dL) Date Value 01/03/2013 510 HGB A1C: Lab Results Component Value Date HBA1C 11.7 12/16/2015 HBA1C 10.8 01/03/2013 HBA1C 11.5 07/06/2012 TSH: TSH (uU/mL) Date Value 06/02/2014 0.796 07/06/2012 0.746 ) Care Gap: DM - Need Urine Albumin / NOT checked in last 12 months Needs dilated eye exam - HM overdue Non-compliant with taking DM medications at least 80% of the time Last HGBA1C is NOT under 9% HTN - Last BP NOT under 140/90 COPD Plan: ? Confirm PCP / Status ? Type of appointment needed: Follow-up HTN, COPD, DM next available with Provider PCP or AMMONIA WORKER ? Due for labs Labs, HM and Immunization: Health Maintenance Due: URINE ALBUMIN CREATININE RATIO due on 1984 - ordered LDL due on 01/03/2014 - ordered HBA1C due on 06/17/2016 - ordered DILATED RETINAL EXAM due on 02/27/2017 INFLUENZA(1) due on 05/22/2017 DIABETIC FOOT EXAM due on 11/13/2017 Nataly Martínez [facility] Nataly Martínez [facility] 10/26/2017 1:37 PM Signed Ria number isn't a working number and Jun Numbers is the ANDquot;wrong numberANDquot;. Will send letter since unable to contact patient via phone due to no valid phone number. Nataly Martínez [facility] 10/26/2017 1:37 PM Signed Letter mailed to patient. Allergies As of Date: 10/26/2017 Noted Allergy Reaction PENICILLIN G 07/23/2006 16 - Unknown PENICILLINS 08/05/2010 14 - Other: See Comments Comments: He has been allergic since he was 5-6 y/o Date Reviewed: 05/11/2017 Reviewed by: Gina Iyer [facility] - Fully Assessed Reason for Visit: PHMA/Care Gap Outreach [0271] Prescriptions as of 10/26/2017 Sig: BD INSULIN PEN NEEDLE UF SHOR* USE FIVE TIMES A DAY OMEPRAZOLE 40 MG CAPSULE,MUSTAPHA* take 1 capsule by mouth once * PREGABALIN 100 MG CAPSULE Take 1 capsule by mouth three* ASPIRIN 81 MG TABLET,DELAYED * Take 1 tablet by mouth once d* BISOPROLOL 5 MG-HYDROCHLOROTH* Take 1 tablet by mouth once d* LISINOPRIL 40 MG TABLET Take 1 tablet by mouth once d* INSULIN LISPRO 100 UNIT/ML BROWN* inject 50 units subcutaneousl* ALBUTEROL SULFATE HFA 90 MCG/* Inhale 2 Puffs as instructed * INSULIN GLARGINE 100 UNIT/ML * Inject 50 Units subcutaneousl* ATORVASTATIN 80 MG TABLET Take 1 tablet by mouth daily * METFORMIN 500 MG TABLET Take 2 tablets by mouth twice* BLOOD SUGAR DIAGNOSTIC STRIPS Test blood sugar(s) 4 times d* ALCOHOL SWABS Apply 1 application to affect* LANCETS Test blood sugar(s) 4x daily.* ALBUTEROL SULFATE HFA 90 MCG/* Inhale 2 Puffs as instructed * ONDANSETRON 4 MG DISINTEGRATI* Take 1 tablet by mouth every * Problem List As Of Date 10/26/2017 Noted Resolved Hypertension goal BP (blood pressure) < 140/90 *INVALID FOR* More... Dyslipidemia [E78.5] INVALID FOR* More... Benign neoplasm of skin of trunk, except scrotu*INVALID FOR*07/16/2015 Neoplasm of uncertain behavior of skin [D48.5] INVALID FOR*07/16/2015 Acute pancreatitis [K85.90] INVALID FOR*07/16/2015 Chest pain [R07.9] INVALID FOR*07/16/2015 Diabetic hyperosmolar non-ketotic state (HCC) [*INVALID FOR*07/16/2015 More... Abdominal pain chronic [R10.9] INVALID FOR* Non-compliance [Z91.19] INVALID FOR* More... Diabetic neuropathy [E11.40] INVALID FOR* More... Chronic whiplash injury [S13.4XXA] INVALID FOR*07/16/2015 Whiplash injury to neck [S13.4XXA] INVALID FOR*07/16/2015 Brachial neuritis or radiculitis NOS [M54.12] INVALID FOR*07/16/2015 Hypermetropia [H52.00] INVALID FOR* Presbyopia [H52.4] INVALID FOR* Hyperglycemia [R73.9] INVALID FOR*08/12/2016 Priority: A More... Nausea and vomiting [R11.2] INVALID FOR* Drug-seeking behavior [Z76.5] INVALID FOR* More... DM type 2, uncontrolled, with neuropathy (HCC) *INVALID FOR* Gastroesophageal reflux disease [K21.9] INVALID FOR* More... YOANDY (obstructive sleep apnea) [G47.33] INVALID FOR* COPD with chronic bronchitis (HCC) [J44.9] INVALID FOR* More... Obesity [E66.9] INVALID FOR* Tobacco use [Z72.0] INVALID FOR* Microscopic hematuria [R31.29] INVALID FOR* Optic neuritis, right [H46.9] INVALID FOR*03/19/2017 More... Letter Text John Jacome MD [address] [facility] 300851 Nataly Martínez [facility], Population Health M.A. October 26, 2017 Luis Schilling [address] [facility] [address] Dear Mr. Schilling In an effort to serve your healthcare needs, it has come to the attention of John Jacome MD, your Primary Care Provider, that you are overdue for routine health care. We've attempted to contact you and have been unsuccessful. Please call the office at [phone] to schedule an appointment for Follow Up. In addition, you are due for the following health maintenance(s) Health Maintenance Due: URINE ALBUMIN CREATININE RATIO due on 1984 LDL due on 01/03/2014 HBA1C due on 06/17/2016 DILATED RETINAL EXAM due on 02/27/2017 INFLUENZA(1) due on 05/22/2017 DIABETIC FOOT EXAM due on 11/13/2017 If any of these routine health care items were completed by an outside facility, please have that office fax the results to [phone] Attn: John Jacome MD or bring the records with you to your appointment. We will gladly update your record. If you have any questions, please feel free to call the office at [phone] or message us via SellABand. Thank you for choosing the [facility]. Sincerely, Nataly Martínez Cma, [facility] [employer] M.A. (electronically signed to expedite mailing) Encounter Status:Closed by NATALY MARTÍNEZ CMA on 10/26/17 EMERGENCY DEPARTMENT Observed: 10/15/2017 Status: F Source: WHITTIER SUMMARY 4:53 PM [facility] REPOSITORY [facility] Medical Records Department [address] [place] [address] Emergency Department Summary 10/07/17 1539 MR#: [id number] Acct: [id number] Name: LUIS SCHILLING Rep #: [id number] : 1970 46 From: Yordan Kay DO PCP: Care Physician, No Primary Status: DEP ER - ER Visit Summary Date of Service: 10/07/17 Chief Complaint: Abdominal pain and vomiting History of Present Illness: The patient is a 46 M who has a history of having a care plan here in the department. He states that he has developed right upper quadrant abdominal pain and vomiting. He states this is not like his normal pancreatitis which is on his left side and epigastric region. However the patient states that he has been told he needs to have a HIDA scan which she is not yet gotten due to insurance reasons. He states that now he is on state-sponsored healthcare he will be able to get these test. Patient states he has a history of diabetes and his blood sugars have been running in the 150 range. (Blood sugar today 418). The patient reports no alcohol or drug use. He is a smoker. History of high cholesterol. I reviewed the patient's last visit when he left AMA after not receiving narcotics. He assures me that he is not here just for drugs he would like to figure out why he is hurting so bad. Physical Examination: Afebrile vital signs stable Gen: Well-nourished well-developed Head: Normocephalic atraumatic Eyes: Perrl EOMI ENT: TMs clear no rhinorrhea moist mucous membranes Neck: Supple no lymphadenopathy no JVD nontender CVS: Regular rate rhythm no murmurs normal S1-S2 Respiratory: No distress clear to auscultation bilaterally chest nontender Abdomen: Soft the abdomen is diffusely tender to palpation out of proportion to examination. Patient flinches when I lay the stethoscope on his abdomen. Nondistended normal bowel sounds no masses Back: Nontender Extremity: Nontender no edema Skin: Normal color no rash Neuro: alert orientated 3 CN II-XII intact normal strength sensation reflexes gait cerebellar Psych: Normal affect normal mood Test Results: CBC CMP and lipase were normal with the exception of a glucose of 418 and creatinine 1.46. Urinalysis negative. Gallbladder ultrasound negative. Emergency Department Course and Treatment: Patient received Toradol and Zofran as well as a dose of insulin. I reviewed the patient's labs and imaging with him. He states he cannot understand why nothing ever shows up with his pain in his abdomen. Patient states that he does not wish to lay here in the hospital anymore if were not going to give him anything for for pain. I offered to CT his abdomen pelvis and he declines this. Once again are ER visit ends basically the same way with him being very agitated about pain medicine and wanting to leave. Plan will be anti-emetics at home. He is encouraged to take his diabetes medication. He is to follow-up with his doctor. Impression: 1. Abdominal pain 2. Vomiting 3. Uncontrolled diabetes This note was generated with Ad Knightsation software. It may contain incorrect words, spelling, and punctuation that were not noted in review of the chart prior to signing ED Disposition - Plan for ED Patient: Disposition: Home or Assisted Living Chief Complaint: Abd Pain Instructions: ED Abdominal Pain Unkn Cause Prescriptions: Ondansetron [Zofran Odt] 4 mg PO Q8H PRN PRN #10 tab PRN Reason: Nausea Referrals: Care Physician,No Primary [Primary Care Provider] - Jose Seo MD [STAFF PHYSICIAN] - (call to arrange follow up) What to do if you have Problems For any increased pain, shortness of breath, bleeding, nausea or vomiting, chest pain, or any unexpected problems, contact your Primary Care Provider. Call [facility] ([phone]) or report to the closest Emergency Room. Call 911 if necessary. 10/15/17 1653 <Electronically signed by Yordan Kay DO> Date Yordan Kay DO Cosigner Signature (If Indicated): Date CC: No Primary Care Physician GALLBLADDER Observed: 10/07/2017 Status: F Source: WHITTIER 1:53 PM [facility] REPOSITORY [facility] Imaging Services [address] [place] [address] Gallbladder MR#: [id number] Acct: [id number] Name: LUIS SCHILLING Rep #: [id number] : 1970 M 46 From: Rafat Edwards MD PCP: Care Physician, No Primary Status: REG ER Study: Gallbladder Date of Exam: 10/07/17 Exam# [id number] Ordering Dr: Yordan Kay DO STUDY: ABDOMINAL ULTRASOUND - RIGHT UPPER QUADRANT REASON FOR VISIT: Male, 46 years old. Right upper quadrant pain. TECHNIQUE: Ultrasound evaluation of the right upper quadrant was performed with real-time and static gonsalez-scale imaging. TECHNICAL QUALITY: Adequate. COMPARISON: Comparison is made with prior examination of December 11, 2015. FINDINGS: Liver: The liver measures 18.1 cm. There is increased echogenicity consistent with fatty infiltration. The bile ducts are within normal limits. There is hepatic color flow. The direction of portal flow is hepatopetal. There is a 1.2 cm x 1.4 cm x 1.2 cm hypoechoic nodule in the left lobe of the liver. This may represent a cyst with septation within it. Gallbladder: Normal distended gallbladder. The gallbladder wall measures 2.5 mm. There is a negative sonographic Gomez's sign. There is no pericholecystic fluid. There are no gallstones. Common Bile Duct (C.B.D.): The common bile duct measures 2.9 mm. Pancreas: Normal size of the head, body and tail of the pancreas. There is normal echogenicity of the pancreas. There is no demonstrated pancreatic mass or cyst. Right Kidney: Normal size of the right kidney. The right kidney measures 3.6 cm x 5 cm x 5.6 cm. Normal renal cortex. The right cortex measures 1.7 cm. There is no demonstrated renal mass or cyst. There is no right hydronephrosis. US/Gallbladder IMPRESSION: Fatty infiltration of the liver. 1.2 cm x 1.4 cm x 1.2 cm hypoechoic nodule in the left lobe of liver. This is suggestive of a septated cyst. Electronically Signed: Rafat Edwards MD at 15:36 EST Tel [phone], Service support , CC: No Primary Care Physician; Yordan Kay DO Health Science Specialist: Signed URINALYSIS, COMPLETE Collected: 10/07/2017 Status: F Source: ANISHA 1:50 PM [facility] REPOSITORY Order Comment: Order Date: 10/07/17 Has pt arrived? Y How was Urine Obtained? CLEAN CATCH TYPE CODE TESTS RESULT OUT OF RANGE REFERENCE UNITS LAB L400.3000 Yellow COLOR Normal Yellow LAB L400.3050 Clear Normal CLARITY Sl. Cloudy LAB L400.3200 Normal mg/dl High GLUCOSE, UR 1000 LAB L400.3300 Negative mg/dL Normal BILIRUBIN URINE Negative LAB L400.3400 Negative mg/dl Normal KETONE UR Negative LAB L400.3465 1.002-1.030 Normal SP.GR. DIPSTX 1.015 LAB L400.3550 5.0 - 8.0 pH UR Normal 6.0 LAB L400.3600 Negative mg/dl High PROT DIPSTX 500 LAB L400.3700 Normal mg/dl Normal UROBILI Normal LAB L400.3750 Negative Normal NITRITE UR Negative LAB L400.3780 Negative /ul High 25 OCCULT BLOOD-UR LAB L400.3800 Negative /ul LEUK Normal ESTERASE Negative LAB L400.4050 0-5 /hpf WBC 0 Normal SEEN LAB L400.4100 0-5 /hpf Normal RBC-UA 0-5 SEEN LAB L400.4150 0-5 /hpf SQUAM 0 Normal EPI SEEN LAB L400.4300 None Seen /hpf 0 Normal BACTERIA SEEN LAB L400.4350 <or=2+ /hpf 0 Normal MUCUS, URINE SEEN Performed By: #### L400.0001 #### [facility] [address] [place], [address] CBC W/DIFF, AUTOMATED Collected: 10/07/2017 Status: F Source: WHITTIER 1:33 PM [facility] REPOSITORY TYPE CODE TESTS RESULT OUT OF RANGE REFERENCE UNITS LAB L100.1000 4.4-11.0 K/mm3 Normal WBC 5.0 LAB L100.1200 4.6-6.2 M/mm3 Low RBC 4.37 LAB L100.1300 13.0-16.5 g/dl Low HGB 12.5 LAB L100.1400 40-54 % Low HCT 37.4 LAB L100.1500 80-94 fL Normal MCV 85.6 LAB L100.1600 27.0-32.0 pg Normal MCH 28.6 LAB L100.1700 32-36 g/gl Normal MCHC 33.4 LAB L100.1810 11.6-14.6 % High RDW CV 14.7 LAB L100.1820 35.1-43.9 fl High RDW SD 44.8 LAB L100.1900 150-450 K/mm3 Normal PLT 234 LAB L100.2000 6.2-12.0 fl Normal MPV 9.5 LAB L100.2100 47-70 % High NEUT% 72.2 LAB L100.2200 19-41 % Normal LY% 20.8 LAB L100.2300 0-10 % Normal MONO% 4.6 LAB L100.2400 0-5 % Normal EO% 1.8 LAB L100.2500 0-1 % Normal BASO% 0.4 LAB L100.2550 0.0-0.9 % Normal IM GRAN % 0.200 Result Comment: IG% - Immature Granulocytes (promyelocytes, myelocytes and metamyelocytes) > 1% indicates that a LEFT SHIFT is Present. LAB L100.2620 2.0-7.7 X10 3/uL Normal Absolute Neut 3.6 LAB L100.2720 0.83-4.51 X10 3/ul Normal Absolute Lymph 1.03 Performed By: #### L100.0100 #### [facility] [address] [place], [address] COMPREHENSIVE METABOLIC Collected: 10/07/2017 Status: F Source: [facility] 1:33 PM [facility] REPOSITORY TYPE CODE TESTS RESULT OUT OF RANGE REFERENCE UNITS LAB L501.0100 70-110 mg/dL High GLU 418 Result Comment: Glucose result greater than or equal to 200 mg/dL suggests DIABETES MELLITUS per A.D.A. criteria. LAB L501.1000 7-18 mg/dL Normal BUN 14 LAB L501.1100 0.70-1.30 mg/dL High CREAT,SERUM 1.46 Result Comment: The validity of the calculated GFR AND GFRAA in patients over 70 years has not been determined. Clinical correlation is essential. LAB L501.1110 >60 mL/min Low EST GFR 55 Result Comment: Non- GFR Calc LAB L501.1115 >60 mL/min Normal EST GFR - AA 66 Result Comment: GFR Calc LAB L501.1255 ml/min Normal Estimated CRCL 65.90 LAB L501.1300 10-20 RATIO Low BUN/CRE 9.6 LAB L501.1500 6.4-8. g/dL Normal 2 T PROT 6.6 LAB L501.1800 3.4-5. g/dL Low 0 ALB 2.8 Result Comment: Please note revised Albumin AND Globulin reference range effective 2017. LAB L501.1950 2.2-4.2 g/dL Normal GLOB 3.8 LAB L501.2000 0.9-2.4 RATIO Low A/G 0.7 LAB L501.2200 8.5-10.1 mg/dL Low CA 8.4 LAB L501.4100 15-37 U/L Normal AST 20 LAB L501.4305 45-117 U/L Normal ALK P 61 LAB L501.4405 12-78 U/L Normal ALT 31 LAB L501.4600 0.20-1.00 mg/dL Normal T BILI 0.20 LAB L501.5300 136-145 mmol/L Low NA 134 LAB L501.5600 3.5-5.1 mmol/L Normal K 3.7 LAB L501.5900 98-107 mmol/L Normal CL 99 LAB L501.6100 21.0-32.0 mmol/L Normal CO2 26.0 LAB L501.6200 5-15 Normal GAP 9 Performed By: #### L500.4050, L501.2450 #### [facility] [address] [place], [address] LIPASE Collected: 10/07/2017 Status: F Source: WHITTIER 1:33 PM [facility] REPOSITORY TYPE CODE TESTS RESULT OUT OF RANGE REFERENCE UNITS LAB L501.2450 73-393 U/L Normal LIPASE 161 Performed By: #### L500.4050, L501.2450 #### [facility] [address] [place], [address] ALLERGIES ALLERGIES DATE TYPE / CODE NAME / CODE REACTION SEVERITY SOURCE 09/19/2018 Drug Penicillins/H81207 Rash Unknown [place] Allergy/416 0476(RXNORM) Community 488293([facility] ED CT) Repository 08/05/2010 Drug PENICILLINS OTHER: SEE C [facility] Class/96173 [address] [place] 1003(SNOMED Repository CT) 07/23/2006 DRUG PENICILLIN G UNKNOWN [facility] INGREDI/419 [address] [place] [address]655([facility] Repository ED CT) Drug PENICILLINS Moderate Charlie Pomerene Allergy/416 (CLASS)/18544853(R ([facility] 748773(SNOM XNORM) Modifier) Hospital ED CT) (Qualifier Repository Value) Drug/225310 penicillins Tenriism 003([facility]) System Repository ENCOUNTERS ENCOUNTERS ADMIT/DISCHARGE ACCOUNT NUMBER ADMITTING ENCOUNTER LOCATION SOURCE CLASS 09/19/2018/09/19/20 [id number] Emergency [address] ding:ED Repository 08/30/2018/08/30/20 [id number] Emergency [address] ding:ED Repository 08/09/2018/08/09/20 [id number] Emergency [address] ding:ED Repository 06/21/2018/06/23/20 [id number] Ambulatory [address] Repository 05/26/2018/05/27/20 [id number] Emergency [address] ding:ED Repository 04/26/2018/04/26/20 [id number] Emergency [address] ding:ED Repository 03/26/2018/03/26/20 [id number] Ambulatory [address] [place] Repository 03/12/2018/03/15/20 [id number] Ambulatory [address] [place] Repository 03/11/2018/03/12/20 [id number] Ambulatory [address] Repository 02/17/2018/02/19/20 [id number] Ambulatory [address] Repository 02/04/2018 [id number] Ambulatory BMSBuilding: [facility] Repository 02/04/2018/02/05/20 [id number] Emergency [address] ding:ED Repository 01/24/2018 [id number] [facility] 12/21/2017/12/22/[id number] LIZA Emergency [address]in[address] [place] [address] Room: ERBed: [facility] Repository 12/19/2017/12/21/19 [id number] Charly [address] ding:[facility] SRoom: Repository 0314Bed: 12/18/2017/12/19/19 [id number] Ambulatory [address] Repository 12/18/2017/12/19/19 [id number] Ambulatory [address] Repository 12/13/2017/12/14/19 [id number] Emergency BBuilding:ER [place] [address] [place] [address] Repository 11/18/2017/11/18/19 [id number] Emergency BBuilding:ER [place] [address] [place] [address] Repository 10/28/2017/10/28/19 [id number] Emergency Anisha [place] [facility] ding:ED Repository 10/07/2017/10/07/19 [id number] Emergency [place] [facility] ding:ED Repository PAYERS PAYERS ENCOUNTER GUARANTOR PAYER SUBSCRIBER SOURCE 09/19/2018 LUIS Siddiqui Primary Insurance:[facility] LUIS W nAisha [id number] [facility] BLOCKDOB: [facility] ALEX Number: [id number] [place], [place] [id number] Repository [address]Gkr: (330) Date:8710-46-78VH [phone] () [address] [place] [address]87[address]WG: 09/19/2018 Secondary NOT GIVENUNK [place] Insurance:SELF PAY [facility] Number: Effective Repository Date:2018-09-19 08/30/2018 LUIS W Primary Insurance:[facility] LUIS [place] [id number] [facility] BLOCKDOB: [facility] ALEX Number: [id number] Worth, [place] [id number] Repository [address]Dys: (330) Date:9529-51-91UC [phone] () [address] [place] [address]648VD: 08/30/2018 Secondary NOT GIVENUNK Anisha Insurance:SELF PAY [facility] Number: Effective Repository Date:2018-08-30 08/09/2018 LUIS W Primary LUIS W Anisha [id number] S Insurance:[facility] BLOCKDOB: [facility] [id number] [id number] [place], [place] Number: Repository [address]Gdl: 330 [id number] [phone] (HP) Date:7707-77-58SM [address]QFLLWEU, [place] [address]IS: 08/09/2018 Secondary NOT GIVENUNK [place] Insurance:SELF PAY [facility]: Effective Repository Date:2018-08-09 05/26/2018 LUIS W Primary LUIS W Anisha [id number] S Insurance:UNITED TH BLOCKDOB: Community ALEX CARE [id number] [id number] [place], [place] Number: Repository [address]Ggl: 330 [id number] [phone] (HP) Date:9969-31-19RQ [address]XMNRPSN, [place] [address]YD: 05/26/2018 Secondary NOT GIVENUNK Anisha Insurance:SELF PAY [facility] Number: Effective Repository Date:2018-05-26 04/26/2018 LUIS W Primary Insurance:[facility] LUIS W [place] [id number] S [facility] BLOCKDOB: [facility] Number: [id number] Worth, [place] [id number] Repository [address]Dax: 330) Date:5739-59-53PI [phone] () [address] [place] [address]YE: 04/26/2018 Secondary LUIS W [place] [facility]: Community CARE [id number] Hospital Number: Repository [id number] Date:6519-51-49XF [address]WBMVGRB, [place] [address]CA: 04/26/2018 Tertiary NOT GIVENUNK [place] Insurance:SELF PAY [facility] Number: Effective Repository Date:2018-04-26 02/04/2018 LUIS W Primary LUIS W [place] [id number] S Insurance:UNITED TH BLOCKDOB: Community ALEX CARE [id number] [id number] [place], [place] Number: Repository [address]Yta: 330 [id number] [phone] (HP) Date:9898-66-02JN [address]WRIHSGT, [place] [address]VZ: 02/04/2018 Secondary NOT GIVENUNK [place] Insurance:SELF PAY [facility] Number: Effective Repository Date:2018-02-04 02/04/2018 LUIS W Primary Insurance:[facility] LUIS W [facility] [facility] BLOCKDOB: Community ALEX Number: [id number] Regional Medical CenterHANNAhustler, [place] [id number] Repository [address]Unp: (330) Date:7732-83-96QW [phone] () [address] [place] [address]DQ: 02/04/2018 Secondary NOT GIVENUNK [place] Insurance:SELF PAY [facility] Number: Effective Repository Date:2018-02-04 01/24/2018 JOEL Chen Primary Insurance:[facility] JOEL Siddiqui [place] [id number] [address] BLOCKUNK Center [place] GRAND MEDICAIDPolicy Number: Repository [facility] [place] [id number]: 330) Date:7411-80-40YM [phone] () [address] [place] [address]35[address]QO: 12/21/2017 JOEL Siddiqui Primary JOEL W Charlie Fernandes BLOCKDOB: Insurance:[facility]: [facility] [id number] Hospital ALEX PLAN OUTPATPolicy S ALEX Repository [facility] [place] Number: [place] [id number]: [id number] Date:Plan Name:X4 () 12/19/2017 LUIS Siddiqui Primary LUIS W Tenriism BLOCKDOB: [facility] [id number] System ALEX Number: Effective S ALEX Repository MARTA [place] Date:2017-12-19 - ChenHANNA [place] [id number]: [id number] [id number]: Name:CD:[id number] BOX (HP) [address] [place] [address] ()Tel: 000) [phone]: (WP) [phone] 12/13/2017 LUIS W Primary [facility]IS [facility] BLOCKDOB: [facility] [id number] Repository ALEX Number: [place], [place] [id number] [place], [place] [address]Pxv: ([phone]) Date:2017-12-13 [id number]: (HP) [id number] Name:XPO Box (HP)Tel: (000) [address] [place] [address] [phone] (WP) [id number]: 11/18/2017 LUIS W Primary [facility]: [facility] BLOCK[facility]OB: [facility] [id number] Repository ALEX Number: Graciela JOHNSON [place], [place] [id number] [place], [place] [address]Edr: ([phone]) Date:2017-11-18 [id number]: (HP) [id number] Name:XPO Box (HP)Tel: (000) [address] [place] [address] [phone] (WP) [phone]: 10/28/2017 LUIS W Primary LUIS Siddiqui [facility] Insurance:[facility] BLOCKDOB: [facility] [id number] [id number] [place], [place] Number: Repository [id number]: [phone] [id number] [phone] (HP) Date:[id number] [id number], [place] [address]MY: 10/28/2017 Secondary NOT GIVENUNK [place] Insurance:SELF PAY [facility] Number: Effective Repository Date:2017-10-28 10/07/2017 LUIS Siddiqui Primary Insurance:[facility] LUIS [place] [address]: [facility] ALEX Number: Effective [id number] Worth, [place] Date:[id number] BOX Repository [address]Lrb: [phone], [place] [phone] (SD) [phone]: 10/07/2017 Secondary NOT GIVENMAVERICK [place] Insurance:SELF PAY [facility] Number: Effective Repository Date:2017-10-07
== END 2018-08-30 21:11 | disposition home or self-care (01) ==
LOC: ED 19:34
PROVIDERS: Emergency Provider Emergency Medicine; Family Provider Internal Medicine; PCP Internal Medicine
DX: R10.9 Unspecified abdominal pain (principal); R11.10 Vomiting, unspecified; E10.9 Type 1 diabetes mellitus without complications; E78.00 Pure hypercholesterolemia, unspecified
CPT/HCPCS: 74176; 80048; 80076; 81001; 83690; 85025; 99285; J7030; J2405

== ENCOUNTER 2018-09-19 14:56 | Emergency (ER) | payer MEDICAID, SELFPAY ==
[2018-09-19 14:57] VITALS: BP 177/97; PULSE 72; RESP 16; TEMP 36.4; O2SAT 99; BMI 32.5
[2018-09-19 15:38] LABS: Bacteria 0 SEEN /hpf (None Seen); Mucous, Urine 0 SEEN /hpf (<or=2+); Red Blood Cells-Urine 0 SEEN /hpf (0-5); Squamous Epithelial Cells - UA 0 SEEN /hpf (0-5); White Blood Cells 0 SEEN /hpf (0-5)
[2018-09-19 15:40] LABS: Color, Urine Yellow (Yellow); Glucose, Dipstick 250 mg/dl (Normal); Ketone-Dipstick Negative (Negative); Leukocyte Esterase-Dipstick Negative /ul (Negative); Nitrite-Dipstick Positive (Negative); Occult Blood-Urine 25 /ul (Negative); Protein-Dipstick 500 mg/dl (Negative); Urine Bilirubin Dipstick Negative (Negative); Urine Clarity Clear (Clear); Urine Urobilinogen Normal (Normal)
[2018-09-19 16:04] LABS: Absolute Lymphocyte Count 1.98 X10^3/ul (0.83-4.51); Absolute Neutrophil Count 3.3 X10^3/uL (2.0-7.7); Basophil# 0.04 X10^3/uL; Basophil% 0.7 % (0-1); Eosinophil# 0.16 X10^3/uL; Eosinophils% 2.8 % (0-5); Hematocrit 37.6 % (40-54); Hemoglobin 12.7 g/dl (13.0-16.5); Lymphocyte # 1.98 X10^3/ul (4.0); Lymphocyte % 34.2 % (19-41); Mean Corp Hgb Conc 33.8 g/gl (32-36); Mean Corpuscular Hgb 30.6 pg (27.0-32.0); Mean Corpuscular Volume 90.6 fL (80-94); Mean Platelet Vol. 9.5 fl (6.2-12.0); Monocyte# 0.34 X10^3/uL; Monocyte% 5.9 % (0-10); Neutrophil # 3.27 X10^3/uL (2.7-7.7); Neutrophil % 56.4 % (47-70); Platelet Count 262 K/mm3 (150-450); RBC Distribution Width CV 12.8 % (11.6-14.6); RBC Distribution Width SD 42.6 fl (35.1-43.9); Red Blood Count 4.15 M/mm3 (4.6-6.2); White Blood Count 5.8 K/mm3 (4.4-11.0)
[2018-09-19 16:05] LABS: POSITIVE COUNT NO; POSITIVE DIFFERENTIAL NO; POSITIVE MORPHOLOGY NO
[2018-09-19 16:15] LABS: Anion Gap 6 (5-15); BUN 30 mg/dL (7-18); BUN/Creat Ratio 19.5 RATIO (10-20); Chloride 106 mmol/L (98-107); Creatinine, Serum 1.54 mg/dL (0.70-1.30); EST Glomerular Filtration Rate 51 mL/min (>60); Est Glom Filt Rate - Afr Amer 62 mL/min (>60); Estimated Creatinine Clearance 63.69 ml/min; Glucose 111 mg/dL (74-106); Potassium 4.1 mmol/L (3.5-5.1); Sodium Level 138 mmol/L (136-145)
[2018-09-19 17:08] VITALS: BP 154/78; PULSE 70; RESP 16; TEMP 37; O2SAT 98; O2SAT 99
[2018-09-19 17:41] LABS: AST(SGOT) 30 U/L (15-37); Alanine Aminotransfer ALT/SGPT 47 U/L (16-61); Albumin, Serum 3.7 g/dL (3.2-5.0); Alkaline Phosphatase 56 U/L (45-117); Globulin 3.4 g/dL (2.2-4.2); Protein, Total 7.1 g/dL (6.4-8.2)
[2018-09-19 17:50] LABS: Lipase 215 U/L (73-393)
[2018-09-19] MEDS: 0.9% Normal Saline 1,000 ML 999 ML IV ×2 (17:52→18:34)
[2018-09-19] MEDS: Ondansetron 4 MG/2 ML Vial IV (17:53)
[2018-09-19] MEDS: morphine 8 MG/ML Syringe IV (17:53)
[2018-09-19 18:06] VITALS: BP 146/88; PULSE 88; RESP 16; TEMP 36.9; O2SAT 98
--- NOTE | 2018-09-19 19:04 | ED.VISSUMM ---
- ER Visit Summary Date of Service: 09/19/18 Chief Complaint: Abdominal pain History of Present Illness: The patient is a 47 M with abdominal pain since yesterday evening. The pain is in his left upper quadrant and radiates to his back. He had similar symptoms in the past with pancreatitis. He has had associated nausea and vomiting. He had similar symptoms 3 weeks ago. He was evaluated and sent home. His symptoms resolved. No other new or different symptoms. Physical Examination: Afebrile and vital signs are unremarkable. Nontoxic and in no acute distress. Heart regular. Lungs clear. Abdomen tender in the left upper quadrant and epigastric region. No guarding or rebound. Skin appears normal. Alert and oriented. Test Results: Hemoglobin 12.7, BUN 30, Cr 1.54, stable. Hepatic panel and lipase normal. Urinalysis unremarkable. Emergency Department Course and Treatment: Patient has upper abdominal pain and a history of pancreatitis. His workup was unremarkable. He may have chronic pancreatitis that does not show up on his lipase. We discussed this. He had a recent CT. He did not want a repeat CT. I do not feel that one is indicated. He is not having chest pain or shortness of breath. Nothing to suggest vascular pathology. His vitals are stable. His workup was unremarkable. He would like to go home. He did have 2 rounds of pain medicine here as well as fluids and Zofran. He would like to go home. He will follow-up with his doctor. Return for any new or worsening issues. Treatment Plan: As above Disposition: Discharge Impression: 1. Abdominal pain This note was generated with [employer] dictation software. It may contain incorrect words, spelling, and punctuation that were not noted in review of the chart prior to signing ED Disposition - Plan for ED Patient: Chief Complaint: Abd Pain Referrals: John Jacome MD [Primary Care Provider] -
--- NOTE | 2018-09-19 19:06 | ED.DEP ---
ED Disposition - Plan for ED Patient: Chief Complaint: Abd Pain Instructions: ED Abdominal Pain Unkn Cause Prescriptions: Oxycodone HCl/Acetaminophen [Percocet 5/325] 1 tab PO Q6H PRN PRN 3 Days #12 tab PRN Reason: Pain Referrals: John Jacome MD [Primary Care Provider] -
[2018-09-19 20:00] VITALS: PULSE 89; RESP 16; O2SAT 98
[2018-09-19] MEDS: oxyCODONE 5 MG Tablet PO (20:00)
[2018-09-19] MEDS: HYDROmorphone 0.5 MG/0.5 ML SYRINGE IV (20:03)
== END 2018-09-19 20:04 | disposition home or self-care (01) ==
LOC: ED 17:39
PROVIDERS: Emergency Provider Emergency Medicine; Family Provider Internal Medicine; PCP Internal Medicine
DX: R10.9 Unspecified abdominal pain (principal); R11.2 Nausea with vomiting, unspecified; E11.9 Type 2 diabetes mellitus without complications; E78.00 Pure hypercholesterolemia, unspecified; Z72.0 Tobacco use; Z87.19 Personal history of other diseases of the digestive system
CPT/HCPCS: 80048; 80076; 81001; 83690; 85025; 96361; 96374; 96375; 99284; J7030; A4216; J2405

== ENCOUNTER 2018-10-25 17:38 | Emergency (ER) | payer MEDICAID, SELFPAY ==
[2018-10-25 17:39] VITALS: BP 142/90; PULSE 76; RESP 20; TEMP 37; O2SAT 100; BMI 32.9
[2018-10-25 18:11] LABS: Absolute Lymphocyte Count 1.58 X10^3/ul (0.83-4.51); Absolute Neutrophil Count 3.6 X10^3/uL (2.0-7.7); Basophil# 0.03 X10^3/uL; Basophil% 0.5 % (0-1); Eosinophil# 0.15 X10^3/uL; Eosinophils% 2.7 % (0-5); Hematocrit 35.3 % (40-54); Hemoglobin 11.8 g/dl (13.0-16.5); Lymphocyte # 1.58 X10^3/ul (4.0); Mean Corp Hgb Conc 33.4 g/gl (32-36); Mean Corpuscular Hgb 30.3 pg (27.0-32.0); Mean Corpuscular Volume 90.5 fL (80-94); Mean Platelet Vol. 9.6 fl (6.2-12.0); Monocyte# 0.31 X10^3/uL; Monocyte% 5.5 % (0-10); Neutrophil # 3.57 X10^3/uL (2.7-7.7); Neutrophil % 63.1 % (47-70); Platelet Count 240 K/mm3 (150-450); RBC Distribution Width CV 13.1 % (11.6-14.6); RBC Distribution Width SD 43.1 fl (35.1-43.9); White Blood Count 5.7 K/mm3 (4.4-11.0)
[2018-10-25 18:13] LABS: POSITIVE COUNT NO; POSITIVE DIFFERENTIAL NO; POSITIVE MORPHOLOGY NO
[2018-10-25 18:31] LABS: AST(SGOT) 58 U/L (15-37); Alanine Aminotransfer ALT/SGPT 72 U/L (16-61); Albumin, Serum 3.8 g/dL (3.2-5.0); Alkaline Phosphatase 51 U/L (45-117); Anion Gap 10 (5-15); BUN 24 mg/dL (7-18); BUN/Creat Ratio 12.8 RATIO (10-20); Bilirubin, Direct 0.11 mg/dL (0.00-0.30); Calcium,Total 8.4 mg/dL (8.5-10.1); Chloride 103 mmol/L (98-107); Creatinine, Serum 1.87 mg/dL (0.70-1.30); EST Glomerular Filtration Rate 41 mL/min (>60); Est Glom Filt Rate - Afr Amer 49 mL/min (>60); Estimated Creatinine Clearance 50.89 ml/min; Globulin 3.2 g/dL (2.2-4.2); Glucose 212 mg/dL (74-106); Lipase 215 U/L (73-393); Potassium 4.4 mmol/L (3.5-5.1); Sodium Level 138 mmol/L (136-145)
[2018-10-25 19:34] LABS: Bacteria 0 SEEN /hpf (None Seen); Mucous, Urine 0 SEEN /hpf (<or=2+); White Blood Cells 0 SEEN /hpf (0-5)
[2018-10-25 19:35] VITALS: BP 169/77; PULSE 74; RESP 18; O2SAT 100
[2018-10-25 19:36] LABS: Color, Urine Yellow (Yellow); Glucose, Dipstick 50 mg/dl (Normal); Ketone-Dipstick Negative (Negative); Leukocyte Esterase-Dipstick Negative /ul (Negative); Nitrite-Dipstick Negative (Negative); Occult Blood-Urine 25 /ul (Negative); Protein-Dipstick 500 mg/dl (Negative); Specific Gravity, Urine 1.015 (1.002-1.030); Urine Bilirubin Dipstick Negative (Negative); Urine Clarity Sl. Cloudy (Clear); Urine Urobilinogen Normal (Normal)
[2018-10-25 19:43] LABS: Amorphous Sediment 1+ URATE; Red Blood Cells-Urine 0-5 SEEN /hpf (0-5); Squamous Epithelial Cells - UA 0-5 SEEN /hpf (0-5)
[2018-10-25 19:44] LABS: Hyaline Cast 0-5 SEEN /lpf (0-5)
--- NOTE | 2018-10-25 19:57 | ED.VISSUMM ---
- ER Visit Summary Date of Service: 10/25/18 Chief Complaint: Abdominal pain History of Present Illness: The patient is a [address] Jacome. 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 Reports he has a history of recurrent pancreatitis. States that 1:00 this afternoon he had the onset of a sharp epigastric pain that radiates into his back. States this is similar to when he had pancreatitis in the past. Zeta 10 at worst and 7-10 currently. Is worsened by drinking. He has not eaten since this started. Is relieved by remaining still. Is been nausea and vomited 3 times. No blood in his emesis. No diarrhea. His last bowel was today. No melena or hematochezia. No dysuria frequency. Patient denies any history of spicy or fatty food intolerance. Physical Examination: Vitals: Stable. Afebrile. General: Well-nourished and well-developed. Head: Normocephalic atraumatic. Neck: Supple, no lymphadenopathy. No JVD. Nontender. Cardiovascular: Regular rate and rhythm. No murmurs. Respiratory: No respiratory distress. Clear to auscultation bilaterally. Abdominal: Soft, moderate tenderness palpation the epigastric region left upper quadrant, no tenderness in the right upper quadrant, no Gomez sign, nondistended, normal bowel sounds. No guarding, rebound, or peritoneal signs. Back: Nontender. Extremities: Nontender, no edema. Skin: Normal color, no rash. Neurologic: Alert and oriented ?3. Cranial nerves II through XII are intact. Normal strength and sensation. Psych: Normal affect. Test Results: H&H is 11.8 35.3. Calcium is 8.4, glucose is 212, BUN 24, creatinine 1.87. ALT is 72. AST is 58. Lipase is 215. Emergency Department Course and Treatment: An OARRS report was obtained which shows that 8 prescriptions for opiates in the past year. History of the dose of morphine and Zofran IV here. Treatment Plan: Patient will be discharged prescription for 10 Mason and Zofran. Instructed to follow-up his primary care physician 1-2 days not improving. Return to the emergency department for any worsening symptoms. Disposition: To home in improved and stable condition. Impression: 1. Abdominal pain, recurrent, uncertain cause. This note was generated with Dragon dictation software. It may contain incorrect words, spelling, and punctuation that were not noted in review of the chart prior to signing ED Disposition - Plan for ED Patient: Disposition: Acute Care Hospital [facility] Instructions: ED Abdominal Pain Unkn Cause Prescriptions: Hydrocodone Bitart/Apap 5-325 [Mason 5MG-325MG] 1 tablet PO Q4H PRN PRN 2 Days #10 tablet PRN Reason: Pain Ondansetron [Zofran Odt] 4 mg PO Q8H PRN PRN #10 tablet PRN Reason: Nausea Referrals: John Jacome MD [Primary Care Provider] - 1-2 Days if not improving
[2018-10-25] MEDS: Morphine 4 MG/ML Syringe IV (20:13)
[2018-10-25] MEDS: Ondansetron 4 MG/2 ML Vial IV (20:13)
== END 2018-10-25 20:38 | disposition short-term general hospital (02) ==
LOC: ED 20:37
PROVIDERS: Emergency Provider Emergency Medicine; Family Provider Internal Medicine; PCP Internal Medicine
DX: R10.9 Unspecified abdominal pain (principal); R11.2 Nausea with vomiting, unspecified; E10.9 Type 1 diabetes mellitus without complications; I10 Essential (primary) hypertension; E78.00 Pure hypercholesterolemia, unspecified; F17.210 Nicotine dependence, cigarettes, uncomplicated
CPT/HCPCS: 80048; 80076; 81001; 83690; 85025; 96374; 96375; 99284; J7030; A4216; J2405

== ENCOUNTER 2018-11-09 18:39 | Emergency (ER) | payer MEDICAID, SELFPAY ==
[2018-11-09 18:40] VITALS: BP 156/90; PULSE 79; RESP 18; TEMP 37.1; O2SAT 98; BMI 32.5
--- NOTE | 2018-11-09 18:59 | CT_ITS ---
STUDY: CT ABDOMEN AND PELVIS WITHOUT CONTRAST REASON FOR EXAM: Male, 47 years old. Left flank pain. RADIATION DOSAGE (If Supplied By Facility): CTDIvol = ( 12.90 ) mGy, DLP = ( 689.65 ) mGycm TECHNIQUE: Transaxial images were obtained from the dome of the diaphragm to the symphysis pubis without oral contrast, and without intravenous contrast. Sagittal and coronal images were reconstructed. Individualized dose optimization techniques were used for this CT. COMPARISON: 08/30/2018 FINDINGS: Evaluation of the abdominal viscera is limited in the absence of intravenous contrast. There are stable calcified granulomata noted in the lung bases. Again noted are coronary artery calcifications. There are no calcified gallstones present. The liver demonstrates an unremarkable unenhanced appearance. The spleen is normal in size. The pancreas demonstrates an unremarkable unenhanced appearance. The adrenal glands are within normal limits. There are no renal or ureteral stones. There is no hydronephrosis. Normal visualized stomach. There is no bowel obstruction or inflammation. The patient is status post appendectomy. The aorta is normal in caliber. There is no abdominal or pelvic free air, free fluid, fluid collection or lymphadenopathy. There are no destructive osseous lesions. CT/Abdomen/Pelvis without Cont IMPRESSION: No acute abdominal or pelvic pathology demonstrated on this noncontrast CT. Electronically Signed: Lawrence Patton, at 19:50 EST Tel , Service support ,
[2018-11-09] MEDS: 0.9% Normal Saline 1,000 ML 125 ML IV (19:06)
[2018-11-09] MEDS: Ondansetron 4 MG/2 ML Vial IV (19:15)
[2018-11-09] MEDS: Ketorolac 30 MG/ML Syringe IV (19:17)
[2018-11-09] MEDS: HYDROmorphone 1 MG/ML Syringe IV ×2 (19:18→20:03)
[2018-11-09 19:21] LABS: Absolute Lymphocyte Count 1.72 X10^3/ul (0.83-4.51); Absolute Neutrophil Count 4.2 X10^3/uL (2.0-7.7); Basophil# 0.03 X10^3/uL; Basophil% 0.5 % (0-1); Eosinophils% 1.6 % (0-5); Hematocrit 36.3 % (40-54); Hemoglobin 12.3 g/dl (13.0-16.5); Lymphocyte # 1.72 X10^3/ul (4.0); Lymphocyte % 26.9 % (19-41); Mean Corp Hgb Conc 33.9 g/gl (32-36); Mean Corpuscular Hgb 30.4 pg (27.0-32.0); Mean Corpuscular Volume 89.6 fL (80-94); Mean Platelet Vol. 9.5 fl (6.2-12.0); Monocyte# 0.31 X10^3/uL; Monocyte% 4.9 % (0-10); Neutrophil # 4.22 X10^3/uL (2.7-7.7); Neutrophil % 65.9 % (47-70); Platelet Count 247 K/mm3 (150-450); RBC Distribution Width CV 13.2 % (11.6-14.6); RBC Distribution Width SD 43.2 fl (35.1-43.9); Red Blood Count 4.05 M/mm3 (4.6-6.2); White Blood Count 6.4 K/mm3 (4.4-11.0)
[2018-11-09 19:22] LABS: POSITIVE COUNT NO; POSITIVE DIFFERENTIAL NO; POSITIVE MORPHOLOGY NO
[2018-11-09 19:40] LABS: ALB/GLOB Ratio 1.1 RATIO (0.9-2.4); AST(SGOT) 42 U/L (15-37); Alanine Aminotransfer ALT/SGPT 61 U/L (16-61); Albumin, Serum 3.5 g/dL (3.2-5.0); Alkaline Phosphatase 51 U/L (45-117); Anion Gap 9 (5-15); BUN 21 mg/dL (7-18); BUN/Creat Ratio 9.9 RATIO (10-20); Calcium,Total 8.6 mg/dL (8.5-10.1); Chloride 102 mmol/L (98-107); Creatinine, Serum 2.13 mg/dL (0.70-1.30); EST Glomerular Filtration Rate 35 mL/min (>60); Est Glom Filt Rate - Afr Amer 43 mL/min (>60); Estimated Creatinine Clearance 44.68 ml/min; Globulin 3.3 g/dL (2.2-4.2); Glucose 227 mg/dL (74-106); Lipase 167 U/L (73-393); Potassium 4.4 mmol/L (3.5-5.1); Protein, Total 6.8 g/dL (6.4-8.2); Sodium Level 135 mmol/L (136-145)
[2018-11-09 19:51] LABS: Bacteria 0 SEEN /hpf (None Seen); Mucous, Urine 0 SEEN /hpf (<or=2+); Red Blood Cells-Urine 0 SEEN /hpf (0-5); Squamous Epithelial Cells - UA 0 SEEN /hpf (0-5)
--- NOTE | 2018-11-09 20:24 | ED.VISSUMM ---
- ER Visit Summary Date of Service: 11/09/18 Chief Complaint: [Abdominal pain] History of Present Illness: The patient is a 47 M [presents the emergency department complaint of sudden onset of abdominal pains are about an hour ago. Patient states that he was drinking some bottled water and once he finished his water he immediately retched and vomited and developed pain in his left side. Patient states the pain at times will radiate to his back. Patient rates his pain currently as a 7 out of 10. He is not had pain like this before although he is had pancreatitis before and he states that it kind of reminded him of that. Patient also with history of diabetes, hypertension, and high cholesterol. He denies any urinary symptoms as far as pain or burning or frequency. Patient's not had any fevers. His not had any diarrhea. His not had blood in his stool or black tarry stool. No blood in his vomitus.] Physical Examination: [HEENT-PERRLA, EOMI. Cranial nerves II through XII grossly intact. TMs clear. Mucous membranes moist. No adenopathy. Cardiovascular-regular rate and rhythm without murmur or ectopy Lungs-clear to auscultation, chest wall stable without crepitus or subcu emphysema Abdomen-normoactive bowel sounds, soft. Patient has tenderness palpation over the left lower quadrant and left upper quadrant with some guarding. There is no rebound, rigidity, or perineal signs. Extremities-intact ?4, normal range of motion, normal pulses, atraumatic] Test Results: [CBC with differential obtained showing a 6.4, hemoglobin 12, hematocrit 36, platelets 247. Chemistries unremarkable. Glucose was 227. BUN 21 and creatinine 2.13. LFTs were normal. Lipase is 167. Urinalysis was unremarkable.] Emergency Department Course and Treatment: [Was medicated with Toradol, Zofran, and Dilaudid. He continued to complain of pain and was given a second dose of Dilaudid.] Treatment Plan: [Patient will be given a prescription for a few [place] for pain. Patient advised to follow-up with his primary care physician next 3-5 days. Patient to return to the ER if worsening pain, fever, vomiting, or condition should worsen anyway.] Disposition: [Discharged home in stable condition] Impression: [Abdominal pain-etiology uncertain] This note was generated with Dragon dictation software. It may contain incorrect words, spelling, and punctuation that were not noted in review of the chart prior to signing ED Disposition - Plan for ED Patient: Referrals: John Jacome MD [Primary Care Provider] -
[2018-11-09 20:28] LABS: Color, Urine Yellow (Yellow); Glucose, Dipstick 250 mg/dl (Normal); Ketone-Dipstick 15 mg/dl (Negative); Leukocyte Esterase-Dipstick Negative /ul (Negative); Nitrite-Dipstick Negative (Negative); Occult Blood-Urine 25 /ul (Negative); Protein-Dipstick 500 mg/dl (Negative); Urine Bilirubin Dipstick Negative (Negative); Urine Clarity Sl. Cloudy (Clear); Urine Urobilinogen Normal (Normal)
--- NOTE | 2018-11-09 20:32 | DCINST.ED_ITS ---
ED Disposition - Plan for ED Patient: Instructions: ED Abdominal Pain Unkn Cause Prescriptions: Hydrocodone Bitart/Apap 5-325 [[place] 5MG-325MG] 1 tab PO Q4H PRN PRN 2 Days #10 tab PRN Reason: Pain Referrals: John Jacome MD [Primary Care Provider] - 3-5 Days
[2018-11-09 20:34] LABS: Yeast-Urine 1+ /hpf (None Seen)
[2018-11-09 20:35] LABS: White Blood Cells 0-5 SEEN /hpf (0-5)
[2018-11-09] MEDS: HYDROcodone Bitartrate/Apap 5/325 Tablet PO (20:53)
[2018-11-09 20:54] VITALS: BP 170/90; PULSE 70; RESP 18; O2SAT 99
== END 2018-11-09 20:55 | disposition home or self-care (01) ==
LOC: ED 19:42
PROVIDERS: Emergency Provider Emergency Medicine; Family Provider Internal Medicine; PCP Internal Medicine
DX: R10.9 Unspecified abdominal pain (principal); R11.0 Nausea; E11.9 Type 2 diabetes mellitus without complications; I10 Essential (primary) hypertension; E78.00 Pure hypercholesterolemia, unspecified; Z72.0 Tobacco use
CPT/HCPCS: 74176; 80053; 81001; 83690; 85025; 96361; 96374; 96375; 96376; 99285; J7030; J2405

== ENCOUNTER 2019-01-03 20:11 | Emergency (ER) | payer MEDICAID, SELFPAY ==
[2019-01-03 20:12] VITALS: BP 169/92; PULSE 84; RESP 16; TEMP 36.8; O2SAT 96; BMI 33.4
--- NOTE | 2019-01-03 21:09 | ED.VISSUMM ---
- ER Visit Summary Date of Service: 01/03/19 Chief Complaint: Abdominal pain History of Present Illness: The patient is a 48 M presenting with abdominal pain. He states this started yesterday. He has had nausea and vomiting. He has been seen by [facility]. He states he is being referred to a pancreatic specialist. 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 He is awaiting an appointment with the pancreatic specialist in [place]. Denies fever. Denies other complaints. Physical Examination: Vitals are stable. Patient is afebrile. Alert no acute distress. HEENT exam is unremarkable. Neck is supple. Lungs are clear and equal bilaterally. Heart is regular rate and rhythm. Abdomen is soft epigastric tenderness with no rebound or guarding Extremities are unremarkable. Skin is warm and dry. No focal neurologic deficit. Remainder of exam is unremarkable. Emergency Department Course and Treatment: Patient given Dilaudid, Zofran IV. CBC normal except hemoglobin 11.6. Chemistries normal except for glucose 135, BUN 26, creatinine 2.0. AST 67, ALT 76, lipase is 202. On reevaluation, patient is resting comfortably. He is advised to follow-up with his GI physician at [facility]. Advised return to ED if worsening complaints. Disposition: Discharge home Impression: Epigastric abdominal pain This note was generated with PolyMedix dictation software. It may contain incorrect words, spelling, and punctuation that were not noted in review of the chart prior to signing ED Disposition - Plan for ED Patient: Instructions: ED Abdominal Pain Unkn Cause Referrals: John Jacome MD [Primary Care Provider] -
[2019-01-03] MEDS: Ondansetron 4 MG/2 ML Vial IV (21:17)
[2019-01-03] MEDS: HYDROmorphone 1 MG/ML Syringe IV ×2 (21:17→22:29)
[2019-01-03] MEDS: 0.9% Normal Saline 1,000 ML 1000 ML IV (21:17)
[2019-01-03 21:25] LABS: Absolute Neutrophil Count 4.9 X10^3/uL (2.0-7.7); Basophil# 0.03 X10^3/uL; Basophil% 0.4 % (0-1); Eosinophil# 0.17 X10^3/uL; Eosinophils% 2.4 % (0-5); Hematocrit 33.7 % (40-54); Hemoglobin 11.6 g/dl (13.0-16.5); Lymphocyte % 24.9 % (19-41); Mean Corp Hgb Conc 34.4 g/gl (32-36); Mean Corpuscular Hgb 30.7 pg (27.0-32.0); Mean Corpuscular Volume 89.2 fL (80-94); Mean Platelet Vol. 10.1 fl (6.2-12.0); Monocyte# 0.29 X10^3/uL; Neutrophil # 4.93 X10^3/uL (2.7-7.7); Neutrophil % 68.2 % (47-70); Platelet Count 259 K/mm3 (150-450); RBC Distribution Width CV 13.4 % (11.6-14.6); RBC Distribution Width SD 43.7 fl (35.1-43.9); Red Blood Count 3.78 M/mm3 (4.6-6.2); White Blood Count 7.2 K/mm3 (4.4-11.0)
[2019-01-03 21:26] LABS: POSITIVE COUNT NO; POSITIVE DIFFERENTIAL NO; POSITIVE MORPHOLOGY NO
[2019-01-03 21:41] LABS: AST(SGOT) 67 U/L (15-37); Alanine Aminotransfer ALT/SGPT 76 U/L (16-61); Albumin, Serum 3.5 g/dL (3.2-5.0); Alkaline Phosphatase 48 U/L (45-117); Anion Gap 4 (5-15); BUN 26 mg/dL (7-18); Bilirubin, Direct < 0.05 mg/dL (0.00-0.30); Calcium,Total 7.8 mg/dL (8.5-10.1); Chloride 108 mmol/L (98-107); EST Glomerular Filtration Rate 38 mL/min (>60); Est Glom Filt Rate - Afr Amer 46 mL/min (>60); Estimated Creatinine Clearance 47.06 ml/min; Globulin 3.3 g/dL (2.2-4.2); Glucose 135 mg/dL (74-106); Lipase 202 U/L (73-393); Potassium 4.3 mmol/L (3.5-5.1); Protein, Total 6.8 g/dL (6.4-8.2); Sodium Level 138 mmol/L (136-145)
--- NOTE | 2019-01-03 22:22 | ED.DEP ---
ED Disposition - Plan for ED Patient: Instructions: ED Abdominal Pain Unkn Cause Referrals: John Jacome MD [Primary Care Provider] -
[2019-01-03 22:39] VITALS: BP 178/87; PULSE 72; RESP 18; O2SAT 99
== END 2019-01-03 22:43 | disposition home or self-care (01) ==
LOC: ED 21:14
PROVIDERS: Emergency Provider Emergency Medicine; Family Provider Internal Medicine; PCP Internal Medicine
DX: R10.13 Epigastric pain (principal); R11.2 Nausea with vomiting, unspecified; E11.9 Type 2 diabetes mellitus without complications; E78.00 Pure hypercholesterolemia, unspecified; Z72.0 Tobacco use
CPT/HCPCS: 80048; 80076; 83690; 85025; 99284; J7030; A4216; J2405

== ENCOUNTER 2019-01-05 12:50 | Emergency (ER) | payer MEDICAID, SELFPAY ==
[2019-01-05 12:51] VITALS: BP 200/103; PULSE 73; RESP 16; TEMP 36.4; O2SAT 100; BMI 32.1
[2019-01-05] MEDS: Ondansetron 4 MG/2 ML Vial IV (13:25)
[2019-01-05] MEDS: Mag Hydrox/Al Hydrox/Simeth 30 ML UDC PO (13:25)
[2019-01-05] MEDS: 0.9% Normal Saline 1,000 ML 1000 ML IV (13:25)
[2019-01-05 13:29] LABS: Absolute Lymphocyte Count 1.01 X10^3/ul (0.83-4.51); Absolute Neutrophil Count 2.3 X10^3/uL (2.0-7.7); Basophil# 0.03 X10^3/uL; Basophil% 0.8 % (0-1); Eosinophil# 0.14 X10^3/uL; Eosinophils% 3.6 % (0-5); Hematocrit 35.3 % (40-54); Hemoglobin 12.2 g/dl (13.0-16.5); Lymphocyte # 1.01 X10^3/ul (4.0); Lymphocyte % 26.2 % (19-41); Mean Corp Hgb Conc 34.6 g/gl (32-36); Mean Corpuscular Volume 89.8 fL (80-94); Mean Platelet Vol. 9.6 fl (6.2-12.0); Monocyte# 0.35 X10^3/uL; Monocyte% 9.1 % (0-10); Neutrophil # 2.32 X10^3/uL (2.7-7.7); Platelet Count 211 K/mm3 (150-450); RBC Distribution Width CV 13.3 % (11.6-14.6); Red Blood Count 3.93 M/mm3 (4.6-6.2); White Blood Count 3.9 K/mm3 (4.4-11.0)
[2019-01-05 13:30] LABS: POSITIVE COUNT NO; POSITIVE DIFFERENTIAL NO; POSITIVE MORPHOLOGY NO
--- NOTE | 2019-01-05 13:32 | ED.RN ---
WHEN ATTEMPTING TO MEDICATE PT FOR HIS ABD PAIN PT INFORMED THAT TORADOL, ZOFRAN AND A GI COCKTAIL WAS ORDERED. PT STATED WHAT THE FUCK DO YOU MEAN ALL HE ORDERED ME IS TORADOL, DOESN'T HE FUCKING KNOW THAT I'M IN PAIN. IT MUST JUST BE THAT YOU GUYS DON'T CARE. I ASKED THE PT WHAT MEDICATIONS TEND TO BE EFFECTIVE FOR HIS PAIN CONTROL, PT STATED I DON'T FUCKING KNOW. I OFFERED TO THE PATIENT THE ZOFRAN FOR THE NAUSEA AND A GI COCKTAIL IN ATTEMPT TO HELP EASE HIS PAIN WHICH HE AGREED TO TAKING, AND I INFORMED HIM THAT I WOULD TALK TO DR. POLANCO THAT HE WANTED SOMETHING STRONGER FOR HIS PAIN CONTROL. I THEN ASKED AGAIN IF THERE WAS ANY MEDICATION THAT WAS GIVEN YESTERDAY OR ON THURSDAY THAT WAS EFFECTIVE FOR HIS PAIN CONTROL. HE STATED I WAS GIVEN MORPHINE ON THURSDAY AND THAT HELPED, I DON'T SEE WHY I CAN'T GET THAT AGAIN TODAY. I DISCUSSED WITH DR POLANCO THAT PT WANTED DIFFERENT PAIN MEDICATION AND THAT MORPHINE WAS EFFECTIVE FOR THE PT. DR. POLANCO REPORTED TO ME THAT HE WOULD NOT GIVE NARCOTICS FOR NON VERIFIABLE PAIN. I THEN INFORMED THE PT OF DR POLANCO'S POSITION ON MEDICATION. PT THEN STATED THAT HE WANTED HIS IV REMOVED AND STATED IF HE ISN'T GOING TO DO ANYTHING FOR ME THEN I'M NOT GOING TO FUCKING STAY. I INFORMED THE PT THAT HE COULD HAVE AN OPPORTUNITY TO TALK TO THE CHARGE NURSE AND FILE A COMPLAINT, PT STATED THAT AIN'T GOING TO HELP A DAMN THING I TOLD THE PT THAT I HOPED HE WOULD FEEL BETTER SOON AND THAT I WAS SORRY THAT WE WERE NOT ABLE TO DO MORE FOR HIM TODAY. PT'S IV D/C CANNULA INTACT. SALINE WAS STOPPED, PT OFF UNIT VIA AMBULATION STEADY GAIT.
[2019-01-05 13:42] LABS: AST(SGOT) 39 U/L (15-37); Alanine Aminotransfer ALT/SGPT 58 U/L (16-61); Albumin, Serum 3.1 g/dL (3.2-5.0); Alkaline Phosphatase 46 U/L (45-117); Anion Gap 6 (5-15); BUN 21 mg/dL (7-18); Calcium,Total 7.9 mg/dL (8.5-10.1); Chloride 108 mmol/L (98-107); Creatinine, Serum 1.91 mg/dL (0.70-1.30); EST Glomerular Filtration Rate 40 mL/min (>60); Est Glom Filt Rate - Afr Amer 48 mL/min (>60); Estimated Creatinine Clearance 49.28 ml/min; Globulin 3.2 g/dL (2.2-4.2); Glucose 213 mg/dL (74-106); Lipase 116 U/L (73-393); Potassium 4.6 mmol/L (3.5-5.1); Protein, Total 6.3 g/dL (6.4-8.2); Sodium Level 140 mmol/L (136-145)
--- NOTE | 2019-01-05 13:46 | ED.RN ---
UNABLE TO COMPLETE DOCUMENTATION DUE TO PT WALKING OFF THE DEPARTMENT.
--- NOTE | 2019-01-05 17:27 | ED.VISSUMM ---
- ER Visit Summary Date of Service: 01/05/19 Chief Complaint: Abdominal pain History of Present Illness: The patient is a 48 M presenting secondary to abdominal pain. Patient has a chronic history of having abdominal pain. Patient was seen at this facility recently as well as in [place], was told that he had a possible ulcer but left AMA. Patient states that he is having continued epigastric pain radiating through to his back. Review of systems otherwise negative. Physical Examination: Vital signs are within normal limits, patient is afebrile. General: Patient is well-nourished well-developed and in no acute distress. Head: Normocephalic, atraumatic Eyes: Pupils equal round and reactive bilaterally, extra occular motion intact bialterally ENT: Moist mucous membranes Neck: Supple, no lymphadenopathy, no JVD, no meningismus CVS: Heart regular rate and rhythm, no murmurs, rubs or gallops, radial pulses 2+ bilaterally Resp: Respirations nondistressed, lung sounds clear bilaterally Abdomen: Soft, epigastric tenderness, nondistended, no palpable masses, normal bowel sounds Back: Nontender Extremities: Nontender, atraumatic, active full range of motion, no peripheral edema Skin: warm, no rashes, no petechia Neuro: Alert and oriented x 4, CN 2-12 intact, no lateralizing neurological defecits Psyc: Normal affect Test Results: Laboratory studies were ordered but are pending Emergency Department Course and Treatment: Patient presented with abdominal pain. Patient has a history of having multiple emergency department visits for the same. IV was going to be established laboratory studies obtained and patient was going to be given Toradol and a GI cocktail. When the patient realized that he was not going to be getting narcotics, he became angry and eloped from the emergency department Disposition: Elopement Impression: 1. Chronic abdominal pain 2. Opiate seeking behavior This note was generated with Hadapt dictation software. It may contain incorrect words, spelling, and punctuation that were not noted in review of the chart prior to signing ED Disposition - Plan for ED Patient: Disposition: Against Medical Advice Referrals: John Jacome MD [Primary Care Provider] -
--- NOTE | 2019-01-05 17:30 | ED.DCSUM_ITS ---
- ER Visit Summary Date of Service: 01/05/19 Chief Complaint: Abdominal pain History of Present Illness: The patient is a 48 M presenting secondary to abdominal pain. Patient has a chronic history of having abdominal pain. Patient was seen at this facility recently as well as in [place], was told that he had a possible ulcer but left AMA. Patient states that he is having continued epigastric pain radiating through to his back. Review of systems otherwise negative. Physical Examination: Vital signs are within normal limits, patient is afebrile. General: Patient is well-nourished well-developed and in no acute distress. Head: Normocephalic, atraumatic Eyes: Pupils equal round and reactive bilaterally, extra occular motion intact bialterally ENT: Moist mucous membranes Neck: Supple, no lymphadenopathy, no JVD, no meningismus CVS: Heart regular rate and rhythm, no murmurs, rubs or gallops, radial pulses 2+ bilaterally Resp: Respirations nondistressed, lung sounds clear bilaterally Abdomen: Soft, epigastric tenderness, nondistended, no palpable masses, normal bowel sounds Back: Nontender Extremities: Nontender, atraumatic, active full range of motion, no peripheral edema Skin: warm, no rashes, no petechia Neuro: Alert and oriented x 4, CN 2-12 intact, no lateralizing neurological defecits Psyc: Normal affect Test Results: Laboratory studies were ordered but are pending Emergency Department Course and Treatment: Patient presented with abdominal pain. Patient has a history of having multiple emergency department visits for the same. IV was going to be established laboratory studies obtained and p atient was going to be given Toradol and a GI cocktail. When the patient realized that he was not going to be getting narcotics, he became angry and eloped from the emergency department Disposition: Elopement Impression: 1. Chronic abdominal pain 2. Opiate seeking behavior This note was generated with [employer] dictation software. It may contain incorrect words, spelling, and punctuation that were not noted in review of the chart prior to signing ED Disposition - Plan for ED Patient: Disposition: Against Medical Advice Referrals: John Jacome MD [Primary Care Provider] -
== END 2019-01-05 13:40 | disposition left against medical advice (07) ==
LOC: ED 13:11
PROVIDERS: Emergency Provider Emergency Medicine; Family Provider Internal Medicine; PCP Internal Medicine
DX: G89.29 Other chronic pain (principal); R10.9 Unspecified abdominal pain; Z76.5 Malingerer [conscious simulation]; R11.2 Nausea with vomiting, unspecified
CPT/HCPCS: 80053; 83690; 85025; 99283; J7030; A4216; J2405

== ENCOUNTER 2019-01-11 17:33 | Emergency (ER) | payer MEDICAID, SELFPAY ==
[2019-01-11 17:34] VITALS: BP 161/74; PULSE 83; RESP 18; TEMP 36.9; O2SAT 97; BMI 32.7
[2019-01-11] MEDS: Ondansetron 4 MG/2 ML Vial IV (18:45)
[2019-01-11] MEDS: 0.9% Normal Saline 1,000 ML 1000 ML IV (18:45)
[2019-01-11] MEDS: Morphine 4 MG/ML Syringe IV (18:45)
[2019-01-11 19:07] LABS: Absolute Lymphocyte Count 1.06 X10^3/ul (0.83-4.51); Absolute Neutrophil Count 4.7 X10^3/uL (2.0-7.7); Basophil# 0.02 X10^3/uL; Basophil% 0.3 % (0-1); Eosinophil# 0.07 X10^3/uL; Eosinophils% 1.1 % (0-5); Hematocrit 30.6 % (40-54); Hemoglobin 10.6 g/dl (13.0-16.5); Lymphocyte # 1.06 X10^3/ul (4.0); Lymphocyte % 17.2 % (19-41); Mean Corp Hgb Conc 34.6 g/gl (32-36); Mean Corpuscular Hgb 30.8 pg (27.0-32.0); Mean Platelet Vol. 9.5 fl (6.2-12.0); Monocyte# 0.35 X10^3/uL; Monocyte% 5.7 % (0-10); Neutrophil # 4.66 X10^3/uL (2.7-7.7); Neutrophil % 75.5 % (47-70); POSITIVE COUNT NO; POSITIVE DIFFERENTIAL NO; POSITIVE MORPHOLOGY NO; Platelet Count 210 K/mm3 (150-450); RBC Distribution Width CV 13.3 % (11.6-14.6); RBC Distribution Width SD 43.5 fl (35.1-43.9); Red Blood Count 3.44 M/mm3 (4.6-6.2); White Blood Count 6.2 K/mm3 (4.4-11.0)
[2019-01-11 19:18] LABS: AST(SGOT) 125 U/L (15-37); Alanine Aminotransfer ALT/SGPT 78 U/L (16-61); Albumin, Serum 3.1 g/dL (3.2-5.0); Alkaline Phosphatase 46 U/L (45-117); Anion Gap 5 (5-15); BUN 20 mg/dL (7-18); BUN/Creat Ratio 9.3 RATIO (10-20); Calcium,Total 8.2 mg/dL (8.5-10.1); Chloride 106 mmol/L (98-107); Creatinine, Serum 2.14 mg/dL (0.70-1.30); EST Glomerular Filtration Rate 35 mL/min (>60); Est Glom Filt Rate - Afr Amer 42 mL/min (>60); Estimated Creatinine Clearance 43.98 ml/min; Globulin 3.2 g/dL (2.2-4.2); Glucose 245 mg/dL (74-106); Lipase 105 U/L (73-393); Protein, Total 6.3 g/dL (6.4-8.2); Sodium Level 137 mmol/L (136-145)
[2019-01-11 20:02] LABS: Bacteria 0 SEEN /hpf (None Seen); Mucous, Urine 0 SEEN /hpf (<or=2+); Red Blood Cells-Urine 0 SEEN /hpf (0-5); Squamous Epithelial Cells - UA 0 SEEN /hpf (0-5)
[2019-01-11 20:03] LABS: Color, Urine Yellow (Yellow); Glucose, Dipstick 100 mg/dl (Normal); Ketone-Dipstick Negative (Negative); Leukocyte Esterase-Dipstick Negative /ul (Negative); Nitrite-Dipstick Negative (Negative); Occult Blood-Urine 50 /ul (Negative); Protein-Dipstick 500 mg/dl (Negative); Specific Gravity, Urine 1.015 (1.002-1.030); Urine Bilirubin Dipstick Negative (Negative); Urine Clarity Sl. Cloudy (Clear); Urine Urobilinogen Normal (Normal)
[2019-01-11 20:21] LABS: White Blood Cells 0-5 SEEN /hpf (0-5)
[2019-01-11] MEDS: Ketorolac 30 MG/ML Syringe IV (20:22)
[2019-01-11 20:23] VITALS: BP 188/83; PULSE 73; RESP 18; O2SAT 98
--- NOTE | 2019-01-11 20:32 | ED.DCSUM_ITS ---
- ER Visit Summary Date of Service: 01/11/19 Chief Complaint: Abdominal pain History of Present Illness: The patient is a [address] Jacome. He reports that patient he has had abdominal intermittently for months. States that he they found a mass on his pancreas. He is supposed to be scheduling a biopsy with a surgeon [facility] whose name he does not know. He states this is supposed to happen the next 1-2 weeks. Also reports he sees a dictaphone operator. He does not know this person's name either. Patient reports that he has epigastric pain that radiates into his back that began approximate 1 hour ago. It is a 10 out of 10 at worst 9-10 currently. Is worsened by nothing relieved by nothing. Is been nausea and vomited twice. No blood in his emesis. His last bowel was today. He said no matter hematochezia. No dysuria or frequency. Does report that he has had hematuria. Physical Examination: Vitals: Stable. Afebrile. General: Well-nourished and well-developed. Head: Normocephalic atraumatic. Neck: Supple, no lymphadenopathy. No JVD. Nontender. Cardiovascular: Regular rate and rhythm. No murmurs. Respiratory: No respiratory distress. Clear to auscultation bilaterally. Abdominal: Soft, moderate epigastric tenderness to palpation, nondistended, normal bowel sounds. No guarding, rebound, or peritoneal signs. Back: Nontender. Extremities: Nontender, no edema. Skin: Normal color, no rash. Neurologic: Alert and oriented ?3. Cranial nerves II through XII are intact. Normal strength and sensation. Psych: Normal affect. Test Results: CBC shows an H&H of 10.6 and 30.6, segmented neutrophils 76, lymphs at 17. Chem-7 shows a calcium of 8.2, glucose 245, BUN 20, creatinine 2.14. This is essentially at his baseline. LFTs showed a total protein is 6.3 and albumin 3.1. ALT is 78, AST of 125. Lipase is normal. UA is negative. Emergency Department Course and Treatment: Patient had an IV placed. Is given a dose of morphine and Zofran IV. I reviewed his prior CTs. He had a CT in October and in August that both commented on a normal pancreas. An OARRS report was obtained which shows had 16 prescriptions for opiates in the past year. He had 9 in 2019 alone. Treatment Plan: This time I discussed the patient that this is more of a chronic issue and that he needs to get all of his pain medications from a single provider. He will be discharged with Zofran and instructed to follow-up his primary care physician as soon as possible. Instructed to get in to see his surgeon/dictaphone operator for further evaluation of his pain. Disposition: To home in improved and stable condition. Impression: 1. Chronic abdominal pain. 2. Chronic renal insufficiency. This note was generated with Skadoitation software. It may contain incorrect words, spelling, and punctuation that were not noted in review of the chart prior to signing ED Disposition - Plan for ED Patient: Disposition: Home or Assisted Living Instructions: ED Abdominal Pain Unkn Cause Prescriptions: Ondansetron [Zofran Odt] 4 mg PO Q8H PRN PRN #10 tablet PRN Reason: Nausea Referrals: John Jacome MD [Primary Care Provider] - 1-2 Days if not improving Additional Instructions: Follow up with your pancreas specialist as soon as possible.
[2019-01-11 20:43] VITALS: BP 175/91; PULSE 76; RESP 18; O2SAT 97
== END 2019-01-11 20:43 | disposition home or self-care (01) ==
LOC: ED 18:47
PROVIDERS: Emergency Provider Emergency Medicine; Family Provider Internal Medicine; PCP Internal Medicine
DX: G89.29 Other chronic pain (principal); R10.9 Unspecified abdominal pain; I12.9 Hypertensive chronic kidney disease with stage 1 through stage 4 chronic kidney disease, or unspecified chronic kidney disease; N18.9 Chronic kidney disease, unspecified; E11.9 Type 2 diabetes mellitus without complications; E78.00 Pure hypercholesterolemia, unspecified; F17.210 Nicotine dependence, cigarettes, uncomplicated
CPT/HCPCS: 80053; 81001; 83690; 85025; 96361; 96374; 96375; 99285; J7030; J2405

== ENCOUNTER 2019-03-04 18:11 | Emergency (ER) | payer MEDICAID, SELFPAY ==
[2019-03-04 18:12] VITALS: BP 141/73; PULSE 73; RESP 15; TEMP 36.4; O2SAT 99; BMI 32.1
--- NOTE | 2019-03-04 18:53 | ED.DCSUM_ITS ---
- ER Visit Summary Date of Service: 03/04/19 Chief Complaint: Epigastric abdominal pain History of Present Illness: The patient is a 48 M history of pancreatitis and prior appendectomy. Also has anemia, renal insufficiency and diabetes. Patient states since last night his epigastric abdominal pain. Today with nausea vomiting and limited diarrhea. No melena. No fever. No trauma. Physical Examination: Middle-aged male no acute distress. Vital signs are stable. He is afebrile. He does not look septic or toxic. H EENT exam unremarkable. Mildly dehydrated. Neck nontender no lymphadenopathy. Lungs clear to auscultation bilaterally. Heart regular rhythm no murmur. Rate about 70. Abdomen is soft. Epigastric tenderness. No rebound, guarding or rigidity. Nondistended. No hernias or masses. No pulsatile mass. 9. No McBurney's point tenderness. Clinically there is no signs of obstruction. Patient moves all 4 extremities. Neurovascularly intact. Back nontender. Neurologically is awake and alert with no focal motor deficits. Test Results: CBC shows a normal white count of 3. Hemoglobin 11.2 which is his baseline chronic anemia. His last hemoglobin was 10. Chemistries unremarkable other than a glucose of 280. A normal gap. A BUN of 43 and a creatinine of 2.37. He has known renal insufficiency his last creatinine was 2.1. Liver enzymes were normal. Lipase was normal at 226. Emergency Department Course and Treatment: Patient treated with IV fluids, morphine and Zofran. He has had multiple abdominal CAT scans in the last several years. I will do screening labs. I do not feel that he needs imaging at this time. Clinically he has no signs of obstruction. Repeat exam at 195 patient is doing well. I went over all labs with him. I do not feel he needs any further imaging he has had multiple CAT scans in the last several years. Plus with his renal insufficiency I do not feel that IV contrast would be indicated at this time. But most importantly I just do not feel is necessary. Repeat abdominal exam is unremarkable. Treatment Plan: Discharge to home. Follow-up with his primary care physician Dr. Jacome. Disposition: Discharge Impression: Acute abdominal pain of uncertain etiology. History of diabetes History of prior pancreatitis Chronic simple anemia and chronic renal insufficiency. This note was generated with Wham City Lightsation software. It may contain incorrect words, spelling, and punctuation that were not noted in review of the chart prior to signing ED Disposition - Plan for ED Patient: Referrals: John Jacome MD [Primary Care Provider] -
[2019-03-04 19:04] LABS: Absolute Neutrophil Count 3.7 X10^3/uL (2.0-7.7); Basophil# 0.04 X10^3/uL; Basophil% 0.7 % (0-1); Eosinophil# 0.15 X10^3/uL; Eosinophils% 2.6 % (0-5); Hematocrit 32.9 % (40-54); Hemoglobin 11.2 g/dl (13.0-16.5); Lymphocyte % 26.3 % (19-41); Mean Corpuscular Hgb 30.4 pg (27.0-32.0); Mean Corpuscular Volume 89.2 fL (80-94); Mean Platelet Vol. 9.6 fl (6.2-12.0); Monocyte# 0.33 X10^3/uL; Monocyte% 5.8 % (0-10); Neutrophil # 3.68 X10^3/uL (2.7-7.7); Neutrophil % 64.6 % (47-70); Platelet Count 239 K/mm3 (150-450); RBC Distribution Width CV 12.7 % (11.6-14.6); RBC Distribution Width SD 41.1 fl (35.1-43.9); Red Blood Count 3.69 M/mm3 (4.6-6.2); White Blood Count 5.7 K/mm3 (4.4-11.0)
[2019-03-04 19:05] LABS: POSITIVE COUNT NO; POSITIVE DIFFERENTIAL NO; POSITIVE MORPHOLOGY NO
[2019-03-04] MEDS: Ondansetron 4 MG/2 ML Vial IV (19:14)
[2019-03-04] MEDS: 0.9% Normal Saline 1,000 ML 1000 ML IV (19:14)
[2019-03-04] MEDS: morphine 8 MG/ML Syringe 6 MG IV (19:15)
[2019-03-04 19:19] LABS: AST(SGOT) 36 U/L (15-37); Alanine Aminotransfer ALT/SGPT 55 U/L (16-61); Albumin, Serum 3.5 g/dL (3.2-5.0); Alkaline Phosphatase 42 U/L (45-117); Anion Gap 5 (5-15); BUN 43 mg/dL (7-18); BUN/Creat Ratio 18.1 RATIO (10-20); Bilirubin, Direct 0.08 mg/dL (0.00-0.30); Calcium,Total 8.7 mg/dL (8.5-10.1); Chloride 108 mmol/L (98-107); Creatinine, Serum 2.37 mg/dL (0.70-1.30); EST Glomerular Filtration Rate 31 mL/min (>60); Est Glom Filt Rate - Afr Amer 38 mL/min (>60); Estimated Creatinine Clearance 39.72 ml/min; Globulin 3.2 g/dL (2.2-4.2); Glucose 280 mg/dL (74-106); Lipase 226 U/L (73-393); Potassium 4.4 mmol/L (3.5-5.1); Protein, Total 6.7 g/dL (6.4-8.2); Sodium Level 137 mmol/L (136-145)
--- NOTE | 2019-03-04 19:56 | ED.DEP ---
ED Disposition - Plan for ED Patient: Disposition: Home or Assisted Living Instructions: ED Abdominal Pain Unkn Cause Referrals: John Jacome MD [Primary Care Provider] - As soon as possible Additional Instructions: He did not have pancreatitis at this time. Follow-up with your primary care physician next week. Return if feeling worse such as fever, increasing pain or intractable vomiting or black or bloody stools or bloody vomiting.
[2019-03-04] MEDS: Morphine 4 MG/ML Syringe IV (20:06)
[2019-03-04 20:07] VITALS: BP 134/78; PULSE 70; RESP 17; O2SAT 96
== END 2019-03-04 20:12 | disposition home or self-care (01) ==
PROVIDERS: Emergency Provider Emergency Medicine; Family Provider Internal Medicine; PCP Internal Medicine
DX: R10.9 Unspecified abdominal pain (principal); E11.9 Type 2 diabetes mellitus without complications; D53.9 Nutritional anemia, unspecified; N18.9 Chronic kidney disease, unspecified; Z90.49 Acquired absence of other specified parts of digestive tract; E78.00 Pure hypercholesterolemia, unspecified; Z72.0 Tobacco use; R11.2 Nausea with vomiting, unspecified; R19.7 Diarrhea, unspecified
CPT/HCPCS: 80048; 80076; 83690; 85025; 99283; J7030; A4216; J2405

== ENCOUNTER 2019-03-18 18:27 | Emergency (ER) | payer MEDICAID, SELFPAY ==
[2019-03-18 18:28] VITALS: BP 118/76; PULSE 78; RESP 17; TEMP 37.3; O2SAT 97; BMI 31.8
--- NOTE | 2019-03-18 18:56 | ED.DCSUM_ITS ---
- ER Visit Summary Date of Service: 03/18/19 Chief Complaint: Abdominal pain History of Present Illness: The patient is a 48 M who was at work tonight and developed epigastric abdominal pain approximate 30 minutes after eating a bag of chips. He had nausea and vomiting. EMS was called by his boss. Patient has a history of pancreatitis with similar symptoms. Physical Examination: Vital signs unremarkable. Patient sitting upright in bed holding his epigastrium. He is in no acute distress. Heart is regular rate and rhythm. Lung sounds are clear. Abdomen is soft with focal tenderness in the epigastrium. Active bowel sounds are present. There is no guarding or rebound. Test Results: CBC was normal white count with hemoglobin 11.8. Chemistry studies reveal a sodium of 132 and a glucose of 268. His BUN is 57 and his creatinine is 4.01. His creatinine on March 04 was 2.37. LFTs revealed ALT of 65 and AST of 58. His lipase is 213. Emergency Department Course and Treatment: Patient was given Dilaudid, Zofran, and IV fluids. He was given 2 L of IV fluids secondary to his acute on chronic renal failure. Patient states he is been trying to drink a lot of water, but has noted decreased urine output. He states he feels as if he is sweating but not making any moisture on his skin. While in the emergency room he states he was able to urinate quite a bit, syndesmoses urinated in the last 2 days. He is instructed to increase fluids over the next several days. He will have his BMP redrawn on Thursday with results sent to his primary care physician. Oars report was obtained and last narcotic was from late January. He will be given 10 tabs of [place]. We will obviously avoid anti-inflammatories with his renal failure. Treatment Plan: [] Disposition: Discharge Impression: 1. Epigastric abdominal pain 2. Acute on chronic renal failure This note was generated with [employer] dictation software. It may contain incorrect words, spelling, and punctuation that were not noted in review of the chart prior to signing ED Disposition - Plan for ED Patient: Disposition: Home or Assisted Living Instructions: ABDOMINAL PAIN, Un[place]own Cause, (Male), Renal Insufficiency Prescriptions: Hydrocodone Bitart/Apap 5-325 [[place] 5MG-325MG] 1 tablet PO Q6H PRN PRN 3 Days #10 tablet PRN Reason: Pain Referrals: John Jacome MD [Primary Care Provider] - Additional Instructions: Increase fluids over the next couple days as discussed. Have your labwork repeated on Thursday. Follow-up with your specialist regarding the referral to the pancreas specialist as discussed.
[2019-03-18] MEDS: 0.9% Normal Saline 1,000 ML 150 ML IV (19:06)
[2019-03-18 19:07] LABS: Absolute Lymphocyte Count 1.69 X10^3/ul (0.83-4.51); Absolute Neutrophil Count 3.9 X10^3/uL (2.0-7.7); Basophil# 0.02 X10^3/uL; Basophil% 0.3 % (0-1); Eosinophil# 0.12 X10^3/uL; Hematocrit 34.3 % (40-54); Hemoglobin 11.8 g/dl (13.0-16.5); Lymphocyte # 1.69 X10^3/ul (4.0); Lymphocyte % 28.4 % (19-41); Mean Corp Hgb Conc 34.4 g/gl (32-36); Mean Corpuscular Hgb 30.5 pg (27.0-32.0); Mean Corpuscular Volume 88.6 fL (80-94); Mean Platelet Vol. 10.1 fl (6.2-12.0); Monocyte# 0.26 X10^3/uL; Monocyte% 4.4 % (0-10); Neutrophil # 3.85 X10^3/uL (2.7-7.7); Neutrophil % 64.7 % (47-70); Platelet Count 296 K/mm3 (150-450); RBC Distribution Width CV 13.1 % (11.6-14.6); Red Blood Count 3.87 M/mm3 (4.6-6.2)
[2019-03-18] MEDS: Ondansetron 4 MG/2 ML Vial IV (19:07)
[2019-03-18] MEDS: HYDROmorphone 1 MG/ML Syringe 0.5 MG IV (19:07)
[2019-03-18 19:08] LABS: POSITIVE COUNT NO; POSITIVE DIFFERENTIAL NO; POSITIVE MORPHOLOGY NO
[2019-03-18 19:16] LABS: AST(SGOT) 58 U/L (15-37); Alanine Aminotransfer ALT/SGPT 65 U/L (16-61); Albumin, Serum 3.7 g/dL (3.2-5.0); Alkaline Phosphatase 47 U/L (45-117); Anion Gap 6 (5-15); BUN 57 mg/dL (7-18); BUN/Creat Ratio 14.2 RATIO (10-20); Bilirubin, Direct 0.08 mg/dL (0.00-0.30); Calcium,Total 8.7 mg/dL (8.5-10.1); Chloride 103 mmol/L (98-107); Creatinine, Serum 4.01 mg/dL (0.70-1.30); EST Glomerular Filtration Rate 17 mL/min (>60); Est Glom Filt Rate - Afr Amer 21 mL/min (>60); Estimated Creatinine Clearance 23.47 ml/min; Globulin 3.4 g/dL (2.2-4.2); Glucose 268 mg/dL (74-106); Lipase 213 U/L (73-393); Protein, Total 7.1 g/dL (6.4-8.2); Sodium Level 132 mmol/L (136-145)
[2019-03-18] MEDS: HYDROmorphone 0.5 MG/0.5 ML SYRINGE IV (20:11)
[2019-03-18] MEDS: 0.9% Normal Saline 1,000 ML 999 ML IV ×2 (20:11)
[2019-03-18 20:30] VITALS: BP 137/81; PULSE 84; RESP 16; O2SAT 98
[2019-03-18] MEDS: HYDROcodone Bitartrate/Apap 5/325 Tablet PO (21:29)
[2019-03-18 22:09] VITALS: BP 125/80; PULSE 81; RESP 16; O2SAT 98
== END 2019-03-18 22:10 | disposition home or self-care (01) ==
PROVIDERS: Emergency Provider Emergency Medicine; Family Provider Internal Medicine; PCP Internal Medicine
DX: R10.13 Epigastric pain (principal); N18.9 Chronic kidney disease, unspecified; E11.9 Type 2 diabetes mellitus without complications; I12.9 Hypertensive chronic kidney disease with stage 1 through stage 4 chronic kidney disease, or unspecified chronic kidney disease; E78.00 Pure hypercholesterolemia, unspecified; J44.9 Chronic obstructive pulmonary disease, unspecified; Z72.0 Tobacco use
CPT/HCPCS: 80048; 80076; 83690; 85025; 96361; 96374; 96375; 96376; 99285; J7030; J2405

== ENCOUNTER 2019-03-21 18:02 | Emergency (ER) | payer MEDICAID, SELFPAY ==
[2019-03-21 18:03] VITALS: BP 150/69; PULSE 75; RESP 16; TEMP 36.8; O2SAT 99; BMI 32.1
[2019-03-21] MEDS: 0.9% Normal Saline 1,000 ML 1000 ML IV (19:31)
[2019-03-21] MEDS: Ondansetron 4 MG/2 ML Vial IV ×2 (19:31→21:20)
[2019-03-21] MEDS: Morphine 4 MG/ML Syringe IV ×2 (19:31→21:20)
[2019-03-21 19:51] LABS: Absolute Lymphocyte Count 1.61 X10^3/ul (0.83-4.51); Basophil# 0.03 X10^3/uL; Basophil% 0.6 % (0-1); Eosinophil# 0.12 X10^3/uL; Eosinophils% 2.4 % (0-5); Hematocrit 31.9 % (40-54); Hemoglobin 10.8 g/dl (13.0-16.5); Lymphocyte # 1.61 X10^3/ul (4.0); Lymphocyte % 31.8 % (19-41); Mean Corp Hgb Conc 33.9 g/gl (32-36); Mean Corpuscular Hgb 30.4 pg (27.0-32.0); Mean Corpuscular Volume 89.9 fL (80-94); Mean Platelet Vol. 9.7 fl (6.2-12.0); Monocyte% 5.9 % (0-10); Neutrophil # 2.99 X10^3/uL (2.7-7.7); Neutrophil % 59.1 % (47-70); POSITIVE COUNT NO; POSITIVE DIFFERENTIAL NO; POSITIVE MORPHOLOGY NO; Platelet Count 212 K/mm3 (150-450); RBC Distribution Width CV 13.1 % (11.6-14.6); RBC Distribution Width SD 43.1 fl (35.1-43.9); Red Blood Count 3.55 M/mm3 (4.6-6.2); White Blood Count 5.1 K/mm3 (4.4-11.0)
[2019-03-21 20:07] LABS: ALB/GLOB Ratio 1.1 RATIO (0.9-2.4); AST(SGOT) 37 U/L (15-37); Alanine Aminotransfer ALT/SGPT 52 U/L (16-61); Albumin, Serum 3.2 g/dL (3.2-5.0); Alkaline Phosphatase 41 U/L (45-117); Anion Gap 4 (5-15); BUN 37 mg/dL (7-18); BUN/Creat Ratio 18.5 RATIO (10-20); Calcium,Total 7.8 mg/dL (8.5-10.1); Chloride 111 mmol/L (98-107); EST Glomerular Filtration Rate 38 mL/min (>60); Est Glom Filt Rate - Afr Amer 46 mL/min (>60); Estimated Creatinine Clearance 47.06 ml/min; Glucose 183 mg/dL (74-106); Lipase 123 U/L (73-393); Potassium 4.6 mmol/L (3.5-5.1); Protein, Total 6.2 g/dL (6.4-8.2); Sodium Level 140 mmol/L (136-145)
[2019-03-21 20:22] LABS: Bacteria 0 SEEN /hpf (None Seen); Mucous, Urine 0 SEEN /hpf (<or=2+); White Blood Cells 0 SEEN /hpf (0-5)
[2019-03-21 20:28] LABS: Color, Urine Yellow (Yellow); Glucose, Dipstick 250 mg/dl (Normal); Ketone-Dipstick Negative (Negative); Leukocyte Esterase-Dipstick Negative /ul (Negative); Nitrite-Dipstick Negative (Negative); Occult Blood-Urine 25 /ul (Negative); Protein-Dipstick 500 mg/dl (Negative); Specific Gravity, Urine 1.015 (1.002-1.030); Urine Bilirubin Dipstick Negative (Negative); Urine Clarity Sl. Cloudy (Clear); Urine Urobilinogen Normal (Normal)
[2019-03-21 21:00] LABS: Hyaline Cast 0-5 SEEN /lpf (0-5); Red Blood Cells-Urine 0-5 SEEN /hpf (0-5); Squamous Epithelial Cells - UA 0-5 SEEN /hpf (0-5)
[2019-03-21] MEDS: Dicyclomine 20 MG/2 ML Vial IM (21:21)
--- NOTE | 2019-03-21 21:57 | ED.DCSUM_ITS ---
- ER Visit Summary Date of Service: 03/21/19 Chief Complaint: Abdominal pain History of Present Illness: The patient is a 48 M who presents with epigastric abdominal pain that began yesterday. Patient describes the pain is sharp and constant. Patient states the pain is worse with eating. Patient states he is only been on a clear liquid diet since yesterday. Patient admits to some nausea and vomiting. Patient denies any hematemesis or coffee-ground emesis. Patient notes to diarrhea but denies any melena or hematochezia. Patient states he had 2 episodes in the past 2 days. Patient admits to some urinary urgency but denies any dysuria or hematuria. Patient states the pain radiates straight into his back. Physical Examination: Vital signs are stable. Patient is afebrile. Patient is in no acute distress. Oral mucosa is pink moist. Neck is supple. Trachea is midline. There is no JVD noted. Heart was regular rate and rhythm. Lungs are clear and equal bilaterally. Abdomen is soft. Bowel sounds are normal. There is epigastric tenderness. There is no rebound or guarding noted. Cranial nerves II through XII are intact. There are no focal motor or sensory deficits noted. Test Results: CBC showed a mild anemia with hemoglobin of 10.8 and hematocrit 31.9. Comprehensive metabolic profile showed a BUN of 37 and creatinine 2.0. These were improved compared to previous results. Urinalysis does not show any evidence of urinary tract infection. Lipase was normal. Emergency Department Course and Treatment: Patient was given IV fluids and morphine and Zofran. Patient was given a repeat dose of morphine and Zofran. Patient was advised of his lab results. Patient was instructed to follow-up with his primary care physician in 5 to 7 days. Patient understood and was agreeable with the plan. All questions were answered. Disposition: Discharge home Impression: 1. Epigastric abdominal pain 2. History of chronic pancreatitis This note was generated with [employer] dictation software. It may contain incorrect words, spelling, and punctuation that were not noted in review of the chart prior to signing ED Disposition - Plan for ED Patient: Disposition: Home or Assisted Living Diagnosis: Abdominal pain, History of chronic pancreatitis Instructions: EPIGASTRIC PAIN (Uncertain cause) Referrals: John Jacome MD [Primary Care Provider] - 3-5 Days
[2019-03-21 22:07] VITALS: BP 145/70; PULSE 78; RESP 18; O2SAT 98
--- NOTE | 2019-03-21 22:08 | ED.RN ---
PT REFUSED TO WAIT FOR DISCHARGE PAPERWORK AFTER WENT IN TO TELL HIM HE COULD GO HOME. IV WAS D/C PRIOR TO PT LEAVING BY NELY CARMEN. DR. GODOY MADE AWARE.
== END 2019-03-21 22:04 | disposition home or self-care (01) ==
PROVIDERS: Emergency Provider Emergency Medicine; Family Provider Internal Medicine; PCP Internal Medicine
DX: R10.13 Epigastric pain (principal); K86.1 Other chronic pancreatitis; E11.9 Type 2 diabetes mellitus without complications; I10 Essential (primary) hypertension; F17.210 Nicotine dependence, cigarettes, uncomplicated
CPT/HCPCS: 80053; 81001; 83690; 85025; 99283; J7030; A4216; J2405

== ENCOUNTER 2019-04-04 22:50 | Emergency (ER) | payer MEDICAID, SELFPAY ==
[2019-04-04 22:51] VITALS: BP 182/72; PULSE 80; RESP 18; TEMP 37; O2SAT 100; BMI 31.0
[2019-04-04 23:07] LABS: Absolute Lymphocyte Count 1.82 X10^3/ul (0.83-4.51); Absolute Neutrophil Count 3.8 X10^3/uL (2.0-7.7); Basophil# 0.04 X10^3/uL; Basophil% 0.6 % (0-1); Eosinophil# 0.18 X10^3/uL; Eosinophils% 2.9 % (0-5); Hematocrit 34.1 % (40-54); Hemoglobin 11.5 g/dl (13.0-16.5); Lymphocyte # 1.82 X10^3/ul (4.0); Lymphocyte % 29.4 % (19-41); Mean Corp Hgb Conc 33.7 g/gl (32-36); Monocyte# 0.39 X10^3/uL; Monocyte% 6.3 % (0-10); Neutrophil # 3.75 X10^3/uL (2.7-7.7); Neutrophil % 60.8 % (47-70); POSITIVE COUNT NO; POSITIVE DIFFERENTIAL NO; POSITIVE MORPHOLOGY NO; Platelet Count 273 K/mm3 (150-450); RBC Distribution Width CV 12.9 % (11.6-14.6); RBC Distribution Width SD 41.3 fl (35.1-43.9); Red Blood Count 3.83 M/mm3 (4.6-6.2); White Blood Count 6.2 K/mm3 (4.4-11.0)
[2019-04-04 23:23] LABS: Anion Gap 5 (5-15); BUN 50 mg/dL (7-18); BUN/Creat Ratio 15.8 RATIO (10-20); Calcium,Total 8.1 mg/dL (8.5-10.1); Chloride 104 mmol/L (98-107); Creatinine, Serum 3.17 mg/dL (0.70-1.30); EST Glomerular Filtration Rate 22 mL/min (>60); Est Glom Filt Rate - Afr Amer 27 mL/min (>60); Estimated Creatinine Clearance 29.69 ml/min; Glucose 289 mg/dL (74-106); Potassium 4.8 mmol/L (3.5-5.1); Sodium Level 133 mmol/L (136-145)
[2019-04-04 23:39] LABS: Lipase 182 U/L (73-393)
[2019-04-04 23:46] LABS: AST(SGOT) 40 U/L (15-37); Alanine Aminotransfer ALT/SGPT 47 U/L (16-61); Albumin, Serum 3.9 g/dL (3.2-5.0); Alkaline Phosphatase 45 U/L (45-117); Bilirubin, Direct 0.05 mg/dL (0.00-0.30); Globulin 3.3 g/dL (2.2-4.2); Protein, Total 7.2 g/dL (6.4-8.2)
[2019-04-05 00:10] LABS: Bacteria 0 SEEN /hpf (None Seen); Mucous, Urine 0 SEEN /hpf (<or=2+); Red Blood Cells-Urine 0 SEEN /hpf (0-5); Squamous Epithelial Cells - UA 0 SEEN /hpf (0-5); White Blood Cells 0 SEEN /hpf (0-5)
[2019-04-05 00:11] LABS: Color, Urine Yellow (Yellow); Glucose, Dipstick 250 mg/dl (Normal); Ketone-Dipstick Negative (Negative); Leukocyte Esterase-Dipstick Negative /ul (Negative); Nitrite-Dipstick Negative (Negative); Occult Blood-Urine 25 /ul (Negative); Protein-Dipstick 100 mg/dl (Negative); Urine Bilirubin Dipstick Negative (Negative); Urine Clarity Clear (Clear); Urine Urobilinogen Normal (Normal)
--- NOTE | 2019-04-05 01:10 | ED.DCSUM_ITS ---
- ER Visit Summary Date of Service: 04/05/19 Chief Complaint: Abdominal pain, nausea, vomiting History of Present Illness: The patient is a 48 M who presents with abdominal pain nausea and vomiting. He has a history of chronic recurrent abdominal pain. He has had normal previous CTs but recently had an MRI which showed a possible pancreatic mass. He is scheduled to see a specialist for possible liver and mass biopsy. He states he developed epigastric sharp abdominal pain about 5 hours before presentation which radiates through to the back. He also reports 3 episodes of nausea and vomiting. No fevers chest pain shortness of breath. Physical Examination: Blood pressure 182/72 vitals otherwise unremarkable Moist mucous membranes Heart regular rate and rhythm Lungs are clear Abdomen soft nondistended he has epigastric tenderness and left upper quadrant tenderness without guarding without rebound Test Results: Labs notable for BUN of 50, creatinine 3.17, last creatinine was 2 however he has been in the fours. His hepatic function and lipase are u nremarkable. Urinalysis unremarkable. Emergency Department Course and Treatment: Laboratory studies had been drawn off of nursing protocols and results were back at the time my evaluation. IV fluids morphine and Zofran have been ordered. I discussed his laboratory findings with him. He does have acute kidney injury. However he has been discharged with elevated creatinine before after IV fluids and done well. I discussed with the hospital observation versus fluid hydration and discharge with plan for close outpatient follow-up. He would prefer to go home. The time of this dictation plan is 2 L IV fluid bolus and as long as p.o. challenge as tolerated and urinates he can be discharged to follow-up as an outpatient to have outpatient repeat labs. He does understand return for new or worsening symptoms. All questions answered at bedside. Patient discharged. Treatment Plan: [] Disposition: Discharge Impression: Acute kidney injury Epigastric abdominal pain This note was generated with [employer] dictation software. It may contain incorrect words, spelling, and punctuation that were not noted in review of the chart prior to signing ED Disposition - Plan for ED Patient: Referrals: John Jacome MD [Primary Care Provider] -
--- NOTE | 2019-04-05 01:13 | ED.DEP ---
ED Disposition - Plan for ED Patient: Instructions: ABDOMINAL PAIN, Unkown Cause, (Male) Prescriptions: Hydrocodone Bitart/Apap 5-325 [[place] 5MG-325MG] 1 tab PO Q6H PRN PRN 3 Days #10 tab PRN Reason: Pain Prescription Printed Referrals: John Jacome MD [Primary Care Provider] -
[2019-04-05 01:19] VITALS: RESP 16; O2SAT 97
[2019-04-05] MEDS: 0.9% Normal Saline 1,000 ML 999 ML IV ×2 (01:24→01:25)
[2019-04-05] MEDS: Morphine 4 MG/ML Syringe IV (01:25)
[2019-04-05] MEDS: Ondansetron 4 MG/2 ML Vial IV (01:25)
[2019-04-05 02:18] VITALS: BP 148/80; PULSE 89; RESP 16; O2SAT 98
== END 2019-04-05 02:18 | disposition home or self-care (01) ==
PROVIDERS: Emergency Medicine; Emergency Provider Emergency Medicine; Family Provider Internal Medicine; PCP Internal Medicine
DX: N17.9 Acute kidney failure, unspecified (principal); R10.13 Epigastric pain; G89.29 Other chronic pain; R11.2 Nausea with vomiting, unspecified; K21.9 Gastro-esophageal reflux disease without esophagitis; E11.9 Type 2 diabetes mellitus without complications; I10 Essential (primary) hypertension; E78.00 Pure hypercholesterolemia, unspecified; Z79.82 Long term (current) use of aspirin; Z79.4 Long term (current) use of insulin; Z79.84 Long term (current) use of oral hypoglycemic drugs; Z79.899 Other long term (current) drug therapy; Z72.0 Tobacco use
CPT/HCPCS: 80048; 80076; 81001; 83690; 85025; 96361; 96374; 96375; 99283; J7030; A4216; J2405

== ENCOUNTER 2019-04-06 17:20 | Emergency (ER) | payer MEDICAID, SELFPAY ==
[2019-04-06 17:22] VITALS: BP 137/87; PULSE 87; RESP 18; TEMP 36.2; O2SAT 96; BMI 31.1
--- NOTE | 2019-04-06 17:43 | EKG12_ITS ---
Test Reason : NAUSEA Blood Pressure : / mmHG Vent. Rate : 070 BPM Atrial Rate : 070 BPM P-R Int : 156 ms QRS Dur : 088 ms QT Int : 384 ms P-R-T Axes : 063 015 040 degrees QTc Int : 414 ms Normal sinus rhythm Normal ECG Confirmed by CJ ROGER, LOU ([id number]), medical editor THEO BAUTISTA ([id number]) on 04/11/2019 12:15:24 PM Referred By: PIA Confirmed By:LOU CORONA MD
[2019-04-06] MEDS: proMETHazine 25 MG/ML Syringe 12.5 MG IV (17:56)
[2019-04-06] MEDS: HYDROmorphone 1 MG/ML Syringe IV ×2 (17:56→19:14)
[2019-04-06] MEDS: 0.9% Normal Saline 1,000 ML 1000 ML IV (17:56)
[2019-04-06 18:28] LABS: Absolute Lymphocyte Count 1.51 X10^3/uL (0.83-4.51); Basophil# 0.05 X10^3/uL; Basophil% 0.8 % (0-1); Eosinophil# 0.13 X10^3/uL; Eosinophils% 2.1 % (0-5); Hematocrit 33.3 % (40-54); Hemoglobin 11.2 g/dL (13.0-16.5); Lymphocyte # 1.51 X10^3/ul (4.0); Lymphocyte % 24.8 % (19-41); Mean Corp Hgb Conc 33.6 g/dL (32-36); Mean Corpuscular Hgb 30.9 pg (27.0-32.0); Mean Corpuscular Volume 91.7 fL (80-94); Mean Platelet Vol. 10.3 fl (6.2-12.0); Monocyte# 0.39 X10^3/uL; Monocyte% 6.4 % (0-10); NRBC Flagged by Analyzer 0 % (0-5); Neutrophil # 3.99 X10^3/uL (2.7-7.7); Neutrophil % 65.6 % (47-70); Platelet Count 254 K/mm3 (150-450); RBC Distribution Width CV 13.1 % (11.6-14.6); RBC Distribution Width SD 43.7 fl (35.1-43.9); Red Blood Count 3.63 M/mm3 (4.6-6.2); White Blood Count 6.1 K/mm3 (4.4-11.0)
[2019-04-06 18:34] LABS: ALB/GLOB Ratio 1.1 RATIO (0.9-2.4); AST(SGOT) 27 U/L (15-37); Alanine Aminotransfer ALT/SGPT 38 U/L (16-61); Albumin, Serum 3.6 g/dL (3.2-5.0); Alkaline Phosphatase 41 U/L (45-117); Anion Gap 5 (5-15); BUN 30 mg/dL (7-18); BUN/Creat Ratio 14.4 RATIO (10-20); Calcium,Total 8.2 mg/dL (8.5-10.1); Chloride 109 mmol/L (98-107); Creatinine, Serum 2.09 mg/dL (0.70-1.30); EST Glomerular Filtration Rate 36 mL/min (>60); Est Glom Filt Rate - Afr Amer 43 mL/min (>60); Estimated Creatinine Clearance 45.04 ml/min; Globulin 3.2 g/dL (2.2-4.2); Glucose 201 mg/dL (74-106); Lipase 136 U/L (73-393); Protein, Total 6.8 g/dL (6.4-8.2); Sodium Level 139 mmol/L (136-145)
[2019-04-06 18:37] LABS: Lactic Acid 1.1 mmol/L (0.4-2.0)
[2019-04-06 19:17] VITALS: BP 170/79; PULSE 67; RESP 16; O2SAT 100
--- NOTE | 2019-04-06 19:39 | ED.DCSUM_ITS ---
- ER Visit Summary Date of Service: 04/06/19 Chief Complaint: [Abdominal pain] History of Present Illness: The patient is a 48 M [presents to the emergency department with abdominal pain that started for 5 days ago. Patient was seen in the emergency department 2 days ago and had lab work-up that was unremarkable other than his BUN and creatinine were elevated. There was some discussion about possibly admitting patient for IV hydration however he was discharged. Patient states that he continues to throw up anywhere from 6-8 times a day. He denies any diarrhea. He has had no fever. Does describe upper abdominal pain which she has had chronically for years off-and-on that he believes is related t o his pancreas. Patient has a history of chronic pancreatitis. Patient states he has had multiple CAT scans of his abdomen pelvis and recently had an MRI that showed either a mass or a polyp in the pancreas and is scheduled to have a biopsy of this area.] Physical Examination: [HEENT-PERRLA, EOMI. Cranial nerves II through XII grossly intact. TMs clear. Mucous membranes moist. No adenopathy. Cardiovascular-regular rate and rhythm without murmur or ectopy Lungs-clear to auscultation, chest wall stable without crepitus or subcu emphysema Abdomen-normoactive bowel sounds, soft. She has diffuse tenderness over the epigastric region. Patient has some mild tenderness over left upper quadrant. No rebound, rigidity, or perineal signs. Extremities-intact ?4, normal range of motion, normal pulses, atraumatic] Test Results: [CBC with differential obtained for white count 6.1, hemoglobin 11, hematocrit 33, platelet 254. Chemistries unremarkable. BUN was 30 and creatinine 2.09. Lipase was 136. Troponin is less than 0.15. EKG obtained showed a sinus rhythm with a ventricular rate of 70 bpm with no acute segment changes.] Emergency Department Course and Treatment: [Patient was given a liter normal same fluid bolus and was medicated with Dilaudid and Phenergan. Patient initially had good pain relief and then pain was started to return she was given another milligram of Dilaudid. At this point his BUN and creatinine actually improved compared to 2 days ago at which time his creatinine was over 3.] Treatment Plan: [At this point patient will be discharged home with a prescription for Phenergan suppositories as well as few [place] for pain. Patient advised to push fluids. Patient follow-up with his primary care physician within next 3 to 5 days. Patient advised to return if persistent vomiting, worsening pain, fevers, or conditions worsen anyway. At this point I do not feel any imaging is indicated and he is in agreement as this is chronic pain.] Disposition: [Discharged home stable condition.] Impression: Abdominal pain Nausea vomiting Chronic pancreatitis [] This note was generated with [employer] dictation software. It may contain incorrect words, spelling, and punctuation that were not noted in review of the chart prior to signing ED Disposition - Plan for ED Patient: Referrals: John Jacome MD [Primary Care Provider] -
--- NOTE | 2019-04-06 19:43 | ED.DEP ---
ED Disposition - Plan for ED Patient: Instructions: VOMITING (4y-Adult), ABDOMINAL PAIN, [place]own [place], (Male) Prescriptions: Hydrocodone Bitart/Apap 5-325 [[place] 5MG-325MG] 1 tab PO Q4H PRN PRN 2 Days #10 tab PRN Reason: Pain Prescription Printed proMETHazine suppository [Phenergan Suppository] 25 mg RECTAL Q6H PRN PRN #6 suppos. PRN Reason: Nausea Prescription Printed Referrals: John Jacome MD [Primary Care Provider] - 3-5 Days
[2019-04-06 19:53] VITALS: BP 161/79; PULSE 61; RESP 18; O2SAT 97
== END 2019-04-06 19:53 | disposition home or self-care (01) ==
LOC: ED 18:19
PROVIDERS: Emergency Provider Emergency Medicine; Family Provider Internal Medicine; PCP Internal Medicine
DX: R10.9 Unspecified abdominal pain (principal); R11.2 Nausea with vomiting, unspecified; K86.1 Other chronic pancreatitis; E11.9 Type 2 diabetes mellitus without complications; E78.00 Pure hypercholesterolemia, unspecified; Z72.0 Tobacco use
CPT/HCPCS: 80053; 83605; 83690; 84484; 85025; 93005; 96361; 96374; 96375; 96376; 99283; J7030; A4216

== ENCOUNTER 2019-04-07 22:42 | Emergency (ER) | payer MEDICAID, SELFPAY ==
[2019-04-06 17:22] VITALS: BMI 31.1
[2019-04-07 22:43] VITALS: BP 165/87; PULSE 74; RESP 16; TEMP 36.3; O2SAT 100; BMI 29.7
[2019-04-07] MEDS: 0.9% Normal Saline 1,000 ML 1000 ML IV (23:05)
[2019-04-07] MEDS: proMETHazine 25 MG/ML Syringe 12.5 MG IV (23:06)
[2019-04-07 23:13] LABS: Absolute Lymphocyte Count 2.07 X10^3/uL (0.83-4.51); Absolute Neutrophil Count 3.5 X10^3/uL (2.0-7.7); Basophil# 0.04 X10^3/uL; Basophil% 0.7 % (0-1); Eosinophil# 0.13 X10^3/uL; Eosinophils% 2.1 % (0-5); Hematocrit 32.1 % (40-54); Hemoglobin 11.1 g/dL (13.0-16.5); Lymphocyte # 2.07 X10^3/ul (4.0); Lymphocyte % 34.2 % (19-41); Mean Corp Hgb Conc 34.6 g/dL (32-36); Mean Corpuscular Volume 89.7 fL (80-94); Monocyte# 0.33 X10^3/uL; Monocyte% 5.4 % (0-10); NRBC Flagged by Analyzer 0 % (0-5); Neutrophil # 3.47 X10^3/uL (2.7-7.7); Neutrophil % 57.3 % (47-70); Platelet Count 253 K/mm3 (150-450); RBC Distribution Width CV 12.9 % (11.6-14.6); RBC Distribution Width SD 42.7 fl (35.1-43.9); Red Blood Count 3.58 M/mm3 (4.6-6.2); White Blood Count 6.1 K/mm3 (4.4-11.0)
[2019-04-07 23:27] LABS: ALB/GLOB Ratio 1.3 RATIO (0.9-2.4); AST(SGOT) 29 U/L (15-37); Alanine Aminotransfer ALT/SGPT 37 U/L (16-61); Albumin, Serum 3.8 g/dL (3.2-5.0); Alkaline Phosphatase 41 U/L (45-117); Anion Gap 6 (5-15); BUN 33 mg/dL (7-18); Calcium,Total 8.2 mg/dL (8.5-10.1); Chloride 104 mmol/L (98-107); Creatinine, Serum 2.74 mg/dL (0.70-1.30); EST Glomerular Filtration Rate 26 mL/min (>60); Est Glom Filt Rate - Afr Amer 32 mL/min (>60); Estimated Creatinine Clearance 34.35 ml/min; Glucose 180 mg/dL (74-106); Lipase 136 U/L (73-393); Potassium 4.4 mmol/L (3.5-5.1); Protein, Total 6.8 g/dL (6.4-8.2); Sodium Level 134 mmol/L (136-145)
--- NOTE | 2019-04-08 00:15 | ED.DCSUM_ITS ---
- ER Visit Summary Date of Service: 04/08/19 Chief Complaint: Abdominal pain History of Present Illness: The patient is a 48 M who presents with chronic abdominal pain. This is been a chronic recurrent issue. He has had multiple prior CTs however he recently reports having an MRI which showed a possible m ass. He was referred to a pancreas specialist for possible biopsy and has an appointment on April 25. He has had multiple recent ER visits for pain and elevated creatinine and dehydration. He has been treated with IV fluids and discharged. He complains of ongoing severe epigastric abdominal pain. He reports 3 episodes of emesis today. No fevers. No chest pain or shortness of breath. Physical Examination: Afebrile blood pressure 165/87 Is mucous membranes Heart regular rate and Lungs clear Abdomen soft but tender to palpation in the epigastrium no guarding no rebound Alert Test Results: Labs notable for hemoglobin 11.1, BUN of 33 with a creatinine of 2.74 which is increased from 2 1 last visit. Hepatic function and lipase are normal. Emergency Department Course and Treatment: Patient was treated with IV fluids and Phenergan. I discussed with him that now that he has had multiple recent ER visits with elevated creatinine I did not feel it was best care to come to the ER every couple of days receive fluids and be discharged. I recommended that he be transferred to [facility] where the territory sales executive he has been referred to can see him any I can undergo further evaluation and management. The patient refuses. He understands the associated risks. I did explain to him that his creatinine is elevated yet again. We discussed the risks of organ failure and . He vocalized understanding and elected to sign out AGAINST MEDICAL ADVICE. He is requesting something for pain as well. He was given oral oxycodone. He was advised to follow-up as an outpatient. I did explain he is welcome to return for reevaluation at any time. Treatment Plan: [] Disposition: Discharge Impression: Abdominal pain Dehydration This note was generated with [employer] dictation software. It may contain incorrect words, spelling, and punctuation that were not noted in review of the chart prior to signing ED Disposition - Plan for ED Patient: Referrals: John Jacome MD [Primary Care Provider] -
--- NOTE | 2019-04-08 00:18 | ED.DEP ---
ED Disposition - Plan for ED Patient: Instructions: ABDOMINAL PAIN, Unkown Cause, (Male), DEHYDRATION (4y-Adult) Referrals: John Jacome MD [Primary Care Provider] -
[2019-04-08] MEDS: oxyCODONE 5 MG Tablet PO (00:31)
[2019-04-08 00:33] VITALS: BP 113/69; PULSE 72; RESP 15; O2SAT 96
== END 2019-04-08 00:33 | disposition home or self-care (01) ==
LOC: ED 23:10
PROVIDERS: Emergency Provider Emergency Medicine; Family Provider Internal Medicine; PCP Internal Medicine
DX: R10.9 Unspecified abdominal pain (principal); E86.0 Dehydration; E11.9 Type 2 diabetes mellitus without complications; K21.9 Gastro-esophageal reflux disease without esophagitis; I10 Essential (primary) hypertension; E78.00 Pure hypercholesterolemia, unspecified; Z72.0 Tobacco use
CPT/HCPCS: 80053; 83690; 85025; 96361; 96374; 99285; J7030; A4216

== ENCOUNTER 2019-04-14 21:56 | Emergency (ER) | payer MEDICAID, SELFPAY ==
[2019-04-14 21:57] VITALS: BP 139/75; PULSE 75; PULSE 78; RESP 17; RESP 18; TEMP 36.3; O2SAT 97; O2SAT 99; BMI 30.4
[2019-04-14 22:42] LABS: Absolute Lymphocyte Count 1.72 X10^3/uL (0.83-4.51); Absolute Neutrophil Count 5.9 X10^3/uL (2.0-7.7); Basophil# 0.04 X10^3/uL; Basophil% 0.5 % (0-1); Eosinophil# 0.17 X10^3/uL; Hematocrit 33.5 % (40-54); Hemoglobin 11.3 g/dL (13.0-16.5); Lymphocyte # 1.72 X10^3/ul (4.0); Lymphocyte % 20.7 % (19-41); Mean Corp Hgb Conc 33.7 g/dL (32-36); Mean Corpuscular Hgb 30.7 pg (27.0-32.0); Mean Platelet Vol. 9.9 fl (6.2-12.0); Monocyte# 0.45 X10^3/uL; Monocyte% 5.4 % (0-10); NRBC Flagged by Analyzer 0 % (0-5); Neutrophil # 5.92 X10^3/uL (2.7-7.7); Neutrophil % 71.2 % (47-70); Platelet Count 247 K/mm3 (150-450); RBC Distribution Width CV 13.2 % (11.6-14.6); RBC Distribution Width SD 43.8 fl (35.1-43.9); Red Blood Count 3.68 M/mm3 (4.6-6.2); White Blood Count 8.3 K/mm3 (4.4-11.0)
[2019-04-14 22:53] LABS: Anion Gap 7 (5-15); BUN 37 mg/dL (7-18); BUN/Creat Ratio 12.6 RATIO (10-20); Calcium,Total 8.7 mg/dL (8.5-10.1); Chloride 109 mmol/L (98-107); Creatinine, Serum 2.94 mg/dL (0.70-1.30); EST Glomerular Filtration Rate 24 mL/min (>60); Est Glom Filt Rate - Afr Amer 29 mL/min (>60); Estimated Creatinine Clearance 32.02 ml/min; Glucose 159 mg/dL (74-106); Potassium 4.6 mmol/L (3.5-5.1); Sodium Level 138 mmol/L (136-145)
--- NOTE | 2019-04-14 22:59 | ED.DCSUM_ITS ---
- ER Visit Summary Date of Service: 04/14/19 Chief Complaint: Abdominal pain History of Present Illness: The patient is a 48 M who presents with chronic abdominal pain. He has a history of frequent ER visits for the same. He states his current pain has been going on about 3 weeks. He describes it as sharp. It is located across the upper abdomen and he currently rates it a 7 out of 10. He reports 2 episodes of nonbloody nonbilious emesis today. He also developed diarrhea yesterday. No fevers chest pain shortness of breath. On several recent ER visits his creatinine has been elevated. Given multiple recent visits with IV fluids and elevated creatinine on his last visit I recommended hospitali zation. The patient refused. Physical Examination: Afebrile vitals are unremarkable Moist mucous membranes Heart regular rate and rhythm Patient has expiratory wheezing diffusely Abdomen soft nondistended he is tender across the upper abdomen without guarding without rebound Alert Test Results: Labs notable for hemoglobin 11.3, BUN of 37 and creatinine of 2.94 which is slightly increased from prior labs. Alkaline phosphatase 41. Lipase normal. Emergency Department Course and Treatment: IV fluids, IV Phenergan, oral oxycodone were ordered for the patient. I do have some concern for drug-seeking behavior so I wished to avoid IV narcotics although I cannot give him Toradol given his renal function. When nursing went to administer the medication he became upset and eloped from the emergency department. Treatment Plan: [] Disposition: Eloped Impression: Chronic abdominal pain This note was generated with [employer] dictation software. It may contain incorrect words, spelling, and punctuation that were not noted in review of the chart prior to signing ED Disposition - Plan for ED Patient: Referrals: John Jacome MD [Primary Care Provider] -
[2019-04-14 23:08] LABS: AST(SGOT) 37 U/L (15-37); Alanine Aminotransfer ALT/SGPT 39 U/L (16-61); Albumin, Serum 3.9 g/dL (3.2-5.0); Alkaline Phosphatase 41 U/L (45-117); Bilirubin, Direct 0.08 mg/dL (0.00-0.30); Globulin 3.2 g/dL (2.2-4.2); Lipase 234 U/L (73-393); Protein, Total 7.1 g/dL (6.4-8.2)
--- NOTE | 2019-04-14 23:24 | ED.RN ---
THIS RN WENT IN TO ASK PATIENT ED ADMISSION QUESTIONS, PLACE AN IV AND MEDICATE HIM. PT WAS TOLD HE IS GETTING IV PHENERGAN, FLUIDS AND PO OXY IR. PT WAS ASKED TO CHANGE INTO A GOWN PRIOR TO IV BEING STARTED AND THIS RN STEPPED OUT OF ROOM. PT THREW GOWN ON THE GROUND AND STATED DON'T BOTHER WITH THAT REFERRING TO THE IV AND LEFT THE BUILDING. DR. VALDEZ NOTIFIED OF PATIENT ELOPMENT.
== END 2019-04-14 23:29 | disposition left against medical advice (07) ==
LOC: ED 23:01
PROVIDERS: Emergency Provider Emergency Medicine; Family Provider Internal Medicine; PCP Internal Medicine
DX: G89.29 Other chronic pain (principal); R11.2 Nausea with vomiting, unspecified; R19.7 Diarrhea, unspecified; K21.9 Gastro-esophageal reflux disease without esophagitis; E11.9 Type 2 diabetes mellitus without complications; I10 Essential (primary) hypertension; E78.00 Pure hypercholesterolemia, unspecified; Z72.0 Tobacco use
CPT/HCPCS: 36415; 80048; 80076; 83690; 85025; 99281; J7030; A4216

== ENCOUNTER 2019-05-04 18:21 | Emergency (ER) | payer MEDICAID, SELFPAY ==
[2019-05-04 18:23] VITALS: BP 145/83; PULSE 107; RESP 16; TEMP 36.6; O2SAT 98; BMI 29.9
--- NOTE | 2019-05-04 20:40 | ED.VISSUMM ---
- ER Visit Summary Date of Service: 05/04/19 Chief Complaint: Abdominal pain History of Present Illness: The patient is a 48 M presenting with abdominal pain. Patient has a history of chronic pancreatitis. He started having abdominal pain today. He has had nausea vomiting and diarrhea. This feels similar to his previous pancreatitis pain. Denies fever. Denies other complaints. Physical Examination: Vitals are stable. Patient is afebrile. Alert no acute distress. HEENT exam is unremarkable. Neck is supple. Lungs are clear and equal bilaterally. Heart is regular rate and rhythm. Abdomen is soft epigastric tenderness with no guarding or rebound Extremities are unremarkable. Skin is warm and dry. Remainder of exam is unremarkable. Emergency Department Course and Treatment: Patient is given Dilaudid, Zofran IV. CBC shows hemoglobin 11.1. Chemistries show glucose 207, BUN 40, creatinine 2.92. This is similar to previous. Alk phos 41, ALT 51, AST 51. Lipase 165. Patient continues to complain of pain. He is given one additional dose of Dilaudid. On reevaluation he is resting comfortably. He is advised to follow up with his primary care physician and his GI physician. Advised to return to the ED for worsening complaints. Disposition: Discharge home Impression: Chronic pancreatitis This note was generated with [employer] dictation software. It may contain incorrect words, spelling, and punctuation that were not noted in review of the chart prior to signing ED Disposition - Plan for ED Patient: Instructions: Chronic Pancreatitis Referrals: John Jacome MD [Primary Care Provider] -
[2019-05-04] MEDS: Ondansetron 4 MG/2 ML Vial IV (20:54)
[2019-05-04] MEDS: HYDROmorphone 1 MG/ML Syringe IV (20:54)
[2019-05-04 20:59] VITALS: BP 159/80; PULSE 80; RESP 20; O2SAT 97
[2019-05-04 21:07] LABS: Absolute Lymphocyte Count 1.53 X10^3/uL (0.83-4.51); Absolute Neutrophil Count 3.8 X10^3/uL (2.0-7.7); Basophil# 0.03 X10^3/uL; Basophil% 0.5 % (0-1); Eosinophil# 0.14 X10^3/uL; Eosinophils% 2.4 % (0-5); Hematocrit 32.7 % (40-54); Hemoglobin 11.1 g/dL (13.0-16.5); Lymphocyte # 1.53 X10^3/ul (4.0); Lymphocyte % 26.2 % (19-41); Mean Corp Hgb Conc 33.9 g/dL (32-36); Mean Corpuscular Hgb 30.9 pg (27.0-32.0); Mean Corpuscular Volume 91.1 fL (80-94); Mean Platelet Vol. 9.9 fl (6.2-12.0); Monocyte# 0.35 X10^3/uL; NRBC Flagged by Analyzer 0 % (0-5); Neutrophil # 3.76 X10^3/uL (2.7-7.7); Neutrophil % 64.6 % (47-70); Platelet Count 215 K/mm3 (150-450); RBC Distribution Width CV 13.4 % (11.6-14.6); RBC Distribution Width SD 45.1 fl (35.1-43.9); Red Blood Count 3.59 M/mm3 (4.6-6.2); White Blood Count 5.8 K/mm3 (4.4-11.0)
[2019-05-04 21:26] LABS: AST(SGOT) 51 U/L (15-37); Alanine Aminotransfer ALT/SGPT 51 U/L (16-61); Albumin, Serum 3.6 g/dL (3.2-5.0); Alkaline Phosphatase 41 U/L (45-117); Anion Gap 7 (5-15); BUN 40 mg/dL (7-18); BUN/Creat Ratio 13.7 RATIO (10-20); Bilirubin, Direct 0.13 mg/dL (0.00-0.30); Calcium,Total 8.6 mg/dL (8.5-10.1); Chloride 106 mmol/L (98-107); Creatinine, Serum 2.92 mg/dL (0.70-1.30); EST Glomerular Filtration Rate 24 mL/min (>60); Est Glom Filt Rate - Afr Amer 30 mL/min (>60); Estimated Creatinine Clearance 32.23 ml/min; Globulin 3.2 g/dL (2.2-4.2); Glucose 207 mg/dL (74-106); Lipase 165 U/L (73-393); Potassium 4.5 mmol/L (3.5-5.1); Protein, Total 6.8 g/dL (6.4-8.2); Sodium Level 138 mmol/L (136-145)
--- NOTE | 2019-05-04 21:38 | ED.RN ---
DR. CUEVAS MADE AWARE OF PATIENT STILL HAVING PAIN IN LEFT UPPER QUADRANT LEVEL 01/28.
--- NOTE | 2019-05-04 21:50 | ED.RN ---
DR. CUEAVS MADE AWARE OF PATIENT STILL WAITING ON HER TO COME BACK IN TO EVALUATE HIS PAIN.
--- NOTE | 2019-05-04 22:35 | ED.RN ---
DR. CUEVAS MADE AWARE AGAIN THAT PATIENT IS AGAIN ASKING FOR MORE PAIN MEDICATION. DR. CUEVAS SAID SHE WILL NOT GIVE HIM MORE MEDICATION BECAUSE HE IS EXHIBITING DRUG SEEKING BEHAVIOR.
[2019-05-04 23:01] VITALS: BP 159/97; PULSE 80; O2SAT 98
[2019-05-04] MEDS: proMETHazine 25 MG/ML Syringe 6.25 MG IV (23:05)
[2019-05-04] MEDS: HYDROmorphone 0.5 MG/0.5 ML SYRINGE IV (23:05)
--- NOTE | 2019-05-04 23:05 | ED.DEP ---
ED Disposition - Plan for ED Patient: Instructions: Chronic Pancreatitis Referrals: John Jacome MD [Primary Care Provider] -
[2019-05-04 23:13] VITALS: BP 159/97; PULSE 82; O2SAT 100
== END 2019-05-04 23:18 | disposition home or self-care (01) ==
LOC: ED 20:20
PROVIDERS: Emergency Provider Emergency Medicine; Family Provider Internal Medicine; PCP Internal Medicine
DX: K86.1 Other chronic pancreatitis (principal); E78.00 Pure hypercholesterolemia, unspecified; Z72.0 Tobacco use
CPT/HCPCS: 80048; 80076; 83690; 85025; 96374; 96375; 96376; 99285; A4216; J2405

== ENCOUNTER 2019-05-12 17:45 | Emergency (ER) | payer MEDICAID, SELFPAY ==
[2019-05-12 17:45] VITALS: BP 172/102; PULSE 86; RESP 16; TEMP 36.4; O2SAT 100; BMI 29.9
[2019-05-12] MEDS: HYDROmorphone 1 MG/ML Syringe IV ×2 (18:36→20:01)
[2019-05-12] MEDS: Ondansetron 4 MG/2 ML Vial IV (18:36)
[2019-05-12] MEDS: 0.9% Normal Saline 1,000 ML 125 ML IV (18:37)
[2019-05-12 18:43] LABS: Absolute Neutrophil Count 4.5 X10^3/uL (2.0-7.7); Basophil# 0.04 X10^3/uL; Basophil% 0.6 % (0-1); Eosinophil# 0.14 X10^3/uL; Eosinophils% 2.2 % (0-5); Hematocrit 32.6 % (40-54); Hemoglobin 11.1 g/dL (13.0-16.5); Lymphocyte % 20.6 % (19-41); Mean Corpuscular Hgb 31.1 pg (27.0-32.0); Mean Corpuscular Volume 91.3 fL (80-94); Mean Platelet Vol. 9.1 fl (6.2-12.0); Monocyte# 0.34 X10^3/uL; Monocyte% 5.4 % (0-10); NRBC Flagged by Analyzer 0 % (0-5); Neutrophil # 4.47 X10^3/uL (2.7-7.7); Neutrophil % 70.7 % (47-70); Platelet Count 248 K/mm3 (150-450); RBC Distribution Width CV 13.2 % (11.6-14.6); RBC Distribution Width SD 44.3 fl (35.1-43.9); Red Blood Count 3.57 M/mm3 (4.6-6.2); White Blood Count 6.3 K/mm3 (4.4-11.0)
[2019-05-12 19:00] LABS: ALB/GLOB Ratio 1.1 RATIO (0.9-2.4); AST(SGOT) 27 U/L (15-37); Alanine Aminotransfer ALT/SGPT 40 U/L (16-61); Albumin, Serum 3.5 g/dL (3.2-5.0); Alkaline Phosphatase 47 U/L (45-117); Anion Gap 4 (5-15); BUN 32 mg/dL (7-18); BUN/Creat Ratio 16.1 RATIO (10-20); Calcium,Total 8.5 mg/dL (8.5-10.1); Chloride 109 mmol/L (98-107); Creatinine, Serum 1.99 mg/dL (0.70-1.30); EST Glomerular Filtration Rate 38 mL/min (>60); Est Glom Filt Rate - Afr Amer 46 mL/min (>60); Globulin 3.3 g/dL (2.2-4.2); Glucose 248 mg/dL (74-106); Lipase 138 U/L (73-393); Potassium 4.4 mmol/L (3.5-5.1); Protein, Total 6.8 g/dL (6.4-8.2); Sodium Level 138 mmol/L (136-145)
[2019-05-12 19:35] VITALS: BP 179/87; PULSE 79; RESP 18; O2SAT 98
--- NOTE | 2019-05-12 19:47 | ED.DCSUM_ITS ---
- ER Visit Summary Date of Service: 05/12/19 Chief Complaint: [Abdominal pain] History of Present Illness: The patient is a 48 M [resents to the emergency department complaint of abdominal pain that started this morning. Patient has history of recurrent abdominal pain and is scheduled to have his gallbladder removed on June 01 and possibly partial pancreatectomy. Patient sees a Dr. Kapadia at [facility]. Patient states that this is the same pain he has had multiple times in the past. The pain radiates through to his back. He describes it as severe. Patient states the pain is sharp. Patient also is a diabetic and has history of hypertension and high cholesterol and history of jackson creatitis.] Physical Examination: [HEENT-PERRLA, EOMI. Cranial nerves II through XII grossly intact. TMs clear. Mucous membranes moist. No adenopathy. Cardiovascular-regular rate and rhythm without murmur or ectopy Lungs-clear to auscultation, chest wall stable without crepitus or subcu emphysema Abdomen-normoactive bowel sounds, soft. Patient has tenderness in the ep igastric region with guarding. There is no rebound, rigidity, cranial signs. Extremities-intact ?4, normal range of motion, normal pulses, atraumatic] Test Results: [CBC with differential was normal. Chemistries were normal. BUN was 33 and creatinine 1.99. LFTs were normal. Lipase was 138.] Emergency Department Course and Treatment: [Was medicated with Dilaudid and Zofran. Patient was given a liter normal same fluid bolus. And felt improved.] Treatment Plan: [The imaging is indicated as this is patient's chronic pain and he recently had a scan a couple months ago. Patient is in agreement that he does not want to have any further imaging. I will give him a prescription for [place] for a few days and he would prefer to be discharged home rather than admission. Patient advised to stick to clear liquids for the next 2 days. To return if worsening pain, fever, persistent vomiting, or conditions worsen anyway.] Disposition: [Discharged home in stable condition] Impression: [Abdominal pain-acute on chronic] This note was generated with [employer] software. It may contain incorrect words, spelling, and punctuation that were not noted in review of the chart prior to signing ED Disposition - Plan for ED Patient: Referrals: John Jacome MD [Primary Care Provider] -
--- NOTE | 2019-05-12 19:50 | ED.DEP ---
ED Disposition - Plan for ED Patient: Instructions: ABDOMINAL PAIN, [place]own [place], (Male) Prescriptions: Hydrocodone Bitart/Apap 5-325 [[place] 5MG-325MG] 1 tab PO Q4H PRN PRN 2 Days #10 tab PRN Reason: Pain Prescription Printed Referrals: John Jacome MD [Primary Care Provider] - 3-5 Days
[2019-05-12 20:21] VITALS: BP 176/83; PULSE 99; RESP 16; O2SAT 99
--- NOTE | 2019-05-12 20:24 | ED.RN ---
REVIEWED D/C INSTRUCTIONS, FOLLOW UP CARE, PRESCRIPTION, AND S/S THAT WOULD WARRANT A RETURN TO THE ED WITH PT. PT VERBALIZED AN UNDERSTANDING AND DENIES FURTHER QUESTIONS FOR THIS RN. PT SKIN P/W/D, RESP EVEN AND UNLABORED, PT A&O X 3, NO DISTRESS NOTED. PT AMBULATED OUT OF ED, GAIT STEADY.
== END 2019-05-12 20:25 | disposition home or self-care (01) ==
LOC: ED 18:50
PROVIDERS: Emergency Provider Emergency Medicine; Family Provider Internal Medicine; PCP Internal Medicine
DX: R10.9 Unspecified abdominal pain (principal); G89.29 Other chronic pain; E11.9 Type 2 diabetes mellitus without complications; E78.00 Pure hypercholesterolemia, unspecified; I10 Essential (primary) hypertension; K85.90 Acute pancreatitis without necrosis or infection, unspecified; R11.2 Nausea with vomiting, unspecified; Z72.0 Tobacco use
CPT/HCPCS: 80053; 83690; 85025; 96361; 96374; 96376; 99283; J7030; A4216; J2405

== ENCOUNTER 2019-05-20 18:34 | Emergency (ER) | payer MEDICAID, SELFPAY ==
[2019-05-20 18:35] VITALS: BP 115/76; PULSE 88; RESP 16; TEMP 36.3; O2SAT 100; BMI 29.9
[2019-05-20 19:25] LABS: Absolute Lymphocyte Count 1.92 X10^3/uL (0.83-4.51); Absolute Neutrophil Count 4.3 X10^3/uL (2.0-7.7); Basophil# 0.04 X10^3/uL; Basophil% 0.6 % (0-1); Eosinophil# 0.21 X10^3/uL; Hematocrit 32.8 % (40-54); Hemoglobin 11.1 g/dL (13.0-16.5); Lymphocyte # 1.92 X10^3/ul (4.0); Lymphocyte % 27.6 % (19-41); Mean Corp Hgb Conc 33.8 g/dL (32-36); Mean Corpuscular Hgb 31.4 pg (27.0-32.0); Mean Corpuscular Volume 92.9 fL (80-94); Mean Platelet Vol. 9.9 fl (6.2-12.0); Monocyte# 0.41 X10^3/uL; Monocyte% 5.9 % (0-10); NRBC Flagged by Analyzer 0 % (0-5); Neutrophil # 4.34 X10^3/uL (2.7-7.7); Neutrophil % 62.5 % (47-70); Platelet Count 268 K/mm3 (150-450); RBC Distribution Width CV 13.7 % (11.6-14.6); RBC Distribution Width SD 46.2 fl (35.1-43.9); Red Blood Count 3.53 M/mm3 (4.6-6.2)
--- NOTE | 2019-05-20 19:25 | ED.RN ---
RN INTO ROOM TO MEDICATE PATIENTS. PT STATES TORADOL ISN'T GOING TO DO ANYTHING FOR MY PAIN, I DONT WANT THE ULTRASOUND IF I'M NOT KNOCKED OUT BECAUSE IT WILL BE TOO PAINFUL. RN TELLS PT SHE WILL TALK TO DR. DE LA FUENTE. PT STATES I'M JUST GOING TO LEAVE, RN TO REMOVE IV.
--- NOTE | 2019-05-20 19:33 | ED.RN ---
RN INTO ROOM TO EXPLAIN RISK OF LEAVING AMA. PT REFUSING TO SIGN PAPERWORK. IV D/C'D AT THIS TIME.
--- NOTE | 2019-05-20 19:35 | ED.RN ---
RN INTO ROOM TO PT HAS ELOPED.
[2019-05-20 19:46] LABS: ALB/GLOB Ratio 1.1 RATIO (0.9-2.4); AST(SGOT) 38 U/L (15-37); Alanine Aminotransfer ALT/SGPT 45 U/L (16-61); Albumin, Serum 3.5 g/dL (3.2-5.0); Alkaline Phosphatase 45 U/L (45-117); Anion Gap 8 (5-15); BUN 52 mg/dL (7-18); BUN/Creat Ratio 17.2 RATIO (10-20); Calcium,Total 8.4 mg/dL (8.5-10.1); Chloride 108 mmol/L (98-107); Creatinine, Serum 3.02 mg/dL (0.70-1.30); EST Glomerular Filtration Rate 23 mL/min (>60); Est Glom Filt Rate - Afr Amer 28 mL/min (>60); Estimated Creatinine Clearance 31.17 ml/min; Globulin 3.3 g/dL (2.2-4.2); Glucose 270 mg/dL (74-106); Lipase 191 U/L (73-393); Potassium 4.2 mmol/L (3.5-5.1); Protein, Total 6.8 g/dL (6.4-8.2); Sodium Level 140 mmol/L (136-145)
--- NOTE | 2019-05-20 23:37 | ED.DCSUM_ITS ---
History of Present Illness Chief Complaint: Nausea/Vomiting Narrative: Patient presenting secondary to abdominal pain nausea and vomiting. Patient states that he has chronic abdominal pain due to some gallbladder disease. He reports that an outside physician has scheduled to remove his gallbladder on the of next month. He reports that he is been having an exacerbation of pain that started today and has been associated with nonbloody nonbilious emesis. Pain is worse with palpation is moderate and sharp. Patient denies any diarrhea or urinary signs or symptoms. Review of systems otherwise negative. Past Medical History - Allergies and Home Meds Allergies/Adverse Reactions: Allergies Penicillins Allergy (Verified 05/04/19 18:25) Rash Primary Care Physician: John Jacome MD [Primary Care Provider] - Past Medical History: - - Chronic abdominal pain Surgical History: - - Lip Surgery, L foot surgery, EGD with polyp removal from stomach. Smoking Status: Current every day smoker - Family History Maternal Family History: Reports: Cancer, Heart Disease - report heart attack in 50s or 60s, history of stents Paternal Family History: Reports: Unknown Review of Systems All systems negative except as indicated Gastrointestinal: Reports: Abdominal pain, Nausea, Vomiting. Denies: Diarrhea Physical Exam General: Well nourished, Well developed, No Acute Distress Head: Normocephalic, Atraumatic Eyes: Perrl, EOMI ENT: Moist mucous membranes, No rhinorrhea Neck: Supple, Nontender Cardiovascular: Regular rate, Regular rhythm, No murmurs Respiratory: No distress, CTA bilaterally, Chest nontender Abdomen: Soft, Nondistended, Normal bowel sounds, Tender - Epigastric and right upper quadrant without guarding or rebound, negative Gomez sign Back: Nontender, Normal Inspection Extremities: Nontender, No edema Skin: Normal color, No rash Neurological: Alert, Oriented x3, Cranial nerves II-XII grossly intact, Normal Strength, Normal Sensation Psychological: Normal affect, Normal Mood Diagnostic/Tx/Re-eval - Medical Decision Making Patient presented secondary to abdominal pain. This was seeming to be reproducible on physical exam. I ordered lab work right upper quadrant ultr asound Toradol and Zofran and fluids for the patient. While patient was having his IV placed by nursing staff he asked what was ordered for him, and when told what he was ordered he states Toradol and Zofran never worked for me I am leaving. I reviewed the patient's records, and he has multiple visits for similar presentations with opiate type seeking behavior. Patient eloped from the emergency department prior to me being able to reevaluate him or inform him that we should complete his work-up. After the patient was discharged I did note that his laboratory work-up shows him to have a creatinine of 3, but trending this backward this seems to be a chronic issue. ED Disposition - Plan for ED Patient: Disposition: Against Medical Advice Diagnosis: Chronic abdominal pain Referrals: John Jacome MD [Primary Care Provider] -
== END 2019-05-20 19:39 | disposition left against medical advice (07) ==
LOC: ED 19:32
PROVIDERS: Emergency Provider Emergency Medicine; Family Provider Internal Medicine; PCP Internal Medicine
DX: R10.9 Unspecified abdominal pain (principal); G89.29 Other chronic pain; F17.200 Nicotine dependence, unspecified, uncomplicated; Z88.0 Allergy status to penicillin; R11.2 Nausea with vomiting, unspecified
CPT/HCPCS: 80053; 83690; 85025; 96361; 96374; 96375; 99283; J7030; A4216; J2405

== ENCOUNTER 2019-05-31 19:59 | Emergency (ER) | payer MEDICAID, SELFPAY ==
[2019-05-31 20:00] VITALS: BP 159/79; PULSE 82; RESP 16; TEMP 36.4; O2SAT 99; BMI 29.2
--- NOTE | 2019-05-31 21:17 | CT_ITS ---
STUDY: CT ABDOMEN AND PELVIS WITHOUT CONTRAST REASON FOR EXAM: Male, 48 years old. Nausea, vomiting and epigastric abdominal pain. RADIATION DOSAGE (If Supplied By Facility): CTDIvol = ( 12.58 ) mGy, DLP = ( 684.99 ) mGycm TECHNIQUE: Transaxial images were obtained from the dome of the diaphragm to the symphysis pubis with oral contrast, and without intravenous contrast. Sagittal and coronal images were reconstructed. Individualized dose optimization techniques were used for this CT. COMPARISON: CT of the abdomen and pelvis dated November 09, 2018. FINDINGS: There is bilateral basilar dependent atelectasis. The visualized portions of the heart are within normal limits. There is hepatomegaly with diffuse hepatic enlargement. The liver measures up to 19.9 cm in greatest dimension. Normal gallbladder and extrahepatic biliary system. There are multiple benign calcified granulomata of the spleen. Normal pancreas. Normal bilateral adrenal glands. Normal right kidney. Normal left kidney. Normal visualized stomach. There is no evidence for dilated bowel, ascites or pneumoperitoneum. There is questionable thickening of the torres of the proximal jejunum. The appearance is similar to the previous CT. The duodenum, mid and distal jejunum and ileum have a grossly normal appearance. Stool is visible throughout the colon with scattered diverticula. There are surgical clips in the region of the appendix consistent with a prior appendectomy. There is multifocal atherosclerotic calcification of the abdominal aorta, without a demonstrated aneurysm. Normal inferior vena cava. Normal retroperitoneum. Normal urinary bladder. Normal visualized prostate gland. Normal abdominal wall. There are diffuse degenerative changes of the visualized spine. CT/Abdomen/Pel W ORAL Cont Only IMPRESSION: 1. No CT evidence of acute intra-abdominal disease. 2. Nonspecific thickening of the torres of proximal jejunum could be the result of acute infection or inflammation. Electronically Signed: Tanya Guevara MD at 0:20 EDT , Service support ,
--- NOTE | 2019-05-31 21:38 | ED.DCSUM_ITS ---
History of Present Illness Chief Complaint: Nausea/Vomiting Informant: Patient Onset: Today Context: Gradual Onset Timing: Intermittent Current Severity: Moderate Maximum Severity: Severe Narrative: Patient is a 48-year-old male with remote history of alcohol abuse, chronic pancreatitis and biliary colic presenting with worsening epigastric pain. Patient states he was at work when he started developing worsening epigastric pain. It radiates to his back. He has had 3-4 episodes of vomiting. States he is vomited so hard look like there is some blood in his vomit. He states he has had normal bowel movements. Patient states this feels like his prior pancreatitis. Patient has not taken anything for pain at home. He notes that he supposed to have his gallbladder removed by Dr. Richter at [facility] tomorrow. He was unable to get transportation there so he came to his local emergency room. Patient has some sweating but denies any fever. He denies any urinary symptoms. He denies any chest pain or difficulty breathing. Past Medical History - Allergies and Home Meds Allergies/Adverse Reactions: Allergies Penicillins Allergy (Verified 05/31/19 20:03) Rash Primary Care Physician: John Jacome MD [Primary Care Provider] - ,[place] [STAFF PHYSICIAN] - 06/01/19 (As scheduled ) Past Medical History: - - Pancreatitis, chronic Surgical History: - - Lip Surgery, L foot surgery, EGD with polyp removal from stomach. Smoking Status: Never smoker - Family History Maternal Family History: Reports: Cancer, Heart Disease - report heart attack in 50s or 60s, history of stents Paternal Family History: Reports: Unknown Review of Systems All systems negative except as indicated Gastrointestinal: Reports: Abdominal pain, Nausea, Vomiting Physical Exam Vital Signs/Narrative: Vital Signs Temp Pulse Resp BP Pulse Ox 05/31/19 20:00 97.5 F L 82 16 159/79 H 99 Inital Vital Signs reviewed: Yes General: Well nourished, Well developed, No Acute Distress Head: Normocephalic, Atraumatic Eyes: Perrl, EOMI ENT: Moist mucous membranes, No rhinorrhea Neck: Supple, Nontender Cardiovascular: Regular rate, Regular rhythm, No murmurs Respiratory: No distress, CTA bilaterally, Chest nontender Abdomen: Soft, Nondistended, Normal bowel sounds, Tender - epigastric, RUQ. Negative for: Guarding, Rebound tenderness Back: Nontender, Normal Inspection. Negative for: CVA tenderness Extremities: Nontender, No edema Skin: Normal color, No rash Neurological: Alert, Oriented x3, Cranial nerves II-XII grossly intact, Normal Strength, Normal Sensation Psychological: Normal affect, Normal Mood Diagnostic/Tx/Re-eval Laboratory Results - last 24 hr 05/31/19 05/31/19 05/31/19 21:30 21:40 21:40 WBC 5.8 RBC 3.32 L Hgb 10.4 L Hct 30.9 L MCV 93.1 MCH 31.3 MCHC 33.7 RDW Std Deviation 45.5 H RDW Coeff of Adolph 13.4 Plt Count 226 MPV 9.8 Immature Gran % (Auto) 0.200 Neut % (Auto) 66.7 Lymph % (Auto) 24.3 [place] % (Auto) 5.7 Eos % (Auto) 2.4 Baso % (Auto) 0.7 Absolute Neuts (auto) 3.9 Absolute Lymphs (auto) 1.41 Nucleated RBC % 0 Sodium 138 Potassium 4.5 Chloride 107 Carbon Dioxide 23.0 Anion Gap 8 BUN 35 H Creatinine 2.36 H Estim Creat Clear Calc 39.88 Est GFR (MDRD) Af Amer 38 L Est GFR (MDRD) Non-Af 31 L BUN/Creatinine Ratio 14.8 Glucose 298 H Calcium 8.3 L Total Bilirubin 0.20 Direct Bilirubin 0.08 AST 22 ALT 34 Alkaline Phosphatase 44 L Total Protein 6.5 Albumin 3.4 Globulin 3.1 Lipase 228 Urine Color Yellow Urine Clarity Sl. Cloudy Urine pH 5.0 Ur Specific [place] 1.020 Urine Protein 500 H Urine Glucose (UA) 1000 H Urine Ketones Negative Urine Occult Blood 10 H Urine Nitrite Negative Urine Bilirubin Negative Urine Urobilinogen Normal Ur Leukocyte Esterase Negative Urine RBC 0-5 SEEN Urine WBC 0 SEEN Ur Squamous Epith Cells 0-5 SEEN Urine Bacteria 0 SEEN Urine Mucus 0 SEEN Diagnostic Data Abdomen CT 05/31/19 21:17 IMPRESSION: 1. No CT evidence of acute intra-abdominal disease. 2. Nonspecific thickening of the torres of proximal jejunum could be the result of acute infection or inflammation. Electronically Signed: Tanya Guevara MD at 0:20 EDT , Service support , - Medical Decision Making She is evaluated for acute on chronic abdominal pain. We received a call from his surgeon, Dr. Richter who requested patient receive a CT of his abdomen and pelvis. Patient is scheduled to have cholecystectomy tomorrow. Should is treated with IV Zofran and IV Dilaudid. He requires a second dose of IV Dilaudid. Patient does have kidney disease he cannot have IV contrast. He is ordered a CT of abdomen pelvis with p.o. contrast. Patient does have some nonspecific inflammation of the jejunum but no other acute process. His lab work is otherwise unremarkable. Patient states that he would like to go home and does not want to be transferred to [facility] at this time. He states that he does not have transportation for his family to get there tomorrow if we transfer him here. Patient states that he already has transportation arranged to get him and his to [facility] tomorrow morning for his surgery. I did call patient's surgeon to communicate our findings and the plan of care here. He is agreeable to this plan. He does request disc of the patient's CT be made. This is given to the patient at time of discharge. Patient was offered a one-time dose of Percocet/[place] for residual pain but he declined stating that oral medicines never worked. Patient states he has nausea medicine at home to take as needed. He is encouraged to return to the emergency room should his symptoms become too much or he have any further problems. Patient agreeable with this plan. Discharged home in stable condition. ED Disposition - Plan for ED Patient: Disposition: Home or Assisted Living Diagnosis: Chronic pancreatitis Instructions: Abdominal Pain Referrals: John Jacome MD [Primary Care Provider] - ,Your [STAFF PHYSICIAN] - 06/01/19 (As scheduled ) Additional Instructions: Please make sure that you follow-up with your surgeon as scheduled tomorrow.
[2019-05-31] MEDS: HYDROmorphone 1 MG/ML Syringe 0.5 MG IV (21:48)
[2019-05-31] MEDS: 0.9% Normal Saline 1,000 ML 1000 ML IV (21:48)
[2019-05-31] MEDS: Ondansetron 4 MG/2 ML Vial IV (21:48)
[2019-05-31 21:53] LABS: Absolute Lymphocyte Count 1.41 X10^3/uL (0.83-4.51); Absolute Neutrophil Count 3.9 X10^3/uL (2.0-7.7); Basophil# 0.04 X10^3/uL; Basophil% 0.7 % (0-1); Eosinophil# 0.14 X10^3/uL; Eosinophils% 2.4 % (0-5); Hematocrit 30.9 % (40-54); Hemoglobin 10.4 g/dL (13.0-16.5); Lymphocyte # 1.41 X10^3/ul (4.0); Lymphocyte % 24.3 % (19-41); Mean Corp Hgb Conc 33.7 g/dL (32-36); Mean Corpuscular Hgb 31.3 pg (27.0-32.0); Mean Corpuscular Volume 93.1 fL (80-94); Mean Platelet Vol. 9.8 fl (6.2-12.0); Monocyte# 0.33 X10^3/uL; Monocyte% 5.7 % (0-10); NRBC Flagged by Analyzer 0 % (0-5); Neutrophil # 3.88 X10^3/uL (2.7-7.7); Neutrophil % 66.7 % (47-70); Platelet Count 226 K/mm3 (150-450); RBC Distribution Width CV 13.4 % (11.6-14.6); RBC Distribution Width SD 45.5 fl (35.1-43.9); Red Blood Count 3.32 M/mm3 (4.6-6.2); White Blood Count 5.8 K/mm3 (4.4-11.0)
[2019-05-31 21:57] LABS: Bacteria 0 SEEN /hpf (None Seen); Mucous, Urine 0 SEEN /hpf (<or=2+); White Blood Cells 0 SEEN /hpf (0-5)
[2019-05-31 22:01] LABS: Color, Urine Yellow (Yellow); Glucose, Dipstick 1000 mg/dl (Normal); Ketone-Dipstick Negative (Negative); Leukocyte Esterase-Dipstick Negative /ul (Negative); Nitrite-Dipstick Negative (Negative); Occult Blood-Urine 10 /ul (Negative); Protein-Dipstick 500 mg/dl (Negative); Urine Bilirubin Dipstick Negative (Negative); Urine Clarity Sl. Cloudy (Clear); Urine Urobilinogen Normal (Normal)
[2019-05-31 22:09] LABS: AST(SGOT) 22 U/L (15-37); Alanine Aminotransfer ALT/SGPT 34 U/L (16-61); Albumin, Serum 3.4 g/dL (3.2-5.0); Alkaline Phosphatase 44 U/L (45-117); Anion Gap 8 (5-15); BUN 35 mg/dL (7-18); BUN/Creat Ratio 14.8 RATIO (10-20); Bilirubin, Direct 0.08 mg/dL (0.00-0.30); Calcium,Total 8.3 mg/dL (8.5-10.1); Chloride 107 mmol/L (98-107); Creatinine, Serum 2.36 mg/dL (0.70-1.30); EST Glomerular Filtration Rate 31 mL/min (>60); Est Glom Filt Rate - Afr Amer 38 mL/min (>60); Estimated Creatinine Clearance 39.88 ml/min; Globulin 3.1 g/dL (2.2-4.2); Glucose 298 mg/dL (74-106); Lipase 228 U/L (73-393); Potassium 4.5 mmol/L (3.5-5.1); Protein, Total 6.5 g/dL (6.4-8.2); Sodium Level 138 mmol/L (136-145)
[2019-05-31 22:10] LABS: Red Blood Cells-Urine 0-5 SEEN /hpf (0-5); Squamous Epithelial Cells - UA 0-5 SEEN /hpf (0-5)
[2019-05-31 22:19] VITALS: BP 142/75; PULSE 72; RESP 15; TEMP 36.7; O2SAT 98
[2019-05-31] MEDS: HYDROmorphone 0.5 MG/0.5 ML SYRINGE IV (23:16)
[2019-06-01 00:09] VITALS: RESP 15
[2019-06-01 00:17] VITALS: BP 171/85; PULSE 78; RESP 18; O2SAT 99
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
== END 2019-06-01 01:02 | disposition home or self-care (01) ==
PROVIDERS: Emergency Provider Emergency Medicine; Family Provider Internal Medicine; PCP Internal Medicine
DX: K86.1 Other chronic pancreatitis (principal); Z88.0 Allergy status to penicillin
CPT/HCPCS: 74176; 80048; 80076; 81001; 83690; 85025; 99283; J7030; A4216; J2405

== ENCOUNTER 2019-06-05 21:13 | Emergency (ER) | payer MEDICAID, SELFPAY ==
[2019-06-05 21:14] VITALS: BP 163/93; PULSE 78; RESP 15; TEMP 36.4; O2SAT 99; BMI 31.1
--- NOTE | 2019-06-05 22:07 | ED.DCSUM_ITS ---
History of Present Illness Chief Complaint: Abd Pain Informant: Patient Narrative: Patient stated he is having some upper abdominal discomfort. He is 4 days postoperative lap cholecystectomy [facility] by Dr. Richter. He stated there is no complications. Patient has chronic abdominal pain, chronic pancreatitis. He has chronic gallbladder sludge. He stated he had 3 episodes of emesis tonight and increase in his upper abdominal pain postop since the vomiting. He denies any alcohol usage. He has been using [place] and Zofran postoperative. Patient denies any fevers or chills. He is passing gas normally. Current severity is mild to moderate. Patient underlying reason for coming to wanted to make sure he did not have a pancreatitis flare. - Past Medical History (1) DRUG SEEKING BEHAVIOR / MALINGERING Status: Suspected (2) Tobacco use Status: Chronic (3) Suspected COPD Status: Chronic (4) Diabetic neuropathy Status: Chronic (5) Diabetes mellitus Status: Chronic (6) HTN (hypertension) Status: Chronic (7) Atypical chest pain Status: Acute (8) Gallbladder sludge Status: Acute (9) Pancreatitis Status: Chronic Past Medical History - Allergies and Home Meds Allergies/Adverse Reactions: Allergies Penicillins Allergy (Verified 06/05/19 21:17) Rash Primary Care Physician: John Jacome MD [Primary Care Provider] - Prior records reviewed: Yes Past Medical History: - - See problem list Surgical History: cholecystectomy, - - Lip Surgery, L foot surgery, EGD with polyp removal from stomach. Smoking Status: Current every day smoker Alcohol: None Drugs: None - Family History Maternal Family History: Reports: Cancer, Heart Disease - report heart attack in 50s or 60s, history of stents Paternal Family History: Reports: Unknown Review of Systems General: Denies: Chills, Fever, Sweats Eyes: Denies: Visual changes - bilaterally, Diplopia ENT: Denies: Rhinorrhea, Sore throat Cardiovascular: Denies: Chest pain, Palpitations Respiratory: Denies: Dyspnea, Cough, Dyspnea on exertion Gastrointestinal: Reports: Abdominal pain, Nausea, Vomiting. Denies: Diarrhea, Melena, Hematochezia Genitourinary: Denies: Dysuria, Hematuria, Frequency Musculoskeletal: Denies: Back pain, Extremity Pain Skin: Denies: Rash, Wounds Neurological: Denies: Headache, Weakness, Numbness Physical Exam Vital Signs/Narrative: Vital Signs Temp Pulse Resp BP Pulse Ox 06/05/19 21:14 97.6 F L 78 15 163/93 H 99 General: Well nourished, Well developed, No Acute Distress Head: Normocephalic, Atraumatic Eyes: Perrl, EOMI ENT: Moist mucous membranes, No rhinorrhea Neck: Supple, Nontender Cardiovascular: Regular rate, Regular rhythm, No murmurs Respiratory: No distress, CTA bilaterally, Chest nontender Abdomen: Soft, Nondistended, Normal bowel sounds, Tender - Jay in the upper abdomen diffusely. His surgical incisions are clean dry intact without irritation or redness.. Negative for: Nontender, Guarding, Rebound tenderness, Mass, Pulsatile mass Back: Nontender, Normal Inspection Extremities: Nontender, No edema Skin: Normal color, No rash Neurological: Alert, Oriented x3, Cranial nerves II-XII grossly intact, Normal Strength, Normal Sensation Psychological: Normal affect, Normal Mood Diagnostic/Tx/Re-eval Laboratory Tests 06/05/19 06/05/19 Range/Units 22:00 22:00 WBC 4.9 (4.4-11.0) K/mm3 RBC 3.39 L (4.6-6.2) M/mm3 Hgb 10.6 L (13.0-16.5) g/dL Hct 32.4 L (40-54) % MCV 95.6 H (80-94) fL MCH 31.3 (27.0-32.0) pg MCHC 32.7 (32-36) g/dL RDW Std Deviation 45.9 H (35.1-43.9) fl RDW Coeff of Adolph 13.0 (11.6-14.6) % Plt Count 230 (150-450) K/mm3 MPV 10.1 (6.2-12.0) fl Immature Gran % (Auto) 0.400 (0.0-0.9) % Neut % (Auto) 59.3 (47-70) % Lymph % (Auto) 26.1 (19-41) % [place] % (Auto) 6.1 (0-10) % Eos % (Auto) 7.1 H (0-5) % Baso % (Auto) 1.0 (0-1) % Absolute Neuts (auto) 2.9 (2.0-7.7) X10^3/uL Absolute Lymphs (auto) 1.29 (0.83-4.51) X10^3/uL Nucleated RBC % 0 (0-5) % Sodium 141 (136-145) mmol/L Potassium 4.7 (3.5-5.1) mmol/L Chloride 108 H (98-107) mmol/L Carbon Dioxide 28.0 (21.0-32.0) mmol/L Anion Gap 5 (5-15) BUN 26 H (7-18) mg/dL Creatinine 1.99 H (0.70-1.30) mg/dL Estim Creat Clear Calc 47.30 ml/min Est GFR (MDRD) Af Amer 46 L (>60) mL/min Est GFR (MDRD) Non-Af 38 L (>60) mL/min BUN/Creatinine Ratio 13.1 (10-20) RATIO Glucose 231 H (74-106) mg/dL Calcium 8.3 L (8.5-10.1) mg/dL Total Bilirubin 0.40 (0.20-1.00) mg/dL AST 21 (15-37) U/L ALT 41 (16-61) U/L Alkaline Phosphatase 47 (45-117) U/L Total Protein 6.5 (6.4-8.2) g/dL Albumin 3.0 L (3.2-5.0) g/dL Globulin 3.5 (2.2-4.2) g/dL Albumin/Globulin Ratio 0.9 (0.9-2.4) RATIO Lipase 90 (73-393) U/L - Medical Decision Making IV established patient given a liter of IV fluids, Zofran morphine. Lab work obtained. Lab work shows no acute abnormalities. No leukocytosis. Chronic anemia. Chronic renal insufficiency unchanged from baseline. Liver function test and lipase negative. I do not feel the patient needs imaging. I do not think he has a bowel obstruction or abdominal abscess or infection. I think this is just postoperative discomfort and nausea. He has Zofran at home. We will continue his home treatment and follow-up as an outpatient ED Disposition - Plan for ED Patient: Disposition: Home or Assisted Living Diagnosis: Postoperative pain, Nausea and vomiting Instructions: VOMITING (4y-Adult) Referrals: John Jacome MD [Primary Care Provider] -
[2019-06-05 22:13] LABS: Absolute Lymphocyte Count 1.29 X10^3/uL (0.83-4.51); Absolute Neutrophil Count 2.9 X10^3/uL (2.0-7.7); Basophil# 0.05 X10^3/uL; Eosinophil# 0.35 X10^3/uL; Eosinophils% 7.1 % (0-5); Hematocrit 32.4 % (40-54); Hemoglobin 10.6 g/dL (13.0-16.5); Lymphocyte # 1.29 X10^3/ul (4.0); Lymphocyte % 26.1 % (19-41); Mean Corp Hgb Conc 32.7 g/dL (32-36); Mean Corpuscular Hgb 31.3 pg (27.0-32.0); Mean Corpuscular Volume 95.6 fL (80-94); Mean Platelet Vol. 10.1 fl (6.2-12.0); Monocyte% 6.1 % (0-10); NRBC Flagged by Analyzer 0 % (0-5); Neutrophil # 2.93 X10^3/uL (2.7-7.7); Neutrophil % 59.3 % (47-70); Platelet Count 230 K/mm3 (150-450); RBC Distribution Width SD 45.9 fl (35.1-43.9); Red Blood Count 3.39 M/mm3 (4.6-6.2); White Blood Count 4.9 K/mm3 (4.4-11.0)
[2019-06-05 22:25] LABS: ALB/GLOB Ratio 0.9 RATIO (0.9-2.4); AST(SGOT) 21 U/L (15-37); Alanine Aminotransfer ALT/SGPT 41 U/L (16-61); Alkaline Phosphatase 47 U/L (45-117); Anion Gap 5 (5-15); BUN 26 mg/dL (7-18); BUN/Creat Ratio 13.1 RATIO (10-20); Calcium,Total 8.3 mg/dL (8.5-10.1); Chloride 108 mmol/L (98-107); Creatinine, Serum 1.99 mg/dL (0.70-1.30); EST Glomerular Filtration Rate 38 mL/min (>60); Est Glom Filt Rate - Afr Amer 46 mL/min (>60); Globulin 3.5 g/dL (2.2-4.2); Glucose 231 mg/dL (74-106); Lipase 90 U/L (73-393); Potassium 4.7 mmol/L (3.5-5.1); Protein, Total 6.5 g/dL (6.4-8.2); Sodium Level 141 mmol/L (136-145)
[2019-06-05] MEDS: 0.9% Normal Saline 1,000 ML 1000 ML IV (22:26)
[2019-06-05] MEDS: Ondansetron 4 MG/2 ML Vial IV (22:26)
[2019-06-05] MEDS: Morphine 4 MG/ML Syringe IV (22:26)
--- NOTE | 2019-06-05 23:07 | ED.RN ---
dr wanted clint rest of the pts ivf to be infused, pt refused and wanted his dc papers.
[2019-06-05 23:08] VITALS: BP 157/88; PULSE 72; RESP 16; O2SAT 97
== END 2019-06-05 23:09 | disposition home or self-care (01) ==
PROVIDERS: Emergency Provider Emergency Medicine; Family Provider Internal Medicine; PCP Internal Medicine
DX: G89.18 Other acute postprocedural pain (principal); R11.2 Nausea with vomiting, unspecified; F17.200 Nicotine dependence, unspecified, uncomplicated; Z90.49 Acquired absence of other specified parts of digestive tract; E11.9 Type 2 diabetes mellitus without complications; I10 Essential (primary) hypertension; E11.40 Type 2 diabetes mellitus with diabetic neuropathy, unspecified
CPT/HCPCS: 80053; 83690; 85025; 96361; 96374; 96375; 99283; J7030; J2405

== ENCOUNTER 2019-08-07 19:02 | Emergency (ER) | payer MEDICAID, SELFPAY ==
[2019-08-07 19:03] VITALS: BP 168/101; PULSE 74; RESP 18; TEMP 37.2; O2SAT 100; BMI 32.1
[2019-08-07 20:37] LABS: Absolute Lymphocyte Count 1.18 X10^3/uL (0.83-4.51); Absolute Neutrophil Count 3.4 X10^3/uL (2.0-7.7); Basophil# 0.05 X10^3/uL; Eosinophil# 0.18 X10^3/uL; Eosinophils% 3.5 % (0-5); Hematocrit 32.9 % (40-54); Hemoglobin 10.8 g/dL (13.0-16.5); Lymphocyte # 1.18 X10^3/ul (4.0); Lymphocyte % 23.2 % (19-41); Mean Corp Hgb Conc 32.8 g/dL (32-36); Mean Corpuscular Hgb 30.4 pg (27.0-32.0); Mean Corpuscular Volume 92.7 fL (80-94); Monocyte# 0.32 X10^3/uL; Monocyte% 6.3 % (0-10); NRBC Flagged by Analyzer 0 % (0-5); Neutrophil # 3.35 X10^3/uL (2.7-7.7); Neutrophil % 65.8 % (47-70); Platelet Count 222 K/mm3 (150-450); RBC Distribution Width CV 12.7 % (11.6-14.6); RBC Distribution Width SD 43.3 fl (35.1-43.9); Red Blood Count 3.55 M/mm3 (4.6-6.2); White Blood Count 5.1 K/mm3 (4.4-11.0)
--- NOTE | 2019-08-07 20:37 | ED.VIS.GI ---
History of Present Illness Chief Complaint: Abd Pain Informant: Patient - Abdominal Pain/Flank Pain Onset: Today - around 6 hrs ago Context: Gradual Onset Timing: Continuous Quality: Aching Location: Epigastric Current Severity: Severe Maximum Severity: Severe Worsened by: Nothing Relieved by: Nothing - Nausea/Vomiting/Emesis GI Symptom: Nausea, Vomiting Onset: Today Quality: Nonbilious - yellow, nonbloody. Negative for: Blood streaks, Coffee ground, Hematemesis Severity: Moderate Episodes: 2 - Diarrhea/Melena/Hematochezia GI Symptom: Melena. Negative for: Diarrhea, Hematochezia Severity: Moderate Episodes: 5 Associated Symptoms: - - foul-smelling. Negative for: Dysuria, Frequency, Hematuria, Urgency Narrative: Patient states he had his gallbladder taken out, and as a result of gallstones he had bouts of pancreatitis and this pain feels the same. He has never had it after his cholecystectomy. He does not drink alcohol. He states today since the pain started, he started having black diarrhea. Has not had no Pepto-Bismol or iron ingestion lately. States he has a history of peptic ulcer disease and takes Prilosec for it. Pain is epigastric and radiates straight through to his back. He takes no antiplatelet or anticoagulant medications. Prior similar symptoms: Yes - pancreatitis - Past Medical History (1) Diabetes mellitus Status: Chronic (2) Diabetic neuropathy Status: Chronic (3) HTN (hypertension) Status: Chronic (4) Pancreatitis Status: Resolved (5) Suspected COPD Status: Chronic Past Medical History - Allergies and Home Meds Allergies/Adverse Reactions: Allergies Penicillins Allergy (Verified 08/07/19 19:04) Rash Primary Care Physician: John Jacome MD [Primary Care Provider] - Surgical History: cholecystectomy, - - Lip Surgery, L foot surgery, EGD with polyp removal from stomach. Smoking Status: Current every day smoker Alcohol: None Drugs: None - Family History Maternal Family History: Reports: Cancer, Heart Disease - report heart attack in 50s or 60s, history of stents Paternal Family History: Reports: Unknown Review of Systems General: Reports: Malaise. Denies: Chills, Fever, Sweats Eyes: Denies: Visual changes - bilaterally, Diplopia ENT: Denies: Rhinorrhea, Sore throat Cardiovascular: Denies: Chest pain, Palpitations Respiratory: Denies: Dyspnea, Cough, Dyspnea on exertion Gastrointestinal: Reports: Abdominal pain, Nausea, Vomiting, Melena. Denies: Diarrhea, Hematochezia Genitourinary: Reports: - - Foul-smelling urine. Denies: Dysuria, Hematuria, Frequency Musculoskeletal: Reports: Back pain. Denies: Neck pain, Swelling, Extremity Pain Skin: Denies: Rash, Wounds Neurological: Denies: Headache, Weakness, Numbness Physical Exam Vital Signs/Narrative: Vital Signs Temp Pulse Resp BP Pulse Ox 08/07/19 19:03 98.9 F 74 18 168/101 H 100 Inital Vital Signs reviewed: Yes General: Well nourished, Well developed, No Acute Distress - But uncomfortable Head: Normocephalic, Atraumatic Eyes: Perrl, EOMI ENT: Moist mucous membranes, No rhinorrhea Neck: Supple, Nontender Cardiovascular: Regular rate, Regular rhythm, No murmurs Respiratory: No distress, CTA bilaterally, Chest nontender Abdomen: Soft, Nondistended, Normal bowel sounds, Tender - Epigastrium left upper quadrant, fairly severe, Guarding. Negative for: Rebound tenderness, Pulsatile mass Back: Nontender, Normal Inspection, CVA tenderness - Mild left side only Extremities: Nontender, No edema Skin: Normal color, No rash, No Trauma Neurological: Alert, Oriented x3, Cranial nerves II-XII grossly intact, Normal Strength, Normal Sensation Psychological: Normal affect, Normal Mood Diagnostic/Tx/Re-eval 08/07/19 20:50 Stool Stool Occult Blood (ADDI) - Final Occult Blood Positive Laboratory Results 08/07/19 08/07/19 08/07/19 19:32 20:15 20:15 WBC 5.1 RBC 3.55 L Hgb 10.8 L Hct 32.9 L MCV 92.7 MCH 30.4 MCHC 32.8 RDW Std Deviation 43.3 RDW Coeff of Adolph 12.7 Plt Count 222 MPV 10.0 Immature Gran % (Auto) 0.200 Neut % (Auto) 65.8 Lymph % (Auto) 23.2 Sebastian % (Auto) 6.3 Eos % (Auto) 3.5 Baso % (Auto) 1.0 Absolute Neuts (auto) 3.4 Absolute Lymphs (auto) 1.18 Nucleated RBC % 0 Sodium 141 Potassium 4.4 Chloride 111 H Carbon Dioxide 23.0 Anion Gap 7 BUN 31 H Creatinine 2.29 H Estim Creat Clear Calc 41.10 Est GFR (MDRD) Af Amer 39 L Est GFR (MDRD) Non-Af 32 L BUN/Creatinine Ratio 13.5 Glucose 221 H Calcium 8.4 L Total Bilirubin 0.30 Direct Bilirubin 0.07 AST 62 H ALT 72 H Alkaline Phosphatase 49 Total Protein 6.7 Albumin 3.4 Globulin 3.3 Lipase 183 Urine Color Urine Clarity Urine pH Ur Specific [place] Urine Protein Urine Glucose (UA) Urine Ketones Urine Occult Blood Urine Nitrite Urine Bilirubin Urine Urobilinogen Ur Leukocyte Esterase Urine RBC Urine WBC Ur Squamous Epith Cells Urine Bacteria Urine Mucus 08/07/19 20:16 WBC RBC Hgb Hct MCV MCH MCHC RDW Std Deviation RDW Coeff of Adolph Plt Count MPV Immature Gran % (Auto) Neut % (Auto) Lymph % (Auto) Sebastian % (Auto) Eos % (Auto) Baso % (Auto) Absolute Neuts (auto) Absolute Lymphs (auto) Nucleated RBC % Sodium Potassium Chloride Carbon Dioxide Anion Gap BUN Creatinine Estim Creat Clear Calc Est GFR (MDRD) Af Amer Est GFR (MDRD) Non-Af BUN/Creatinine Ratio Glucose Calcium Total Bilirubin Direct Bilirubin AST ALT Alkaline Phosphatase Total Protein Albumin Globulin Lipase Urine Color Yellow Urine Clarity Sl. Cloudy Urine pH 6.0 Ur Specific [place] 1.020 Urine Protein 500 H Urine Glucose (UA) 1000 H Urine Ketones Negative Urine Occult Blood 50 H Urine Nitrite Negative Urine Bilirubin Negative Urine Urobilinogen Normal Ur Leukocyte Esterase Negative Urine RBC 0-5 SEEN Urine WBC 0 SEEN Ur Squamous Epith Cells 0-5 SEEN Urine Bacteria 0 SEEN Urine Mucus 0 SEEN - Medical Decision Making As above, his liver enzymes and lipase are normal. His hemoglobin is stable and similar to a reading from 2 or 3 months ago. His renal function is similar to chronic, which is abnormal with creatinine around 2.3 and BUN around 30. His Hemoccult was positive, however he has no melena or bright red blood or any bleeding on exam, there was light brown stool in specimen check. He requested multiple doses of analgesics and became very frustrated with having to wait for test results here in the emergency department. He is clinically stable. Given that his lipase returned normal, he does not have acute pancreatitis and I do not think narcotics are further warranted. He was given a dose of IV Protonix, since he is hemodynamically and clinically stable I feel he can be discharged home, to return if his bleeding worsens, on Carafate in addition to Phenergan to use as needed. He was advised to follow-up. He has history of peptic ulcer disease and certainly this could be present now, he is compliant with his Prilosec and will continue to take it as well. ED Disposition - Plan for ED Patient: Disposition: Home or Assisted Living Diagnosis: Upper abdominal pain, Chronic pancreatitis, Upper GI bleeding Instructions: GI BLEED, Upper (Stable), Chronic Pancreatitis Prescriptions: Sucralfate [Carafate] 1 gm PO 4X/DAY #40 tab Prescription Printed proMETHazine tablet [Phenergan] 25 mg PO Q6H PRN PRN #10 tab PRN Reason: Nausea Prescription Printed Referrals: John Jacome MD [Primary Care Provider] - As soon as possible
[2019-08-07 20:38] LABS: Bacteria 0 SEEN /hpf (None Seen); Mucous, Urine 0 SEEN /hpf (<or=2+)
[2019-08-07 20:43] LABS: Color, Urine Yellow (Yellow); Glucose, Dipstick 1000 mg/dl (Normal); Ketone-Dipstick Negative (Negative); Leukocyte Esterase-Dipstick Negative /ul (Negative); Nitrite-Dipstick Negative (Negative); Occult Blood-Urine 50 /ul (Negative); Protein-Dipstick 500 mg/dl (Negative); Urine Bilirubin Dipstick Negative (Negative); Urine Clarity Sl. Cloudy (Clear); Urine Urobilinogen Normal (Normal)
[2019-08-07 20:45] LABS: Anion Gap 7 (5-15); BUN 31 mg/dL (7-18); BUN/Creat Ratio 13.5 RATIO (10-20); Calcium,Total 8.4 mg/dL (8.5-10.1); Chloride 111 mmol/L (98-107); Creatinine, Serum 2.29 mg/dL (0.70-1.30); EST Glomerular Filtration Rate 32 mL/min (>60); Est Glom Filt Rate - Afr Amer 39 mL/min (>60); Glucose 221 mg/dL (74-106); Potassium 4.4 mmol/L (3.5-5.1); Sodium Level 141 mmol/L (136-145)
[2019-08-07 20:45] LABS: Red Blood Cells-Urine 0-5 SEEN /hpf (0-5)
[2019-08-07 20:46] LABS: Squamous Epithelial Cells - UA 0-5 SEEN /hpf (0-5); White Blood Cells 0 SEEN /hpf (0-5)
[2019-08-07] MEDS: Morphine 4 MG/ML Syringe IV ×2 (20:49→22:21)
[2019-08-07] MEDS: 0.9% Normal Saline 1,000 ML 999 ML IV (20:49)
[2019-08-07] MEDS: Ondansetron 4 MG/2 ML Vial IV (20:49)
[2019-08-07 22:42] LABS: AST(SGOT) 62 U/L (15-37); Alanine Aminotransfer ALT/SGPT 72 U/L (16-61); Albumin, Serum 3.4 g/dL (3.2-5.0); Alkaline Phosphatase 49 U/L (45-117); Bilirubin, Direct 0.07 mg/dL (0.00-0.30); Globulin 3.3 g/dL (2.2-4.2); Lipase 183 U/L (73-393); Protein, Total 6.7 g/dL (6.4-8.2)
[2019-08-07] MEDS: Mag Hydrox/Al Hydrox/Simeth 30 ML UDC PO (23:08)
[2019-08-07 23:12] VITALS: BP 174/89; PULSE 66; RESP 15
== END 2019-08-07 23:13 | disposition home or self-care (01) ==
PROVIDERS: Emergency Provider Emergency Medicine; Family Provider Internal Medicine; PCP Internal Medicine
DX: K86.1 Other chronic pancreatitis (principal); Z87.11 Personal history of peptic ulcer disease; Z82.49 Family history of ischemic heart disease and other diseases of the circulatory system; Z88.0 Allergy status to penicillin; Z90.49 Acquired absence of other specified parts of digestive tract; K92.1 Melena; F17.200 Nicotine dependence, unspecified, uncomplicated; I10 Essential (primary) hypertension; E11.40 Type 2 diabetes mellitus with diabetic neuropathy, unspecified
CPT/HCPCS: 80048; 80076; 81001; 82274; 83690; 85025; 96365; 96375; 96376; 99283; J7030; A4216; J2405; J3490

== ENCOUNTER 2019-09-05 18:39 | Emergency (ER) | payer MEDICAID, SELFPAY ==
[2019-09-05 18:41] VITALS: BP 161/82; PULSE 80; RESP 16; TEMP 36; O2SAT 100; BMI 32.1
--- NOTE | 2019-09-05 19:49 | ED.DCSUM_ITS ---
History of Present Illness Chief Complaint: Abd Pain Informant: Patient Onset: Today Narrative: Abdominal pain less than 3 hours ago with nausea vomiting x5 no hematemesis. Yesterday had diarrhea total 8 episodes no melena or hematochezia. No recent antibiotics. Similar presentation with pancreatitis in the past. No alcohol history. Reports secondary to his triglycerides and diabetes. Currently nauseated. No fevers. Reports pain does go to his back. States urine is malodorous. No dysuria. Allergy to penicillin. History of cholecystectomy. Prior similar symptoms: Yes Past Medical History - Allergies and Home Meds Allergies/Adverse Reactions: Allergies Penicillins Allergy (Verified 09/05/19 18:41) Rash Primary Care Physician: John Jacome MD [Primary Care Provider] - Surgical History: cholecystectomy, - - Lip Surgery, L foot surgery, EGD with polyp removal from stomach. Smoking Status: Current every day smoker - Family History Maternal Family History: Reports: Cancer, Heart Disease - report heart attack in 50s or 60s, history of stents Paternal Family History: Reports: Unknown Review of Systems General: Denies: Chills, Fever, Sweats Eyes: Denies: Visual changes - bilaterally, Diplopia ENT: Denies: Rhinorrhea, Sore throat Cardiovascular: Denies: Chest pain, Palpitations Respiratory: Denies: Dyspnea, Cough, Dyspnea on exertion Gastrointestinal: Reports: Abdominal pain, Nausea, Vomiting, Diarrhea. Denies: Melena, Hematochezia Genitourinary: Denies: Dysuria, Hematuria, Frequency Musculoskeletal: Denies: Back pain, Extremity Pain Skin: Denies: Rash, Wounds Neurological: Denies: Headache, Weakness, Numbness Physical Exam Vital Signs/Narrative: Vital Signs Temp Pulse Resp BP Pulse Ox 09/05/19 18:41 96.8 F L 80 16 161/82 H 100 Inital Vital Signs reviewed: Yes General: Well nourished, Well developed, No Acute Distress Head: Normocephalic, Atraumatic Eyes: Perrl, EOMI ENT: No rhinorrhea, Dry mucous membranes Neck: Supple, Nontender Cardiovascular: Regular rate, Regular rhythm, No murmurs Respiratory: No distress, CTA bilaterally, Chest nontender Abdomen: Soft, Nondistended, Normal bowel sounds, - - Mid abdominal tenderness and epigastric without guarding or rebound. Back: Nontender, Normal Inspection Extremities: Nontender, No edema Skin: Normal color, No rash Neurological: Alert, Oriented x3, Cranial nerves II-XII grossly intact, Normal Strength, Normal Sensation Psychological: Normal affect, Normal Mood Diagnostic/Tx/Re-eval Abnormal Lab Results 09/05/19 09/05/19 09/05/19 19:40 19:40 20:15 WBC 6.8 RBC 3.72 L Hgb 11.1 L Hct 33.7 L MCV 90.6 MCH 29.8 MCHC 32.9 RDW Std Deviation 42.6 RDW Coeff of Adolph 13.0 Plt Count 236 MPV 9.7 Immature Gran % (Auto) 0.400 Neut % (Auto) 64.4 Lymph % (Auto) 26.3 [place] % (Auto) 5.6 Eos % (Auto) 2.7 Baso % (Auto) 0.6 Absolute Neuts (auto) 4.4 Absolute Lymphs (auto) 1.78 Nucleated RBC % 0 Sodium 140 Potassium 4.4 Chloride 108 H Carbon Dioxide 26.0 Anion Gap 6 BUN 39 H Creatinine 2.39 H Estim Creat Clear Calc 39.38 Est GFR (MDRD) Af Amer 37 L Est GFR (MDRD) Non-Af 31 L BUN/Creatinine Ratio 16.3 Glucose 259 H Calcium 8.6 Total Bilirubin 0.30 Direct Bilirubin 0.08 AST 37 ALT 47 Alkaline Phosphatase 50 Total Protein 7.0 Albumin 3.6 Globulin 3.4 Lipase 302 Urine Color Yellow Urine Clarity Clear Urine pH 5.0 Ur Specific [place] 1.015 Urine Protein 500 H Urine Glucose (UA) 1000 H Urine Ketones Negative Urine Occult Blood 10 H Urine Nitrite Negative Urine Bilirubin Negative Urine Urobilinogen Normal Ur Leukocyte Esterase Negative Urine RBC 0-5 SEEN Urine WBC 0 SEEN Ur Squamous Epith Cells 0 SEEN Urine Bacteria 0 SEEN Urine Mucus 0 SEEN - Medical Decision Making Patient vital signs stable mild tenderness mid abdomen. Treated with morphine, Zofran and IV fluids. Labs notes some chronic kidney disease, lipase and LFTs normal. Urine negative for infection. Discussed with patient results. Reports to me that he was told his pancreas has been burnt out, I discussed with him and his medications he does not on any Pancrease. Reports a specialist Dr. Rober dockery plan on needing to open up his duct. Similar symptoms last month, he states he did take the Carafate he is on Prilosec daily. States GI cocktail and Bentyl does not help. He is a nonsurgical abdomen at this time. He will continue oral fluids he has antiemetics at home he will continue his Prilosec, he will follow- up with his specialist. All questions were answered. ED Disposition - Plan for ED Patient: Disposition: Home or Assisted Living Diagnosis: Abdominal pain, Nausea vomiting and diarrhea Instructions: ABDOMINAL PAIN, Possible Appendicitis [Male], DIET, Vomiting or Diarrhea [6yr-Adult] Referrals: John Jacome MD [Primary Care Provider] - 1-2 Days if not improving Additional Instructions: Follow up with DR. Richter, your specialist.
[2019-09-05 19:50] LABS: Absolute Lymphocyte Count 1.78 X10^3/uL (0.83-4.51); Absolute Neutrophil Count 4.4 X10^3/uL (2.0-7.7); Basophil# 0.04 X10^3/uL; Basophil% 0.6 % (0-1); Eosinophil# 0.18 X10^3/uL; Eosinophils% 2.7 % (0-5); Hematocrit 33.7 % (40-54); Hemoglobin 11.1 g/dL (13.0-16.5); Lymphocyte # 1.78 X10^3/ul (4.0); Lymphocyte % 26.3 % (19-41); Mean Corp Hgb Conc 32.9 g/dL (32-36); Mean Corpuscular Hgb 29.8 pg (27.0-32.0); Mean Corpuscular Volume 90.6 fL (80-94); Mean Platelet Vol. 9.7 fl (6.2-12.0); Monocyte# 0.38 X10^3/uL; Monocyte% 5.6 % (0-10); NRBC Flagged by Analyzer 0 % (0-5); Neutrophil # 4.35 X10^3/uL (2.7-7.7); Neutrophil % 64.4 % (47-70); Platelet Count 236 K/mm3 (150-450); RBC Distribution Width SD 42.6 fl (35.1-43.9); Red Blood Count 3.72 M/mm3 (4.6-6.2); White Blood Count 6.8 K/mm3 (4.4-11.0)
[2019-09-05] MEDS: 0.9% Normal Saline 1,000 ML 1000 ML IV (20:07)
[2019-09-05] MEDS: Ondansetron 4 MG/2 ML Vial IV (20:08)
[2019-09-05] MEDS: Morphine 4 MG/ML Syringe IV (20:08)
[2019-09-05 20:10] VITALS: BP 191/91; PULSE 71; RESP 20; O2SAT 100
[2019-09-05 20:10] LABS: AST(SGOT) 37 U/L (15-37); Alanine Aminotransfer ALT/SGPT 47 U/L (16-61); Albumin, Serum 3.6 g/dL (3.2-5.0); Alkaline Phosphatase 50 U/L (45-117); Anion Gap 6 (5-15); BUN 39 mg/dL (7-18); BUN/Creat Ratio 16.3 RATIO (10-20); Bilirubin, Direct 0.08 mg/dL (0.00-0.30); Calcium,Total 8.6 mg/dL (8.5-10.1); Chloride 108 mmol/L (98-107); Creatinine, Serum 2.39 mg/dL (0.70-1.30); EST Glomerular Filtration Rate 31 mL/min (>60); Est Glom Filt Rate - Afr Amer 37 mL/min (>60); Estimated Creatinine Clearance 39.38 ml/min; Globulin 3.4 g/dL (2.2-4.2); Glucose 259 mg/dL (74-106); Lipase 302 U/L (73-393); Potassium 4.4 mmol/L (3.5-5.1); Sodium Level 140 mmol/L (136-145)
[2019-09-05 20:27] LABS: Bacteria 0 SEEN /hpf (None Seen); Mucous, Urine 0 SEEN /hpf (<or=2+); Squamous Epithelial Cells - UA 0 SEEN /hpf (0-5); White Blood Cells 0 SEEN /hpf (0-5)
[2019-09-05 20:35] LABS: Color, Urine Yellow (Yellow); Glucose, Dipstick 1000 mg/dl (Normal); Ketone-Dipstick Negative (Negative); Leukocyte Esterase-Dipstick Negative /ul (Negative); Nitrite-Dipstick Negative (Negative); Occult Blood-Urine 10 /ul (Negative); Protein-Dipstick 500 mg/dl (Negative); Specific Gravity, Urine 1.015 (1.002-1.030); Urine Bilirubin Dipstick Negative (Negative); Urine Clarity Clear (Clear); Urine Urobilinogen Normal (Normal)
[2019-09-05 20:43] LABS: Red Blood Cells-Urine 0-5 SEEN /hpf (0-5)
[2019-09-05 21:13] VITALS: BP 170/85; PULSE 70; RESP 18
== END 2019-09-05 21:14 | disposition home or self-care (01) ==
PROVIDERS: Emergency Provider Emergency Medicine; Family Provider Internal Medicine; PCP Internal Medicine
DX: R10.9 Unspecified abdominal pain (principal); R11.2 Nausea with vomiting, unspecified; R19.7 Diarrhea, unspecified; E11.9 Type 2 diabetes mellitus without complications; F17.200 Nicotine dependence, unspecified, uncomplicated; Z82.49 Family history of ischemic heart disease and other diseases of the circulatory system; Z90.49 Acquired absence of other specified parts of digestive tract; Z88.0 Allergy status to penicillin
CPT/HCPCS: 80048; 80076; 81001; 83690; 85025; 96361; 96374; 96375; 99283; J7030; A4216; J2405

== ENCOUNTER 2019-10-18 21:52 | Emergency (ER) | payer OTHER, MEDICAID, SELFPAY ==
[2019-10-18 21:53] VITALS: BP 163/72; PULSE 75; RESP 14; TEMP 36.8; O2SAT 98; BMI 33.9
--- NOTE | 2019-10-18 22:09 | ED.VIS.LOWEX ---
History of Present Illness Chief Complaint: Laceration Informant: Patient Occurred: Today Mechanism/Context: Work Related Narrative: Patient is a 48-year-old male with history of diabetes, hypertension pancreatitis presenting with laceration to his right lower extremity. Patient was at work and he was placing material into a hopper. A piece fell out and hit his right lower leg. Initially he thought it was just bumped but then noticed that he was bleeding. When he looked at it he says blood was squirting everywhere. Localized wound care was applied at work and he was sent to the emergency room for further evaluation. He states his tetanus was in the last year. He states it is throbbing in nature. He denies any other complaints or injuries. Tetanus Immunization: <5 years Past Medical History - Allergies and Home Meds Allergies/Adverse Reactions: Allergies Penicillins Allergy (Verified 10/18/19 21:56) Rash Primary Care Physician: John Jacome MD [Primary Care Provider] - Past Medical History: - - Chronic pancreatitis, insulin-dependent diabetes mellitus, hypertension, neuropathy, hyperlipidemia Surgical History: cholecystectomy, - - Lip Surgery, L foot surgery, EGD with polyp removal from stomach. Smoking Status: Current every day smoker - Family History Maternal Family History: Reports: Cancer, Heart Disease - report heart attack in 50s or 60s, history of stents Paternal Family History: Reports: Unknown Review of Systems General: Denies: Chills, Fever, Sweats Eyes: Denies: Visual changes - bilaterally, Diplopia ENT: Denies: Rhinorrhea, Sore throat Cardiovascular: Denies: Chest pain, Palpitations Respiratory: Denies: Dyspnea, Cough, Dyspnea on exertion Gastrointestinal: Denies: Abdominal pain, Nausea, Vomiting, Diarrhea, Melena, Hematochezia Genitourinary: Denies: Dysuria, Hematuria, Frequency Musculoskeletal: Denies: Back pain, Extremity Pain Skin: Reports: Wounds - Right thapa. Denies: Rash Neurological: Denies: Headache, Weakness, Numbness Physical Exam Vital Signs/Narrative: Vital Signs Temp Pulse Resp BP Pulse Ox 10/18/19 21:53 98.3 F 75 14 163/72 H 98 Inital Vital Signs reviewed: Yes - Extremity Exam Right Knee: Negative for: Deformity, Edema, Hematoma, Limited ROM Right Tib fib: - - Laceration, see below. Compartments are soft. Negative for: Deformity, Edema, Hematoma General: Well nourished, Well developed, Obese Head: Normocephalic, Atraumatic Eyes: Perrl, EOMI ENT: No Trauma, Moist Mucous Membranes Neck: Nontender, Full ROM Cardiovascular: Regular rate, Regular rhythm, No murmurs Respiratory: No distress, CTA bilaterally, Chest nontender Back: Nontender Skin: Normal color, No rash, Trauma - Full-thickness laceration of the right anterior mid thapa, linear, involving the fascia 5 cm in length Neurological: Alert, Oriented x3, Cranial nerves II-XII grossly intact, Normal Strength, Normal Sensation Psychological: Normal affect Diagnostic/Tx/Re-eval - Medical Decision Making Patient is evaluated for laceration to his right thapa. It is full-thickness and also involves the fascia. He is neurovascular intact. His compartments are soft. Wound is irrigated copiously is no air flakes of dirt/metal in the wound. Complex closure performed. See procedure note. Patient is given Motrin and then [place] in the ER for pain control. He will be placed empirically on clindamycin because he is a diabetic and the extensiveness of the wound. Patient is counseled on wound care. He will follow-up with [employer]. or his PCP for suture removal/wound recheck in 10 to 14 days. Patient given a short course of [place] for pain control. Oarrs report is checked which shows that patient does not have any active opioid prescriptions. He does have a chronic prescription for gabapentin. Patient is counseled on signs and symptoms requiring return to the emergency room. Patient verbalizes agreement and understand this plan. Patient discharged home in stable and improved condition. Procedures - Lacerations No standard instances Length: 1.77 in Depth: Fascia Shape: Linear - curved Prep: Sterile Conditions, Leslie Laceration repair: Irrigated, Lidocaine with epi, Local, Subcutaneous sutures, Wound explored Irrigated (ml): 500 Number of Sutures/Vista: 16 - 3 fascial, 2 subcu, 11 superficial Suture Information: Vicryl, Ethilon, 4-0 Comment: Complex laceration requiring multilevel closure. Patient tolerated procedure well. No immediate complications. ED Disposition - Plan for ED Patient: Disposition: Home or Assisted Living Diagnosis: Laceration of right lower leg Instructions: LACERATION, All Prescriptions: Clindamycin [Cleocin] 450 mg PO TID #45 cap Prescription Printed Hydrocodone Bitart/Apap 5-325 [[place] 5MG-325MG] 1 tab PO Q8H PRN PRN 2 Days #6 tab PRN Reason: Pain Prescription Printed Referrals: John Jacome MD [Primary Care Provider] - [facility] [GROUP OF PHYSICIANS] - Additional Instructions: You had 5 deep and 11 superficial sutures placed today. The 11 will need to be removed. The deep ones will dissolve on their own. Follow-up for suture removal/wound check in 10 to 14 days.
--- NOTE | 2019-10-18 22:16 | ED.RN ---
this rn contacted corporate care worker catalina, for drug screen.
[2019-10-18] MEDS: Ibuprofen 600 MG Tablet PO (22:23)
[2019-10-18 23:30] VITALS: PULSE 69; RESP 15; O2SAT 98
[2019-10-18] MEDS: Clindamycin HCl 150 MG Capsule 450 MG PO (23:39)
[2019-10-18] MEDS: HYDROcodone Bitartrate/Apap 5/325 Tablet PO (23:39)
== END 2019-10-19 00:07 | disposition home or self-care (01) ==
PROVIDERS: Emergency Provider Emergency Medicine; PCP Internal Medicine
DX: S81.811A Laceration without foreign body, right lower leg, initial encounter (principal); W20.8XXA Other cause of strike by thrown, projected or falling object, initial encounter; Y93.9 Activity, unspecified; Y92.89 Other specified places as the place of occurrence of the external cause; Y99.0 Civilian activity done for income or pay; E11.9 Type 2 diabetes mellitus without complications; E78.5 Hyperlipidemia, unspecified; I10 Essential (primary) hypertension; K85.90 Acute pancreatitis without necrosis or infection, unspecified; K86.1 Other chronic pancreatitis; F17.200 Nicotine dependence, unspecified, uncomplicated; Z79.4 Long term (current) use of insulin; Z82.49 Family history of ischemic heart disease and other diseases of the circulatory system; Z88.0 Allergy status to penicillin; Z90.49 Acquired absence of other specified parts of digestive tract; E66.9 Obesity, unspecified
CPT/HCPCS: 12032; 99285

== ENCOUNTER 2019-10-19 19:38 | Emergency (ER) | payer OTHER, MEDICAID, SELFPAY ==
[2019-10-18 21:53] VITALS: BMI 33.9
[2019-10-19 19:40] VITALS: BP 177/87; PULSE 76; RESP 16; TEMP 36.9; O2SAT 96; BMI 33.9
--- NOTE | 2019-10-19 21:44 | ED.DCSUM_ITS ---
History of Present Illness Chief Complaint: Abd Pain Narrative: Patient has a history of chronic pancreatitis. He presents today with nausea and vomiting and upper abdominal pain similar to his pancreatitis. He tells me that since he had a cholecystectomy at the end of last year he has been doing well with very mild flareups. However today is worse. He sees Dr. Richter at [facility]. Past Medical History - Allergies and Home Meds Allergies/Adverse Reactions: Allergies Penicillins Allergy (Verified 10/19/19 19:42) Rash Primary Care Physician: John Jacome MD [Primary Care Provider] - Surgical History: cholecystectomy, - - Lip Surgery, L foot surgery, EGD with polyp removal from stomach. Smoking Status: Current every day smoker - Family History Maternal Family History: Reports: Cancer, Heart Disease - report heart attack in 50s or 60s, history of stents Paternal Family History: Reports: Unknown Review of Systems General: Denies: Chills, Fever, Sweats Eyes: Denies: Visual changes - bilaterally, Diplopia ENT: Denies: Rhinorrhea, Sore throat Cardiovascular: Denies: Chest pain, Palpitations Respiratory: Denies: Dyspnea, Cough, Dyspnea on exertion Gastrointestinal: Reports: Abdominal pain, Nausea, Vomiting. Denies: Diarrhea, Melena, Hematochezia Genitourinary: Denies: Dysuria, Hematuria, Frequency Musculoskeletal: Denies: Back pain, Extremity Pain Skin: Denies: Rash, Wounds Neurological: Denies: Headache, Weakness, Numbness Physical Exam Vital Signs/Narrative: Vital Signs Temp Pulse Resp BP Pulse Ox 10/19/19 19:40 98.4 F 76 16 177/87 H 96 Inital Vital Signs reviewed: Yes General: Well nourished, Well developed, No Acute Distress Head: Normocephalic, Atraumatic Eyes: Perrl, EOMI ENT: Moist mucous membranes, No rhinorrhea Neck: Supple, Nontender Cardiovascular: Regular rate, Regular rhythm, No murmurs Respiratory: No distress, CTA bilaterally, Chest nontender Abdomen: Soft, Nondistended, Normal bowel sounds, Tender. Negative for: Guarding, Rebound tenderness Back: Nontender, Normal Inspection Extremities: Nontender, No edema Skin: Normal color, No rash Neurological: Alert, Oriented x3, Cranial nerves II-XII grossly intact, Normal Strength, Normal Sensation Psychological: Normal affect, Normal Mood Diagnostic/Tx/Re-eval - Medical Decision Making Patient received IV fluids morphine and Zofran. Basic labs were obtained. Normal lipase. Normal white blood cell count. He has chronic kidney disease with creatinine of 2 which is near baseline. Follow-up with his doctors on outpatient basis ED Disposition - Plan for ED Patient: Diagnosis: Chronic pancreatitis Instructions: Chronic Pancreatitis Referrals: John Jacome MD [Primary Care Provider] - As soon as possible
[2019-10-19] MEDS: 0.9% Normal Saline 1,000 ML 1000 ML IV (21:50)
[2019-10-19] MEDS: proMETHazine 25 MG/ML Syringe 12.5 MG IV (21:50)
[2019-10-19 21:51] LABS: Absolute Lymphocyte Count 1.29 X10^3/uL (0.83-4.51); Absolute Neutrophil Count 3.8 X10^3/uL (2.0-7.7); Basophil# 0.04 X10^3/uL; Basophil% 0.7 % (0-1); Eosinophil# 0.17 X10^3/uL; Hematocrit 31.6 % (40-54); Hemoglobin 10.2 g/dL (13.0-16.5); Lymphocyte # 1.29 X10^3/ul (4.0); Lymphocyte % 22.9 % (19-41); Mean Corp Hgb Conc 32.3 g/dL (32-36); Mean Corpuscular Hgb 29.4 pg (27.0-32.0); Mean Corpuscular Volume 91.1 fL (80-94); Mean Platelet Vol. 10.2 fl (6.2-12.0); Monocyte# 0.31 X10^3/uL; Monocyte% 5.5 % (0-10); NRBC Flagged by Analyzer 0 % (0-5); Neutrophil # 3.81 X10^3/uL (2.7-7.7); Neutrophil % 67.5 % (47-70); Platelet Count 201 K/mm3 (150-450); RBC Distribution Width CV 13.2 % (11.6-14.6); RBC Distribution Width SD 43.6 fl (35.1-43.9); Red Blood Count 3.47 M/mm3 (4.6-6.2); White Blood Count 5.6 K/mm3 (4.4-11.0)
[2019-10-19] MEDS: Morphine 4 MG/ML Syringe IV ×2 (21:51→23:16)
[2019-10-19 22:17] LABS: AST(SGOT) 42 U/L (15-37); Alanine Aminotransfer ALT/SGPT 51 U/L (16-61); Alkaline Phosphatase 50 U/L (45-117); Amylase 46 U/L (25-115); Anion Gap 3 (5-15); BUN 26 mg/dL (7-18); BUN/Creat Ratio 12.7 RATIO (10-20); Calcium,Total 8.4 mg/dL (8.5-10.1); Chloride 110 mmol/L (98-107); Creatinine, Serum 2.05 mg/dL (0.70-1.30); EST Glomerular Filtration Rate 37 mL/min (>60); Est Glom Filt Rate - Afr Amer 44 mL/min (>60); Estimated Creatinine Clearance 45.91 ml/min; Glucose 261 mg/dL (74-106); Lipase 155 U/L (73-393); Potassium 4.4 mmol/L (3.5-5.1); Sodium Level 141 mmol/L (136-145)
[2019-10-19 23:17] VITALS: BP 156/79; PULSE 66; RESP 14; RESP 16; O2SAT 96; O2SAT 99
== END 2019-10-19 23:18 | disposition home or self-care (01) ==
PROVIDERS: Emergency Provider Emergency Medicine; PCP Internal Medicine
DX: K86.1 Other chronic pancreatitis (principal); F17.200 Nicotine dependence, unspecified, uncomplicated; Z82.49 Family history of ischemic heart disease and other diseases of the circulatory system; Z88.0 Allergy status to penicillin; Z90.49 Acquired absence of other specified parts of digestive tract
CPT/HCPCS: 80053; 82150; 83690; 85025; 96361; 96374; 96375; 96376; 99283; J7030; A4216

== ENCOUNTER 2019-10-25 15:07 | Emergency (ER) | payer OTHER, MEDICAID, SELFPAY ==
[2019-10-25 14:28] VITALS: BMI 34.0
[2019-10-25 15:07] VITALS: BP 191/95; PULSE 68; RESP 18; TEMP 35.9
[2019-10-25 15:08] VITALS: BP 191/95; PULSE 68; RESP 18; TEMP 35.9; BMI 34.0
[2019-10-25 15:14] VITALS: RESP 18; O2SAT 97
--- NOTE | 2019-10-25 15:23 | VDLE_ITS ---
Reason For Study: pain RIGHT GSV is normal. CFV is compressible, spontaneous, phasic, competent and demonstrates normal augmentation. FV is compressible, spontaneous, phasic, competent and demonstrates normal augmentation. POP V is compressible, spontaneous, phasic, competent and demonstrates normal augmentation. T/P Trunk is compressible. PTV is compressible. RT PerV is compressible. Procedure Exam performed portable in ED. The exam was diagnostic. A preliminary report was called and/or faxed to Dr. Sommers. Interpretation Summary Deep veins of the right lower extremity are patent and compressible segmentally. There is no evidence of right lower extremity deep vein thrombosis. Valvular competence appears intact within the proximal deep venous system on the right . The right great saphenous vein appears patent and compressible segmentally. Ordering Physician: Gaetano Sommers Performed By: Darrell Carpio RVT
--- NOTE | 2019-10-25 15:24 | ED.VISSUMM ---
- ER Visit Summary Date of Service: 10/25/19 Chief Complaint: Right lower leg pain History of Present Illness: The patient is a 48 M who presents with pain in his right lower leg that has been getting progressively worse over the past week. Patient had a large laceration repaired 1 week ago. Patient states he has been taking his antibiotics and has not noticed any redness or drainage. Patient notes some swelling over his right lower leg and ankle. Patient states she has some paresthesias over the top of his foot. Patient denies any weakness. Patient denies any new injuries or trauma. Physical Examination: Vital signs are stable. Patient is afebrile. Patient is in no acute distress. Skin is warm and dry. There is a healing laceration over the right lower leg on the lateral aspect. There is minimal erythema along the wound margins that is consistent with wound healing. The wound does not appear to be infected. There is some mild calf tenderness. There is some edema of the right lower leg. Sensation was intact to light touch in all digits. Capillary refill was less than 2 seconds in all digits. Pedal pulses are equal bilaterally. Cranial nerves II through XII are intact. There are no focal motor or sensory deficits. Test Results: Venous duplex of the right lower extremity was obtained and was negative for DVT. X-rays of the right tib-fib were obtained. There is no acute abnormality noted. This was interpreted by the radiologist and myself. Emergency Department Course and Treatment: Patient was advised of his findings. Patient was instructed to continue using ice and elevating the right lower extremity. Patient was instructed to continue using Tylenol and ibuprofen as needed for pain. Patient was instructed to take his antibiotic as prescribed until gone. Patient was instructed to follow-up with his primary care physician as scheduled for wound recheck and suture removal. Patient understood and was agreeable with the plan. All questions were answered. Disposition: Discharge home Impression: Right lower leg pain This note was generated with [employer] Windows dictation software. It may contain incorrect words, spelling, and punctuation that were not noted in review of the chart prior to signing ED Disposition - Plan for ED Patient: Disposition: Home or Assisted Living Diagnosis: Right leg pain Instructions: WOUND CHECK, Lac F/U (No Infection) Referrals: John Jacome MD [Primary Care Provider] - Keep Sandra appointment
--- NOTE | 2019-10-25 16:27 | RAD_ITS ---
STUDY: X-RAY - RIGHT TIBIA AND FIBULA REASON FOR EXAM: Male, 48 years old. RIGHT SIDED LEG PAIN TECHNIQUE: 2 view(s) of the tibia and fibula were obtained. COMPARISON: None. FINDINGS: Normal visualized tibia. Normal visualized fibula. The soft tissue structures are unremarkable. RAD/Tibia & Fibula 2 Views IMPRESSION: Normal x-ray examination of the tibia and fibula. Electronically Signed: Ricky Waller MD at 18:12 EST Tel , Service support ,
[2019-10-25 17:52] VITALS: RESP 16
== END 2019-10-25 17:53 | disposition home or self-care (01) ==
PROVIDERS: Emergency Provider Emergency Medicine; PCP Internal Medicine
DX: M79.661 Pain in right lower leg (principal); R20.2 Paresthesia of skin; E11.9 Type 2 diabetes mellitus without complications; I10 Essential (primary) hypertension; E78.00 Pure hypercholesterolemia, unspecified; F17.210 Nicotine dependence, cigarettes, uncomplicated
CPT/HCPCS: 73590; 93971; 94760; 99282; A4216

== ENCOUNTER 2019-10-31 15:16 | Emergency (ER) | payer OTHER, MEDICAID, SELFPAY ==
[2019-10-25 15:18] VITALS: BMI 33.9
[2019-10-31 15:17] VITALS: BP 184/93; PULSE 73; RESP 18; TEMP 36.5; O2SAT 100; BMI 34.4
[2019-10-31 15:49] LABS: Absolute Neutrophil Count 4.5 X10^3/uL (2.0-7.7); Anion Gap 3 (5-15); BUN 24 mg/dL (7-18); BUN/Creat Ratio 12.2 RATIO (10-20); Basophil# 0.05 X10^3/uL; Basophil% 0.8 % (0-1); Calcium,Total 8.5 mg/dL (8.5-10.1); Chloride 110 mmol/L (98-107); Creatinine, Serum 1.97 mg/dL (0.70-1.30); EST Glomerular Filtration Rate 38 mL/min (>60); Eosinophil# 0.19 X10^3/uL; Eosinophils% 2.9 % (0-5); Est Glom Filt Rate - Afr Amer 46 mL/min (>60); Estimated Creatinine Clearance 47.78 ml/min; Glucose 198 mg/dL (74-106); Hematocrit 35.2 % (40-54); Hemoglobin 11.5 g/dL (13.0-16.5); Lymphocyte % 20.1 % (19-41); Mean Corp Hgb Conc 32.7 g/dL (32-36); Mean Corpuscular Hgb 29.3 pg (27.0-32.0); Mean Corpuscular Volume 89.8 fL (80-94); Mean Platelet Vol. 10.1 fl (6.2-12.0); Monocyte# 0.42 X10^3/uL; Monocyte% 6.5 % (0-10); NRBC Flagged by Analyzer 0 % (0-5); Neutrophil # 4.47 X10^3/uL (2.7-7.7); Neutrophil % 69.2 % (47-70); Platelet Count 249 K/mm3 (150-450); Potassium 4.4 mmol/L (3.5-5.1); RBC Distribution Width CV 13.2 % (11.6-14.6); RBC Distribution Width SD 43.4 fl (35.1-43.9); Red Blood Count 3.92 M/mm3 (4.6-6.2); Sodium Level 140 mmol/L (136-145); White Blood Count 6.5 K/mm3 (4.4-11.0)
[2019-10-31 16:01] VITALS: BP 178/98; PULSE 71; RESP 16; O2SAT 99
[2019-10-31 16:15] LABS: Bacteria 0 SEEN /hpf (None Seen); Mucous, Urine 0 SEEN /hpf (<or=2+); Red Blood Cells-Urine 0 SEEN /hpf (0-5); Squamous Epithelial Cells - UA 0 SEEN /hpf (0-5); White Blood Cells 0 SEEN /hpf (0-5)
[2019-10-31] MEDS: 0.9% Normal Saline 1,000 ML 1000 ML IV (16:22)
[2019-10-31] MEDS: HYDROmorphone 1 MG/ML Syringe 0.5 MG IV (16:23)
[2019-10-31] MEDS: Ondansetron 4 MG/2 ML Vial IV (16:23)
--- NOTE | 2019-10-31 16:23 | ED.VIS.GEN ---
History of Present Illness Chief Complaint: Abd Pain Informant: Patient Onset: Today Current Severity: Moderate Maximum Severity: Moderate Narrative: Patient presents with recurrent upper abdominal pain with nausea and vomiting. Patient is a history of chronic pancreatitis. He has had a cholecystectomy in the past. He states his surgeon told him he may need to have stents placed in his biliary ducts. Patient states he had some mild diarrhea yesterday followed by upper abdominal pain with nausea and vomiting today. No fever was noted. - Past Medical History (1) Diabetes mellitus Status: Chronic (2) Diabetic neuropathy Status: Chronic (3) HTN (hypertension) Status: Chronic (4) Suspected COPD Status: Chronic Past Medical History - Allergies and Home Meds Allergies/Adverse Reactions: Allergies Penicillins Allergy (Verified 10/31/19 15:17) Rash Primary Care Physician: John Jacome MD [Primary Care Provider] - Doctors: Surgeon: Dr. Richter at [facility] Prior records reviewed: Yes Surgical History: cholecystectomy, - - Lip Surgery, L foot surgery, EGD with polyp removal from stomach. Smoking Status: Current every day smoker - Family History Maternal Family History: Reports: Cancer, Heart Disease - report heart attack in 50s or 60s, history of stents Paternal Family History: Reports: Unknown Review of Systems General: Denies: Chills, Fever Eyes: Denies: Visual changes - bilaterally ENT: Denies: Bilateral ear pain Cardiovascular: Denies: Chest pain, Palpitations Respiratory: Denies: Dyspnea, Cough Gastrointestinal: Reports: Abdominal pain, Nausea, Vomiting, Diarrhea Genitourinary: Denies: Dysuria Musculoskeletal: Denies: Extremity Pain Skin: Denies: Rash Neurological: Denies: Headache Allergy: Denies: Uticaria Physical Exam Vital Signs/Narrative: Vital Signs Temp Pulse Resp BP Pulse Ox 10/31/19 16:01 71 16 178/98 H 99 10/31/19 15:17 97.7 F L 73 18 184/93 H 100 Inital Vital Signs reviewed: Yes General: Well nourished Head: Normocephalic ENT: Moist mucous membranes Neck: Supple Cardiovascular: Regular rate, Regular rhythm Respiratory: No distress, CTA bilaterally Abdomen: Soft, Tender - Epigastric tenderness to palpation., Hypoactive bowel sounds. Negative for: Guarding, Rebound tenderness Skin: Normal color Neurological: Alert, Oriented x3 Psychological: Normal affect Diagnostic/Tx/Re-eval Laboratory Results 10/31/19 10/31/19 10/31/19 15:20 15:20 15:20 WBC 6.5 RBC 3.92 L Hgb 11.5 L Hct 35.2 L MCV 89.8 MCH 29.3 MCHC 32.7 RDW Std Deviation 43.4 RDW Coeff of Adolph 13.2 Plt Count 249 MPV 10.1 Immature Gran % (Auto) 0.500 Neut % (Auto) 69.2 Lymph % (Auto) 20.1 [place] % (Auto) 6.5 Eos % (Auto) 2.9 Baso % (Auto) 0.8 Absolute Neuts (auto) 4.5 Absolute Lymphs (auto) 1.30 Nucleated RBC % 0 Sodium 140 Potassium 4.4 Chloride 110 H Carbon Dioxide 27.0 Anion Gap 3 L BUN 24 H Creatinine 1.97 H Estim Creat Clear Calc 47.78 Est GFR (MDRD) Af Amer 46 L Est GFR (MDRD) Non-Af 38 L BUN/Creatinine Ratio 12.2 Glucose 198 H Calcium 8.5 Total Bilirubin 0.40 Direct Bilirubin 0.11 AST 21 ALT 32 Alkaline Phosphatase 55 Total Protein 6.7 Albumin 3.1 L Globulin 3.6 Lipase 392 Urine Color Urine Clarity Urine pH Ur Specific Carmen Urine Protein Urine Glucose (UA) Urine Ketones Urine Occult Blood Urine Nitrite Urine Bilirubin Urine Urobilinogen Ur Leukocyte Esterase Urine RBC Urine WBC Ur Squamous Epith Cells Urine Bacteria Urine Mucus 10/31/19 16:07 WBC RBC Hgb Hct MCV MCH MCHC RDW Std Deviation RDW Coeff of Adolph Plt Count MPV Immature Gran % (Auto) Neut % (Auto) Lymph % (Auto) [place] % (Auto) Eos % (Auto) Baso % (Auto) Absolute Neuts (auto) Absolute Lymphs (auto) Nucleated RBC % Sodium Potassium Chloride Carbon Dioxide Anion Gap BUN Creatinine Estim Creat Clear Calc Est GFR (MDRD) Af Amer Est GFR (MDRD) Non-Af BUN/Creatinine Ratio Glucose Calcium Total Bilirubin Direct Bilirubin AST ALT Alkaline Phosphatase Total Protein Albumin Globulin Lipase Urine Color Yellow Urine Clarity Clear Urine pH 6.5 Ur Specific Carmen 1.010 Urine Protein 500 H Urine Glucose (UA) 250 H Urine Ketones Negative Urine Occult Blood 10 H Urine Nitrite Negative Urine Bilirubin Negative Urine Urobilinogen Normal Ur Leukocyte Esterase Negative Urine RBC 0 SEEN Urine WBC 0 SEEN Ur Squamous Epith Cells 0 SEEN Urine Bacteria 0 SEEN Urine Mucus 0 SEEN - Medical Decision Making Patient was given morphine and Zofran for pain and nausea. On repeat evaluation the symptoms are improving. I did do an oars report. He had 6 tabs of [place] prescribed on October 18 for leg laceration and prior to that last narcotic was in May of last year. Patient begin a prescription for 10 tabs of [place] along with Zofran. Patient is to follow-up with Dr. Richter, his surgeon to discuss possibility of biliary stents. ED Disposition - Plan for ED Patient: Disposition: Home or Assisted Living Diagnosis: Epigastric pain Instructions: EPIGASTRIC PAIN (Uncertain cause) Prescriptions: Hydrocodone Bitart/Apap 5-325 [Pl[place] 5MG-325MG] 1 tablet PO Q6H PRN PRN 3 Days #10 tablet PRN Reason: Pain Transmission Status: Sent to [facility] Ondansetron [Zofran Odt] 4 mg PO Q8H PRN PRN #10 tab PRN Reason: Nausea Transmission Status: Pending to [facility] Referrals: John Jacome MD [Primary Care Provider] - Additional Instructions: Follow-up with Dr Richter as soon as possible.
[2019-10-31 16:32] LABS: Color, Urine Yellow (Yellow); Glucose, Dipstick 250 mg/dl (Normal); Ketone-Dipstick Negative (Negative); Leukocyte Esterase-Dipstick Negative /ul (Negative); Nitrite-Dipstick Negative (Negative); Occult Blood-Urine 10 /ul (Negative); Protein-Dipstick 500 mg/dl (Negative); Urine Bilirubin Dipstick Negative (Negative); Urine Clarity Clear (Clear); Urine Urobilinogen Normal (Normal); Urine pH 6.5 (5.0 - 8.0)
[2019-10-31 16:52] LABS: AST(SGOT) 21 U/L (15-37); Alanine Aminotransfer ALT/SGPT 32 U/L (16-61); Albumin, Serum 3.1 g/dL (3.2-5.0); Alkaline Phosphatase 55 U/L (45-117); Bilirubin, Direct 0.11 mg/dL (0.00-0.30); Globulin 3.6 g/dL (2.2-4.2); Lipase 392 U/L (73-393); Protein, Total 6.7 g/dL (6.4-8.2)
[2019-10-31 17:48] VITALS: BP 166/89; PULSE 69; RESP 16; O2SAT 97
== END 2019-10-31 17:49 | disposition home or self-care (01) ==
PROVIDERS: Emergency Provider Emergency Medicine; PCP Internal Medicine
DX: R10.13 Epigastric pain (principal); I10 Essential (primary) hypertension; E11.40 Type 2 diabetes mellitus with diabetic neuropathy, unspecified; K86.1 Other chronic pancreatitis; F17.200 Nicotine dependence, unspecified, uncomplicated; Z82.49 Family history of ischemic heart disease and other diseases of the circulatory system; Z88.0 Allergy status to penicillin; Z90.49 Acquired absence of other specified parts of digestive tract
CPT/HCPCS: 80048; 80076; 81001; 83690; 85025; 96361; 96374; 96375; 99283; J7030; A4216; J2405

== ENCOUNTER 2019-12-01 18:07 | Emergency (ER) | payer OTHER, MEDICAID, SELFPAY ==
[2019-12-01 18:08] VITALS: BP 199/101; PULSE 74; RESP 16; TEMP 36.1; O2SAT 100; BMI 33.5
--- NOTE | 2019-12-01 19:25 | ED.RN ---
THIS RN WENT IN TO MEDICATE PT AND PT WAS UPSET WITH PAIN MEDICATION THAT PHYSICIAN ORDERED. THIS RN OFFERED NAUSEA MEDICATION AND FLUIDS STILL AND UPDATED PHYSICIAN THAT PT WANTED SOMETHING ELSE FOR PAIN. PT REFUSED ALL MEDICATION OFFERED AND STATES HE WOULD BE BETTER OFF GOING HOME TO ROT INSTEAD OF GETTING TORADOL. JAREN WENT IN TO TALK TO PT AND STATES THAT HE WOULD ONLY PRESCRIBE OPIODS IF LABS OF CT SHOWED EVIDENCE OF SOMETHING GOING ON. UPON THIS NEWS PT SAID TAKE OUT THE IV AND CHOSE TO LEAVE.
[2019-12-01 19:26] LABS: Absolute Neutrophil Count 3.6 X10^3/uL (2.0-7.7); Basophil# 0.05 X10^3/uL; Basophil% 0.8 % (0-1); Eosinophil# 0.17 X10^3/uL; Eosinophils% 2.8 % (0-5); Hematocrit 34.3 % (40-54); Hemoglobin 11.2 g/dL (13.0-16.5); Lymphocyte % 29.9 % (19-41); Mean Corp Hgb Conc 32.7 g/dL (32-36); Mean Corpuscular Hgb 28.9 pg (27.0-32.0); Mean Corpuscular Volume 88.4 fL (80-94); Mean Platelet Vol. 9.9 fl (6.2-12.0); Monocyte# 0.32 X10^3/uL; Monocyte% 5.3 % (0-10); NRBC Flagged by Analyzer 0 % (0-5); Neutrophil # 3.64 X10^3/uL (2.7-7.7); Neutrophil % 60.5 % (47-70); Platelet Count 286 K/mm3 (150-450); RBC Distribution Width CV 13.1 % (11.6-14.6); RBC Distribution Width SD 42.2 fl (35.1-43.9); Red Blood Count 3.88 M/mm3 (4.6-6.2)
[2019-12-01 19:32] LABS: Bacteria 0 SEEN /hpf (None Seen); Color, Urine Yellow (Yellow); Glucose, Dipstick 50 mg/dl (Normal); Ketone-Dipstick Negative (Negative); Leukocyte Esterase-Dipstick Negative /ul (Negative); Mucous, Urine 0 SEEN /hpf (<or=2+); Nitrite-Dipstick Negative (Negative); Occult Blood-Urine 25 /ul (Negative); Protein-Dipstick 500 mg/dl (Negative); Red Blood Cells-Urine 0 SEEN /hpf (0-5); Squamous Epithelial Cells - UA 0 SEEN /hpf (0-5); Urine Bilirubin Dipstick Negative (Negative); Urine Clarity Sl. Cloudy (Clear); Urine Urobilinogen Normal (Normal); White Blood Cells 0 SEEN /hpf (0-5)
[2019-12-01 19:56] LABS: ALB/GLOB Ratio 0.9 RATIO (0.9-2.4); AST(SGOT) 21 U/L (15-37); Alanine Aminotransfer ALT/SGPT 27 U/L (16-61); Alkaline Phosphatase 49 U/L (45-117); Anion Gap 5 (5-15); BUN 34 mg/dL (7-18); BUN/Creat Ratio 15.4 RATIO (10-20); Calcium,Total 8.5 mg/dL (8.5-10.1); Chloride 108 mmol/L (98-107); Creatinine, Serum 2.21 mg/dL (0.70-1.30); EST Glomerular Filtration Rate 34 mL/min (>60); Est Glom Filt Rate - Afr Amer 41 mL/min (>60); Estimated Creatinine Clearance 42.12 ml/min; Globulin 3.3 g/dL (2.2-4.2); Glucose 152 mg/dL (74-106); Lipase 149 U/L (73-393); Potassium 4.2 mmol/L (3.5-5.1); Protein, Total 6.3 g/dL (6.4-8.2); Sodium Level 140 mmol/L (136-145)
--- NOTE | 2019-12-01 23:43 | ED.DCSUM_ITS ---
- ER Visit Summary Date of Service: 12/01/19 Chief Complaint: Abdominal pain History of Present Illness: The patient is a [address] Jacome. He reports that he has epigastric abdominal pain that began today. Schedule gotten worse. Says sharp pain is 7-10 in severity. Is worsened by food and relieved by nothing. Reports is been nausea and vomited 4-5 times. No blood in his emesis. Said 8 episodes of diarrhea. No blood in stools or black tarry stools. No dysuria or frequency. Patient denies sick contacts. Has not been camping out of the country. No possible bad food exposure. Does not drink well water. No recent antibiotic use. Physical Examination: Vitals: Stable. Afebrile. General: Well-nourished and well-developed. Head: Normocephalic atraumatic. Neck: Supple, no lymphadenopathy. No JVD. Nontender. Cardiovascular: Regular rate and rhythm. No murmurs. Respiratory: No respiratory distress. Clear to auscultation bilaterally. Abdominal: Soft, mild epigastric tenderness palpation and moderate left upper quadrant tenderness to palpation, nondistended, normal bowel sounds. No guarding, rebound, or peritoneal signs. Back: Nontender. Extremities: Nontender, no edema. Skin: Normal color, no rash. Neurologic: Alert and oriented ?3. Cranial nerves II through XII are intact. Normal strength and sensation. Psych: Normal affect. Test Results: CBC shows an H&H of 11.2 and 34.3. Chem-7 shows a chloride 108, glucose 150, BUN 34, creatinine 2.21. LFTs show an albumin of 3.0, total protein 6.3. His lipase was normal. Emergency Department Course and Treatment: Initially I had written for Toradol and Zofran IV for the patient's pain. He told the nurse that he does not want those medications. I went and discussed them that I would not give him opiate- based medications until there was an objective problem that was found and that the labs and CT were not back. States that he does not want opiate-based medications and I said that his other option would then be Tylenol. He refused Tylenol and looked at the nurse and said take out my IV. He then stood up and walked out of the emergency department. Treatment Plan: Patient clearly has opiate seeking behavior. He will be turned into get a care plan here in the emergency department. Disposition: Left prior to completion of treatment. Impression: 1. Abdominal pain. 2. Left prior to completion of treatment. This note was generated with [employer] dictation software. It may contain incorrect words, spelling, and punctuation that were not noted in review of the chart prior to signing ED Disposition - Plan for ED Patient: Disposition: Home or Assisted Living Referrals: John Jacome MD [Primary Care Provider] -
--- NOTE | 2020-01-14 21:09 | CM.ED ---
Social Work ED Care Plan approved for patient. Updated patient via phone conversation. Copy of ED Care Plan and resources mailed to patient. Tracking #[id number]. ED Care Plan faxed to PCP. ED Care Plan entered in [employer]. Will continue to follow as needed. Mellisa WEBB, SIA
== END 2019-12-01 19:37 | disposition left against medical advice (07) ==
LOC: ED 18:29
PROVIDERS: Emergency Provider Emergency Medicine; PCP Internal Medicine
DX: R10.9 Unspecified abdominal pain (principal); R10.816 Epigastric abdominal tenderness; R11.2 Nausea with vomiting, unspecified; R19.7 Diarrhea, unspecified; E11.9 Type 2 diabetes mellitus without complications; I10 Essential (primary) hypertension; E78.00 Pure hypercholesterolemia, unspecified; F17.210 Nicotine dependence, cigarettes, uncomplicated; Z90.49 Acquired absence of other specified parts of digestive tract
CPT/HCPCS: 80053; 81001; 83690; 85025; 96361; 96374; 96375; 99283; J7030; A4216; J2405

== ENCOUNTER 2020-07-10 12:52 | Emergency (ER) | payer MEDICAID, SELFPAY ==
[2020-07-10 12:53] VITALS: BP 198/108; PULSE 71; RESP 16; TEMP 36.1; O2SAT 100; BMI 34.8
--- NOTE | 2020-07-10 13:03 | EKG12_ITS ---
Test Reason : CP Blood Pressure : / mmHG Vent. Rate : 068 BPM Atrial Rate : 068 BPM P-R Int : 176 ms QRS Dur : 096 ms QT Int : 412 ms P-R-T Axes : 051 -05 075 degrees QTc Int : 438 ms Normal sinus rhythm Normal ECG Confirmed by KETURAH ROGER, GAETANO ([id number]), order editor ARLETH BRIDGES ([id number]) on 07/17/2020 8:49:20 AM Referred By: KAROLINA Confirmed By:GAETANO REBOLLAR MD
== END 2020-07-10 14:19 | disposition left against medical advice (07) ==
LOC: ED 14:08
PROVIDERS: Emergency Provider Student in an Organized Health Care Education/Training Program; PCP Internal Medicine
DX: Z53.21 Procedure and treatment not carried out due to patient leaving prior to being seen by health care provider (principal)
CPT/HCPCS: 93005; 99281

== ENCOUNTER 2020-10-16 07:16 | Emergency (ER) | payer MEDICAID, SELFPAY ==
[2020-10-16 07:17] VITALS: BP 167/85; PULSE 68; RESP 18; TEMP 36.6; O2SAT 97; BMI 37.5
--- NOTE | 2020-10-16 07:31 | EKG12_ITS ---
Test Reason : CP Blood Pressure : / mmHG Vent. Rate : 065 BPM Atrial Rate : 065 BPM P-R Int : 180 ms QRS Dur : 098 ms QT Int : 416 ms P-R-T Axes : 049 -04 073 degrees QTc Int : 432 ms Normal sinus rhythm Normal ECG Confirmed by KETURAH ROGER, GAETANO ([id number]), writer editor THEO BAUTISTA ([id number]) on 10/17/2020 11:15:48 AM Referred By: IZAIAH Confirmed By:GAETANO REBOLLAR MD
--- NOTE | 2020-10-16 07:31 | RAD_ITS ---
STUDY: X-RAY CHEST REASON FOR EXAM: Male, 49 years old. sudden onset CP this morning TECHNIQUE: Single AP portable view of the chest. COMPARISON: 02/04/2018. FINDINGS: Cardiac silhouette unremarkable. Minimal congestion. Aorta unremarkable. No focal patchy airspace opacities. No pleural effusions. Minimal hazy airspace disease. Upper abdomen unremarkable. Osseous structures intact. No pneumothorax. RAD/Chest 1 View (Portable) IMPRESSION: No focal patchy airspace opacities Minimal congestion/hazy airspace disease Electronically Signed: Gaetano Means DO at 8:02 EST Tel , Service support ,
--- NOTE | 2020-10-16 07:32 | ED.DCSUM_ITS ---
History of Present Illness Chief Complaint: Chest Pain Informant: Patient Narrative: 49-year-old male presenting via EMS for the evaluation of right-sided chest pain. Patient states he was at work about 2 hours ago began to have a punching sensation on the right side of his chest. He would occasionally feel it on his left side. He states he feels discomfort going up into his right posterior neck and the right arm. No nausea vomiting diarrhea. No shortness of breath. He took 3 Motrin at work as well as receiving 1 nitro and 4 baby aspirin by EMS. Hospital EKG was reviewed by myself does not show any concerning features of ACS. He notes the right side of his chest is tender to palpation. He notes a smoker's cough no change in that. No DVT PE risk factors. Patient has an ED care plan. - Past Medical History (1) Diabetes mellitus Status: Chronic (2) Diabetic neuropathy Status: Chronic (3) HTN (hypertension) Status: Chronic (4) Suspected COPD Status: Chronic (5) Pancreatitis Status: Resolved Past Medical History - Allergies and Home Meds Allergies/Adverse Reactions: Allergies Penicillins Allergy (Verified 10/16/20 07:24) Rash Primary Care Physician: John Jacome MD [Primary Care Provider] - As soon as possible Surgical History: cholecystectomy, - - Lip Surgery, L foot surgery, EGD with polyp removal from stomach. Smoking Status: Current every day smoker Drugs: None - Family History Maternal Family History: Reports: Cancer, Heart Disease - report heart attack in 50s or 60s, history of stents Paternal Family History: Reports: Unknown Review of Systems General: Denies: Chills, Fever, Sweats Eyes: Denies: Visual changes - bilaterally, Diplopia ENT: Denies: Rhinorrhea, Sore throat Cardiovascular: Reports: Chest pain. Denies: Palpitations, Heart racing Respiratory: Reports: Cough - No change from baseline. Denies: Dyspnea, Dyspnea on exertion Gastrointestinal: Denies: Abdominal pain, Nausea, Vomiting, Diarrhea, Melena, Hematochezia Genitourinary: Denies: Dysuria, Hematuria, Frequency Musculoskeletal: Denies: Back pain, Extremity Pain Skin: Denies: Rash, Wounds Neurological: Denies: Headache, Weakness, Numbness Physical Exam Vital Signs/Narrative: Vital Signs Temp Pulse Resp BP Pulse Ox 10/16/20 07:17 98 F 68 18 167/85 H 97 Inital Vital Signs reviewed: Yes General: Well nourished, Well developed, Obese, No Acute Distress Head: Normocephalic, Atraumatic Eyes: Perrl, EOMI ENT: Moist mucous membranes, No rhinorrhea Neck: Supple, Nontender Cardiovascular: Regular rate, Regular rhythm, No murmurs Respiratory: No distress, CTA bilaterally, Chest tenderness - Tender to palpation on the right mid ribs around the breast. This is the area that the patient states that he is feeling this punching sensation. Abdomen: Soft, Nontender, Nondistended, Normal bowel sounds Back: Nontender, Normal Inspection Extremities: Nontender, No edema Skin: Normal color, No rash Neurological: Alert, Oriented x3, Cranial nerves II-XII grossly intact, Normal Strength, Normal Sensation Psychological: Normal affect, Normal Mood Diagnostic/Tx/Re-eval Clinical Impression(s) from Imaging Studies Chest X-Ray 10/16/20 07:31 IMPRESSION: No focal patchy airspace opacities Minimal congestion/hazy airspace disease Electronically Signed: Gaetano Means DO at 8:02 EST Tel , Service support , Laboratory Last Values WBC 3.7 K/mm3 (4.4-11.0) L 10/16/20 07:33 RBC 3.46 M/mm3 (4.6-6.2) L 10/16/20 07:33 Hgb 10.1 g/dL (13.0-16.5) L 10/16/20 07:33 Hct 30.7 % (40-54) L 10/16/20 07:33 MCV 88.7 fL (80-94) 10/16/20 07:33 MCH 29.2 pg (27.0-32.0) 10/16/20 07:33 MCHC 32.9 g/dL (32-36) 10/16/20 07:33 RDW Std Deviation 44.8 fl (35.1-43.9) H 10/16/20 07:33 RDW Coeff of Adolph 13.7 % (11.6-14.6) 10/16/20 07:33 Plt Count 179 K/mm3 (150-450) 10/16/20 07:33 MPV 10.5 fl (6.2-12.0) 10/16/20 07:33 Immature Gran % (Auto) 0.300 % (0.0-0.9) 10/16/20 07:33 Neut % (Auto) 58.2 % (47-70) 10/16/20 07:33 Lymph % (Auto) 28.4 % (19-41) 10/16/20 07:33 [place] % (Auto) 7.7 % (0-10) 10/16/20 07:33 Eos % (Auto) 4.6 % (0-5) 10/16/20 07:33 Baso % (Auto) 0.8 % (0-1) 10/16/20 07:33 Absolute Neuts (auto) 2.1 X10^3/uL (2.0-7.7) 10/16/20 07:33 Absolute Lymphs (auto) 1.04 X10^3/uL (0.83-4.51) 10/16/20 07:33 Nucleated RBC % 0 % (0-5) 10/16/20 07:33 Sodium 138 mmol/L (136-145) 10/16/20 07:33 Potassium 4.6 mmol/L (3.5-5.1) 10/16/20 07:33 Chloride 107 mmol/L (98-107) 10/16/20 07:33 Carbon Dioxide 24.0 mmol/L (21.0-32.0) 10/16/20 07:33 Anion Gap 7 (5-15) 10/16/20 07:33 BUN 45 mg/dL (7-18) H 10/16/20 07:33 Creatinine 4.37 mg/dL (0.70-1.30) H 10/16/20 07:33 Estim Creat Clear Calc 20.65 ml/min 10/16/20 07:33 Est GFR (MDRD) Af Amer 18 mL/min (>60) L 10/16/20 07:33 Est GFR (MDRD) Non-Af 15 mL/min (>60) L 10/16/20 07:33 BUN/Creatinine Ratio 10.3 RATIO (10-20) 10/16/20 07:33 Glucose 201 mg/dL (74-106) H 10/16/20 07:33 Calcium 8.1 mg/dL (8.5-10.1) L 10/16/20 07:33 Troponin I < 0.015 ng/mL (<0.045) 10/16/20 07:33 - EKG Initial EKG Interpretation: Sinus Rhythm - EKG demonstrates a normal sinus rhythm at a rate of 65. There is no concerning features of ACS nor ectopy. - Medical Decision Making My interpretation of the single view portable chest x-ray is no acute process. Basic blood work obtained which shows a mild leukopenia which is not a new finding for him. He has had this sporadically throughout his visits. Creatinine is significantly elevated at 4 today. He has had this level before. He has apparently uncontrolled diabetes and uncontrolled hypertension. This is probably the contributing factors for his disease. He has been making urine. Going to give him a couple liters of fluid have him hydrate over the next few days and follow-up with his primary care doctor for repeat testing and possibly referral to nephrology if indicated. As far as his chest pain I do not see any process on the chest x-ray to explain his symptoms. His EKG and heart enzymes are normal. His pain is reproducible. He does not have any DVT or PE risk factors nor does his physical exam seem to suggest PE. I do not see evidence of dissection. I advised against taking anti-inflammatories given his current renal status for his pain. He also has a care plan. He seems very hyper focused on his chest soreness and pain management and does not really engage with the fact that I am telling him that he has acute on chronic renal disease. This unfortunately is once again consistent with some of his previous visits. I do not believe narcotics are indicated. Patient was being observed in the emergency department for delta troponin. I ordered Tylenol and he became upset that I would only give him Tylenol. I do not think anti-inflammatories are indicated with his creatinine. And as he has had nonverifiable pain at this point I am hesitant to give him narcotics given his care plan/history. He states that if we are not going to give him anything more than he will just leave. At this point patient will be discharged. Patient is cursing (fucking assholes fuck you people etc) the staff as he is leaving the department. He is presenting a threatening tone and behavior towards us. ED Disposition - Plan for ED Patient: Disposition: Home or Assisted Living Diagnosis: Chest wall pain, Acute on chronic renal failure Instructions: ED Chest Pain, Noncardiac, ED Renal Insufficiency Referrals: John Jacome MD [Primary Care Provider] - As soon as possible Additional Instructions: Need to discuss your kidney disease with your doctor. If indicated you may need to see a sprinkling system irrigator. Today your creatinine was 4. I would encourage you to drink plenty of fluids over the next several days prior to your visit with your doctor.
[2020-10-16 07:36] VITALS: O2SAT 97
[2020-10-16 07:40] LABS: Absolute Lymphocyte Count 1.04 X10^3/uL (0.83-4.51); Absolute Neutrophil Count 2.1 X10^3/uL (2.0-7.7); Basophil# 0.03 X10^3/uL; Basophil% 0.8 % (0-1); Eosinophil# 0.17 X10^3/uL; Eosinophils% 4.6 % (0-5); Hematocrit 30.7 % (40-54); Hemoglobin 10.1 g/dL (13.0-16.5); Lymphocyte # 1.04 X10^3/ul (4.0); Lymphocyte % 28.4 % (19-41); Mean Corp Hgb Conc 32.9 g/dL (32-36); Mean Corpuscular Hgb 29.2 pg (27.0-32.0); Mean Corpuscular Volume 88.7 fL (80-94); Mean Platelet Vol. 10.5 fl (6.2-12.0); Monocyte# 0.28 X10^3/uL; Monocyte% 7.7 % (0-10); NRBC Flagged by Analyzer 0 % (0-5); Neutrophil # 2.13 X10^3/uL (2.7-7.7); Neutrophil % 58.2 % (47-70); Platelet Count 179 K/mm3 (150-450); RBC Distribution Width CV 13.7 % (11.6-14.6); RBC Distribution Width SD 44.8 fl (35.1-43.9); Red Blood Count 3.46 M/mm3 (4.6-6.2); White Blood Count 3.7 K/mm3 (4.4-11.0)
[2020-10-16 08:00] LABS: Anion Gap 7 (5-15); BUN 45 mg/dL (7-18); BUN/Creat Ratio 10.3 RATIO (10-20); Calcium,Total 8.1 mg/dL (8.5-10.1); Chloride 107 mmol/L (98-107); Creatinine, Serum 4.37 mg/dL (0.70-1.30); EST Glomerular Filtration Rate 15 mL/min (>60); Est Glom Filt Rate - Afr Amer 18 mL/min (>60); Estimated Creatinine Clearance 20.65 ml/min; Glucose 201 mg/dL (74-106); Potassium 4.6 mmol/L (3.5-5.1); Sodium Level 138 mmol/L (136-145)
[2020-10-16] MEDS: 0.9% Normal Saline 1,000 ML 999 ML IV ×2 (08:15→09:55)
[2020-10-16 08:47] VITALS: BP 215/96; PULSE 69; RESP 18; O2SAT 98
--- NOTE | 2020-10-16 09:32 | ED.RN ---
PT REQUESTING PAIN MEDICATION. PT MADE AWARE THAT PHYSICIAN ORDERED TYLENOL PT HAD TAKEN MOTRIN. PTREFUSED, STATING JUST DISCONNECT ME AND LET ME GO HOME. DR CHANEY
--- NOTE | 2020-10-16 09:49 | ED.RN ---
THIS RN IN TO GIVE DISCHARGE INSTRUCTIONS. PT BEGINS SWEARING AT THIS RN ABOUT THE DR, THE HOSPITAL AND HIS LACK OF CARE.PT STATING THINGS LIKE THIS [facility] IS A JOKE. YOU FUCKING PEOPLE ARE IDIOTS. PT STATES NO-ONE COMES [facility] BECAUSE IT IS A [facility]UCKING [facility]CE OF [facility]. THIS RN ATTEMPTS TO EXPLAIN TO PT THAT ARE CONCERN IS HIS KIDNEY FUNCTION AND THAT HE NEEDS TO FOLLOW UP WITH HIS FAMILY PHYSICIAN. PT THEN YELLS YOU GUYS ARE A FUCKING JOKE AND DID NOTHING FOR MY PAIN, I DON'T GIVE A SHIT ABOUT MY KIDNEYS. DR BLISS ATTEMPTS AGAIN TO TALK TO PT REGARDING HIS KIDNEY FUNCTION. PT STATES I WOULD LIKE YOU TO LEAVE MY ROOM AND NOT TALK TO ME ANYMORE
[2020-10-16 09:56] VITALS: BP 188/87; PULSE 68; RESP 18; O2SAT 98
== END 2020-10-16 10:11 | disposition home or self-care (01) ==
PROVIDERS: Emergency Provider Emergency Medicine; PCP Internal Medicine
DX: R07.89 Other chest pain (principal); I12.9 Hypertensive chronic kidney disease with stage 1 through stage 4 chronic kidney disease, or unspecified chronic kidney disease; N18.4 Chronic kidney disease, stage 4 (severe); E11.22 Type 2 diabetes mellitus with diabetic chronic kidney disease; E11.40 Type 2 diabetes mellitus with diabetic neuropathy, unspecified; N17.9 Acute kidney failure, unspecified; N18.9 Chronic kidney disease, unspecified; F17.200 Nicotine dependence, unspecified, uncomplicated; Z82.49 Family history of ischemic heart disease and other diseases of the circulatory system; Z88.0 Allergy status to penicillin; Z90.49 Acquired absence of other specified parts of digestive tract
CPT/HCPCS: 71045; 80048; 84484; 85025; 93005; 96360; 96361; 99285; J7030; A4216

== ENCOUNTER 2020-12-24 05:00 | Emergency (ER) | payer MEDICAID, SELFPAY ==
[2020-11-28 15:54] VITALS: BMI 37.5
[2020-12-24 05:00] VITALS: BP 188/86; PULSE 75; RESP 16; TEMP 36.4; O2SAT 99; BMI 26.5
--- NOTE | 2020-12-24 05:08 | EKG12_ITS ---
Test Reason : CHEST PAIN Blood Pressure : / mmHG Vent. Rate : 077 BPM Atrial Rate : 077 BPM P-R Int : 174 ms QRS Dur : 096 ms QT Int : 388 ms P-R-T Axes : 066 003 088 degrees QTc Int : 439 ms Normal sinus rhythm Normal ECG Confirmed by CJ ROGER, LOU ([id number]), news editor ARLETH BRIDGES ([id number]) on 12/26/2020 7:58:13 AM Referred By: MR Confirmed By:LOU CORONA MD
[2020-12-24] MEDS: 0.9% Normal Saline 1,000 ML 1000 ML IV (05:24)
[2020-12-24 05:28] LABS: Absolute Lymphocyte Count 1.15 X10^3/uL (0.83-4.51); Absolute Neutrophil Count 2.8 X10^3/uL (2.0-7.7); Basophil# 0.04 X10^3/uL; Basophil% 0.9 % (0-1); Eosinophil# 0.11 X10^3/uL; Eosinophils% 2.5 % (0-5); Hematocrit 35.5 % (40-54); Hemoglobin 11.7 g/dL (13.0-16.5); Lymphocyte # 1.15 X10^3/ul (4.0); Lymphocyte % 26.3 % (19-41); Mean Corpuscular Hgb 29.8 pg (27.0-32.0); Mean Corpuscular Volume 90.6 fL (80-94); Mean Platelet Vol. 10.7 fl (6.2-12.0); Monocyte# 0.29 X10^3/uL; Monocyte% 6.6 % (0-10); NRBC Flagged by Analyzer 0 % (0-5); Neutrophil # 2.76 X10^3/uL (2.7-7.7); Neutrophil % 63.2 % (47-70); Platelet Count 176 K/mm3 (150-450); RBC Distribution Width CV 14.7 % (11.6-14.6); RBC Distribution Width SD 47.8 fl (35.1-43.9); Red Blood Count 3.92 M/mm3 (4.6-6.2); White Blood Count 4.4 K/mm3 (4.4-11.0)
--- NOTE | 2020-12-24 05:30 | ED.VIS.GI ---
History of Present Illness Chief Complaint: Abd Pain Narrative: Patient presenting for evaluation secondary to abdominal pain and concerns for an elevated troponin. Patient has a underlying history of chronic abdominal pain, some pain seeking behavior, renal insufficiency, and multiple emergency department visits. Patient tells me that he was at a outside facility emergency department at [facility] as he was visiting somebody for the holiday. He states that he had a work-up at that time and was told he had a elevated troponin but wished to leave the hospital AGAINST MEDICAL ADVICE. States that he was in the hospital at that time secondary to abdominal pain. He reports that today he has having repeat of this abdominal pain that is epigastric and characteristic with his usual abdominal pain associated with nausea. He currently denies any chest pain or shortness of breath associated with this. Review of systems otherwise negative. Past Medical History - Allergies and Home Meds Allergies/Adverse Reactions: Allergies Penicillins Allergy (Verified 12/24/20 05:03) Rash Primary Care Physician: John Jacome MD [Primary Care Provider] - Prior records reviewed: Yes Past Medical History: - - COPD, diabetes, hypertension, chronic kidney disease not on dialysis Surgical History: cholecystectomy, - Lives: Spouse/ Significant Other Smoking Status: Current every day smoker - Family History Maternal Family History: Reports: Cancer, Heart Disease - report heart attack in 50s or 60s, history of stents Paternal Family History: Reports: Unknown Review of Systems All systems negative except as indicated General: Denies: Chills, Fever, Sweats Eyes: Denies: Visual changes - bilaterally, Diplopia ENT: Denies: Rhinorrhea, Sore throat Cardiovascular: Denies: Chest pain, Palpitations Respiratory: Denies: Dyspnea, Cough, Dyspnea on exertion Gastrointestinal: Reports: Abdominal pain, Nausea Genitourinary: Denies: Dysuria, Hematuria, Frequency Musculoskeletal: Denies: Back pain, Extremity Pain Skin: Denies: Rash, Wounds Neurological: Denies: Headache, Weakness, Numbness Physical Exam Vital Signs/Narrative: Vital Signs Temp Pulse Resp BP Pulse Ox 12/24/20 05:00 97.6 F L 75 16 188/86 H 99 Inital Vital Signs reviewed: Yes General: Well nourished, Well developed, Obese, No Acute Distress Head: Normocephalic, Atraumatic Eyes: Perrl, EOMI ENT: Moist mucous membranes, No rhinorrhea Neck: Supple, Nontender Cardiovascular: Regular rate, Regular rhythm, No murmurs, - - 2+ radial pulses bilaterally symmetric Respiratory: No distress, CTA bilaterally, Chest nontender Abdomen: Soft, Nondistended, Normal bowel sounds, Tender, - - Tender in the epigastrium with extremely light touch, no evidence of diffuse rigidity or peritonitis. Nonsurgical abdomen. Back: Nontender, Normal Inspection Extremities: Nontender, No edema Skin: Normal color, No rash Neurological: Alert, Oriented x3, Cranial nerves II-XII grossly intact, Normal Strength, Normal Sensation Psychological: Normal affect, Normal Mood Diagnostic/Tx/Re-eval - EKG Initial EKG Interpretation: - - Normal sinus rhythm at [address] segments, normal T waves, normal VT and QTc intervals no evidence of acute ischemia or arrhythmia - Medical Decision Making Patient presented secondary to abdominal pain and concerns for an elevated troponin in the setting of chronic kidney disease. I was able to obtain the patient's records from the outside facility. Per the patient's chart he had a troponin of 0.12, and a BUN and creatinine of 62 and 4.18 respectively. Patient apparently was requesting additional morphine per the chart, and when he was informed that he would not receive additional morphine he signed out AGAINST MEDICAL ADVICE. I reviewed the patient's records here, he has a history of chronic kidney disease with the most recent creatinine at our facility of 4 so it does not appear that he was very far off of his baseline at the outside facility. EKG obtained on the patient was found to be within normal limits. I did order lab work including CBC CMP lipase and a troponin. Patient was ordered IV fluids, Zofran, Bentyl, and Tylenol for treatment of his pain. When the patient was offered this, he states That shit doesn't work and voiced his willingness to leave the emergency department. I do feel that given the patient's normal EKG that his elevated troponin likely is more associated with his chronic kidney disease. Patient was recommended to follow-up with primary care. ED Disposition - Plan for ED Patient: Disposition: Home or Assisted Living Diagnosis: Chronic abdominal pain, Drug-seeking behavior, Chronic kidney disease Instructions: ED Chronic Kidney Disease (CKD), ED Chronic Pain Referrals: John Jacome MD [Primary Care Provider] - As soon as possible
--- NOTE | 2020-12-24 05:35 | ED.RN ---
when rn in to room to give medications. rn listed medications doctor ordered. patient states I don't want any of that shit, it doesn't work. I'm leaving. dr. hawk notified. iv removed.
[2020-12-24 05:42] LABS: ALB/GLOB Ratio 0.7 RATIO (0.9-2.4); AST(SGOT) 21 U/L (15-37); Alanine Aminotransfer ALT/SGPT 38 U/L (16-61); Albumin, Serum 2.3 g/dL (3.2-5.0); Alkaline Phosphatase 65 U/L (45-117); Anion Gap 8 (5-15); BUN 55 mg/dL (7-18); BUN/Creat Ratio 11.9 RATIO (10-20); Chloride 105 mmol/L (98-107); Creatinine, Serum 4.61 mg/dL (0.70-1.30); EST Glomerular Filtration Rate 14 mL/min (>60); Est Glom Filt Rate - Afr Amer 17 mL/min (>60); Estimated Creatinine Clearance 19.96 ml/min; Globulin 3.5 g/dL (2.2-4.2); Glucose 438 mg/dL (74-106); Lipase 249 U/L (73-393); Potassium 4.7 mmol/L (3.5-5.1); Protein, Total 5.8 g/dL (6.4-8.2); Sodium Level 137 mmol/L (136-145)
== END 2020-12-24 05:45 | disposition home or self-care (01) ==
PROVIDERS: Emergency Provider Emergency Medicine; PCP Internal Medicine
DX: R10.9 Unspecified abdominal pain (principal); G89.29 Other chronic pain; E11.22 Type 2 diabetes mellitus with diabetic chronic kidney disease; N18.9 Chronic kidney disease, unspecified; Z76.5 Malingerer [conscious simulation]; F17.200 Nicotine dependence, unspecified, uncomplicated; I12.9 Hypertensive chronic kidney disease with stage 1 through stage 4 chronic kidney disease, or unspecified chronic kidney disease; J44.9 Chronic obstructive pulmonary disease, unspecified; Z82.49 Family history of ischemic heart disease and other diseases of the circulatory system; Z88.0 Allergy status to penicillin; Z90.49 Acquired absence of other specified parts of digestive tract; E66.9 Obesity, unspecified
CPT/HCPCS: 80053; 83690; 84484; 85025; 93005; 96361; 96374; 99283; J7030; A4216; J2405

== ENCOUNTER 2021-02-26 18:19 | Emergency (ER) | payer MEDICAID, SELFPAY ==
[2021-02-26 18:20] VITALS: BP 175/80; PULSE 64; RESP 15; TEMP 36.4; O2SAT 99; BMI 33.5
--- NOTE | 2021-02-26 18:25 | CM.ED ---
SOCIAL WORK Referral Source: Self-referral Reason for Consult: Active ED Care Plan Patient with Active ED Care Plan, presents to ED with abdominal pain. ED Care Plan reviewed. This worker to remain available for needs. Rob Brown MSW, [employer]
--- NOTE | 2021-02-26 19:16 | EX.ED.DYSGE1 ---
HPI History of Present Illness Chief Complaint: Abd Pain Informant: patient Narrative Narrative: 50-year-old male with history of diabetes, hypertension, pancreatitis, chronic abdominal pain presents with a 1 week history of nausea vomiting and epigastric pain. He states that he went to visit his mom's grave at a town he cannot remember and went to the emergency room where he said he had a thing on his CAT scan. He states he went to his doctor's office today who felt that he should perhaps come to the hospital and be admitted for his pancreatitis. He states that he is not currently seeing anybody for his chronic abdominal pain because everyone's too concerned about my kidneys. Patient is a care plan patient and I did review this and reviewed his last ED visit. I would encourage the reader of this note to please review that as well. Patient denies any fever or diarrhea. [facility] Medical History (Updated 02/26/21 @ 19:[address] Yordan Kay, DO) Diabetes Hypertension Knee pain Home Medications Omeprazole [Prilosec] 80 mg PO DAILY 11/26/13 [History Last Taken 10/18/19] atorvastatin 80 mg PO QHS 11/26/13 [History Last Taken 10/18/19] insulin glargine [Lantus Solostar U-100 Insulin] 30 units SUBCUT BID 11/26/13 [History Last Taken 10/18/19] lisinopril 40 mg PO DAILY 11/26/13 [History Last Taken 10/18/19] aspirin 81 mg PO DAILY@0800 07/28/14 [History Last Taken 05/05/17] insulin lispro [Humalog] See Protocol SQ TIDCM 11/27/16 [History Last Taken 10/18/19] fenofibrate nanocrystallized [Triglide] 160 mg PO DAILY 02/04/18 [History Last Taken 10/18/19] insulin lispro [Humalog KwikPen] 50 unit SQ TID 02/04/18 [History Last Taken 10/18/19] hydrochlorothiazide 25 mg PO DAILY 08/30/18 [History Last Taken 10/18/19] pregabalin 300 mg PO DAILY 10/18/19 [History Last Taken 10/18/19] ondansetron 4 mg PO Q8H PRN PRN #10 tab 10/31/19 [Rx Last Taken Unknown] Allergy/AdvReac Type Severity Reaction Status Date / Time Penicillins Allergy Rash Verified 02/26/21 18:22 Surgical History History of cholecystectomy Social History Smoking Status: Current every day smoker alcohol intake: never ROS ROS ED Constitutional Constitutional ED: Denies chills or weight loss Eyes Eyes: Denies change in vision or diplopia ENT ENT ED: Denies ear pain, rhinorrhea or sore throat Cardiovascular Cardiovascular: Denies chest pain, orthopnea, palpitations or racing heartbeat Respiratory/Chest Respiratory/Chest: Denies cough, dyspnea or orthopnea Gastrointestinal Gastrointestinal: Reports abdominal pain, nausea and vomiting; Denies diarrhea Genitourinary Genitourinary ED: Denies dysuria, hematuria or urinary frequency Musculoskeletal Musculoskeletal: Denies arthralgias or myalgias Integumentary Denies abscess or rash Neurologic Neurologic: Denies headache(s) or weakness Psychiatric Psychiatric: Denies anxiety, depression, suicidal ideation or suicidal thoughts Endocrine Endocrinology: Denies polydipsia, polyphagia or polyuria Allergic/Immunologic Allergic/Immunologic ED: Denies mouth swelling, tongue swelling or urticaria EXAM Physical Exam Const Vital Signs: 02/26/21 18:20 Temperature 97.5 F L Temperature Source Temporal Pulse Rate 64 Respiratory Rate 15 Blood Pressure 175/80 H Blood Pressure Mean 111 Pulse Ox 99 Oxygen Delivery Method Room Air Positive well nourished and well developed General Appearance ED: well developed HEENT Reports normocephalic, head/scalp atraumatic and moist mucous membranes Eyes PERRL and EOMs intact bilaterally Neck no lymphadenopathy, supple and no JVD Resp normal respiratory effort and clear to auscultation bilaterally Cardio regular rate, regular rhythm and no murmurs GI non-tender Palpation: soft and tender Back/Spine no CVA tenderness and normal ROM Extremity normal to inspection General Extremety ED: Negative for edema General Extremity: Negative for edema Neuro oriented x3 and CN's II-XII intact bilaterally Sensorium / Orientation: alert Motor Exam: strength 5/5 throughout Psych mental status grossly normal Mood & Affect: Negative for depressed or tearful Skin no rashes or lesions noted and no wounds MDM MDM MDM Narrative Medical decision making narrative: As mentioned above the patient has a care plan. I offered to check his labs provide him with IV fluids Toradol and antiemetics while we awaited his lab work. The patient chose to get up and leave the emergency department after I left the room. Discharge Plan Triage Chief Complaint: Abd Pain ED Provider: Yordan Kay Dx/Rx/DC Orders Clinical Impression: Abdominal pain Instructions: ED Unknown Causes of Abdominal ... Prescriptions: No Action atorvastatin 80 MG tablet 80 mg PO QHS RF: 0 lisinopril 40 MG tablet 40 mg PO DAILY RF: 0 insulin glargine [Lantus Solostar U-100 Insulin] 100 UNITS/ML Pen 30 units subcut BID RF: 0 Omeprazole [Prilosec] 40 MG capsule 80 mg PO DAILY RF: 0 aspirin 81 MG Tab.Chew 81 mg PO DAILY@0800 RF: 0 insulin lispro [Humalog U-100 Insulin] 100 UNIT/ML Ml See Protocol unit SQ TIDCM RF: 0 insulin lispro [Humalog KwikPen Insulin] 100 UNIT/ML Insuln.Pen 50 unit SQ TID RF: 0 fenofibrate nanocrystallized [Triglide] 160 MG tablet 160 mg PO DAILY RF: 0 hydrochlorothiazide 25 MG tablet 25 mg PO DAILY RF: 0 pregabalin 100 MG capsule 300 mg PO DAILY RF: 0 ondansetron 4 MG tablet 4 mg PO Q8H PRN PRN (Reason: Nausea) Qty: 10 RF: 0 Primary Care Provider: John Jacome Referrals: John Jacome MD [Primary Care Provider] - As Needed Disposition Disposition: Elopement
--- NOTE | 2021-02-26 19:19 | NURSING ---
Patient walked out and said to tell the doctor to forget it and that he is leaving
== END 2021-02-26 19:17 | disposition left against medical advice (07) ==
LOC: ED 19:30
PROVIDERS: Emergency Provider Emergency Medicine; PCP Internal Medicine
DX: R10.9 Unspecified abdominal pain (principal); R11.2 Nausea with vomiting, unspecified; F17.200 Nicotine dependence, unspecified, uncomplicated; Z90.49 Acquired absence of other specified parts of digestive tract; E11.9 Type 2 diabetes mellitus without complications; I10 Essential (primary) hypertension; Z79.4 Long term (current) use of insulin; Z79.82 Long term (current) use of aspirin; Z87.19 Personal history of other diseases of the digestive system
CPT/HCPCS: 96361; 96374; 96375

== ENCOUNTER 2021-03-18 17:05 | Emergency (ER) | payer MEDICAID, SELFPAY ==
[2021-03-18 17:06] VITALS: BP 155/86; PULSE 71; RESP 16; TEMP 36.9; O2SAT 99; BMI 32.3
[2021-03-18 18:27] VITALS: BP 171/77; PULSE 72; RESP 14; O2SAT 98
--- NOTE | 2021-03-18 18:50 | EX.ED.DYSGE1 ---
HPI History of Present Illness Chief Complaint: Flank Pain Informant: patient Onset/Context/Timing Onset: Days (2) Context: Gradual Onset Timing: Continuous Quality: Sharp Location: Epigastrium, left flank, and back Worsened by: Eating Relieved by: Nothing Narrative Narrative: Patient presents with left flank pain and epigastric pain that has been getting worse over the past 2 days. Patient states his telesales professional's office called him and told him to come to the emergency department because he may need to start dialysis. Patient states his pain is sharp and is over the epigastric area and left flank area. Patient states pain radiates into his back. Patient states his pain is worse after eating. Patient has a history of pancreatitis as well as chronic kidney disease. Patient admits to some nausea and vomiting. Patient denies any hematemesis or coffee-ground emesis. [facility] Medical History (Updated 03/19/21 @ 01:[address] Gaetano Sommers, ) Diabetes Hypertension Knee pain Home Medications Omeprazole [Prilosec] 80 mg PO DAILY 11/26/13 [History Last Taken 10/18/19] atorvastatin 80 mg PO QHS 11/26/13 [History Last Taken 10/18/19] insulin glargine [Lantus Solostar U-100 Insulin] 30 units SUBCUT BID 11/26/13 [History Last Taken 10/18/19] lisinopril 40 mg PO DAILY 11/26/13 [History Last Taken 10/18/19] aspirin 81 mg PO DAILY@0800 07/28/14 [History Last Taken 05/05/17] insulin lispro [Humalog] See Protocol SQ TIDCM 11/27/16 [History Last Taken 10/18/19] fenofibrate nanocrystallized [Triglide] 160 mg PO DAILY 02/04/18 [History Last Taken 10/18/19] insulin lispro [Humalog KwikPen] 50 unit SQ TID 02/04/18 [History Last Taken 10/18/19] hydrochlorothiazide 25 mg PO DAILY 08/30/18 [History Last Taken 10/18/19] pregabalin 300 mg PO DAILY 10/18/19 [History Last Taken 10/18/19] ondansetron 4 mg PO Q8H PRN PRN #10 tab 10/31/19 [Rx Last Taken Unknown] Allergy/AdvReac Type Severity Reaction Status Date / Time Penicillins Allergy Rash Verified 03/18/21 17:06 Surgical History (Updated 03/18/21 @ 18:[address] Gaetano Sommers DO) History of appendectomy History of cholecystectomy Social History Smoking Status: Current every day smoker tobacco type: cigarettes alcohol intake: never ROS ROS ED Constitutional Constitutional ED: Denies chills or fever(s) Eyes Eyes: Denies blurry vision or change in vision ENT ENT ED: Denies rhinorrhea or sore throat Cardiovascular Cardiovascular: Denies chest pain or palpitations Respiratory/Chest Respiratory/Chest: Denies cough or dyspnea Gastrointestinal Gastrointestinal: Reports abdominal pain, nausea and vomiting Genitourinary Genitourinary ED: Denies dysuria or hematuria Musculoskeletal Musculoskeletal: Reports back pain; Denies neck pain Integumentary Denies abscess or rash Neurologic Neurologic: Denies headache(s) or weakness Allergic/Immunologic Allergic/Immunologic ED: Denies mouth swelling or urticaria EXAM Physical Exam Const Vital Signs: 03/18/21 17:06 03/18/21 18:27 03/18/21 19:23 Temperature 98.4 F Temperature Source Temporal Pulse Rate 71 72 74 Respiratory Rate 16 14 17 Blood Pressure 155/86 H 171/77 H 167/77 H Blood Pressure Mean 109 108 Pulse Ox 99 98 96 Oxygen Delivery Method Room Air Room Air Positive well nourished, well developed and obese General Appearance ED: well developed Nutritional Appearance: obese HEENT Reports moist mucous membranes Neck supple and no JVD Resp normal respiratory effort and clear to auscultation bilaterally Cardio regular rate, regular rhythm and no murmurs GI normal to inspection, nondistended, normoactive bowel sounds Palpation: soft and tender epigastric and LUQ; Negative for guarding or rebound tenderness present Back/Spine General Back: CVA tenderness left Extremity normal to inspection General Extremety ED: Negative for edema or tenderness General Extremity: Negative for edema Neuro oriented x3, CN's II-XII intact bilaterally and no sensory deficits noted Sensorium / Orientation: alert Motor Exam: strength 5/5 throughout Psych mental status grossly normal Skin no rashes or lesions noted MDM MDM MDM Narrative Medical decision making narrative: Patient was ordered IV fluids. Patient was ordered a dose of Zofran. Patient did not want the Zofran or fluids. CBC shows a mild anemia with a hemoglobin of 11.1 hematocrit 33.1. Comprehensive metabolic profile showed an elevated creatinine of 5.6 and a BUN of 50. Lipase was elevated at 685. Urinalysis was normal. Patient left prior to completing treatment. Patient left prior to his lab results returning. Lab Data Labs: Laboratory Results - last 24 hr 03/18/21 03/18/21 03/18/21 18:00 18:40 18:40 WBC 7.7 RBC 3.66 L Hgb 11.1 L Hct 33.1 L MCV 90.4 MCH 30.3 MCHC 33.5 RDW Std Deviation 47.4 H RDW Coeff of Adolph 14.3 Plt Count 263 MPV 10.4 Immature Gran % (Auto) 0.800 Neut % (Auto) 77.2 H Lymph % (Auto) 15.2 L [place] % (Auto) 4.4 Eos % (Auto) 1.8 Baso % (Auto) 0.6 Absolute Neuts (auto) 6.0 Absolute Lymphs (auto) 1.17 Nucleated RBC % 0 Sodium 140 Potassium 4.4 Chloride 111 H Carbon Dioxide 21.0 Anion Gap 8 BUN 50 H Creatinine 5.60 H Estim Creat Clear Calc 16.43 Est GFR (MDRD) Af Amer 14 L Est GFR (MDRD) Non-Af 11 L BUN/Creatinine Ratio 8.9 L Glucose 158 H Calcium 8.1 L Total Bilirubin 0.20 AST 65 H ALT 29 Alkaline Phosphatase 56 Total Protein 6.3 L Albumin 2.6 L Globulin 3.7 Albumin/Globulin Ratio 0.7 L Lipase 685 H Urine Color Yellow Urine Clarity Clear Urine pH 5.0 Ur Specific [place] 1.015 Urine Protein 500 H Urine Glucose (UA) 250 H Urine Ketones Negative Urine Occult Blood 50 H Urine Nitrite Negative Urine Bilirubin Negative Urine Urobilinogen Normal Ur Leukocyte Esterase Negative Urine RBC 0-5 SEEN Urine WBC 0 SEEN Ur Squamous Epith Cells 0 SEEN Urine Bacteria 1+ Urine Mucus 0 SEEN Discharge Plan Triage Chief Complaint: Flank Pain ED Provider: Gaetano Sommers Dx/Rx/DC Orders Clinical Impression: Chronic kidney disease Prescriptions: No Action atorvastatin 80 MG tablet 80 mg PO QHS RF: 0 lisinopril 40 MG tablet 40 mg PO DAILY RF: 0 insulin glargine [Lantus Solostar U-100 Insulin] 100 UNITS/ML Pen 30 units subcut BID RF: 0 Omeprazole [Prilosec] 40 MG capsule 80 mg PO DAILY RF: 0 aspirin 81 MG Tab.Chew 81 mg PO DAILY@0800 RF: 0 insulin lispro [Humalog U-100 Insulin] 100 UNIT/ML Ml See Protocol unit SQ TIDCM RF: 0 insulin lispro [Humalog KwikPen Insulin] 100 UNIT/ML Insuln.Pen 50 unit SQ TID RF: 0 fenofibrate nanocrystallized [Triglide] 160 MG tablet 160 mg PO DAILY RF: 0 hydrochlorothiazide 25 MG tablet 25 mg PO DAILY RF: 0 pregabalin 100 MG capsule 300 mg PO DAILY RF: 0 ondansetron 4 MG tablet 4 mg PO Q8H PRN PRN (Reason: Nausea) Qty: 10 RF: 0 Primary Care Provider: Care Physician,No Primary Referrals: Care Physician,No Primary [Primary Care Provider] - Disposition Disposition: Elopement Discharge Date/Time: 03/18/21 19:25
[2021-03-18 19:11] LABS: Mucous, Urine 0 SEEN /hpf (<or=2+); Squamous Epithelial Cells - UA 0 SEEN /hpf (0-5); White Blood Cells 0 SEEN /hpf (0-5)
[2021-03-18 19:14] LABS: Absolute Lymphocyte Count 1.17 X10^3/uL (0.83-4.51); Basophil# 0.05 X10^3/uL; Basophil% 0.6 % (0-1); Eosinophil# 0.14 X10^3/uL; Eosinophils% 1.8 % (0-5); Hematocrit 33.1 % (40-54); Hemoglobin 11.1 g/dL (13.0-16.5); Lymphocyte # 1.17 X10^3/ul (0.83-4.51); Lymphocyte % 15.2 % (19-41); Mean Corp Hgb Conc 33.5 g/dL (32-36); Mean Corpuscular Hgb 30.3 pg (27.0-32.0); Mean Corpuscular Volume 90.4 fL (80-94); Mean Platelet Vol. 10.4 fl (6.2-12.0); Monocyte# 0.34 X10^3/uL; Monocyte% 4.4 % (0-10); NRBC Flagged by Analyzer 0 % (0-5); Neutrophil # 5.95 X10^3/uL (2.7-7.7); Neutrophil % 77.2 % (47-70); Platelet Count 263 K/mm3 (150-450); RBC Distribution Width CV 14.3 % (11.6-14.6); RBC Distribution Width SD 47.4 fl (35.1-43.9); Red Blood Count 3.66 M/mm3 (4.6-6.2); White Blood Count 7.7 K/mm3 (4.4-11.0)
[2021-03-18 19:18] LABS: Color, Urine Yellow (Yellow); Glucose, Dipstick 250 mg/dl (Normal); Ketone-Dipstick Negative (Negative); Leukocyte Esterase-Dipstick Negative /ul (Negative); Nitrite-Dipstick Negative (Negative); Occult Blood-Urine 50 /ul (Negative); Protein-Dipstick 500 mg/dl (Negative); Specific Gravity, Urine 1.015 (1.002-1.030); Urine Bilirubin Dipstick Negative (Negative); Urine Clarity Clear (Clear); Urine Urobilinogen Normal (Normal)
--- NOTE | 2021-03-18 19:20 | ED.RN ---
Dr Sommers confirms no medication for pain at this time and await tests. Pt refuses a CT and aware about an hour for labs and states he is not waiting and asked me to take his IV out and states he is not signing an AMA form and I cannot make him. IV removed and Dr Sommers is aware. IV intact and patient states he needs a cab and that he has a cell phone and will call them himself and is leaving.
[2021-03-18 19:23] VITALS: BP 167/77; PULSE 74; RESP 17; O2SAT 96
[2021-03-18 19:26] LABS: ALB/GLOB Ratio 0.7 RATIO (0.9-2.4); AST(SGOT) 65 U/L (15-37); Alanine Aminotransfer ALT/SGPT 29 U/L (16-61); Albumin, Serum 2.6 g/dL (3.2-5.0); Alkaline Phosphatase 56 U/L (45-117); Anion Gap 8 (5-15); BUN 50 mg/dL (7-18); BUN/Creat Ratio 8.9 RATIO (10-20); Calcium,Total 8.1 mg/dL (8.5-10.1); Chloride 111 mmol/L (98-107); EST Glomerular Filtration Rate 11 mL/min (>60); Est Glom Filt Rate - Afr Amer 14 mL/min (>60); Estimated Creatinine Clearance 16.43 ml/min; Globulin 3.7 g/dL (2.2-4.2); Glucose 158 mg/dL (74-106); Lipase 685 U/L (73-393); Potassium 4.4 mmol/L (3.5-5.1); Protein, Total 6.3 g/dL (6.4-8.2); Sodium Level 140 mmol/L (136-145)
[2021-03-18 19:39] LABS: Bacteria 1+ /hpf (None Seen); Red Blood Cells-Urine 0-5 SEEN /hpf (0-5)
== END 2021-03-18 19:25 | disposition left against medical advice (07) ==
LOC: ED 19:06
PROVIDERS: Emergency Provider Emergency Medicine
DX: R10.13 Epigastric pain (principal); R11.0 Nausea; I12.9 Hypertensive chronic kidney disease with stage 1 through stage 4 chronic kidney disease, or unspecified chronic kidney disease; N18.9 Chronic kidney disease, unspecified; E66.9 Obesity, unspecified; E11.22 Type 2 diabetes mellitus with diabetic chronic kidney disease; Z79.4 Long term (current) use of insulin; Z79.82 Long term (current) use of aspirin; Z87.19 Personal history of other diseases of the digestive system; F17.210 Nicotine dependence, cigarettes, uncomplicated
CPT/HCPCS: 80053; 81001; 83690; 85025; 96374; 99283; J7030; A4216; J2405

== ENCOUNTER → 2021-05-08 12:27 | Outpatient (CLI) | payer MEDICAID, SELFPAY ==
--- NOTE | 2021-05-08 12:34 | VDUE_ITS ---
Reason For Study: ESRD Right Arm Left Arm Right Cephalic Vein at the wrist measures Left Cephalic Vein at the wrist measures 0.17 x 0.16 cm. 0.16 x 0.17 cm. Right Cephalic Vein in the forearm measures Left Cephalic Vein in the forearm measures 0.17 x 0.18 cm. 0.22 x 0.22 cm. Right Cephalic Vein below antecub measures Left Cephalic Vein below antecub measures 0.17 x 0.17 cm. 0.19 x 0.19 cm. Right Cephalic Vein above antecub measures Left Cephalic Vein above antecub measures 0.33 x 0.33 cm. 0.31 x 0.32 cm. Right Cephalic Vein mid bicep measures 0.29 Left Cephalic Vein at mid bicep measures x 0.29 cm. 0.24 x 0.24 cm. Right Cephalic Vein at the shoulder measures Left Cephalic Vein at the shoulder measures 0.24 x 0.24 cm. 0.25 x 0.25 cm. Right Basilic Vein at the origin measures Basilic vein at origin measures 0.33 x 0.33 0.36 x 0.36 cm. cm. Right Basilic Vein mid bicep measures 0.25 x Basilic vein at bicep measures 0.27 x 0.27 0.26 cm. cm. Right Basilic Vein above antecub measures Basilic vein above antecub measures 0.18 x 0.20 x 0.21 cm. 0.19 cm. Right Brachial artery measures 0.53 x 0.52 Left Brachial artery measures 0.53 x 0.53 cm cm with a velocity of 78.1 cm/sec. with a velocity of 102.9 cm/sec. Right Radial artery measures 0.22 x 0.22 cm Left Radial artery measures 0.21 x 0.21 cm with a velocity of 89.9 cm/sec. with a velocity of 106.4 cm/sec. VL/Saphenous Vein Mapping, Bilat Interpretation Summary Patent and compressible bilateral upper extremity cephalic and basilic veins wi th dimensions as noted. Bilateral cephalic veins of the forearm are small. Bilateral radial arteries are borderline diameter and normal flow rate. Bilateral brachial arteries of normal diameter and flow Ordering Physician: Dottie Oneil Referring Physician: John Jacome M.D. Performed By: Angelique Kelly RVT ?
== END ==
PROVIDERS: PCP Internal Medicine; Referring Provider Nurse Practitioner Adult Health; Visit Provider Nurse Practitioner Adult Health
DX: N18.6 End stage renal disease (principal)
CPT/HCPCS: 93970

== ENCOUNTER → 2021-06-17 13:17 | Outpatient (CLI) | payer MEDICAID, SELFPAY ==
--- NOTE | 2021-06-17 | IMM_PTH ---
PATIENT: ANNABEL SCHILLING LOC: [facility]#:[id number] AGE/SX: 54/M ROOM: RE06/17/[address]: Dr. Tonia Jimenez MD : 1970 BED: DIS: SPEC #: [id number] RECD: 06/20/21 13:16 STATUS: RAVEN REQ #: [id number] RANJAN: 06/17/21 00:[address]: Tonia Jimenez DEPT: IMMUNOHISTOCHEMISTRY RECD BY: Kathrine Milligan ENTERED: 06/20/21 13:17 SP TYPE: IMMUNO OTHR DR: Dr. John Jacome MD Tissues: THORACIC FLUID Procedures: Vicente Ret (add) CK20 (add) CK5-6 (add) MACRO (add) Vimentin (add) P40 (add) CK7 (initial) PHYSICIAN & INSTITUTION [place] [id number] SPECIMEN INFORMATION: Tissue Source: Thoracentesis fluid Clinical Info: Pleural effusion Specimen Number: [id number] CPT code: 21712, 14475 x6 METHODOLOGY: Deparaffinized sections of prefer/formalin-fixed tissue or PAP/DQ stained slides are incubated with monoclonal/polyclonal antibodies/oligonucleotide probes. Localization is made via biotin free immunoperoxidase method. Appropriate controls are performed and reacted as expected. Results on target cell population are indicated in the following table: RESULTS: ANTIBODY / CLONE RESULT CK7 (OV-TL12/30) positive CK20 (KS20.8) negative Vimentin (V9) positive Macro (HAM-56) positive CALRET (polyclonal) positive CK5-6 (D5 & 1684) positive P40 (BC28) negative These tests were developed and their performance characteristics determined by [facility]. They may not have been cleared or approved by the U.S. Food and Drug Administration. The FDA has determined that such clearance or approval is not necessary. The above immunohistochemical/dualISH markers are ordered and reviewed by the Pathologist. INTERPRETATION: Thoracentesis fluid (cell block): No evidence of malignancy. AM:scott 06/21/2021
--- NOTE | 2021-06-17 13:19 | US_ITS ---
PROCEDURE: ULTRASOUND GUIDED THORACENTESIS. DATE: 06/17/2021. INDICATION: Male, 50 years old. Left pleural effusion PHYSICIAN: Rafat Edwards M.D. PROCEDURE: The risks, benefits, and alternatives to the procedure were explained to the patient. The specific risks of bleeding, infection, and pneumothorax requiring chest tube insertion were discussed and accepted. Written informed consent was obtained. Ultrasonographic evaluation of the left lower pleural space was carried out. An adequate pocket was identified. The patient was placed in the sitting, upright position. The overlying skin was prepped and draped in sterile fashion. 1% lidocaine was administered subcutaneously for local anesthesia. Under ultrasound guidance, a 5 Amharic thoracentesis needle/catheter system was advanced into the left posterior lower pleural fluid collection. Approximately 950 mL of blood tinged fluid was drained. The catheter was removed, and a sterile dressing was applied. A specimen was collected and sent to the laboratory for analysis, as requested by the referring clinician. The patient tolerated the procedure well. A chest x-ray was ordered. US/Thoracentesis W US IMPRESSION: Ultrasound-guided left thoracentesis. Electronically Signed: Rafat Edwards MD at 14:33 EDT , Service support ,
[2021-06-17] MEDS: Lidocaine 2% (20 ml mdv) 20 ML Vial INFILT (13:30)
--- NOTE | 2021-06-17 13:55 | FLU_PTH ---
PATIENT: ANNABEL SCHILLING LOC: [facility]#:[id number] AGE/SX: 54/M ROOM: RE06/17/[address]: Dr. Tonia Jimenez MD : 1970 BED: DIS: SPEC #: [id number] RECD: 06/17/21 15:22 STATUS: RAVEN REAdela #: [id number] RANJAN: 06/17/21 13:[address]: Tonia Jimenez DEPT: CYTOLOGY RECD BY: Monika Salazar ENTERED: 06/18/21 08:21 SP TYPE: Fluid OTHR DR: Dr. John Jacome MD Tissues: Pleural fluid, NOS Procedures: Special Stain Group II Surgery Specimen Level IV Cytospin Fluid HEADER OPERATION: Left thoracentesis PRE-OP DIAGNOSIS: Pleural effusion TISSUE SUBMITTED: Thoracentesis fluid for cytology DIAGNOSIS CYTOLOGY Thoracentesis fluid for cytology (cytospin and cell block): Negative for malignant cells. See comment. AM:scott 06/19/2021 COMMENT Immunohistochemistry ([id number]) supports the above diagnosis. CYTOLOGY STUDY Slides are reviewed. CYTOLOGY GROSS Received is 100 ml of junaid cloudy fluid labeled with the patient's name and and designated per the requisition as thoracentesis. Submitted for cytology preparation including cell block. / scott 06/18/2021 TC:5 CPT: 63986, 08840
--- NOTE | 2021-06-17 14:01 | RAD_ITS ---
STUDY: X-RAY CHEST REASON FOR EXAM: Male, 50 years old. POST THORA TECHNIQUE: AP inspiration and expiration views. COMPARISON: Comparison is made with prior study dated 10/16/2020. FINDINGS: A right-sided double-lumen catheter seen with the tip at the junction of the superior vena cava and right atrium. There is no evidence of pneumothorax following the left thoracentesis. Mild residual increased markings are seen at the left lung base. RAD/Chest Insp/Exp 2 View IMPRESSION: Status post left thoracentesis. No evidence of pneumothorax. Mild degree of persistent atelectasis at the left lung base. Electronically Signed: Rafat Edwards MD at 14:16 EDT , Service support ,
[2021-06-17 14:18] VITALS: BP 170/99; BP 174/96; BP 180/100; PULSE 100; PULSE 106; RESP 16; RESP 18; O2SAT 97; O2SAT 98
[2021-06-17 15:24] LABS: Cytology, Body Fluid / CSF SEE PATHOLOGY REPORT
== END | disposition home or self-care (01) ==
PROVIDERS: PCP Internal Medicine; Referring Provider Internal Medicine Nephrology; Visit Provider Internal Medicine Nephrology
DX: J90 Pleural effusion, not elsewhere classified (principal)
CPT/HCPCS: 32555; 71046; 88108; 88305; 88313; 88341; 88342

== ENCOUNTER 2021-06-30 14:47 | Emergency (ER) | payer MEDICAID, SELFPAY ==
[2021-06-30] VITALS (7 sets, daily range): BP systolic 175–192; BP diastolic 101–102; PULSE 88–98; RESP 12–18; TEMP 36.5; O2SAT 97–100; BMI 33.2
--- NOTE | 2021-06-30 15:30 | EKG12_ITS ---
Test Reason : Blood Pressure : / mmHG Vent. Rate : 096 BPM Atrial Rate : 096 BPM P-R Int : 164 ms QRS Dur : 098 ms QT Int : 362 ms P-R-T Axes : 064 -09 086 degrees QTc Int : 457 ms Normal sinus rhythm Normal ECG Confirmed by CJ ROGER, LOU ([id number]), editor in chief ROLDAN ROSA ([id number]) on 07/01/2021 1:01:34 PM Referred By: RHIANNON Confirmed By:LOU CORONA MD
--- NOTE | 2021-06-30 15:30 | RAD_ITS ---
INDICATION: chest pain EXAMINATION/TECHNIQUE: X-RAY - XR Chest 1 View COMPARISON: 06/17/2021. FINDINGS: Persistent streaky opacities in the left lung base. The cardiomediastinal silhouette is stable. Right-sided hemodialysis catheter. Questionable trace left pleural effusion. No pneumothorax. The osseous structures are unchanged. RAD/Chest 1 View (Portable) IMPRESSION: Persistent streaky opacities in the left lung base could represent atelectasis versus infection. Questionable trace left pleural effusion. Electronically Signed: Mannie Leyva MD at 16:41 EDT Tel , Service support ,
[2021-06-30 15:50] LABS: Absolute Lymphocyte Count 1.06 X10^3/uL (0.83-4.51); Absolute Neutrophil Count 5.5 X10^3/uL (2.0-7.7); Basophil# 0.05 X10^3/uL; Basophil% 0.7 % (0-1); Eosinophil# 0.19 X10^3/uL; Eosinophils% 2.7 % (0-5); Hematocrit 42.3 % (40-54); Hemoglobin 13.9 g/dL (13.0-16.5); Lymphocyte # 1.06 X10^3/ul (0.83-4.51); Lymphocyte % 14.8 % (19-41); Mean Corp Hgb Conc 32.9 g/dL (32-36); Mean Corpuscular Hgb 30.6 pg (27.0-32.0); Mean Corpuscular Volume 93.2 fL (80-94); Mean Platelet Vol. 10.4 fl (6.2-12.0); Monocyte# 0.33 X10^3/uL; Monocyte% 4.6 % (0-10); NRBC Flagged by Analyzer 0 % (0-5); Neutrophil % 76.9 % (47-70); Platelet Count 209 K/mm3 (150-450); RBC Distribution Width CV 13.6 % (11.6-14.6); RBC Distribution Width SD 46.5 fl (35.1-43.9); Red Blood Count 4.54 M/mm3 (4.6-6.2); White Blood Count 7.2 K/mm3 (4.4-11.0)
[2021-06-30 16:03] LABS: Anion Gap 10 (5-15); BUN 45 mg/dL (7-18); BUN/Creat Ratio 8.8 RATIO (10-20); Calcium,Total 8.5 mg/dL (8.5-10.1); Chloride 99 mmol/L (98-107); Creatinine, Serum 5.11 mg/dL (0.70-1.30); EST Glomerular Filtration Rate 13 mL/min (>60); Est Glom Filt Rate - Afr Amer 15 mL/min (>60); Estimated Creatinine Clearance 18.01 ml/min; Glucose 212 mg/dL (74-106); Potassium 4.1 mmol/L (3.5-5.1); Sodium Level 134 mmol/L (136-145); Troponin-I HS 48 pg/mL (3.0-78.0)
[2021-06-30] MEDS: Ondansetron 4 MG/2 ML Vial IV (16:28)
[2021-06-30] MEDS: Morphine 4 MG/ML Syringe IV ×2 (16:28→17:17)
[2021-06-30 17:43] LABS: Troponin-I HS 45 pg/mL (3.0-78.0)
--- NOTE | 2021-06-30 18:07 | EDS_ITS ---
HPI History of Present Illness Chief Complaint: Chest Pain Narrative Narrative: 50-year-old male presenting with left-sided chest pain which radiates to the left arm which started this morning. He is not taking anything prior to arrival for pain. Denies fever, cough, chills, body aches, change in taste or smell. Patient has no cardiac history that he admits to. He is a diabetic and he is end-stage renal disease on dialysis Thursday, , Thursday. He did make his appointment yesterday. PFSH PFSH Medical History Atypical chest pain Chronic kidney disease Diabetes Diabetic neuropathy DRUG SEEKING BEHAVIOR / MALINGERING Gallbladder sludge Hypertension Knee pain Laceration without foreign body, right lower leg, initial encounter Pancreatitis Suspected COPD Tobacco use Home Medications Omeprazole [Prilosec] 80 mg PO DAILY 11/26/13 [History Last Taken 10/18/19] atorvastatin 80 mg PO QHS 11/26/13 [History Last Taken 10/18/19] insulin glargine [Lantus Solostar U-100 Insulin] 30 units SUBCUT BID 11/26/13 [History Last Taken 10/18/19] lisinopril 40 mg PO DAILY 11/26/13 [History Last Taken 10/18/19] aspirin 81 mg PO DAILY@0800 07/28/14 [History Last Taken 05/05/17] insulin lispro [Humalog] See Protocol SQ TIDCM 11/27/16 [History Last Taken 10/18/19] fenofibrate nanocrystallized [Triglide] 160 mg PO DAILY 02/04/18 [History Last Taken 10/18/19] insulin lispro [Humalog KwikPen] 50 unit SQ TID 02/04/18 [History Last Taken 10/18/19] hydrochlorothiazide 25 mg PO DAILY 08/30/18 [History Last Taken 10/18/19] pregabalin 300 mg PO DAILY 10/18/19 [History Last Taken 10/18/19] ondansetron 4 mg PO Q8H PRN PRN #10 tab 10/31/19 [Rx Last Taken Unknown] Allergy/AdvReac Type Severity Reaction Status Date / Time Penicillins Allergy Rash Verified 06/30/21 14:47 Family History Grandmother Asthma Mother Breast cancer Hypertension Hypercholesterolemia CVA (cerebral vascular accident) Father Colon cancer Hypertension Hypercholesterolemia Uncle Diabetes Grandfather Heart disease Son Seizures Surgical History History of appendectomy History of cholecystectomy Social History Smoking Status: Current every day smoker tobacco type: cigarettes alcohol intake: never ROS ROS ED Constitutional Constitutional ED: Denies chills or fever(s) Eyes Eyes: Denies blurry vision or change in vision ENT ENT ED: Denies rhinorrhea or sore throat Cardiovascular Cardiovascular: Reports chest pain; Denies palpitations or racing heartbeat Respiratory/Chest Respiratory/Chest: Denies cough, dyspnea or sputum Gastrointestinal Gastrointestinal: Denies abdominal pain, nausea or vomiting Genitourinary Genitourinary ED: Denies dysuria or hematuria Musculoskeletal Musculoskeletal: Denies arthralgias or myalgias Integumentary Denies Abrasions or rash Neurologic Neurologic: Denies headache(s) or paresthesias EXAM Physical Exam Const Vital Signs: 06/30/21 14:47 06/30/21 14:55 06/30/21 14:57 Temperature 97.7 F L Temperature Source Oral Pulse Rate 98 98 Respiratory Rate 18 Respiratory Effort Normal Blood Pressure 175/101 H Blood Pressure Mean 125 Pulse Ox 98 100 Oxygen Delivery Method Room Air Room Air 06/30/21 15:40 06/30/21 16:27 06/30/21 17:11 Temperature Temperature Source Pulse Rate 97 92 Respiratory Rate 18 12 Respiratory Effort Blood Pressure 178/101 H Blood Pressure Mean 126 Pulse Ox 97 98 99 Oxygen Delivery Method Room Air Room Air Room Air 06/30/21 17:41 Temperature Temperature Source Pulse Rate 88 Respiratory Rate 12 Respiratory Effort Blood Pressure Blood Pressure Mean Pulse Ox 99 Oxygen Delivery Method Room Air Positive well nourished General Appearance ED: Negative for pallor HEENT Reports moist mucous membranes normocephalic and atraumatic Eyes PERRL and EOMs intact bilaterally Resp normal respiratory effort Effort and Inspection: respiratory distress Cardio regular rate and regular rhythm Extremity normal to inspection General Extremety ED: Yes tenderness Neuro oriented x3 and CN's II-XII intact bilaterally Sensorium / Orientation: awake and alert Psych mental status grossly normal Skin General Skin Exam: Negative for jaundice or pallor Heart Score History: Slightly/Non-Suspicious ECG: Normal Age: >45 - <65 years Risk Factors: 1 or 2 Risk Factors Troponin: </= Normal Limit Score: 2 MDM MDM MDM Narrative Medical decision making narrative: Patient presented with chest pain that she had since this morning. He states it radiates to the left arm. Patient's EKG here today interpreted by myself shows a normal sinus rhythm with a ventricular rate of 96 bpm without sign of ischemic change. There is no interval change from previous. Chest x-ray on my interpretation shows atelectasis however the radiologist read this as streaky opacities which could possibly be infiltrate. Patient does not have an elevated white blood cell count nor is he leukopenic. He is not complaining of cough, fever, chills, shortness of breath. He states that his only pain. His creatinine is 5.11 which is expected for somebody with end-stage renal disease on dialysis. He has had 2 troponins 1 of 48 and the second 145 and therefore I believe he is safe to be discharged home from a cardiac standpoint. The pain that he is having does not sound pleuritic in nature. His O2 sats are 98 to 99%. He is not tachycardic or tachypneic. I have low suspicion for PE. Patient counseled on all findings and is recommended he follow-up with his primary care physician to ensure resolution. He is given return precautions. Impression: 1. Chest pain noncardiac Lab Data Labs: Laboratory Results - last 24 hr 06/30/21 06/30/21 06/30/21 14:30 14:30 17:10 WBC 7.2 RBC 4.54 L Hgb 13.9 Hct 42.3 MCV 93.2 MCH 30.6 MCHC 32.9 RDW Std Deviation 46.5 H RDW Coeff of Adolph 13.6 Plt Count 209 MPV 10.4 Immature Gran % (Auto) 0.300 Neut % (Auto) 76.9 H Lymph % (Auto) 14.8 L [place] % (Auto) 4.6 Eos % (Auto) 2.7 Baso % (Auto) 0.7 Absolute Neuts (auto) 5.5 Absolute Lymphs (auto) 1.06 Nucleated RBC % 0 Sodium 134 L Potassium 4.1 Chloride 99 Carbon Dioxide 25.0 Anion Gap 10 BUN 45 H Creatinine 5.11 H Estim Creat Clear Calc 18.01 Est GFR (MDRD) Af Amer 15 L Est GFR (MDRD) Non-Af 13 L BUN/Creatinine Ratio 8.8 L Glucose 212 H Calcium 8.5 Troponin I High Sens 48 45 Radiography Diagnostic Testing: Clinical Impression(s) from Imaging Studies Chest X-Ray 06/30/21 15:30 IMPRESSION: Persistent streaky opacities in the left lung base could represent atelectasis versus infection. Questionable trace left pleural effusion. Electronically Signed: Mnanie Leyva MD at 16:41 EDT Tel , Service support , Discharge Plan Triage Chief Complaint: Chest Pain ED Provider: Murtaza Clark Dx/Rx/DC Orders Instructions: ED Chest Pain, Noncardiac Prescriptions: No Action atorvastatin 80 MG tablet 80 mg PO QHS RF: 0 lisinopril 40 MG tablet 40 mg PO DAILY RF: 0 insulin glargine [Lantus Solostar U-100 Insulin] 100 UNITS/ML insulin pen 30 units subcut BID RF: 0 Omeprazole [Prilosec] 40 MG capsule 80 mg PO DAILY RF: 0 aspirin 81 MG tablet,chewable 81 mg PO DAILY@0800 RF: 0 insulin lispro [Humalog U-100 Insulin] 100 UNIT/ML cartridge See Protocol unit SQ TIDCM RF: 0 insulin lispro [Humalog KwikPen Insulin] 100 UNIT/ML insulin pen 50 unit SQ TID RF: 0 fenofibrate nanocrystallized [Triglide] 160 MG tablet 160 mg PO DAILY RF: 0 hydrochlorothiazide 25 MG tablet 25 mg PO DAILY RF: 0 pregabalin 100 MG capsule 300 mg PO DAILY RF: 0 ondansetron 4 MG tablet 4 mg PO Q8H PRN PRN (Reason: Nausea) Qty: 10 RF: 0 Primary Care Provider: John Jacome Referrals: John Jacome MD [Primary Care Provider] - Disposition Disposition: Home, Self Care
== END 2021-06-30 18:31 | disposition home or self-care (01) ==
PROVIDERS: Emergency Provider Student in an Organized Health Care Education/Training Program; PCP Internal Medicine
DX: R07.89 Other chest pain (principal); E11.22 Type 2 diabetes mellitus with diabetic chronic kidney disease; E11.40 Type 2 diabetes mellitus with diabetic neuropathy, unspecified; I12.0 Hypertensive chronic kidney disease with stage 5 chronic kidney disease or end stage renal disease; N18.6 End stage renal disease; F17.210 Nicotine dependence, cigarettes, uncomplicated; Z99.2 Dependence on renal dialysis; Z79.82 Long term (current) use of aspirin; Z79.4 Long term (current) use of insulin
CPT/HCPCS: 71045; 80048; 84484; 85025; 93005; 96374; 96375; 96376; 99285; A4216; J2405

== ENCOUNTER 2021-07-10 07:16 | Day surgery (SDC) | payer MEDICAID, SELFPAY ==
[2021-07-10] VITALS (8 sets, daily range): BP systolic 98–148; BP diastolic 58–91; PULSE 85–93; RESP 12–18; TEMP 35.9–36.6; O2SAT 93–100; BMI 32.8
--- NOTE | 2021-07-10 08:29 | PCM.HP.BLA ---
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 Is patient in pain?: No Allergies Penicillins Allergy (Verified 07/03/21 13:13) Rash Medications Omeprazole [Prilosec] 80 mg PO DAILY 11/26/13 [History Confirmed 07/03/21] atorvastatin 80 mg PO QHS 11/26/13 [History Confirmed 07/03/21] insulin glargine [Lantus Solostar U-100 Insulin] 30 units SUBCUT BID 11/26/13 [History Confirmed 07/03/21] lisinopril 40 mg PO DAILY 11/26/13 [History Confirmed 07/03/21] aspirin 81 mg PO DAILY@0800 07/28/14 [History Confirmed 07/03/21] insulin lispro [Humalog] See Protocol SQ TIDCM 11/27/16 [History Confirmed 07/03/21] fenofibrate nanocrystallized [Triglide] 160 mg PO DAILY 02/04/18 [History Confirmed 07/03/21] insulin lispro [Humalog KwikPen] 50 unit SQ TID 02/04/18 [History Confirmed 07/03/21] hydrochlorothiazide 25 mg PO DAILY 08/30/18 [History Confirmed 07/03/21] pregabalin 300 mg PO DAILY 10/18/19 [History Confirmed 07/03/21] ondansetron 4 mg PO Q8H PRN PRN #10 tab 10/31/19 [Rx Confirmed 07/03/21] PFSH Medical History Atypical chest pain Chronic kidney disease Diabetes Diabetic neuropathy DRUG SEEKING BEHAVIOR / MALINGERING Gallbladder sludge Hypertension Knee pain Laceration without foreign body, right lower leg, initial encounter Pancreatitis Suspected COPD Tobacco use Surgical History History of appendectomy History of cholecystectomy Family History Grandmother Asthma Mother Breast cancer Hypertension Hypercholesterolemia CVA (cerebral vascular accident) Father Colon cancer Hypertension Hypercholesterolemia Uncle Diabetes Grandfather Heart disease Son Seizures Social History Smoking Status: Current every day smoker tobacco type: cigarettes alcohol intake: never HPI HPI HPI: ANNABEL SCHILLING, is a 50 M who presents to the office today for an update H&P for an upcoming elective fistula creation. Patient notes he was recently evaluated on Thursday, 06/30 for left sided chest pain which radiated into his arm. He had an EKG which demonstrated normal sinus rhythm and unremarkable troponin levels. No tachycardiac. He denies chest pain since that time. He denies cardiac history. He denies previous cardiac stent placement. He denies previous myocardial infarctions. He notes a history of COPD which he occasionally uses an inhaler for. He denies history of sleep apnea. He denies previous complications with anesthesia. He has been vaccinated. He is currently on dialysis via chest catheters T, Th and Sat. Patient's previous history per Dr. Quintanilla: ANNABEL SCHILLING, is a 50 M who presents to the office today for surgical consultation. The patient is referred by Dr. Jimenez for surgical consultation regarding arteriovenous hemodialysis fistula creation and written copy of my surgical consult recommendations will be returned to him. As of March 10, 2021 BUN was 15 creatinine 5.6 with an estimated creatinine clearance at that time of 16.4 The patient is currently unemployed. He is a long-term cigarette smoker. He has had long-term insulin-dependent diabetes. He also has had multiple episodes of recurrent pancreatitis. He states this is secondary to his diabetes and hyperlipidemia. He is left arm dominant States that he does not think he has had COVID-19. Has not been vaccinated as of yet but he is open to the idea May 08, 2021 Reason For Study: ESRD Right Arm Left Arm Right Cephalic Vein at the wrist measures Left Cephalic Vein at the wrist measures 0.17 x 0.16 cm. 0.16 x 0.17 cm. Right Cephalic Vein in the forearm measures Left Cephalic Vein in the forearm measures 0.17 x 0.18 cm. 0.22 x 0.22 cm. Right Cephalic Vein below antecub measures Left Cephalic Vein below antecub measures 0.17 x 0.17 cm. 0.19 x 0.19 cm. Right Cephalic Vein above antecub measures Left Cephalic Vein above antecub measures 0.33 x 0.33 cm. 0.31 x 0.32 cm. Right Cephalic Vein mid bicep measures 0.29 Left Cephalic Vein at mid bicep measures x 0.29 cm. 0.24 x 0.24 cm. Right Cephalic Vein at the shoulder measures Left Cephalic Vein at the shoulder measures 0.24 x 0.24 cm. 0.25 x 0.25 cm. Right Basilic Vein at the origin measures Basilic vein at origin measures 0.33 x 0.33 0.36 x 0.36 cm. cm. Right Basilic Vein mid bicep measures 0.25 x Basilic vein at bicep measures 0.27 x 0.27 0.26 cm. cm. Right Basilic Vein above antecub measures Basilic vein above antecub measures 0.18 x 0.20 x 0.21 cm. 0.19 cm. Right Brachial artery measures 0.53 x 0.52 Left Brachial artery measures 0.53 x 0.53 cm cm with a velocity of 78.1 cm/sec. with a velocity of 102.9 cm/sec. Right Radial artery measures 0.22 x 0.22 cm Left Radial artery measures 0.21 x 0.21 cm with a velocity of 89.9 cm/sec. with a velocity of 106.4 cm/sec. VL/Saphenous Vein Mapping, Bilat Interpretation Summary Patent and compressible bilateral upper extremity cephalic and basilic veins with dimensions as noted. Bilateral cephalic veins of the forearm are small. Bilateral radial arteries are borderline diameter and normal flow rate. Bilateral brachial arteries of normal diameter and flow Ordering Physician: Dottie Oneil Referring Physician: John Jacome M.D. Performed By: Angelique Kelly RVT General General: Yes weight change and fatigue; No appetite, colon cancer, breast cancer or weakness HEENT HEENT: No difficulty swallowing, eye injury, eye surgery, swollen glands or hoarseness Endo Endocrine: Yes diabetes mellitus; No thyroid disease, thyroid cancer, Hair loss, heat intolerance or cold intolerance Skin Skin: No rash or changing moles Breast Breast: No left breast lump, right breast lump, nipple discharge, breast pain, abnormal mammogram, abnormal US or breast enlargement Musc Musculoskeletal: Yes back problems; No arthritis, rheumatoid arthritis, gout or joint pain Cardio Cardiovascular: Yes high blood pressure and heart attack; No murmur, pacemaker, heart disease, atrial fibrillation, heart stent, palpitations, shortness of breat with exertion or chest pain Psych Psychiatric: Yes depression and anxiety; No hearing voices Resp Respiratory: No shortness of breath, No sleep apnea, Yes cough, Yes COPD, No asthma, No emphysema and No wheezing Gastro Gastrointestinal: Yes abdominal pain, Yes nausea or vomiting, Yes diarrhea, Yes constipation, No blood in stool, Yes acid reflux, No hemorrhoids, No ulcers, No gallbladder problem and Yes black,tarry stools Additional Details: History pancreatitis Mk Hematologic: No blood thinners, No blood disorders, No bleeding, Yes anemia and No blood clots Neuro Neurologic: No system reviewed and no additional complaints, except as documented, No as per HPI, No abnormal gait, No abnormal hearing, No abnormal movements, No abnormal speech, No behavioral changes, No burning sensations, No confusion, No convulsions, No disequilibrium, No dizziness, No localized weakness, No frequent falls, No headache(s), No lack of coordination, No loss of vision, No memory loss, No numbness, No other visual disturbances, No radicular pain, No restless legs, No sensory deficit, No syncope, No tingling, No tremor(s), No weakness and No other Exam Const General: cooperative, healthy appearing, comfortable and no acute distress [facility] Head: normal to inspection Eyes General: appearance normal, both eyes and all related structures Neck Neck: normal visual inspection Neck mass: No Resp Effort & Inspection: normal respiratory effort Auscultation: clear to auscultation bilaterally Cardio Rate: regular rate Rhythm: regular rhythm GI Inspection: normal to inspection Auscultation: normal bowel sounds Skin General: no rashes or lesions noted Neuro General: no focal motor deficits and CN's II-XI intact bilaterally Extrem General: normal to inspection Other: multiple tattoos Psych Appearance: grossly normal Affect: normal affect COVID (Procedure Consent) Procedure Criteria Procedure Criteria: Yes Elective The surgeon/proceduralist and patient have discussed in detail the risk of exposure to and/or potential harm posed by the COVID-19 virus with having a surgery/procedure at this time versus the risk of delaying the surgery/procedure. It is not possible to know either the risk of delaying the surgery or procedure or chance of getting an infection with perfect accuracy, but a joint decision was made between the patient and the surgeon/proceduralist to proceed at this time with the scheduled surgery/procedure as indicated on the consent form. Assessment and Plan Assessment and Plan (1) Chronic renal failure, stage 5: Status: Chronic Plan - Carmelita VELEZ PABensonC: Dr. Quintanilla will plan to perform a right forearm radiocephalic arteriovenous hemodialysis fistula creation. Patient's blood pressure was elevated at today's visit. Our office contacted his PCP's office, Dr. Nesbitt at [facility], the nurse was going to get in contact with the patient to assist with an appointment or medication adjustment in time for next Thursday's procedure. Procedure details, risks and benefits have been reviewed. Patient verbally understands and agrees with the plan. Patient also understands that if his blood pressure is elevated, it is a potential that he may be canceled. Patient verbally understands and agrees he will also contact his PCP. I have re-examined the patient. There are no clinical changes since date of exam. Reggie Quintanilla M.D., F.A.C.S.
--- NOTE | 2021-07-10 08:31 | EX.PCM.DISCH ---
Discharge Instructions Procedure Fistula Diet Discharge Diet: Renal Diet Activity Discharge Activity: May Not Drive (for 2-3 days or while taking narcotic pain medications.), May Shower and May Take a Tub Bath (in 5 days.) Lifting Restrictions: 5 pounds Keep extremity elevated above heart level: - (Keep arm elevated above the heart level for 3 days.) Dressing / Incision Call your doctor if your incision/area has: Continuous Slow Oozing, Sudden Increased Bleeding (apply pressure and call your doctor.), Increased Pain/ Swelling, Increased Redness and Foul Smelling Discharge Call your doctor if you observe: Fever of 101 or Higher Suture Line Care: Avoid Pulling/Pushing and Avoid Pinching/Bending Cleanse incision/area with: Keep Dressing Clean & Dry Additional Dressing/Incision Instructions:: Change or remove dressing in one day. May protect with a gauze bandaid. Follow Up Care Please Follow Up With: Reggie Quintanilla MD When: Call [phone] to make an appointment for suture removal and follow up in 1 week. Test Results: Test results from this visit will be discussed in further detail at your follow-up appointment, if applicable. Discharge Plan Admission Attending Provider: Reggie Quintanilla Primary Care Provider: John Jacome Discharge Orders/Prescriptions Prescriptions: No Action atorvastatin 80 MG tablet 80 mg PO QHS RF: 0 lisinopril 40 MG tablet 40 mg PO DAILY RF: 0 Lantus Solostar U-100 Insulin 100 UNITS/ML insulin pen 30 units subcut BID RF: 0 Omeprazole [Prilosec] 40 MG capsule 80 mg PO DAILY RF: 0 aspirin 81 MG tablet,chewable 81 mg PO DAILY@0800 RF: 0 insulin lispro [Humalog KwikPen Insulin] 100 UNIT/ML insulin pen 50 unit SQ TID RF: 0 fenofibrate nanocrystallized [Triglide] 160 MG tablet 160 mg PO DAILY RF: 0 pregabalin 100 MG capsule 300 mg PO QHS RF: 0 ondansetron 4 MG tablet 4 mg PO Q8H PRN PRN (Reason: Nausea) Qty: 10 RF: 0 terazosin 2 mg Capsule 2 mg PO QHS RF: 0 albuterol sulfate 90 mcg/actuation Aerosol Powdr Breath Activated 1 inh INHALATION Q6H PRN (Reason: SOB) RF: 0
[2021-07-10] MEDS: Heparin Injection (Vial) 5,000 UNIT/ML VIAL 5000 UNIT (09:25)
[2021-07-10] MEDS: Lidocaine 1% (30 ml sdv) 30 ML Vial (09:35)
[2021-07-10] MEDS: Bupivacaine Mpf 0.5% 30 ML VIAL (09:35)
--- NOTE | 2021-07-10 10:30 | PCM.OPRPT ---
Problems Associated Problem List Diagnoses (1) Chronic renal failure, stage 5: Report of Operation Date of Procedure: 07/10/21 Pre-Operative Diagnosis: Stage V chronic renal failure Post-Operative Diagnosis: Same Surgery/Procedure Performed:: Right forearm radiocephalic arteriovenous hemodialysis fistula creation Description of Surgical Findings:: Timeout informed consent was obtained. 50-year-old gentleman was taken the operating placed on the table underwent monitored anesthesia care. Clean procedure no antibiotics required. The right forearm was sterilely prepped and draped. 1% lidocaine mixed 50-50 with 0.5% Marcaine was used as local anesthetic. Ultrasound mapping had been performed. 10 cc of local was instilled. An oblique incision was made in the radial aspect of the right wrist. Sharp and blunt sections used to identify the cephalic vein which was dissected free distally. Then sharp and blunt sections used to identify the radial artery. The patient received 9000 units of heparin based upon weight. The vein was ligated distally with a Hemoclip. The vein was spatulated. Peripheral vascular clamps were placed on the radial artery. 11 blade was used to make an arteriotomy which was extended with Welsh scissors. A end-to-side venous to arterial anastomosis was created with running 7-0 Prolene. There was good antegrade retrograde flow. Positional lie appeared to be good. There was good flow in the fistula immediately. The subdermal tissues were approximated up to 3-0 Vicryl subdermal sutures and were needed and opted for Monocryl. Steri-Strips Telfa tape dressings applied. Sponge and instrument and needle counts were reported the surgeon to be correct. Specimens none. Drains none. Blood loss minimal. The patient was taken to recovery area in satisfactory addition without apparent complication Reggie Quintanilla M.D., F.A.C.S. Surgeon: Reggie Quintanilla Type of Anesthesia: Local MAC Anesthesiologist: Sohail Herzog
[2021-07-10] MEDS: HYDROcodone Bitartrate/Apap 5/325 Tablet PO (11:44)
== END 2021-07-10 12:17 | disposition home or self-care (01) ==
LOC: SDC 07:17 → AC 07:18
PROVIDERS: PCP Internal Medicine; Referring Provider Surgery; Visit Provider Surgery
PROC: (CPT 36821; principal; 2021-07-10 09:15)
DX: I12.0 Hypertensive chronic kidney disease with stage 5 chronic kidney disease or end stage renal disease (principal); E11.22 Type 2 diabetes mellitus with diabetic chronic kidney disease; N18.6 End stage renal disease; J44.9 Chronic obstructive pulmonary disease, unspecified; E11.40 Type 2 diabetes mellitus with diabetic neuropathy, unspecified; K86.1 Other chronic pancreatitis; E78.5 Hyperlipidemia, unspecified; K21.9 Gastro-esophageal reflux disease without esophagitis; F17.210 Nicotine dependence, cigarettes, uncomplicated; Z99.2 Dependence on renal dialysis; Z79.82 Long term (current) use of aspirin; Z79.4 Long term (current) use of insulin; Z79.899 Other long term (current) drug therapy; Z90.49 Acquired absence of other specified parts of digestive tract
CPT/HCPCS: 36821; J7040; J2405

== ENCOUNTER 2021-07-23 08:00 | Emergency (ER) | payer MEDICAID, SELFPAY ==
[2021-07-23 08:02] VITALS: BP 154/79; PULSE 88; RESP 17; TEMP 36.6; O2SAT 99; BMI 24.0
--- NOTE | 2021-07-23 08:28 | EKG12_ITS ---
Test Reason : CP Blood Pressure : / mmHG Vent. Rate : 087 BPM Atrial Rate : 087 BPM P-R Int : 168 ms QRS Dur : 092 ms QT Int : 362 ms P-R-T Axes : 051 -05 081 degrees QTc Int : 435 ms Normal sinus rhythm Low voltage QRS (Limb Leads) Nonspecific T wave abnormality Abnormal ECG Confirmed by KETURAH ROGER, GAETANO ([id number]), editor publications ROLDAN ROSA ([id number]) on 07/25/2021 8:47:26 AM Referred By: HANNA Confirmed By:GAETANO REBOLLAR MD
--- NOTE | 2021-07-23 08:29 | ED.VIS.CHEST ---
HPI History of Present Illness Chief Complaint: Chest Pain Detail of Chief Complaint: Chest pain that started this morning while at dialysis Informant: patient Narrative Narrative: Patient presents with chest tightness and pressure that started this morning while at dialysis. He currently rates his pain a 6 out of 10. He did receive 3 nitro at dialysis without any improvement in his pain. Patient states that the pain seems to radiate down his left arm. He felt little bit nauseated with it. He denies any shortness of breath. He denies recent illness. Patient states that they told him that he had put on 20 pounds of water weight since his last dialysis which was 3 days ago. Patient states that he had a heart cath about 15 years ago but did not require any stents or intervention. Prior Similar Symptoms: No CVD Risk Factors: Positive for Hypertension, Diabetes and Hypercholesterolemia [facility] Medical History (Updated 07/23/21 @ 08:[address] Mariella Herrera, ) Atypical chest pain Chronic kidney disease Diabetes Diabetic neuropathy Dietary restriction DRUG SEEKING BEHAVIOR / MALINGERING Gallbladder sludge Gastric reflux High cholesterol History of renal disease Hypertension Injury of back Insulin dependent diabetes mellitus Knee pain Laceration without foreign body, right lower leg, initial encounter Leg cramps Pancreatitis Port-A-Cath in place Smoker Suspected COPD Tobacco use Wears glasses Home Medications Lantus Solostar U-100 Insulin 30 units SUBCUT BID 11/26/13 [History Last Taken 10/18/19] Omeprazole [Prilosec] 80 mg PO DAILY 11/26/13 [History Last Taken 10/18/19] atorvastatin 80 mg PO QHS 11/26/13 [History Last Taken 10/18/19] lisinopril 40 mg PO DAILY 11/26/13 [History Last Taken 10/18/19] aspirin 81 mg PO DAILY@0800 07/28/14 [History Last Taken 05/05/17] fenofibrate nanocrystallized [Triglide] 160 mg PO DAILY 02/04/18 [History Last Taken 10/18/19] insulin lispro [Humalog KwikPen Insulin] 50 unit SQ TID 02/04/18 [History Last Taken 10/18/19] pregabalin 300 mg PO QHS 10/18/19 [History Last Taken 10/18/19] ondansetron 4 mg PO Q8H PRN PRN #10 tab 10/31/19 [Rx Last Taken Unknown] albuterol sulfate 1 inh INHALATION Q6H PRN 07/04/21 [History Last Taken Unknown] terazosin 2 mg PO QHS 07/04/21 [History Last Taken Unknown] hydrocodone-acetaminophen 1 tab PO Q6H PRN 2 Days #5 tab 07/10/21 [Rx Last Taken Unknown] Allergy/AdvReac Type Severity Reaction Status Date / Time Penicillins Allergy Rash Verified 07/04/21 11:16 Family History Grandmother Asthma Mother Breast cancer Hypertension Hypercholesterolemia CVA (cerebral vascular accident) Father Colon cancer Hypertension Hypercholesterolemia Uncle Diabetes Grandfather Heart disease Son Seizures Surgical History History of appendectomy History of cardiac catheterization History of cholecystectomy Social History Smoking Status: Current every day smoker tobacco type: cigarettes alcohol intake: never ROS ROS ED Review of Systems ROS Unobtainable: other Constitutional Constitutional ED: Reports lethargy; Denies chills, fever(s), sweats or weight loss Eyes Eyes: Denies blurry vision, change in vision or diplopia ENT ENT ED: Denies rhinorrhea or sore throat Cardiovascular Cardiovascular: Reports chest pain and racing heartbeat; Denies orthopnea Respiratory/Chest Respiratory/Chest: Reports dyspnea and dyspnea on exertion; Denies cough, orthopnea or sputum Gastrointestinal Gastrointestinal: Reports nausea; Denies abdominal pain, diarrhea or vomiting Genitourinary Genitourinary ED: Denies dysuria, hematuria or urinary frequency Musculoskeletal Musculoskeletal: Denies arthralgias, back pain, myalgias or neck pain Integumentary Denies abscess, Abrasions or rash Neurologic Neurologic: Denies headache(s) or weakness Psychiatric Psychiatric: Denies anxiety, depression or suicidal thoughts Endocrine Endocrinology: Denies polydipsia, polyphagia or polyuria Hematologic/Lymphatic Hematologic/Lymphatic: Denies easy bleeding, easy bruising or lymphadenopathy Allergic/Immunologic Allergic/Immunologic ED: Denies mouth swelling, tongue swelling or urticaria EXAM Physical Exam Const Vital Signs: 07/23/21 08:02 07/23/21 08:10 07/23/21 08:37 Temperature 97.9 F Temperature Source Oral Pulse Rate 88 Respiratory Rate 17 Respiratory Effort Normal Non-Labored Blood Pressure 154/79 H Blood Pressure Mean 104 Pulse Ox 99 99 Oxygen Delivery Method Airvo Room Air Positive well nourished and well developed General Appearance ED: well developed and NAD HEENT Reports TM's clear and moist mucous membranes normocephalic and atraumatic; Negative for trauma or tenderness Tympanic Membrane ED: Yes TM's clear Eyes PERRL and EOMs intact bilaterally General Eye ED: Negative for pale conjunctiva or scleral icterus Neck no lymphadenopathy, supple and no JVD General: Negative for tenderness Chest Wall inspection of chest normal and palpation of chest normal Chest: Negative for tenderness Resp normal respiratory effort and clear to auscultation bilaterally Effort and Inspection: Negative for respiratory distress or pain with movement Auscultation: Negative for rhonchi, wheezes or diminished lung sounds Cardio regular rate, regular rhythm, S1 normal heart sound, S2 normal heart sound and no murmurs Peripheral Pulses: pulses 2+ throughout GI normal to inspection, nondistended, normoactive bowel sounds, soft to palpation, non-tender, non-distended and no masses Back/Spine no CVA tenderness and no thoracic nor lumbar tenderness Extremity normal to inspection General Extremety ED: Negative for edema General Extremity: Negative for edema Neuro oriented x3, CN's II-XII intact bilaterally, no sensory deficits noted and gait normal Sensorium / Orientation: awake, alert, oriented to person, oriented to place and oriented to time Motor Exam: strength 5/5 throughout and strength abnormal Psych mental status grossly normal Skin no rashes or lesions noted and no wounds MDM MDM MDM Narrative Medical decision making narrative: IV line established on arrival. EKG obtained did not show any acute ST elevation. Lab work was ordered. Chest x-ray ordered. I was informed by the nursing staff that patient now wants to be discharged. I had a discussion with the patient and he is refusing to stay for blood work and further evaluation of his chest pain. He understands he has significant risk factors for coronary artery disease and I'm concerned he may be having an acute coronary syndrome. He understands EKG alone is not enough to rule out a cardiac etiology and we sometimes need blood work and further testing. He is refusing any further work-up and testing at this time. Patient will sign out AGAINST MEDICAL ADVICE. Patient has capacity. Lab Data Labs: Laboratory Results - last 24 hr 07/23/21 08:07 WBC 4.8 RBC 3.40 L Hgb 10.5 L Hct 31.9 L MCV 93.8 MCH 30.9 MCHC 32.9 RDW Std Deviation 46.4 H RDW Coeff of Adolph 13.5 Plt Count 134 L MPV 10.8 Immature Gran % (Auto) 0.200 Neut % (Auto) 62.8 Lymph % (Auto) 27.2 Milam % (Auto) 6.7 Eos % (Auto) 2.3 Baso % (Auto) 0.8 Absolute Neuts (auto) 3.0 Absolute Lymphs (auto) 1.29 Nucleated RBC % 0 Discharge Plan Triage Chief Complaint: Chest Pain ED Provider: Mariella Herrera Dx/Rx/DC Orders Clinical Impression: Chest pain Instructions: ED Pain, Acute, Uncertain Cause Prescriptions: No Action atorvastatin 80 MG tablet 80 mg PO QHS RF: 0 lisinopril 40 MG tablet 40 mg PO DAILY RF: 0 Lantus Solostar U-100 Insulin 100 UNITS/ML insulin pen 30 units subcut BID RF: 0 Omeprazole [Prilosec] 40 MG capsule 80 mg PO DAILY RF: 0 aspirin 81 MG tablet,chewable 81 mg PO DAILY@0800 RF: 0 insulin lispro [Humalog KwikPen Insulin] 100 UNIT/ML insulin pen 50 unit SQ TID RF: 0 fenofibrate nanocrystallized [Triglide] 160 MG tablet 160 mg PO DAILY RF: 0 pregabalin 100 MG capsule 300 mg PO QHS RF: 0 ondansetron 4 MG tablet 4 mg PO Q8H PRN PRN (Reason: Nausea) Qty: 10 RF: 0 terazosin 2 mg Capsule 2 mg PO QHS RF: 0 albuterol sulfate 90 mcg/actuation Aerosol Powdr Breath Activated 1 inh INHALATION Q6H PRN (Reason: SOB) RF: 0 hydrocodone-acetaminophen 5-325 mg tablet 1 tab PO Q6H PRN (Reason: pain) 2 Days Qty: 5 RF: 0 Primary Care Provider: John Jacome Referrals: John Jacome MD [Primary Care Provider] - As soon as possible Disposition Disposition: Against Medical Advice
[2021-07-23 08:37] VITALS: O2SAT 99
[2021-07-23 08:49] LABS: Absolute Lymphocyte Count 1.29 X10^3/uL (0.83-4.51); Basophil# 0.04 X10^3/uL; Basophil% 0.8 % (0-1); Eosinophil# 0.11 X10^3/uL; Eosinophils% 2.3 % (0-5); Hematocrit 31.9 % (40-54); Hemoglobin 10.5 g/dL (13.0-16.5); Lymphocyte # 1.29 X10^3/ul (0.83-4.51); Lymphocyte % 27.2 % (19-41); Mean Corp Hgb Conc 32.9 g/dL (32-36); Mean Corpuscular Hgb 30.9 pg (27.0-32.0); Mean Corpuscular Volume 93.8 fL (80-94); Mean Platelet Vol. 10.8 fl (6.2-12.0); Monocyte# 0.32 X10^3/uL; Monocyte% 6.7 % (0-10); NRBC Flagged by Analyzer 0 % (0-5); Neutrophil # 2.98 X10^3/uL (2.7-7.7); Neutrophil % 62.8 % (47-70); Platelet Count 134 K/mm3 (150-450); RBC Distribution Width CV 13.5 % (11.6-14.6); RBC Distribution Width SD 46.4 fl (35.1-43.9); White Blood Count 4.8 K/mm3 (4.4-11.0)
[2021-07-23] MEDS: Ondansetron 4 MG/2 ML Vial IV (08:49)
--- NOTE | 2021-07-23 09:10 | ED.RN ---
Pt mad because nurse is busy and not answering his every call fast enough. nurses have been in the room multiple times as well as the dr. Dr Herrera wanted to admit pt and pt declined. Pt was mad because nurse would not come in quick enough to get iv out to discharge him. Pt refused to sign ama paper and stated put that I refuse to sign the damn paper. Lab called after pt leaving with a critical trop of [phone]. Dr Herrera aware
[2021-07-23 09:13] LABS: Anion Gap 4 (5-15); BUN 44 mg/dL (7-18); BUN/Creat Ratio 9.4 RATIO (10-20); Chloride 105 mmol/L (98-107); Creatinine, Serum 4.66 mg/dL (0.70-1.30); EST Glomerular Filtration Rate 14 mL/min (>60); Est Glom Filt Rate - Afr Amer 17 mL/min (>60); Estimated Creatinine Clearance 19.75 ml/min; Glucose 177 mg/dL (74-106); Potassium 4.3 mmol/L (3.5-5.1); Sodium Level 137 mmol/L (136-145); Troponin-I HS 686 pg/mL (3.0-78.0)
--- NOTE | 2021-07-23 09:18 | ED.RN ---
PT WAS BEING MEDICATED WITH ZOFRAN WHEN PT ASKED WHAT HE WAS GETTING FOR PAIN. EXPLAINED WE WERE WAITING TO SEE WHAT HIS RESULTS CAME BACK WITH AND PT STATED HE WANTED TAKEN OFF OF EVERYTHING AND HE WAS LEAVING. EXPLAINED THE EKG ISN'T THE ONLY INDICATOR FOR HEART PROBLEMS AND IT WAS IMPORTANT TO WAIT FOR BLOOD RESULTS. PT STATED HE DOESN'T CARE AND WANTED TO LEAVE. EXPLAINED I WOULD LET THE DR KNOW. PT THEN IMMEDIATELY PUT HIS CALL LIGHT ON WHEN TIS NURSE LEFT THE ROOM AND DEMANDED ALL THE EQUIPMENT BE REMOVED SO HE CAN LEAVE. EXPLAINED AGAIN THE DR WOULD BE NOTIFIED. WHEN PHYSICIAN WENT INTO THE ROOM THE PT RUDELY REFUSED TO STAY AND AGAIN DEMANDED THINGS BE TAKEN OFF OFF SO HE COULD LEAVE
--- NOTE | 2021-07-23 09:24 | ED.RN ---
Pt was told trop level again and was asked if he wanted to come back in and stay. pt said if i have a heart attack i do. Im not going to sit here and got get pain medicine when i need it Dr kenny aware
== END 2021-07-23 09:14 | disposition left against medical advice (07) ==
PROVIDERS: Emergency Provider Emergency Medicine; PCP Internal Medicine
DX: R07.9 Chest pain, unspecified (principal); E11.22 Type 2 diabetes mellitus with diabetic chronic kidney disease; E11.40 Type 2 diabetes mellitus with diabetic neuropathy, unspecified; E78.00 Pure hypercholesterolemia, unspecified; I12.9 Hypertensive chronic kidney disease with stage 1 through stage 4 chronic kidney disease, or unspecified chronic kidney disease; K21.9 Gastro-esophageal reflux disease without esophagitis; F17.210 Nicotine dependence, cigarettes, uncomplicated; Z99.2 Dependence on renal dialysis; Z79.4 Long term (current) use of insulin; Z79.82 Long term (current) use of aspirin; N18.9 Chronic kidney disease, unspecified
CPT/HCPCS: 80048; 84484; 85025; 93005; 99285; J2405

== ENCOUNTER → 2021-11-08 09:45 | Outpatient (CLI) | payer MEDICAID, SELFPAY ==
--- NOTE | 2021-11-08 09:52 | ECHOD_ITS ---
Reason For Study: Chest Pain Procedure This was a 2D Doppler, Color Flow transthoracic echocardiogram. Exam performed in department. Left Ventricle The estimated ejection fraction is 40-45 %. Stage 2 diastolic dysfunction. Apical hypokinesis. Right Ventricle Normal RV size. Normal systolic function. Atria The left atrium is mildly enlarged. Normal right atrium. No doppler evidence for ASD. Mitral Valve There is no mitral valve stenosis. Mild (1+) mitral valve insufficiency. Tricuspid Valve There is no tricuspid stenosis. Trivial tricuspid valve insufficiency. Unable to estimate RV systolic pressure due to insufficient tricuspid regurgitant envelope. Aortic Valve Trisinus/trileaflet aortic valve. There is no aortic stenosis. No aortic valve insufficiency. Pulmonic Valve There is no pulmonic valvular stenosis. No pulmonic valve insufficiency. Great Vessels Normal aortic root. Pericardium/Pleural No pericardial effusion. MMode/2D Measurements & Calculations LVIDd: 5.7 cm IVSd: 1.2 cm Ao root diam: 4.0 cm LVIDs: 4.2 cm LVPWd: 1.2 cm LA dimension: 4.9 cm RVDd: 4.1 cm FS: 26.1 % LAV(MOD-bp): 99.4 ml LVAd ap4: 39.9 cm2 SV(MOD-sp4): 54.6 ml LAV(MOD-bp) Indexed: 43.7 ml/m2 LVLd ap4: 9.2 cm LAV(MOD-sp2): 96.5 ml EDV(MOD-sp4): 144.2 ml LAV(MOD-sp4): 94.3 ml EDV(sp4-el): 147.3 ml LVAs ap4: 31.0 cm2 LVLs ap4: 8.8 cm ESV(MOD-sp4): 89.6 ml ESV(sp4-el): 92.6 ml EF(MOD-sp4): 37.9 % EF(sp4-el): 37.1 % SV(sp4-el): 54.7 ml LA A4 area: 26.1 cm2 RA A4 area: 14.1 cm2 Time Measurements MV dec time: 0.15 sec Doppler Measurements & Calculations MV E max anderson: 121.4 cm/sec Lat Peak E' Anderson: 9.6 cm/sec Med Peak E' Anderson: 5.8 cm/sec MV A max anderson: 106.5 cm/sec E/E' lat: 12.6 E/E' med: 20.9 MV E/A: 1.1 Ao V2 max: 119.4 cm/sec LV V1 max: 92.0 cm/sec MR max anderson: 380.5 cm/sec Ao max P.7 mmHg LV V1 max P.4 mmHg MR max P.9 mmHg PA V2 max: 114.6 cm/sec ECHO/Echo Complete Interpretation Summary The estimated ejection fraction is 40-45 %. Stage 2 diastolic dysfunction. Apical hypokinesis The left atrium is mildly enlarged. Mild (1+) mitral valve insufficiency. Ordering Physician: RINA CISNEROS Referring Physician: John Jacome M.D. Performed By: Ponce Hebert RCS
== END ==
PROVIDERS: PCP Internal Medicine
DX: I24.1 Dressler's syndrome (principal); R07.9 Chest pain, unspecified
CPT/HCPCS: 93306

== ENCOUNTER 2021-11-10 21:53 | Emergency (ER) | payer MEDICAID, SELFPAY ==
[2021-11-10 21:53] VITALS: PULSE 10; RESP 18; TEMP 36.3; O2SAT 96; BMI 38.5
[2021-11-10 21:57] VITALS: BP 139/76
--- NOTE | 2021-11-10 22:15 | CT_ITS ---
STUDY: CT CHEST WITHOUT CONTRAST REASON FOR EXAM: Male, 50 years old. Bleeding RADIATION DOSAGE (If Supplied By Facility): CTDIvol = ( 20.48 ) mGy, DLP = ( 814.84 ) mGycm TECHNIQUE: Transaxial imaging was performed without the administration of intravenous contrast material. Individualized dose optimization techniques were used for this CT. COMPARISON: None. FINDINGS: Left lower lobe airspace disease and effusion. Otherwise, lungs are clear. There is a small calcified nodule in the right middle lobe measuring 5.4 mm as well as several nodules in the right lower lobe measuring up to 6.9 mm. There is no demonstrated pleural abnormality. Normal heart and pericardium. Normal mediastinum. Normal hilar regions. Normal unenhanced pulmonary arteries. Normal aorta arch and descending thoracic aorta. Normal osseous structures. There is no demonstrated abnormality of the visualized upper abdomen. CT/Chest without Contrast IMPRESSION: Left lower lobe airspace disease and effusion. Calcified granulomas bilaterally. No acute findings otherwise. Electronically Signed: Ludwig Gtz DO at 23:17 EST ,
--- NOTE | 2021-11-10 22:19 | EX.ED.DYSGE1 ---
HPI History of Present Illness Chief Complaint: Wound Check Informant: patient Onset/Context/Timing Onset: Today Context: Sudden Onset Timing: Continuous Quality: Bleeding Location: Right upper chest Worsened by: Nothing Relieved by: Nothing Narrative Narrative: Patient presents with his dialysis catheter being pulled out. Patient states he was laying on his left side and smoking when he felt his shirt get wet. Patient states that he noted some blood. Patient states that he stood up and his dialysis catheter fell to the ground. Patient states that he is scheduled to see Dr. Quintanilla to have this removed in November. Patient states they have been using his AV fistula in his right arm during dialysis. Patient denies any shortness of breath. Patient denies any chest pain. [facility] Medical History Atypical chest pain Chronic kidney disease Diabetes Diabetic neuropathy Dietary restriction DRUG SEEKING BEHAVIOR / MALINGERING Gallbladder sludge Gastric reflux High cholesterol History of renal disease Hypertension Injury of back Insulin dependent diabetes mellitus Knee pain Laceration without foreign body, right lower leg, initial encounter Leg cramps Pancreatitis Port-A-Cath in place Smoker Suspected COPD Tobacco use Wears glasses Home Medications Lantus Solostar U-100 Insulin 30 units SUBCUT BID 11/26/13 [History Last Taken 10/18/19] Omeprazole [Prilosec] 80 mg PO DAILY 11/26/13 [History Last Taken 10/18/19] atorvastatin 80 mg PO QHS 11/26/13 [History Last Taken 10/18/19] lisinopril 40 mg PO DAILY 11/26/13 [History Last Taken 10/18/19] aspirin 81 mg PO DAILY@0800 07/28/14 [History Last Taken 05/05/17] fenofibrate nanocrystallized [Triglide] 160 mg PO DAILY 02/04/18 [History Last Taken 10/18/19] insulin lispro [Humalog KwikPen Insulin] 50 unit SQ TID 02/04/18 [History Last Taken 10/18/19] pregabalin 300 mg PO QHS 10/18/19 [History Last Taken 10/18/19] ondansetron 4 mg PO Q8H PRN PRN #10 tab 10/31/19 [Rx Last Taken Unknown] albuterol sulfate 1 inh INHALATION Q6H PRN 07/04/21 [History Last Taken Unknown] terazosin 2 mg PO QHS 07/04/21 [History Last Taken Unknown] hydrocodone-acetaminophen 1 tab PO Q6H PRN 2 Days #5 tab 07/10/21 [Rx Last Taken Unknown] Allergy/AdvReac Type Severity Reaction Status Date / Time Penicillins Allergy Rash Verified 11/10/21 21:57 Family History Grandmother Asthma Mother Breast cancer Hypertension Hypercholesterolemia CVA (cerebral vascular accident) Father Colon cancer Hypertension Hypercholesterolemia Uncle Diabetes Grandfather Heart disease Son Seizures Surgical History History of appendectomy History of cardiac catheterization History of cholecystectomy Social History Smoking Status: Current every day smoker tobacco type: cigarettes alcohol intake: never ROS ROS ED Constitutional Constitutional ED: Denies chills or fever(s) Eyes Eyes: Denies blurry vision or change in vision ENT ENT ED: Denies rhinorrhea or sore throat Cardiovascular Cardiovascular: Denies chest pain or palpitations Respiratory/Chest Respiratory/Chest: Denies cough or dyspnea Gastrointestinal Gastrointestinal: Denies nausea or vomiting Genitourinary Genitourinary ED: Denies dysuria or hematuria Musculoskeletal Musculoskeletal: Denies back pain or neck pain Integumentary Denies abscess or rash Neurologic Neurologic: Denies headache(s) or weakness Allergic/Immunologic Allergic/Immunologic ED: Denies mouth swelling or urticaria EXAM Physical Exam Const Vital Signs: 11/10/21 21:53 11/10/21 21:57 Temperature 97.4 F L Temperature Source Temporal Pulse Rate 10 L Respiratory Rate 18 Blood Pressure 139/76 H Blood Pressure Mean 97 Pulse Ox 96 Oxygen Delivery Method Room Air Positive well nourished, well developed and obese General Appearance ED: well developed Nutritional Appearance: obese HEENT Reports moist mucous membranes Neck supple and no JVD Chest Wall Chest Narrative: The site from the dialysis catheter is not bleeding. There is no erythema. There is no discharge or drainage. There is minimal tenderness over this area. Resp normal respiratory effort and clear to auscultation bilaterally Cardio regular rate and regular rhythm Extremity normal to inspection Extremity Narrative: There is a good palpable thrill noted in the right AV fistula. General Extremety ED: Negative for edema or tenderness General Extremity: Negative for edema Neuro oriented x3, CN's II-XII intact bilaterally and no sensory deficits noted Sensorium / Orientation: alert Motor Exam: strength 5/5 throughout Psych mental status grossly normal MDM MDM MDM Narrative Medical decision making narrative: Noncontrast CT scan of the chest was obtained. There is no pneumothorax there is no hemothorax noted. There is left lower lobe airspace disease and effusion. There are some calcified granulomas bilaterally. This was interpreted by the radiologist and reviewed by myself. Since the bleeding is stopped, an occlusive dressing was applied. Since the patient is not having any symptoms of pneumonia, I do not feel that the airspace disease needs to be treated with antibiotics at this time. Case was discussed with Dr. Wesley. He is agreeable with the plan. He will let Dr. Quintanilla know that the catheter fell out. Patient will follow up with Dr. Quintanilla as scheduled. Patient understood and was agreeable with the plan. All questions were answered. Radiography Diagnostic Testing: Clinical Impression(s) from Imaging Studies Chest CT 11/10/21 22:15 IMPRESSION: Left lower lobe airspace disease and effusion. Calcified granulomas bilaterally. No acute findings otherwise. Electronically Signed: Ludwig Gtz DO at 23:17 EST , Discharge Plan Triage Chief Complaint: Wound Check ED Provider: Gaetano Sommers Dx/Rx/DC Orders Clinical Impression: Displacement of vascular dialysis catheter, initial encounter Instructions: ED Wound Check (No Infection) Prescriptions: No Action atorvastatin 80 MG tablet 80 mg PO QHS RF: 0 lisinopril 40 MG tablet 40 mg PO DAILY RF: 0 Lantus Solostar U-100 Insulin 100 UNITS/ML insulin pen 30 units subcut BID RF: 0 Omeprazole [Prilosec] 40 MG capsule 80 mg PO DAILY RF: 0 aspirin 81 MG tablet,chewable 81 mg PO DAILY@0800 RF: 0 insulin lispro [Humalog KwikPen Insulin] 100 UNIT/ML insulin pen 50 unit SQ TID RF: 0 fenofibrate nanocrystallized [Triglide] 160 MG tablet 160 mg PO DAILY RF: 0 pregabalin 100 MG capsule 300 mg PO QHS RF: 0 ondansetron 4 MG tablet 4 mg PO Q8H PRN PRN (Reason: Nausea) Qty: 10 RF: 0 terazosin 2 mg Capsule 2 mg PO QHS RF: 0 albuterol sulfate 90 mcg/actuation Aerosol Powdr Breath Activated 1 inh INHALATION Q6H PRN (Reason: SOB) RF: 0 hydrocodone-acetaminophen 5-325 mg tablet 1 tab PO Q6H PRN (Reason: pain) 2 Days Qty: 5 RF: 0 Primary Care Provider: John Jacome Referrals: Reggie Quintanilla MD [STAFF PHYSICIAN] - Keep Sandra appointment John Jacome MD [Primary Care Provider] - Disposition Disposition: Home, Self Care
== END 2021-11-10 23:57 | disposition home or self-care (01) ==
PROVIDERS: Emergency Provider Emergency Medicine; PCP Internal Medicine; Visit Provider Emergency Medicine
DX: T82.524A Displacement of infusion catheter, initial encounter (principal); E11.40 Type 2 diabetes mellitus with diabetic neuropathy, unspecified; E11.22 Type 2 diabetes mellitus with diabetic chronic kidney disease; Z79.4 Long term (current) use of insulin; I12.9 Hypertensive chronic kidney disease with stage 1 through stage 4 chronic kidney disease, or unspecified chronic kidney disease; J98.4 Other disorders of lung; E78.00 Pure hypercholesterolemia, unspecified; N18.9 Chronic kidney disease, unspecified; Y69 Unspecified misadventure during surgical and medical care
CPT/HCPCS: 71250; 99283

== ENCOUNTER 2021-11-20 08:32 | Day surgery (SDC) | payer MEDICAID, SELFPAY ==
[2021-11-19 08:21] VITALS: BMI 38.4
[2021-11-20 08:43] LABS: Hematocrit 31.6 % (40-54); Hemoglobin 10.5 g/dL (13.0-16.5); Mean Corp Hgb Conc 33.2 g/dL (32-36); Mean Corpuscular Hgb 32.4 pg (27.0-32.0); Mean Corpuscular Volume 97.5 fL (80-94); Mean Platelet Vol. 9.8 fl (6.2-12.0); Platelet Count 231 K/mm3 (150-450); RBC Distribution Width CV 13.6 % (11.6-14.6); RBC Distribution Width SD 47.2 fl (35.1-43.9); Red Blood Count 3.24 M/mm3 (4.6-6.2); White Blood Count 5.7 K/mm3 (4.4-11.0)
[2021-11-20 09:03] LABS: Anion Gap 11 (5-15); BUN 42 mg/dL (7-18); BUN/Creat Ratio 6.2 RATIO (10-20); Calcium,Total 8.7 mg/dL (8.5-10.1); Chloride 91 mmol/L (98-107); Creatinine, Serum 6.79 mg/dL (0.70-1.30); EST Glomerular Filtration Rate 9 mL/min (>60); Est Glom Filt Rate - Afr Amer 11 mL/min (>60); Estimated Creatinine Clearance 12.99 ml/min; Glucose 210 mg/dL (74-106); Potassium 4.3 mmol/L (3.5-5.1); Sodium Level 133 mmol/L (136-145)
--- NOTE | 2021-11-20 09:34 | HP.PCM_ITS ---
History and Physical Date of Admission: 11/20/21 Intake Visit Reasons: dialysis caths pulled out Chief Complaint: Dialysis caths pulled out, check fistula [place] Required: No Is patient in pain?: No Allergies Penicillins Allergy (Verified 11/12/21 13:53) Rash Medications Lantus Solostar U-100 Insulin 30 units SUBCUT BID 11/26/13 [History Confirmed 11/12/21] Omeprazole [Prilosec] 80 mg PO DAILY 11/26/13 [History Confirmed 11/12/21] atorvastatin 80 mg PO QHS 11/26/13 [History Confirmed 11/12/21] lisinopril 40 mg PO DAILY 11/26/13 [History Confirmed 11/12/21] aspirin 81 mg PO DAILY@0800 07/28/14 [History Confirmed 11/12/21] fenofibrate nanocrystallized [Triglide] 160 mg PO DAILY 02/04/18 [History Confirmed 11/12/21] insulin lispro [Humalog KwikPen Insulin] 50 unit SQ TID 02/04/18 [History Confirmed 11/12/21] pregabalin 300 mg PO QHS 10/18/19 [History Confirmed 11/12/21] ondansetron 4 mg PO Q8H PRN PRN #10 tab 10/31/19 [Rx Confirmed 11/12/21] albuterol sulfate 1 inh INHALATION Q6H PRN 07/04/21 [History Confirmed 11/12/21] terazosin 2 mg PO QHS 07/04/21 [History Confirmed 11/12/21] FORMERLY [facility], [facility]–1983 Medical History (Updated 11/12/21 @ 15:47 by Carmelita VELEZ, PA-C) Atypical chest pain Chronic kidney disease Diabetes Diabetic neuropathy Dietary restriction DRUG SEEKING BEHAVIOR / MALINGERING Gallbladder sludge Gastric reflux High cholesterol History of renal disease Hypertension Injury of back Insulin dependent diabetes mellitus Knee pain Laceration without foreign body, right lower leg, initial encounter Leg cramps Pancreatitis Port-A-Cath in place Problem with dialysis access Smoker Suspected COPD Tobacco use Wears glasses Surgical History History of appendectomy History of cardiac catheterization History of cholecystectomy Family History Grandmother Asthma Mother Breast cancer Hypertension Hypercholesterolemia CVA (cerebral vascular accident) Father Colon cancer Hypertension Hypercholesterolemia Uncle Diabetes Grandfather Heart disease Son Seizures Social History Smoking Status: Current every day smoker tobacco type: cigarettes alcohol intake: never HPI HPI HPI: ANNABEL SCHILLING, is a 50 M who presents to the office today for problem with dialysis access. Patient had right chest catheters placed at [facility] in the summer of last year. He now has a right forearm radiocephalic arteriovenous hemodialysis fistula created on 07/10/21. He has been utilizing the fistula as of September of 2021. Patient states on Thursday he was turning on his left side laying on the couch and he noted a feeling of wet. He looked at his shirt and noted blood at the catheter site and he went to stand up and the catheter fell to the ground. Patient notes very small amount of tenderness. he stated he presented to the ED that day and was evaluated. No antibiotics were needed and patient was told to follow-up at our office. Patient was told to keep it covered until and drainage stopped. Patient states he has not noted any further drainage since Thursday night. Patient dialyzes via [facility] kidney center. Dialysis center had sent over a notification noting difficulty with cannulation. Patient notes for a few weeks they have had difficulty accessing the second needle site. He states he has been going 4 times per week to take off extra fluid. He stated last night they had difficulty with the second access site. He went back today and they were unable to place the second needle. He has never had a fistulogram. Patient also notes he is scheduled for open heart surgery on November 25 at [facility]. He stated he has multiple blockages. he states they were not able to complete a heart cath. ROS General General: Yes weight change and fatigue; No appetite, colon cancer, breast cancer or weakness HEENT HEENT: No difficulty swallowing, eye injury, eye surgery, swollen glands or hoarseness Endo Endocrine: Yes diabetes mellitus; No thyroid disease, thyroid cancer, Hair loss, heat intolerance or cold intolerance Skin Skin: No rash or changing moles Breast Breast: No left breast lump, right breast lump, nipple discharge, breast pain, abnormal mammogram, abnormal US or breast enlargement Musc Musculoskeletal: Yes back problems; No arthritis, rheumatoid arthritis, gout or joint pain Cardio Cardiovascular: Yes high blood pressure and heart attack; No murmur, pacemaker, heart disease, atrial fibrillation, heart stent, palpitations, shortness of breat with exertion or chest pain Psych Psychiatric: Yes depression and anxiety; No hearing voices Resp Respiratory: No shortness of breath, No sleep apnea, Yes cough, Yes COPD, No asthma, No emphysema and No wheezing Gastro Gastrointestinal: Yes abdominal pain, Yes nausea or vomiting, Yes diarrhea, Yes constipation, No blood in stool, Yes acid reflux, No hemorrhoids, No ulcers, No gallbladder problem and Yes black,tarry stools Additional Details: History pancreatitis Mk Hematologic: No blood thinners, No blood disorders, No bleeding, Yes anemia and No blood clots Neuro Neurologic: No system reviewed and no additional complaints, except as documented, No as per HPI, No abnormal gait, No abnormal hearing, No abnormal movements, No abnormal speech, No behavioral changes, No burning sensations, No confusion, No convulsions, No disequilibrium, No dizziness, No localized weakness, No frequent falls, No headache(s), No lack of coordination, No loss of vision, No memory loss, No numbness, No other visual disturbances, No radicular pain, No restless legs, No sensory deficit, No syncope, No tingling, No tremor(s), No weakness and No other Exam Const General: cooperative, healthy appearing, comfortable and no acute distress [facility] Head: normal to inspection Eyes General: appearance normal, both eyes and all related structures Neck Neck: normal visual inspection Neck mass: No Chest Other: Right chest- previous catheter site c/d/i. Very small scab noted. No erythema or infection noted. Opening appears completely healed. No drainage noted. Resp Effort & Inspection: normal respiratory effort Auscultation: clear to auscultation bilaterally Cardio Rate: regular rate Rhythm: regular rhythm GI Inspection: normal to inspection and obesity Palpation: soft Auscultation: normal bowel sounds Skin General: no rashes or lesions noted Neuro General: no focal motor deficits and CN's II-XI intact bilaterally Extrem Other: Right forearm AV fistula- good pulse, diminished bruit and thrill mid forearm. Psych Appearance: grossly normal Affect: normal affect Assessment and Plan Assessment and Plan (1) Displacement of vascular dialysis catheter, initial encounter: Status: Acute Plan - Carmelita VELEZ PA-C: Previous catheter site appears to be healed very well Patient may shower He will no longer need to keep the area covered (2) Problem with dialysis access: Status: Acute Qualifiers: Encounter type: initial encounter Qualified Code(s): T82.898A - Other specified complication of vascular prosthetic devices, implants and grafts, initial encounter Plan - Carmelita VELEZ PA-C: Dr. Quintanilla will plan to perform a right forearm fistulogram. Procedure details, risks and benefits have been explained. He may continue his aspirin for the procedure. Patient is limited on time frame due to open heart surgery. We will attempt in every way to accommodate this procedure prior to the patient having open heart surgery. Patient has had the opportunity to ask and have questions answered. Patient verbally understands and agrees with the plan. Coding Level of Care Code Off vis,est,level 3 Diagnoses Displacement of vascular dialysis catheter, initial encounter T82.42XA Problem with dialysis access T82.898A Encounter type: initial encounter 11/12/21 1554<Electronically signed by Carmelita VELEZ PA-C>Date Carmelita VELEZ PA-C I have re-examined the patient. There are no clinical changes since date of exam.
--- NOTE | 2021-11-20 10:34 | OP.PCM_ITS ---
Problems Associated Problem List Diagnoses (1) Problem with dialysis access: Report of Operation Date of Procedure: 11/20/21 Pre-Operative Diagnosis: Diminished flow right forearm radiocephalic arteriovenous hemodialysis fistula Post-Operative Diagnosis: Proximal fistula or arterial anastomotic stenosis. For large sidebranch competitive flow veins Surgery/Procedure Performed:: Right upper extremity fistulogram with 6 x 80 mm EverCross angioplasty Description of Surgical Findings:: Timeout informed consent was obtained. 51-year-old gentleman was taken to the special procedures lab placed on the table he received 50 mcg of fentanyl and 2 mg Versed is intravenous sedation the right upper semiwas sterilely prepped and draped ultrasound was used to identify the cephalic vein in the proximal volar forearm. Retrograde with flow 2% lidocaine was instilled and then a micropuncture needle was inserted micropuncture wire inserted 6 [place] sheath inserted. Using an 035 angled Gli dewire and a 4 [place] Irish glide cath I gain access to the radial artery proximal to the anastomosis. Using Isovue contrast fistulogram was obtained. This demonstrated moderate arterial venous stenosis. The fistula itself appeared to be generally well matured. There was no less than 4 competitive sidebranch flow with a very large one emanating laterally. There is additional 1 flowing immediately posteriorly. I completed the fistulogram for the upper arm demonstrating good upper arm cephalic and basilic outflow and good central venous outflow. I performed a 6 x 80 mm EverCross angioplasty of the arterial anastomosis and proximal portion of the fistula. Balloon was insufflated to 14 darrion of pressure for the main portion of the vein and held for 2 and half minutes. The anastomosis was treated at 7 darrion of pressure and held for 3 minutes. It is of note that the patient also received 5000's of heparin prior to the extensive angioplasty. At the completion of the procedure the balloons and catheters were removed. U suture of 4-0 nylon was placed. Hemostasis was intact. The fistula did have a pulse and palpable thrill. Images demonstrate a right forearm radiocephalic arteriovenous fistula with 4 large comparative sidebranch flow in the proximal portion of the fistula which is in the distal forearm area. There is good upper arm and central venous outflow. There was felt to be some mild to moderate arterial anastomotic stenosis which appeared to be improved subsequent to the angioplasty. The patient was taken to the recovery area in satisfactory condition without apparent complication Specimens none. Drains none. Blood loss minimal. Reggie Quintanilla M.D., F.A.C.S. Surgeon: Reggie Quintanilla Type of Anesthesia: IV Sedation and Local
== END 2021-11-20 23:59 | disposition home or self-care (01) ==
PROVIDERS: PCP Internal Medicine; Referring Provider Surgery; Visit Provider Surgery
DX: T82.42XA Displacement of vascular dialysis catheter, initial encounter (principal); T82.898A Other specified complication of vascular prosthetic devices, implants and grafts, initial encounter; E11.40 Type 2 diabetes mellitus with diabetic neuropathy, unspecified; E11.22 Type 2 diabetes mellitus with diabetic chronic kidney disease; Z79.4 Long term (current) use of insulin; I12.9 Hypertensive chronic kidney disease with stage 1 through stage 4 chronic kidney disease, or unspecified chronic kidney disease; E78.00 Pure hypercholesterolemia, unspecified; N18.9 Chronic kidney disease, unspecified; Y82.9 Unspecified medical devices associated with adverse incidents
CPT/HCPCS: 36415; 36902; 76937; 80048; 85027; 99152; 99153; Q9967; C1725; C1769

== ENCOUNTER 2021-12-26 10:35 | Outpatient (CLI) | payer MEDICAID, SELFPAY ==
[2021-12-26 10:53] LABS: Platelet Count 166 K/mm3 (150-450)
[2021-12-26 11:09] LABS: Prothrombin Time (Protime)PT. 12.1 SECONDS (11.7-14.9)
[2021-12-26 11:10] LABS: Partial Thromboplast Time 30.4 Seconds (24.1-36.2)
--- NOTE | 2021-12-26 11:13 | US_ITS ---
STUDY: ABDOMINAL ULTRASOUND -LIMITED REASON FOR VISIT: Male, 51 years old FLUID TECHNIQUE: Limited abdomen ultrasound for fluid. TECHNICAL QUALITY: Adequate. COMPARISON: None. FINDINGS: Images obtained all 4 quadrants. No free fluid identified. US/Abdomen Limited IMPRESSION: No free fluid identified. Electronically Signed: Romana Easley MD at 5:52 EDT ,
[2021-12-26 11:53] VITALS: BP 144/80; PULSE 94; RESP 16; O2SAT 99
== END 2021-12-26 23:59 | disposition home or self-care (01) ==
LOC: LAB 10:36 → US 10:54
PROVIDERS: PCP Internal Medicine; Visit Provider Nurse Practitioner Adult Health
DX: R18.8 Other ascites (principal)
CPT/HCPCS: 36415; 76705; 85049; 85610; 85730

== ENCOUNTER 2021-12-31 08:10 | Outpatient (CLI) | payer MEDICAID, SELFPAY ==
[2021-12-31 08:15] VITALS: PULSE 100; PULSE 102; PULSE 104; PULSE 109; PULSE 118; PULSE 120; PULSE 86; PULSE 98; O2SAT 90; O2SAT 91; O2SAT 92; O2SAT 96; O2SAT 98; O2SAT 99
--- NOTE | 2021-12-31 09:22 | PCM.PSN.6M ---
PSN 6 Minute Walk Test 6 Minute Walk Test 6 Minute Walk Test: 6 Minute Walk Test PSN:6-Minute Walk Test Start: 12/31/21 08:32 Freq: Status: Active Protocol: [id number].6MINW Document 12/31/21 08:15 HJ (Rec: 12/31/21 08:35 [id number]) 6 Minute Walk Test Date Performed 12/31/21 Time Performed 08:15 Height 5 ft 10 in Weight: 108.862 kg Weight in Pounds 240.[address]: Omari Hayes FIO2 (% Oxygen) 21 Assistive device used: None Pre-test Oxygen Delivery Method Room Air Pulse Ox (%) 98 Pulse Rate (60-100 beats/min) 100 Dyspnea Mary Scale (0-10) 0 Exertion Mary Scale (6-20) 6 1st minute Oxygen Delivery Method Room Air Pulse Ox (%) 92 Pulse Rate (60-100 beats/min) 98 2nd minute Oxygen Delivery Method Room Air Pulse Ox (%) 92 Pulse Rate (60-100 beats/min) 86 3rd minute Oxygen Delivery Method Room Air Pulse Ox (%) 91 Pulse Rate (60-100 beats/min) 102 H 4th minute Oxygen Delivery Method Room Air Pulse Ox (%) 90 Pulse Rate (60-100 beats/min) 104 H 5th minute Oxygen Delivery Method Room Air Pulse Ox (%) 92 Pulse Rate (60-100 beats/min) 109 H 6th minute Oxygen Delivery Method Room Air Pulse Ox (%) 96 Pulse Rate (60-100 beats/min) 120 H Post-test Oxygen Delivery Method Room Air Pulse Ox (%) 99 Pulse Rate (60-100 beats/min) 118 H Dyspnea Mary Scale (0-10) 2 Exertion Mary Scale (6-20) 11 Full Laps Walked 13 Partial Lap, Number of Tiles Walked 34 Total Distance Walked (ft) 801 Interpretation Interpretation: The patient was noted to be 98% on room air at rest, but rapidly desaturated as low as 90% with ambulation. In total, the patient traveled 801 feet over the course of 6 minutes with no assistive devices or breaks. The patient did have significant tachycardia as high as 120 bpm. These findings are consistent with a respiratory limitation exercise tolerance. Recommendations Recommendations: No supplemental oxygen is indicated at this time. However, patient will need to be followed closely given level of desaturation.
== END 2021-12-31 23:59 | disposition home or self-care (01) ==
PROVIDERS: PCP Internal Medicine; Referring Provider Internal Medicine Critical Care Medicine; Visit Provider Internal Medicine Critical Care Medicine
DX: F17.210 Nicotine dependence, cigarettes, uncomplicated (principal)
CPT/HCPCS: 94618